=== PATIENT | male | born 1945 | race Caucasian/White ===

== ENCOUNTER → 2017-10-09 06:35 | Outpatient (CLI) | payer MEDICARE, BC, SELFPAY ==
[2017-10-09 07:46] LABS: AST(SGOT) 30 U/L (15-37); Alanine Aminotransfer ALT/SGPT 38 U/L (16-61); Albumin, Serum 3.6 g/dL (3.2-5.0); Alkaline Phosphatase 106 U/L (45-117); Bilirubin, Direct 0.13 mg/dL (0.00-0.30); Cholesterol 120 mg/dL (200); Globulin 3.8 g/dL (2.2-4.2); High Density Lipoprotein 29 mg/dL; Protein, Total 7.4 g/dL (6.4-8.2); Triglycerides 181 mg/dL; Very Low Density Lipoprotein 36 mg/dL (5-40)
== END ==
PROVIDERS: Nurse Practitioner Family; Family Provider Family Medicine; PCP Family Medicine; Visit Provider Internal Medicine Cardiovascular Disease
DX: E78.5 Hyperlipidemia, unspecified (principal); Z79.899 Other long term (current) drug therapy
CPT/HCPCS: 36415; 80061; 80076

== ENCOUNTER → 2018-01-10 09:24 | Outpatient (CLI) | payer MEDICARE, BC, SELFPAY ==
--- NOTE | 2018-01-10 09:26 | STE_ITS ---
Reason For Study: CAD, S/P CABG Stress Results Protocol: Lucas Protocol Maximum Predicted HR: 148 bpm Target HR: 126 bpm% Max imum Predicted HR: 89 % DurationHeart Rate Stage (mm:ss) (bpm) BPCom ment Baseline 45 138/82 No Chest Pain Lucas Protocol Stage I 3:00 86 130/80No Chest Pain Lucas Protocol Stage II 3:00 11 1 164/78No Chest Pain Lucas Protocol Stage III 2:00 13 1 180/72No Chest Pain; Positive Left Hip Pain Recovery 86 134/76 No Chest Pain Stress Duration: 8:00 mm:ss Maximum Stress HR: 131 bpmM ETS: 10 Baseline Echocardiogram Findings The estimated ejection fraction is 65 %. Stress Echo Wall motion Data Resting WMIntermediate WMStress WM Resting Wall Motion Wall Motion Stress No regional wall motion No regional wall motion abnormalities noted. abnormalities noted. EKG Data The baseline ECG displays normal sinus rhythm. The patient exercised according to the regular Lucas protocol for a total duration of 8:00. The maximum heart rate attained was 131 beats per minute. This was 88% of maximum predicted heart rate. The patient exercised into stage 3 of the Lucas protocol. During stress, there were no ST or T wave changes noted to suggest ischemia. No clinical angina was noted. No arrhythmias noted. Interpretation Summary The estimated ejection fraction is 65 %. Normal, adequate, treadmill echocardiogram. Negative for ischemia by EKG and echocardiographic anterior. No anginal symptoms noted. No arrhythmias noted. Appropriate blood pressure response to exercise. Average exercise capacity for age. Test terminated due to left hip pain. Final LVEF is 75%. No complications. Ordering Physician: Margarito Deras Referring Physician: Margarito Deras Performed By: Maricruz Doherty RDCS
== END ==
PROVIDERS: Family Provider Family Medicine; PCP Family Medicine; Referring Provider Internal Medicine Cardiovascular Disease; Visit Provider Internal Medicine Cardiovascular Disease
DX: I25.10 Atherosclerotic heart disease of native coronary artery without angina pectoris (principal); I25.2 Old myocardial infarction; I10 Essential (primary) hypertension; E78.5 Hyperlipidemia, unspecified; Z95.1 Presence of aortocoronary bypass graft
CPT/HCPCS: 93017; 93350

== ENCOUNTER → 2018-05-18 08:10 | Outpatient (CLI) | payer MEDICARE, BC, SELFPAY ==
[2017-10-09 14:29] VITALS: BMI 26.6
[2018-05-18 09:42] LABS: AST(SGOT) 22 U/L (15-37); Alanine Aminotransfer ALT/SGPT 38 U/L (16-61); Albumin, Serum 3.9 g/dL (3.2-5.0); Alkaline Phosphatase 93 U/L (45-117); Bilirubin, Direct 0.14 mg/dL (0.00-0.30); Cholesterol 149 mg/dL (200); Globulin 3.4 g/dL (2.2-4.2); High Density Lipoprotein 39 mg/dL; Protein, Total 7.3 g/dL (6.4-8.2); Triglycerides 135 mg/dL; Very Low Density Lipoprotein 27 mg/dL (5-40)
== END ==
PROVIDERS: Family Provider Family Medicine; PCP Family Medicine; Referring Provider Nurse Practitioner Family; Visit Provider Nurse Practitioner Family
DX: E78.5 Hyperlipidemia, unspecified (principal)
CPT/HCPCS: 36415; 80061; 80076

== ENCOUNTER → 2018-06-30 09:29 | Outpatient (CLI) | payer MEDICARE, BC, SELFPAY ==
[2018-05-21 13:21] VITALS: BMI 27.4
[2018-06-30 10:37] LABS: AST(SGOT) 32 U/L (15-37); Alanine Aminotransfer ALT/SGPT 47 U/L (16-61); Albumin, Serum 3.7 g/dL (3.2-5.0); Alkaline Phosphatase 100 U/L (45-117); Bilirubin, Direct 0.16 mg/dL (0.00-0.30); Cholesterol 120 mg/dL (200); Globulin 3.4 g/dL (2.2-4.2); High Density Lipoprotein 31 mg/dL; Protein, Total 7.1 g/dL (6.4-8.2); Triglycerides 150 mg/dL; Very Low Density Lipoprotein 30 mg/dL (5-40)
== END ==
PROVIDERS: Family Provider Family Medicine; PCP Family Medicine; Referring Provider Internal Medicine Cardiovascular Disease; Visit Provider Internal Medicine Cardiovascular Disease
DX: E78.5 Hyperlipidemia, unspecified (principal); I25.2 Old myocardial infarction
CPT/HCPCS: 36415; 80061; 80076

== ENCOUNTER 2018-08-21 13:03 | Inpatient (IN) | payer MEDICARE, BC, SELFPAY ==
[2018-05-21 13:21] VITALS: BMI 27.4
[2018-08-21] VITALS (14 sets, daily range): BP systolic 108–174; BP diastolic 57–84; PULSE 43–72; RESP 14–22; TEMP 36–37.2; O2SAT 96–100; BMI 27.8; BMI 27.9; BMI 28.0
--- NOTE | 2018-08-21 13:10 | RAD_ITS ---
STUDY: X-RAY - RIGHT TIBIA AND FIBULA REASON FOR EXAM: Male, 72 years old. Large laceration. TECHNIQUE: AP and lateral view(s) of the tibia and fibula were obtained. COMPARISON: None. FINDINGS: Normal visualized tibia. Normal visualized fibula. Large laceration is seen overlying the lower half of the leg. No radiopaque foreign body is present. RAD/Tibia & Fibula 2 Views IMPRESSION: Large laceration. No radiopaque foreign body is seen. Electronically Signed: Gm Helton, at 14:03 EDT , Service support ,
[2018-08-21] MEDS: Diphth,Pertuss(Acell),Tet Vac 0.5 ML Vial IM (13:27)
[2018-08-21] MEDS: Cefazolin 1 GM/50 ML BAG IV (13:33)
--- NOTE | 2018-08-21 13:38 | ED.VIS.GEN ---
History of Present Illness Chief Complaint: Trauma Informant: Patient Onset: Today Context: Sudden Onset Timing: Continuous Quality: Blunt trauma anterior distal right leg Location: Anterior distal right leg Current Severity: Moderate Maximum Severity: Moderate Worsened by: Nothing Relieved by: Nothing Associated Symptoms: No associated symptoms Narrative: Patient was working on an air compressor. Air compressor fell. He sustained what paramedics described as a degloving injury of his distal right leg. He denies history diabetes. He has history of coronary disease, hypertension and dyslipidemia. He is on aspirin. He is on no anticoagulant. He denies antibiotic allergies. He denies symptoms to suggest peripheral arterial disease. 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 Past Medical History - Allergies and Home Meds Allergies/Adverse Reactions: Allergies No Known Allergies Allergy (Verified 05/21/18 13:24) Primary Care Physician: Gabe Rodriguez MD [Primary Care Provider] - Prior records reviewed: Yes Surgical History: coronary bypass surgery, total knee arthroplasty Lives: Spouse/ Significant Other Smoking Status: Former smoker Alcohol: None Review of Systems General: Denies: Chills, Fever, Sweats Eyes: Denies: Visual changes - bilaterally, Diplopia ENT: Denies: Rhinorrhea, Sore throat Cardiovascular: Denies: Chest pain, Palpitations Respiratory: Denies: Dyspnea, Cough, Dyspnea on exertion Gastrointestinal: Denies: Abdominal pain, Nausea, Vomiting, Diarrhea, Melena, Hematochezia Genitourinary: Denies: Dysuria, Hematuria, Frequency Musculoskeletal: Reports: Extremity Pain - Minimal secondary to blunt trauma. Denies: Myalgias, Arthralgias, Back pain, Swelling Skin: Denies: Rash, Wounds Neurological: Denies: Headache, Weakness, Numbness Hematologic: Denies: Easy bruising, Easy bleeding Allergy: Denies: Uticaria, Swelling of the mouth Physical Exam Vital Signs/Narrative: Vital Signs Temp Pulse Resp BP Pulse Ox 08/21/18 13:08 98.9 F 98 08/21/18 13:03 97.9 F 53 L 16 174/82 H 98 Inital Vital Signs reviewed: Yes General: Well nourished, Well developed, No Acute Distress Head: Normocephalic, Atraumatic Eyes: Perrl, EOMI ENT: Moist mucous membranes, No rhinorrhea Neck: Supple, Nontender Cardiovascular: Regular rate, Regular rhythm, No murmurs Respiratory: No distress, CTA bilaterally, Chest nontender Abdomen: Soft, Nontender, Nondistended, Normal bowel sounds Back: Nontender, Normal Inspection Extremities: No edema, Tenderness, - - Is an upside down laceration anterior mid to distal right leg with exposure of tibia and fascia. Patient is able to dorsi and plantarflex his foot. He is able to plantar and dorsiflex his toes. PT pulses palpable and 2+. Unable to palpate DP pulse either side. Capillary refill in toes is normal. Skin: Normal color, No rash Neurological: Alert, Oriented x3, Cranial nerves II-XII grossly intact, Normal Strength, Normal Sensation. Negative for: Normal Gait Psychological: Normal affect, Normal Mood Diagnostic/Tx/Re-eval 2 view x-ray of the right hip tibia reveals significant soft tissue injury with a small foreign body noted near the junction of the mid and distal third of the leg. Patient was made n.p.o. Patient received 1 g of Ancef. Contacted Dr. Woodard for operative repair. She has seen patient and plans to take him to the OR. Will obtain EKG and blood work preoperatively. He requested hospitalist for medical clearance/risk stratification. The hospitalist has been paged. ED Disposition - Plan for ED Patient: Disposition: Acute Care Hospital [facility] Diagnosis: Laceration of leg not thigh, right, with tendon involvement Referrals: Gabe Rodriguez MD [Primary Care Provider] -
--- NOTE | 2018-08-21 13:40 | EKG12_ITS ---
Test Reason : TRAUMA Blood Pressure : / mmHG Vent. Rate : 043 BPM Atrial Rate : 043 BPM P-R Int : 192 ms QRS Dur : 078 ms QT Int : 460 ms P-R-T Axes : 054 054 054 degrees QTc Int : 388 ms Marked sinus bradycardia Abnormal ECG Confirmed by JAVY HUFFMAN ([id number]), sound editor ADRIANA DORMAN ([id number]) on 08/24/2018 11:07:19 AM Referred By: Jennie Woodard Confirmed By:JAVY HUFFMAN
--- NOTE | 2018-08-21 13:52 | PCM.CONS.GEN ---
Problem List (1) Right leg pain Status: Chronic (2) Laceration of leg not thigh, right, with tendon involvement Status: Acute Qualifiers: Encounter type: initial encounter Qualified Code(s): S81.811A - Laceration without foreign body, right lower leg, initial encounter; S86.921A - Laceration of unspecified muscle(s) and tendon(s) at lower leg level, right leg, initial encounter Reason for Consult Date of Consultation: 08/21/18 Reason for Consultation: leg injury History of Present Illness: The patient is a 72 year old M was seen in the ER for injury that occurred at 12:30 today when a cast iron air compressor fell on his right saleh off of a shelf. He denies other injuries. A tourniquet was placed and he was taken to the ER. He denies new loss of feeling or pulsatile bleeding. His pain is mild to moderate. He denies previous claudication prior to this injury or previous known peripheral vascular disease. He does report a h/o cardiac disease and former smoking habits. He remains active at work. His tetanus has been updated today. Past Medical History Past Medical History (Chronic Problems): Chronic Problems (Last Reviewed 05/21/18 @ 13:15 by Annette Mahmood) Right leg pain (Chronic) CAD (coronary artery disease) (Chronic) 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) Atherosclerosis of coronary artery of [place] heart without angina pectoris (Chronic) CABG x 3 ARORA-LAD, SVG-PDA, SVG-PLB Cx 04/13/2007 H/O coronary artery bypass surgery (Chronic 04/13/07) CABG x 3 ARORA-LAD, SVG-PDA, SVG-PLB Cx 04/13/2007 Hypertension (Chronic) Hyperlipemia (Chronic) Medical History: Medical History (Last Reviewed 05/21/18 @ 13:15 by Annette Mahmood) Phlegmasia cerulea dolens (Chronic) I80.209 Old myocardial infarction (Chronic) I25.2 Atherosclerosis of coronary artery of [place] heart without angina pectoris (Chronic) I25.10 CABG x 3 ARORA-LAD, SVG-PDA, SVG-PLB Cx 04/13/2007 Hypertension (Chronic) I10 Hyperlipemia (Chronic) E78.5 Lower GI bleed 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 [Ecotrin] 81 mg PO DAILY@0800 08/21/18 Atorvastatin Calcium [Lipitor] 80 mg PO QHS 08/21/18 Lisinopril [Prinivil] 5 mg PO DAILY 08/21/18 Metoprolol Tartrate [Lopressor 12.5 mg PO BID 08/21/18 (beta shannan)] [place]-3 Fatty Acids/Fish Oil 1 each PO BID 08/21/18 [[place] 3 1,000 mg Softgel] Ranitidine HCl [Zantac 75] 75 mg PO DAILY PRN PRN 08/21/18 Surgical History: Surgical History (Last Reviewed 05/21/18 @ 13:15 by Annette Mahmood) H/O coronary artery bypass surgery (Chronic) Onset Date: 04/13/07 Z95.1 CABG x 3 ARORA-LAD, SVG-PDA, SVG-PLB Cx 04/13/2007 H/O colonoscopy with polypectomy Z98.890, Z86.010 History of total left knee replacement (TKR) Z96.652 repair of renal artery aneurysm Surgical History: coronary bypass surgery, total knee arthroplasty Lives: Spouse/ Significant Other Smoking Status: Former smoker Alcohol: None - *Family History Maternal Family History: Family History (Last Reviewed 05/21/18 @ 13:15 by Annette Mahmood) Father CAD (coronary artery disease) History Items: No pertinent history Paternal Family History: Family History (Last Reviewed 05/21/18 @ 13:15 by Annette Mahmood) Father CAD (coronary artery disease) History Items: Heart Disease Review of Systems Constitutional: Denies: Chills, Fever, Fatigue HEENT: Denies: Sore Throat Cardiovascular: Denies: Chest Pain, Claudication Respiratory: Denies: Shortness of Breath Gastrointestinal: Denies: Nausea, Vomiting Musculoskeletal: Reports: Leg Pain. Denies: Foot Pain Skin: Reports: Skin Changes, Wounds Neurological: Reports: Numbness - left leg only after knee replacement, not to right lower extremity Psychiatric: Reports: Anxiety Hematologic/ Lymphatic: Denies: Easy Bruising, Easy Bleeding Patient Problems: Active and Suspected Problems (Last Reviewed 05/21/18 @ 13:15 by Annette Mahmood) Laceration of leg not thigh, right, with tendon involvement (Acute) Laceration (Acute) - Physical Exam General: Alert, Oriented x3, Cooperative HEENT: Atraumatic Extremities: No cyanosis, Capillary Refill Less than 3 Seconds - all digits of right foot and to all traumatic laceration flap site. There is some duskiness to the apex of the flap noted. no pulsatile bleeding was noted., Diminished Peripheral Pulses - non palpable bilateral DP. 2/4 PT palpable bilateral. mild lower extremity edema right Skin: Ulcer/ Wound - 10.5 x 13.5 cm x 0.8 cm deep anterior leg laceration with exposed healthy appearing tibia crest. There is also exposed medial compartment muscle belly noted. The anterior compartment is also exposed and tendons/ muscles remain in their sheath. no purulence, no erythema, no streaking, no odor noted. no kalia necrosis. the peripheral skin is hairless and atrophic. Musculoskeletal: No Tenderness to Palpation of Joints or Extremities, Tenderness - pain with acute wound manipulation noted. compartements remain soft to palpate right lower limb, - - AROM digits x 10. 5/5 ankle dorsiflexion, plantarflexion, eversion noted. 4-/5 resistive inversion with guarding noted / pain apprehension. negative bib and carrington signs bilateral Neurological: Sensory exam intact to light touch and pain - foot, ankle, leg dermatomes intact right and diminished, left (he reports this occurred after his leg surgery) Psych/Mental Status: Normal Affect, Appropriate Vital Signs Temp Pulse Resp BP Pulse Ox 98.9 F 53 L 16 174/82 H 98 08/21/18 13:08 08/21/18 13:03 08/21/18 13:03 08/21/18 13:03 08/21/18 13:08 Oxygen Delivery Method Room Air Weight: 90.6 kg Body Mass Index (BMI) 27.8 Assessment/Plan All Active Problems (Last Reviewed 05/21/18 @ 13:15 by Annette Mahmood) Laceration of leg not thigh, right, with tendon involvement (Acute) Laceration (Acute) Deep laceration with exposed bone and compromise muscle tissue right leg pain medical comorbidities I reviewed and discussed his case. Xrays were negative for acute fracture or retained foreign body. Tetanus updated this afternoon in ER. CBC, CMP, EKG were ordered. I recommend operating room debridement, irrigation, closure of traumatic flap, deep wound culture, and wound vac application. He is amendable to proceed. He has been NPO since 11:30 am. He has a significant past medical history of cardiac disease including previous myocardial infarctions and CABG procedures, HTN, and hyperlipidemia. He denies previous anesthesia complications. He denies being on an anticoagulation medication at this time. I anticipate this can be completed with MAC/local and recommend 24 hrs of antibiotics due to the amount of deep tissue exposure including bone and soft tissue loss. Cefazolin was administered in the ER. I anticipate he will be placed in a splint after the procedure and will remain temporarily non weightbearing with an assistive device to reduce repair tension. I will coordinate operating room availability and clearance for surgery with anesthesia as well as the hospitalist. He appears to have gross perfusion with palpable and audible PT pulse. He denied claudication. There is a lack of DP pulse and health history risk for vascular disease including cardiac disease and smoking history. Vascular non invasive screening will be planned after this acute injury is repaired to screen for vascular disease. This case was discussed with ER physician, Dr. Helton. The preoperative indications, planned procedure, possible benefits, risks, complications, and anticipated healing time and management were discussed in detail with patient. All of his questions were answered. No 100% guarantee was made. He understands risks and complications may include but are not limited to the following: Pain, delayed or nonhealing, infection, need for revisional surgery, loss of sensation, complex regional pain syndrome, arthritis, loss of limb, function, life, blood clot or allergic reaction. Medical clearance was reviewed and discussed with hospitalist, Dr. Perez. Upon review of his CBC and CMP he is only mildly anemic. It is noted he routinely follows with Dr. 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 He is considered stable to proceed at this time with relatively low risk. I will continue to follow up with him while in house. Thank you for the consultation. Please do not hesitate to call if you have any questions. Jennie Woodard DPM, [facility] [phone]
--- NOTE | 2018-08-21 13:56 | CON.PCM_ITS ---
Problem List (1) Right leg pain Status: Chronic (2) Laceration of leg not thigh, right, with tendon involvement Status: Acute Qualifiers: Encounter type: initial encounter Qualified Code(s): S81.811A - Laceration without foreign body, right lower leg, initial encounter; S86.921A - Laceration of unspecified muscle(s) and tendon(s) at lower leg level, right leg, initial encounter Reason for Consult Date of Consultation: 08/21/18 Reason for Consultation: leg injury History of Present Illness: The patient is a 72 year old M was seen in the ER for injury that occurred at 12:30 today when a cast iron air compressor fell on his right saleh off of a shelf. He denies other injuries. A tourniquet was placed and he was taken to the ER. He denies new loss of feeling or pulsatile bleeding. His pain is mild to moderate. He denies previous claudication prior to this injury or previous known peripheral vascular disease. He does report a h/o cardiac disease and former smoking habits. He remains active at work. His tetanus has been updated today. Past Medical History Past Medical History (Chronic Problems): Chronic Problems (Last Reviewed 05/21/18 @ 13:15 by Annette Mahmood) Right leg pain (Chronic) CAD (coronary artery disease) (Chronic) 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) Atherosclerosis of coronary artery of [place] heart without angina pectoris (Chronic) CABG x 3 ARORA-LAD, SVG-PDA, SVG-PLB Cx 04/13/2007 H/O coronary artery bypass surgery (Chronic 04/13/07) CABG x 3 ARORA-LAD, SVG-PDA, SVG-PLB Cx 04/13/2007 Hypertension (Chronic) Hyperlipemia (Chronic) Medical History: Medical History (Last Reviewed 05/21/18 @ 13:15 by Annette Mahmood) Phlegmasia cerulea dolens (Chronic) I80.209 Old myocardial infarction (Chronic) I25.2 Atherosclerosis of coronary artery of [place] heart without angina pectoris (Chronic) I25.10 CABG x 3 ARORA-LAD, SVG-PDA, SVG-PLB Cx 04/13/2007 Hypertension (Chronic) I10 Hyperlipemia (Chronic) E78.5 Lower GI bleed 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 [Ecotrin] 81 mg PO DAILY@0800 08/21/18 Atorvastatin Calcium [Lipitor] 80 mg PO QHS 08/21/18 Lisinopril [Prinivil] 5 mg PO DAILY 08/21/18 Metoprolol Tartrate [Lopressor 12.5 mg PO BID 08/21/18 (beta shannan)] [place]-3 Fatty Acids/Fish Oil 1 each PO BID 08/21/18 [[place] 3 1,000 mg Softgel] Ranitidine HCl [Zantac 75] 75 mg PO DAILY PRN PRN 08/21/18 Surgical History: Surgical History (Last Reviewed 05/21/18 @ 13:15 by Annette Mahmood) H/O coronary artery bypass surgery (Chronic) Onset Date: 04/13/07 Z95.1 CABG x 3 ARORA-LAD, SVG-PDA, SVG-PLB Cx 04/13/2007 H/O colonoscopy with polypectomy Z98.890, Z86.010 History of total left knee replacement (TKR) Z96.652 repair of renal artery aneurysm Surgical History: coronary bypass surgery, total knee arthroplasty Lives: Spouse/ Significant Other Smoking Status: Former smoker Alcohol: None - *Family History Maternal Family History: Family History (Last Reviewed 05/21/18 @ 13:15 by Annette Mahmood) Father CAD (coronary artery disease) History Items: No pertinent history Paternal Family History: Family History (Last Reviewed 05/21/18 @ 13:15 by Annette Mahmood) Father CAD (coronary artery disease) History Items: Heart Disease Review of Systems Constitutional: Denies: Chills, Fever, Fatigue HEENT: Denies: Sore Throat Cardiovascular: Denies: Chest Pain, Claudication Respiratory: Denies: Shortness of Breath Gastrointestinal: Denies: Nausea, Vomiting Musculoskeletal: Reports: Leg Pain. Denies: Foot Pain Skin: Reports: Skin Changes, Wounds Neurological: Reports: Numbness - left leg only after knee replacement, not to right lower extremity Psychiatric: Reports: Anxiety Hematologic/ Lymphatic: Denies: Easy Bruising, Easy Bleeding Patient Problems: Active and Suspected Problems (Last Reviewed 05/21/18 @ 13:15 by Annette Mahmood) Laceration of leg not thigh, right, with tendon involvement (Acute) Laceration (Acute) - Physical Exam General: Alert, Oriented x3, Cooperative HEENT: Atraumatic Extremities: No cyanosis, Capillary Refill Less than 3 Seconds - all digits of right foot and to all traumatic laceration flap site. There is some duskiness to the apex of the flap noted. no pulsatile bleeding was noted., Diminished Peripheral Pulses - non palpable bilateral DP. 2/4 PT palpable bilateral. mild lower extremity edema right Skin: Ulcer/ Wound - 10.5 x 13.5 cm x 0.8 cm deep anterior leg laceration with exposed healthy appearing tibia crest. There is also exposed medial compartment muscle belly noted. The anterior compartment is also exposed and tendons/ muscles remain in their sheath. no purulence, no erythema, no streaking, no odor noted. no kalia necrosis. the peripheral skin is hairless and atrophic. Musculoskeletal: No Tenderness to Palpation of Joints or Extremities, Tenderness - pain with acute wound manipulation noted. compartements remain soft to palpate right lower limb, - - AROM digits x 10. 5/5 ankle dorsiflexion, plantarflexion, eversion noted. 4-/5 resistive inversion with guarding noted / pain apprehension. negative bib and carrington signs bilateral Neurological: Sensory exam intact to light touch and pain - foot, ankle, leg dermatomes intact right and diminished, left (he reports this occurred after his leg surgery) Psych/Mental Status: Normal Affect, Appropriate Vital Signs Temp Pulse Resp BP Pulse Ox 98.9 F 53 L 16 174/82 H 98 08/21/18 13:08 08/21/18 13:03 08/21/18 13:03 08/21/18 13:03 08/21/18 13:08 Oxygen Delivery Method Room Air Weight: 90.6 kg Body Mass Index (BMI) 27.8 Assessment/Plan All Active Problems (Last Reviewed 05/21/18 @ 13:15 by Annette Mahmood) Laceration of leg not thigh, right, with tendon involvement (Acute) Laceration (Acute) Deep laceration with exposed bone and compromise muscle tissue right leg pain medical comorbidities I reviewed and discussed his case. Xrays were negative for acute fracture or retained foreign body. Tetanus updated this afternoon in ER. CBC, CMP, EKG were ordered. I recommend operating room debridement, irrigation, closure of traumatic flap, deep wound culture, and wound vac application. He is amendable to proceed. He has been NPO since 11:30 am. He has a significant past medical history of cardiac disease including previous myocardial infarctions and CABG procedures, HTN, and hyperlipidemia. He denies previous anesthesia complic ations. He denies being on an anticoagulation medication at this time. I anticipate this can be completed with MAC/local and recommend 24 hrs of antibiotics due to the amount of deep tissue exposure including bone and soft tissue loss. Cefazolin was administered in the ER. I anticipate he will be placed in a splint after the procedure and will remain temporarily non weightbearing with an assistive device to reduce repair tension. I will coordinate operating room availability and clearance for surgery with anesthesia as well as the hospitalist. He appears to have gross perfusion with palpable and audible PT pulse. He denied claudication. There is a lack of DP pulse and health history risk for vascular disease including cardiac disease and smoking history. Vascular non invasive screening will be planned after this acute injury is repaired to screen for vascular disease. This case was discussed with ER physician, Dr. Helton. The preoperative indications, planned procedure, possible benefits, risks, complications, and anticipated healing time and management were discussed in detail with patient. All of his questions were answered. No 100% guarantee was made. He understands risks and complications may include but are not limited to the following: Pain, delayed or nonhealing, infection, need for revisional surgery, loss of sensation, complex regional pain syndrome, arthritis, loss of limb, function, life, blood clot or allergic reaction. Medical clearance was reviewed and discussed with hospitalist, Dr. Perez. Upon review of his CBC and CMP he is only mildly anemic. It is noted he routinely follows with Dr. Deras, inspection supervisor and his last reported ejection fraction was 75%. He is considered stable to proceed at this time with relatively low risk. I will continue to follow up with him while in house. Thank you for the consultation. Please do not hesitate to call if you have any questions. Jennie Woodard DPM, [facility] [phone]
--- NOTE | 2018-08-21 14:10 | ED.RN ---
PT CONTINUES TO DENY PAIN.
[2018-08-21 14:19] LABS: Absolute Lymphocyte Count 1.34 X10^3/ul (0.83-4.51); Absolute Neutrophil Count 7.1 X10^3/uL (2.0-7.7); Basophil# 0.02 X10^3/uL; Basophil% 0.2 % (0-1); Eosinophils% 1.1 % (0-5); Hematocrit 38.7 % (40-54); Hemoglobin 12.9 g/dl (13.0-16.5); Lymphocyte # 1.34 X10^3/ul (4.0); Lymphocyte % 14.7 % (19-41); Mean Corp Hgb Conc 33.3 g/gl (32-36); Mean Corpuscular Hgb 29.3 pg (27.0-32.0); Mean Platelet Vol. 10.6 fl (6.2-12.0); Monocyte# 0.51 X10^3/uL; Monocyte% 5.6 % (0-10); Neutrophil # 7.12 X10^3/uL (2.7-7.7); Neutrophil % 78.3 % (47-70); Platelet Count 150 K/mm3 (150-450); RBC Distribution Width CV 13.8 % (11.6-14.6); RBC Distribution Width SD 44.3 fl (35.1-43.9); White Blood Count 9.1 K/mm3 (4.4-11.0)
[2018-08-21 14:20] LABS: POSITIVE COUNT NO; POSITIVE DIFFERENTIAL NO; POSITIVE MORPHOLOGY NO
[2018-08-21 14:30] LABS: Anion Gap 3 (5-15); BUN 23 mg/dL (7-18); BUN/Creat Ratio 22.3 RATIO (10-20); Calcium,Total 8.1 mg/dL (8.5-10.1); Chloride 110 mmol/L (98-107); Creatinine, Serum 1.03 mg/dL (0.70-1.30); EST Glomerular Filtration Rate 75 mL/min (>60); Est Glom Filt Rate - Afr Amer 91 mL/min (>60); Estimated Creatinine Clearance 69.05 ml/min; Glucose 124 mg/dL (74-106); Sodium Level 140 mmol/L (136-145)
--- NOTE | 2018-08-21 14:44 | CASEMGMT ---
RN CM Assessment Introduced role of RN CM to patient and Miesha at bedside.? Patient is alert, oriented and able?to participate in RN CM Assessment. ?Care providers, pharmacy, and demographics verified. Presentation: Working on a Air Compressor when Air Compressor fell on him, Per EMS degloving of Rt Leg. Plan to go to OR. Re-Admit: No Barriers/Issues: None. works for [employer]. PCP: Gabe Rodriguez Specialists: Cardio- Dr Deras Preferred Pharmacy: [facility] Insurance: [employer] A[employer]B, [employer] Rx Benefit:?Yes LNOK: Miesha Vasquez LW/HPOA: None, Declines offered information Living Arrangements:?Lives with in a SS Home, 3 steps to enter. ADL?s: Independent with ambulation and ADL's Transportation: Patient drives, will transport on DC DME: None, No preference on Company if DME needed, Prefers to stay Local HHC: None, No Preference on Agency if HHC needed SNF: None Goal: Return home, Open to HHC. DC PLAN: Home, Dr Perez at bedside s/w patient and - states plan for OR and Possible Wound Vac w/Possible DC around Monday. Possible HH RN for Wound care on DC. Possible WC. OPAL [place].
--- NOTE | 2018-08-21 14:57 | PCM.HP.STD ---
Problem List (1) Laceration Status: Acute (2) CAD (coronary artery disease) Status: Chronic (3) H/O coronary artery bypass surgery Status: Chronic Comment: CABG x 3 ARORA-LAD, SVG-PDA, SVG-PLB Cx 04/13/2007 (4) Hypertension Status: Chronic (5) Hyperlipemia Status: Chronic History of Present Illness Date of Admission: 08/21/18 Chief Complaint: Right lower extremity wound The patient is a 72 year old M with past medical history of CAD with prior CABG, hypertension, hyperlipidemia, who presented to the emergency room from home with right lower extremity wound. The patient was working in his garage and an air pump fell off of an air compressor and caught on his leg as it fell creating a large laceration on the anterior aspect of his right lower extremity saleh. EMS was called, a tourniquet was placed on the right leg, bleeding controlled, and he was brought to the emergency room. He appears comfortable in bed with dressings on his wound. No active bleeding. There is bone exposed. He is mildly anemic at 12.9. Dr. Woodard was called and plans to take the patient to the OR today for repair and probable wound VAC placement. The patient is agreeable. Currently has no complaints. No numbness/tingling in the effected extremity. He is a patient of Dr. Deras, he had a stress test December 2017 at that time it was negative for ischemia, final LVEF was 75%. He is not diabetic and he does not smoke. 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) Atherosclerosis of coronary artery of [place] heart without angina pectoris (Chronic) CABG x 3 ARORA-LAD, SVG-PDA, SVG-PLB Cx 04/13/2007 H/O coronary artery bypass surgery (Chronic 04/13/07) CABG x 3 ARORA-LAD, SVG-PDA, SVG-PLB Cx 04/13/2007 Hypertension (Chronic) Hyperlipemia (Chronic) Medical History: Medical History (Last Reviewed 05/21/18 @ 13:15 by Annette A Ela) Phlegmasia cerulea dolens (Chronic) I80.209 Old myocardial infarction (Chronic) I25.2 Atherosclerosis of coronary artery of [place] heart without angina pectoris (Chronic) I25.10 CABG x 3 ARORA-LAD, SVG-PDA, SVG-PLB Cx 04/13/2007 Hypertension (Chronic) I10 Hyperlipemia (Chronic) E78.5 Lower GI bleed 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 [Ecotrin] 81 mg PO DAILY@0800 08/21/18 Atorvastatin Calcium [Lipitor] 80 mg PO QHS 08/21/18 Lisinopril [Prinivil] 5 mg PO DAILY 08/21/18 Metoprolol Tartrate [Lopressor 12.5 mg PO BID 08/21/18 (beta shannan)] [place]-3 Fatty Acids/Fish Oil 1 each PO BID 08/21/18 [[place] 3 1,000 mg Softgel] Ranitidine HCl [Zantac 75] 75 mg PO DAILY PRN PRN 08/21/18 Surgical History: Surgical History (Last Reviewed 05/21/18 @ 13:15 by Annette Mahmood) H/O coronary artery bypass surgery (Chronic) Onset Date: 04/13/07 Z95.1 CABG x 3 ARORA-LAD, SVG-PDA, SVG-PLB Cx 04/13/2007 H/O colonoscopy with polypectomy Z98.890, Z86.010 History of total left knee replacement (TKR) Z96.652 repair of renal artery aneurysm Surgical History: coronary bypass surgery, total knee arthroplasty Lives: Spouse/ Significant Other Smoking Status: Former smoker Alcohol: None - *Family History Maternal Family History: Family History (Last Reviewed 05/21/18 @ 13:15 by Annette Mahmood) Father CAD (coronary artery disease) History Items: No pertinent history Paternal Family History: Family History (Last Reviewed 05/21/18 @ 13:15 by Annette Mahmood) Father CAD (coronary artery disease) History Items: Heart Disease Review of Systems Constitutional: Denies: Chills, Fever, Weight Change, Fatigue HEENT: Denies: Head Aches, Sinus Congestion, Sinus Drainage Cardiovascular: Denies: Chest Pain, Chest Pressure, Chest Tightness, Edema, Heaviness, Light Headedness, Palpitations Respiratory: Denies: Cough, Shortness of breath at rest, Sputum production Gastrointestinal: Denies: Abdominal Pain, Nausea, Vomiting Genitourinary: Denies: Dysuria Musculoskeletal: Reports: Leg Pain. Denies: Joint Pain, Joint Tenderness Skin: Reports: Wounds - RLE. Denies: Rash Neurological: Denies: Numbness, Tingling, Focal weakness Psychiatric: Denies: Anxiety, Depression, Homicidal Ideations, Suicidal Ideations Hematologic/ Lymphatic: Denies: Easy Bruising, Easy Bleeding VTE Information - Inpt Only VTE Present on Admission: No VTE Mechan Device Prophylaxis: None VTE Pharm Prophylaxis ordered?: Yes Patient Problems: Active and Suspected Problems (Last Reviewed 05/21/18 @ 13:15 by Annette Mahmood) Laceration of leg not thigh, right, with tendon involvement (Acute) Laceration (Acute) - Physical Exam General: Alert, Oriented x3, Cooperative HEENT: Atraumatic, PERRLA, EOMI, Normocephalic Neck: Supple, No JVD, Negative Carotid Bruits Lungs: Clear to auscultation, Normal air movement Cardiovascular: Regular rate, No murmurs Abdomen: Bowel Sounds Present, Soft, Non Tender Extremities: No edema, Capillary Refill Less than 3 Seconds Skin: - - right saleh open laceration, tibia exposed. not actively bleeding. Musculoskeletal: No Tenderness to Palpation of Joints or Extremities Neurological: Cranial nerves II-XII grossly intact Psych/Mental Status: Normal Affect, Appropriate Vital Signs Temp Pulse Resp BP Pulse Ox 98.9 F 43 L 16 131/73 H 96 08/21/18 13:08 08/21/18 14:09 08/21/18 14:09 08/21/18 14:09 08/21/18 14:09 Oxygen Delivery Method Room Air Weight: 199 lb 11.821 oz Body Mass Index (BMI) 27.8 Laboratory Tests Past 24 Hrs 08/21/18 08/21/18 14:10 14:10 WBC 9.1 RBC 4.40 L Hgb 12.9 L Hct 38.7 L MCV 88.0 MCH 29.3 MCHC 33.3 RDW 13.8 RDW Differential 44.3 H Plt Count 150 MPV 10.6 Immature Gran % (Auto) 0.100 Neut % (Auto) 78.3 H Lymph % (Auto) 14.7 L Clarke % (Auto) 5.6 Eos % (Auto) 1.1 Baso % (Auto) 0.2 Absolute Neuts (auto) 7.1 Absolute Lymphs (auto) 1.34 Total Counted Not Reportable Sodium 140 Potassium 4.0 Chloride 110 H Carbon Dioxide 27.0 Anion Gap 3 L BUN 23 H Creatinine 1.03 Estim Creat Clear Calc 69.05 Est GFR (MDRD) Af Amer 91 Est GFR (MDRD) Non-Af 75 BUN/Creatinine Ratio 22.3 H Glucose 124 H Calcium 8.1 L Assessment/Plan All Active Problems (Last Reviewed 05/21/18 @ 13:15 by Annette Mahmood) Laceration of leg not thigh, right, with tendon involvement (Acute) Laceration (Acute) 1. RLE laceration 2/2 being hit by falling metal object - to OR with Dr. Woodard today. Currently bleeding controlled without tourniquet applied. No numbness/tingling. Pain controlled. Mild anemia. Abx prophylaxis with vanc/cefazolin. Likely will receive wound vac. NWB until otherwise directed by podiatry. C/s wound nurse. 2. CAD prior CABG - 12/2017 good stress echo. Resume home meds when appropriate. EKG sinus leda - states always runs slow, no acute changes. 3. HTN/HLD - home meds DVT ppx: per surgeon This patient was seen by Farhad Esposito PA-C under the supervision of Dr. Perez.
[2018-08-21] MEDS: Bupivacaine Mpf 0.5% 30 ML VIAL (16:28)
--- NOTE | 2018-08-21 18:43 | PCM.OPRPT ---
Problem List (1) Right leg pain Status: Chronic (2) Laceration of leg not thigh, right, with tendon involvement Status: Acute Qualifiers: (3) Degloving injury Status: Acute Report of Operation Date of Procedure: 08/21/18 Pre-Operative Diagnosis: Right leg traumatic laceration / degloving injury Post-Operative Diagnosis: Right leg traumatic laceration / degloving injury Surgery/Procedure Performed:: Right leg irrigation and repair of deep widespread traumatic laceration / degloving injury including fascial tissue subcutaneous and skin flap (complex). Application of right leg elisa wound VAC Description of Surgical Findings:: Hemostasis: No tourniquet utilized, minimal electrocauterization and pressure Materials: 2-0 Vicryl and 3-0 nylon Complications: None Intraoperative findings: No deep necrosis. Peripheral apex of skin flap does appear dusky as does just proximal to the apex of the injury site. No gross signs of infection. No pulsatile bleeding was appreciated. The patient tolerated the procedure and anesthesia well. He was transported to the PACU with vital signs stable vascular status intact to the right lower extremity. He was advised to ice and elevate for pain and inflammation management. To remain nonweightbearing with the splint intact to the right lower extremity. He will be admitted for ongoing antibiotics for at least 24 hours. Postoperative orders were entered in to the computer. I will follow him closely while in house. Intraoperative cultures are pending. gore stitcher: none - Surgeon: Jennie Woodard DPM Type of Anesthesia:: General - LMA, Local - Preoperative: 20 cc of 1: 1 mixture of 1% lidocaine plain and 0.5% Marcaine plain administered and local infiltrated manner to the deep laceration repair site Specimen's removed: Swab culture aerobic and anaerobic. No additional tissue was removed Estimated Blood Loss (mL): < 200 mL Description of Procedure: Indications: This 72-year-old male with significant past medical history of CAD with history of CABG, hypertension, hyperlipidemia sustained an injury this afternoon in which a cast iron air compressor fell onto his anterior right saleh. A deep laceration / degloving injury with tissue destruction was sustained to the right anterior leg. He was taken immediately to the emergency room for evaluation. X-rays were negative for fracture. No pulsatile bleeding was noted after EMS applied tourniquet was removed. His motor function appears to be grossly intact to the right lower extremity. His tetanus was updated. He was started on IV antibiotics. Due to the deep tissue exposure and complexity of this also I recommend operating room irrigation and layered flap closure and application of wound VAC. He is amenable to proceed. The surgical consent and limb were signed. The preoperative indications, planned procedure, possible benefits, risks, complications, and anticipated healing time and management were discussed in detail with patient. All of his questions were answered. No 100% guarantee was made. He understands risks and complications may include but are not limited to the following: pain, delayed or nonhealing, infection, need for revisional surgery, loss of sensation, complex regional pain syndrome, arthritis, loss of limb, function, life, blood clot or allergic reaction. Medical clearance was reviewed and discussed with hospitalist, Dr. Perez. Upon review of his CBC and CMP he is only mildly anemic. 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 He is considered stable to proceed at this time with relatively low risk. Procedure detail: The patient was transported to the operating room via cart and placed on the operating table in supine position. Final verification of the patient, surgery, limb designation was performed via the timeout procedure. Well-padded pneumatic right thigh tourniquet was placed in case this is needed. No pulsatile bleeding was encountered throughout the case and this was not required for inflation. Preoperative local anesthetic was administered as noted. IV antibiotics had already been administered in the emergency room and he will continue this in the postoperative setting as well. Anesthesia was initiated by the anesthesia team. The right lower extremity was prepped and draped in the usual aseptic manner and surgery began with the following: Attention was first directed to the anterior large V-shaped with apex proximal wound to the leg. It measured approximately 10-1/2 cm in length and 13-1/2 cm in width with exposed tibia crest of at least 6 cm. This injury site did not appear to have any clinical or radiographic signs of fracture. There was dried hematogenous clotting and involution of the cutaneous and fascial layer into the deep wound bed. This was reapproximated in a more anatomic position in which deep closure was performed with a 2-0 Vicryl after irrigation of clots was performed. To debris was noted in the wound bed. Any nonviable necrosis of the apex of the flap was excised with a surgical scissor. Electrocauterization was used to control hemostasis and gentle pressure was applied as well. Bleeding was considered controlled well. Next, a layered closure with 2-0 Vicryl was used to reapproximate the subcutaneous tissues utilizing no touch technique. It appears the deep fascial layer was traumatically torn from the anterior tibial crest located proximal to the apex of the wound and this was passed deep to the skin with instrumentation and sutured in place utilizing no touch technique. The skin was next reapproximated utilizing horizontal mattress, simple suture, and algower techniques. Capillary fill time is brisk to all regions. It is noted at the apex and skin proximal to this laceration site is dusky and has ecchymosis. This will continue to demarcate for viability. A elisa wound VAC was next applied according to standard protocol and was secured well without leaking. Secondary dressing of ABD pads gauze and an Rex wrap were applied. Next, webril padding layer was applied and a posterior mold was secured with the lower extremity in rectus position with Rex wraps. The wound VAC port was gently placed over nonfriable proximal portion of the leg to monitor for leak status. After procedure: The patient tolerated the procedure and anesthesia well. He was transferred to the PACU vital signs stable vascular status intact to the right extremity. He will ice and elevate for pain and inflammation management. The wound VAC will stay in place on continuous for 4 to 7 days. To remain nonweightbearing with the posterior mold in place with assistive device. Physical therapy will see him tomorrow. To continue on IV cefazolin every 8 hours. Postoperative pain medications including morphine and oxycodone were ordered as needed. Medical management DVT prophylaxis per hospitalist is greatly appreciated. Nutritional supplementation, Raul, was ordered to optimize healing. I will continue to follow him closely while in-house. I reviewed the case with his family member who lives with him. Jennie Woodard DPM, [facility] - Complications None - Admit VTE Documentation VTE Present on Admission: No VTE Mechan Device Prophylaxis: SCD's VTE Pharm Prophylaxis ordered?: Yes
[2018-08-21] MEDS: Cefazolin 2 GM in 0.9% Normal Saline 100 ML IV (21:38)
[2018-08-21] MEDS: Atorvastatin Calcium 80 MG Tablet PO (21:40)
[2018-08-21] MEDS: 0.9% Normal Saline 1,000 ML 120 ML IV (21:50)
[2018-08-22] VITALS (8 sets, daily range): BP systolic 112–132; BP diastolic 52–77; PULSE 56–71; RESP 16–18; TEMP 36.5–36.9; O2SAT 94–100; BMI 27.9
[2018-08-22 06:00] LABS: Absolute Lymphocyte Count 1.08 X10^3/ul (0.83-4.51); Absolute Neutrophil Count 11.4 X10^3/uL (2.0-7.7); Hematocrit 37.6 % (40-54); Hemoglobin 12.7 g/dl (13.0-16.5); Lymphocyte # 1.08 X10^3/ul (4.0); Lymphocyte % 8.4 % (19-41); Mean Corp Hgb Conc 33.8 g/gl (32-36); Mean Corpuscular Hgb 29.5 pg (27.0-32.0); Mean Corpuscular Volume 87.2 fL (80-94); Mean Platelet Vol. 10.9 fl (6.2-12.0); Monocyte# 0.34 X10^3/uL; Monocyte% 2.6 % (0-10); Neutrophil # 11.42 X10^3/uL (2.7-7.7); Neutrophil % 88.8 % (47-70); Platelet Count 172 K/mm3 (150-450); RBC Distribution Width CV 13.7 % (11.6-14.6); RBC Distribution Width SD 42.4 fl (35.1-43.9); Red Blood Count 4.31 M/mm3 (4.6-6.2); White Blood Count 12.9 K/mm3 (4.4-11.0)
[2018-08-22] MEDS: Cefazolin 2 GM in 0.9% Normal Saline 100 ML IV ×3 (06:01→21:47)
[2018-08-22] MEDS: 0.9% Normal Saline 1,000 ML 120 ML IV ×3 (06:01→21:47)
[2018-08-22 06:04] LABS: POSITIVE COUNT NO; POSITIVE DIFFERENTIAL NO; POSITIVE MORPHOLOGY NO
--- NOTE | 2018-08-22 07:10 | PN_ITS ---
Patient Problems: Active and Suspected Problems (Last Reviewed 05/21/18 @ 13:15 by Annette Mahmood) Laceration of leg not thigh, right, with tendon involvement (Acute) Laceration (Acute) Subjective: This 72-year-old male with cardiac history was seen bedside postoperative day #1 complex traumatic laceration repair of the right lower extremity with additional application of elisa wound VAC. He denies pain, fever, chill, nausea, vomiting, shortness of breath, chest pain, calf pain. He is resting with splint in place and elevated in offloading manner. His wound VAC was checked and there appears to be no leaking. - Physical Exam General: Alert, Oriented x3, Cooperative HEENT: Atraumatic Extremities: No cyanosis, Capillary Refill Less than 3 Seconds, No Calf Tenderness - negative carrington signs bilateral. bilateral lower extremity compartme nts are soft, Diminished Peripheral Pulses, Edema - mild bilateral lower extremities Skin: - - Postoperative surgical site dressing is clean, dry, and intact without strikethrough noted. The wound VAC port was checked and there appears to be no leaking or complications Musculoskeletal: No Tenderness to Palpation of Joints or Extremities, Muscle Wa sting, - - active range of motion digits right foot Neurological: - - Epicritic sensation is intact to light touch to the digits bilateral Psych/Mental Status: Normal Affect, Appropriate Vital Signs Temp Pulse Resp BP Pulse Ox 98.5 F 65 16 128/71 H 100 08/22/18 04:42 08/22/18 04:42 08/22/18 04:42 08/22/18 04:42 08/22/18 04:42 Oxygen Flow Rate (L/min) 2 Oxygen Delivery Method Room Air Weight: 91.1 kg Body Mass Index (BMI) 28.0 Intake and Output for Last 24 Hours 08/20/18 08/21/18 08/22/18 23:59 23:59 23:59 Intake Total 1300 / 1300 1503 / 1503 Output Total 1250 / 1250 Balance 1300 / 1300 253 / 253 Laboratory Tests Past 24 Hrs 08/21/18 08/21/18 08/22/18 14:10 14:10 05:42 WBC 9.1 12.9 H RBC 4.40 L 4.31 L Hgb 12.9 L 12.7 L Hct 38.7 L 37.6 L MCV 88.0 87.2 MCH 29.3 29.5 MCHC 33.3 33.8 RDW 13.8 13.7 RDW Differential 44.3 H 42.4 Plt Count 150 172 MPV 10.6 10.9 Immature Gran % (Auto) 0.100 0.200 Neut % (Auto) 78.3 H 88.8 H Lymph % (Auto) 14.7 L 8.4 L Howard % (Auto) 5.6 2.6 Eos % (Auto) 1.1 0.0 Baso % (Auto) 0.2 0.0 Absolute Neuts (auto) 7.1 11.4 H Absolute Lymphs (auto) 1.34 1.08 Total Counted Not Reportable Not Reportable Sodium 140 Potassium 4.0 Chloride 110 H Carbon Dioxide 27.0 Anion Gap 3 L BUN 23 H Creatinine 1.03 Estim Creat Clear Calc 69.05 Est GFR (MDRD) Af Amer 91 Est GFR (MDRD) Non-Af 75 BUN/Creatinine Ratio 22.3 H Glucose 124 H Calcium 8.1 L Medical Necessity - Tobacco Use Smoking Status: Former smoker Tobacco Use: Cigarettes Assessment/Plan All Active Problems (Last Reviewed 05/21/18 @ 13:15 by Annette Mahmood) Laceration of leg not thigh, right, with tendon involvement (Acute) Laceration (Acute) POD #1 complex traumatic laceration repair of the right lower extremity with additional application of elisa wound VAC I reviewed and discussed his recent surgical intervention and ongoing plan. His dressing and wound VAC were left intact. His splint is intact I recommend keeping this in place. His pain is controlled. It is noted there were no local signs of infection noted during the irrigation and closure procedure yesterday. A deep wound culture was obtained and this is not demonstrating any bacterial growth at this time. It is also noted that his tetanus has been updated. He will remain nonweightbearing to the right lower extremity with a splint intact to prevent muscle and tendon movement deep to the laceration repair site. Physical therapy will work with him later today as a part of the discharging process. He can take Tylenol if needed for any pain that may occur in the future. It is okay to discharge later today after he sees physical therapy. I also recommend outpatient noninvasive vascular studies to confirm his blood flow status. His perfusion appears to be this is grossly intact with audible and palpable PT pulse, however the DP pulse is not palpable or audible. I do not recommend performing this test today due to the recent repair site which is in close proximity to the cuff application. Discharge recommendations will be placed in the computer. Please not hesitate to call if you have any questions. Medical management and DVT prophylaxis per primary team is greatly appreciated. Jennie Woodard DPM, [facility] [phone]
--- NOTE | 2018-08-22 09:18 | DCINST_ITS ---
Discharge Diet: No Restrictions Discharge Activity: May Not Shower Weight Bearing Status: No weight bearing Keep extremity elevated above heart level: Right Leg Call your doctor if your incision/area has: Continuous Slow Oozing, Sudden Increased Bleeding, Increased Pain/ Swelling, Increased Redness, Foul Smelling Discharge, Swelling at the incision site Call your doctor if you observe: Fever of 101 or Higher, Swelling in the ankles, Calf discomfort, Uncontrolled pain Cleanse incision/area with: Keep Dressing Clean & Dry, - - keep YESIKA wound vac on constant. Notify physician if any of the alert lights come on. This has been placed and can remain intact for 1 week until he follows up at the wound center. He needs to bring his next port/batteries to that visit. He does not require home health dressing care. Allergies/Adverse Reactions: Allergies No Known Allergies Allergy (Verified 05/21/18 13:24) Medications to take at Discharge Aspirin E.C. [Ecotrin] 81 mg PO DAILY@0800 08/21/18 Atorvastatin Calcium [Lipitor] 80 mg PO QHS 08/21/18 Lisinopril [Prinivil] 5 mg PO DAILY 08/21/18 Metoprolol Tartrate [Lopressor (beta shannan)] 12.5 mg PO BID 08/21/18 [place]-3 Fatty Acids/Fish Oil [[place] 3 1,000 mg Softgel] 1 each PO BID 08/21/18 Ranitidine HCl [Zantac 75] 75 mg PO DAILY PRN PRN 08/21/18 Primary Care Physician: Gabe Rodriguez MD [Primary Care Provider] - Test Results: Test results from this visit will be discussed in further detail at your follow- up appointment, if applicable. Please Follow Up With: Jennie Woodard DPM When: 1 week at wound healing center. Call [phone] to schedule. Proposed Discharge Date: 08/22/18
[2018-08-22] MEDS: Aspirin E.C. 81 MG Tablet PO (09:22)
[2018-08-22] MEDS: Enoxaparin 40 MG/0.4 ML Syringe SC (09:24)
[2018-08-22] MEDS: Lisinopril 5 MG Tablet PO (09:24)
[2018-08-22] MEDS: Metoprolol Tartrate 25 MG Tablet 12.5 MG PO (09:24)
--- NOTE | 2018-08-22 12:20 | PCM.PROGNOTE ---
<Farhad Esposito - Last Filed: 08/22/18 12:20> Patient Problems: Active and Suspected Problems (Last Reviewed 05/21/18 @ 13:15 by Annette Mahmood) Laceration of leg not thigh, right, with tendon involvement (Acute) Laceration (Acute) Subjective: Patient denies all pain, numbness, tingling. No SOB. Mild cough since surgery. No fever/chills. Tolerating PO without issues. Has picovac in place, plan for outpatient vac. - Physical Exam General: Alert, Oriented x3, Cooperative HEENT: Atraumatic, PERRLA, EOMI, Normocephalic Neck: Supple, No JVD, Negative Carotid Bruits Lungs: Clear to auscultation, Normal air movement Cardiovascular: Regular rate, No murmurs Abdomen: Bowel Sounds Present, Soft, Non Tender Extremities: No edema, - - wound dressed appropriately Skin: No rashes, No breakdown Musculoskeletal: No Tenderness to Palpation of Joints or Extremities Neurological: Cranial nerves II-XII grossly intact Psych/Mental Status: Normal Affect, Appropriate, Alert and oriented to time, place, person, mood and affect Vital Signs Temp Pulse Resp BP Pulse Ox 97.7 F L 71 18 127/65 H 94 08/22/18 09:30 08/22/18 09:30 08/22/18 09:30 08/22/18 09:30 08/22/18 09:30 Oxygen Flow Rate (L/min) 2 Oxygen Delivery Method Room Air Weight: 200 lb 13.458 oz Body Mass Index (BMI) 28.0 Intake and Output for Last 24 Hours 08/20/18 08/21/18 08/22/18 23:59 23:59 23:59 Intake Total 1300 / 1300 1503 / 1503 Output Total 1250 / 1250 Balance 1300 / 1300 253 / 253 Laboratory Tests Past 24 Hrs 08/21/18 08/21/18 08/22/18 14:10 14:10 05:42 WBC 9.1 12.9 H RBC 4.40 L 4.31 L Hgb 12.9 L 12.7 L Hct 38.7 L 37.6 L MCV 88.0 87.2 MCH 29.3 29.5 MCHC 33.3 33.8 RDW 13.8 13.7 RDW Differential 44.3 H 42.4 Plt Count 150 172 MPV 10.6 10.9 Immature Gran % (Auto) 0.100 0.200 Neut % (Auto) 78.3 H 88.8 H Lymph % (Auto) 14.7 L 8.4 L Jewell % (Auto) 5.6 2.6 Eos % (Auto) 1.1 0.0 Baso % (Auto) 0.2 0.0 Absolute Neuts (auto) 7.1 11.4 H Absolute Lymphs (auto) 1.34 1.08 Total Counted Not Reportable Not Reportable Sodium 140 Potassium 4.0 Chloride 110 H Carbon Dioxide 27.0 Anion Gap 3 L BUN 23 H Creatinine 1.03 Estim Creat Clear Calc 69.05 Est GFR (MDRD) Af Amer 91 Est GFR (MDRD) Non-Af 75 BUN/Creatinine Ratio 22.3 H Glucose 124 H Calcium 8.1 L Medical Necessity - Tobacco Use Smoking Status: Former smoker Tobacco Use: Cigarettes Assessment/Plan All Active Problems (Last Reviewed 05/21/18 @ 13:15 by Annette Mahmood) Laceration of leg not thigh, right, with tendon involvement (Acute) Laceration (Acute) 1. RLE laceration 2/2 being hit by falling metal object - POD#[address] Woodard following. Continue ancef. Picovac in place, plan to swap to outpatient vac. Continue wound care. Mild leukocytosis likely reactive - will check in AM. No pain. PMS intact. No fever. H/H stable. Follow wound cultures. 2. CAD prior CABG - 12/2017 good stress echo. Resume home meds when appropriate. EKG sinus lead - states always runs slow, no acute changes. 3. HTN/HLD - home meds DVT ppx: per surgeon DC planning: needs homegoing vac, will need [facility] for wound vac. This patient was seen by Farhad Esposito PA-C under the supervision of Dr. Alva <Mike Alva - Last Filed: 08/22/18 15:43> Subjective: Patient was seen by patrol sergeant. Patient had laceration wound, degloving type. It was well irrigated and sutured by patrol sergeant. Patient had Rex wrap bandage applied. Has elisa VAC in place. No pain. No fever chills or hypotension. - Physical Exam General: Alert, Oriented x3, Cooperative HEENT: Atraumatic, PERRLA, EOMI, Normocephalic Neck: Supple, No JVD, Negative Carotid Bruits Lungs: Clear to auscultation, Normal air movement, No wheeze, No rales, - Cardiovascular: Regular rate, Regular Rhythm, Normal S1, Normal S2, No murmurs, - - CABG scar. Abdomen: Bowel Sounds Present, Soft, Non Tender, Non-Distended, - Extremities: Capillary Refill Less than 3 Seconds, - - wound dressed appropriately Has Rex wrap bandage applied. Small elisa drain. Skin: Ulcer/ Wound - Traumatic injury, laceration wound status post wound closure. Musculoskeletal: No Tenderness to Palpation of Joints or Extremities Lymphatic: No Cervical, Supraclavicular, or Inguinal Adenopathy Neurological: Cranial nerves II-XII grossly intact Psych/Mental Status: Normal Affect, Appropriate Vital Signs Temp Pulse Resp BP Pulse Ox 98.0 F 56 L 18 112/61 96 08/22/18 13:07 08/22/18 13:07 08/22/18 13:07 08/22/18 13:07 08/22/18 13:07 Oxygen Flow Rate (L/min) 2 Oxygen Delivery Method Room Air Weight: 200 lb 13.458 oz Body Mass Index (BMI) 28.0 Intake and Output for Last 24 Hours 08/20/18 08/21/18 08/22/18 23:59 23:59 23:59 Intake Total 1300 / 1300 3061 / 3061 Output Total 1750 / 1750 Balance 1300 / 1300 1311 / 1311 Microbiology Past 72 Hours 08/21/18 17:10 Gram Stain - Final Wound - Aerobic & Anaerobic Swabs Wound Culture - Preliminary No growth-Final to follow Laboratory Tests Past 24 Hrs 08/22/18 05:42 WBC 12.9 H RBC 4.31 L Hgb 12.7 L Hct 37.6 L MCV 87.2 MCH 29.5 MCHC 33.8 RDW 13.7 RDW Differential 42.4 Plt Count 172 MPV 10.9 Immature Gran % (Auto) 0.200 Neut % (Auto) 88.8 H Lymph % (Auto) 8.4 L Jewell % (Auto) 2.6 Eos % (Auto) 0.0 Baso % (Auto) 0.0 Absolute Neuts (auto) 11.4 H Absolute Lymphs (auto) 1.08 Total Counted Not Reportable Assessment/Plan This patient was seen in conjunction with Farhad MCGOWAN. I have independently interviewed and examined the patient and reviewed pertinent history, examination findings, laboratory and plan of management. I have reviewed the note and agree with the documented findings with the few additional points. In brief, patient is admitted for large right lower leg laceration wound after heavy air compression fell on his leg. The wound was taken care of by patrol sergeant. Patient had irrigation and wound closure with a small elisa drain. Patient is on IV Ancef 2 g every 8 hourly. Patient has other comorbidities including coronary artery status post CABG. 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 Patient had a stress echo in December 2017 and reported negative for ischemia by EKG and echocardiographic criteria. No anginal symptoms. EF 65%. I have discussed my assessment with Farhad MCGOWAN and orders have been reviewed. Code Visit Inpatient E&M: 25337 Subs Hosp L2
--- NOTE | 2018-08-22 12:24 | PN_ITS ---
<Farhad Esposito - Last Filed: 08/22/18 12:20> Patient Problems: Active and Suspected Problems (Last Reviewed 05/21/18 @ 13:15 by Annette Mahmood) Laceration of leg not thigh, right, with tendon involvement (Acute) Laceration (Acute) Subjective: Patient denies all pain, numbness, tingling. No SOB. Mild cough since surgery. N o fever/chills. Tolerating PO without issues. Has picovac in place, plan for outpatient vac. - Physical Exam General: Alert, Oriented x3, Cooperative HEENT: Atraumatic, PERRLA, EOMI, Normocephalic Neck: Supple, No JVD, Negative Carotid Bruits Lungs: Clear to auscultation, Normal air movement Cardiovascular: Regular rate, No murmurs Abdomen: Bowel Sounds Present, Soft, Non Tender Extremities: No edema, - - wound dressed appropriately Skin: No rashes, No breakdown Musculoskeletal: No Tenderness to Palpation of Joints or Extremities Neurological: Cranial nerves II-XII grossly intact Psych/Mental Status: Normal Affect, Appropriate, Alert and oriented to time, place, person, mood and affect Vital Signs Temp Pulse Resp BP Pulse Ox 97.7 F L 71 18 127/65 H 94 08/22/18 09:30 08/22/18 09:30 08/22/18 09:30 08/22/18 09:30 08/22/18 09:30 Oxygen Flow Rate (L/min) 2 Oxygen Delivery Method Room Air Weight: 200 lb 13.458 oz Body Mass Index (BMI) 28.0 Intake and Output for Last 24 Hours 08/20/18 08/21/18 08/22/18 23:59 23:59 23:59 Intake Total 1300 / 1300 1503 / 1503 Output Total 1250 / 1250 Balance 1300 / 1300 253 / 253 Laboratory Tests Past 24 Hrs 08/21/18 08/21/18 08/22/18 14:10 14:10 05:42 WBC 9.1 12.9 H RBC 4.40 L 4.31 L Hgb 12.9 L 12.7 L Hct 38.7 L 37.6 L MCV 88.0 87.2 MCH 29.3 29.5 MCHC 33.3 33.8 RDW 13.8 13.7 RDW Differential 44.3 H 42.4 Plt Count 150 172 MPV 10.6 10.9 Immature Gran % (Auto) 0.100 0.200 Neut % (Auto) 78.3 H 88.8 H Lymph % (Auto) 14.7 L 8.4 L [place] % (Auto) 5.6 2.6 Eos % (Auto) 1.1 0.0 Baso % (Auto) 0.2 0.0 Absolute Neuts (auto) 7.1 11.4 H Absolute Lymphs (auto) 1.34 1.08 Total Counted Not Reportable Not Reportable Sodium 140 Potassium 4.0 Chloride 110 H Carbon Dioxide 27.0 Anion Gap 3 L BUN 23 H Creatinine 1.03 Estim Creat Clear Calc 69.05 Est GFR (MDRD) Af Amer 91 Est GFR (MDRD) Non-Af 75 BUN/Creatinine Ratio 22.3 H Glucose 124 H Calcium 8.1 L Medical Necessity - Tobacco Use Smoking Status: Former smoker Tobacco Use: Cigarettes Assessment/Plan All Active Problems (Last Reviewed 05/21/18 @ 13:15 by Annette Mahmood) Laceration of leg not thigh, right, with tendon involvement (Acute) Laceration (Acute) 1. RLE laceration 2/2 being hit by falling metal object - POD#[address] Woodard following. Continue ancef. Picovac in place, plan to swap to outpatient vac. Continue wound care. Mild leukocytosis likely reactive - will check in AM. No pain. PMS intact. No fever. H/H stable. Follow wound cultures. 2. CAD prior CABG - 12/2017 good stress echo. Resume home meds when appropriate. EKG sinus leda - states always runs slow, no acute changes. 3. HTN/HLD - home meds DVT ppx: per surgeon DC planning: needs homegoing vac, will need [facility] for wound vac. This patient was seen by Farhad Esposito PA-C under the supervision of Dr. Alva <Mike Alva - Last Filed: 08/22/18 15:43> Subjective: Patient was seen by swim instructor. Patient had laceration wound, degloving type. It was well irrigated and sutured by swim instructor. Patient had Rex wrap bandage applied. Has elisa VAC in place. No pain. No fever chills or hypotension. - Physical Exam General: Alert, Oriented x3, Cooperative HEENT: Atraumatic, PERRLA, EOMI, Normocephalic Neck: Supple, No JVD, Negative Carotid Bruits Lungs: Clear to auscultation, Normal air movement, No wheeze, No rales, - Cardiovascular: Regular rate, Regular Rhythm, Normal S1, Normal S2, No murmurs, - - CABG scar. Abdomen: Bowel Sounds Present, Soft, Non Tender, Non-Distended, - Extremities: Capillary Refill Less than 3 Seconds, - - wound dressed appropriately Has Rex wrap bandage applied. Small elisa drain. Skin: Ulcer/ Wound - Traumatic injury, laceration wound status post wound closure. Musculoskeletal: No Tenderness to Palpation of Joints or Extremities Lymphatic: No Cervical, Supraclavicular, or Inguinal Adenopathy Neurological: Cranial nerves II-XII grossly intact Psych/Mental Status: Normal Affect, Appropriate Vital Signs Temp Pulse Resp BP Pulse Ox 98.0 F 56 L 18 112/61 96 08/22/18 13:07 08/22/18 13:07 08/22/18 13:07 08/22/18 13:07 08/22/18 13:07 Oxygen Flow Rate (L/min) 2 Oxygen Delivery Method Room Air Weight: 200 lb 13.458 oz Body Mass Index (BMI) 28.0 Intake and Output for Last 24 Hours 08/20/18 08/21/18 08/22/18 23:59 23:59 23:59 Intake Total 1300 / 1300 3061 / 3061 Output Total 1750 / 1750 Balance 1300 / 1300 1311 / 1311 Microbiology Past 72 Hours 08/21/18 17:10 Gram Stain - Final Wound - Aerobic & Anaerobic Swabs Wound Culture - Preliminary No growth-Final to follow Laboratory Tests Past 24 Hrs 08/22/18 05:42 WBC 12.9 H RBC 4.31 L Hgb 12.7 L Hct 37.6 L MCV 87.2 MCH 29.5 MCHC 33.8 RDW 13.7 RDW Differential 42.4 Plt Count 172 MPV 10.9 Immature Gran % (Auto) 0.200 Neut % (Auto) 88.8 H Lymph % (Auto) 8.4 L [place]ann[place] % (Auto) 2.6 Eos % (Auto) 0.0 Baso % (Auto) 0.0 Absolute Neuts (auto) 11.4 H Absolute Lymphs (auto) 1.08 Total Counted Not Reportable Assessment/Plan This patient was seen in conjunction with Farhad MCGOWAN. I have independently interviewed and examined the patient and reviewed pertinent history, examination findings, laboratory and plan of management. I have reviewed the note and agree with the documented findings with the few additional points. In brief, patient is admitted for large right lower leg laceration wound after heavy air compression fell on his leg. The wound was taken care of by swim instructor. Patient had irrigation and wound closure with a small elisa drain. Patient is on IV Ancef 2 g every 8 hourly. Patient has other comorbidities including coronary artery status post CABG. 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 Patient had a stress echo in December 2017 and reported negative for ischemia by EKG and echocardiographic criteria. No anginal symptoms. EF 65%. I have discussed my assessment with Farhad MCGOWAN and orders have been reviewed. Code Visit Inpatient E&M: 97672 Subs Hosp L2
[2018-08-22] MEDS: Atorvastatin Calcium 80 MG Tablet PO (21:48)
[2018-08-23] VITALS (7 sets, daily range): BP systolic 123–150; BP diastolic 64–78; PULSE 51–68; RESP 16–18; TEMP 36.6–36.8; O2SAT 94–97
[2018-08-23] MEDS: 0.9% Normal Saline 1,000 ML 120 ML IV ×3 (05:34→23:22)
[2018-08-23] MEDS: Cefazolin 2 GM in 0.9% Normal Saline 100 ML IV ×3 (05:34→21:10)
[2018-08-23 05:52] LABS: Absolute Lymphocyte Count 2.12 X10^3/ul (0.83-4.51); Absolute Neutrophil Count 7.6 X10^3/uL (2.0-7.7); Basophil# 0.01 X10^3/uL; Basophil% 0.1 % (0-1); Eosinophil# 0.12 X10^3/uL; Eosinophils% 1.1 % (0-5); Hematocrit 32.2 % (40-54); Hemoglobin 10.7 g/dl (13.0-16.5); Lymphocyte # 2.12 X10^3/ul (4.0); Lymphocyte % 19.9 % (19-41); Mean Corp Hgb Conc 33.2 g/gl (32-36); Mean Corpuscular Hgb 29.5 pg (27.0-32.0); Mean Corpuscular Volume 88.7 fL (80-94); Mean Platelet Vol. 11.1 fl (6.2-12.0); Monocyte# 0.77 X10^3/uL; Monocyte% 7.2 % (0-10); Neutrophil # 7.62 X10^3/uL (2.7-7.7); Neutrophil % 71.4 % (47-70); Platelet Count 150 K/mm3 (150-450); RBC Distribution Width CV 14.2 % (11.6-14.6); RBC Distribution Width SD 44.5 fl (35.1-43.9); Red Blood Count 3.63 M/mm3 (4.6-6.2); White Blood Count 10.7 K/mm3 (4.4-11.0)
[2018-08-23 05:59] LABS: POSITIVE COUNT NO; POSITIVE DIFFERENTIAL NO; POSITIVE MORPHOLOGY NO
--- NOTE | 2018-08-23 07:25 | RAD_ITS ---
STUDY: X-RAY - LEFT ANKLE REASON FOR EXAM: Male, 72 years old. Lateral ankle pain TECHNIQUE: 3 view(s) of the ankle. COMPARISON: None. FINDINGS: Normal visualized distal tibia and fibula. Normal medial and lateral malleoli. Normal tibiotalar articulation and ankle mortise. Normal visualized talus and calcaneus. The visualized subtalar, talonavicular, calcaneocuboid and tarsal articulations are normal. The soft tissue structures are unremarkable. RAD/Ankle min 3 Views IMPRESSION: Normal x-ray examination of the ankle. Electronically Signed: Arias Zepeda, at 11:56 EDT Tel , Service support ,
--- NOTE | 2018-08-23 07:25 | RAD_ITS ---
STUDY: X-RAY - LEFT FOOT CLINICAL: Male, 72 years old. Left lateral ankle pain. No known injury. TECHNIQUE: 3 view(s) of the foot. COMPARISON: None. FINDINGS: There is a plantar calcaneal spur. Normal visualized subtalar, talonavicular, calcaneocuboid, tarsal and tarsometatarsal articulations. Normal metatarsi. There is degenerative arthrosis of the metatarsophalangeal joint of the hallux . Normal tibial and fibular sesamoid bones. Normal interphalangeal joint of the great toe. Normal phalanges of the great toe. Normal second through fifth metatarsophalangeal joints. Normal interphalangeal joints and phalanges of the lesser toes. The soft tissue structures are unremarkable. RAD/Foot min 3 Views IMPRESSION: Degenerative changes at the first metatarsal phalangeal joint. Plantar spur. Electronically Signed: Gm Helton, at 13:24 EDT , Service support ,
--- NOTE | 2018-08-23 07:28 | PN_ITS ---
Patient Problems: Active and Suspected Problems (Last Reviewed 05/21/18 @ 13:15 by Annette Mahmood) Laceration of leg not thigh, right, with tendon involvement (Acute) Laceration (Acute) Subjective: 7:50 am: I was called this morning and informed that the patient is now complaining of left foot pain. At the initial evaluation the patient had denied other injuries however now recalls that the air compressor also fell in his left foot and ankle. He does not think he will be able to bear weight on the sites and has significant pain. I have ordered a foot and ankle x-ray and plan to evaluate him this afternoon. 11:50 am: This 72-year-old male with cardiac history was seen bedside postoperative day #2 complex traumatic laceration repair of the right lower extremity with additional application of elisa wound VAC. His pain is at worst 4/10 and he defers pain medicatin. He denies fever, chill, nausea, vomiting, shortness of breath, chest pain, calf pain. He is resting with splint in place and elevated in offloading manner. His wound VAC was checked and there appears to be no leaking. He reports left ankle and foot pain and thinks this site was hit during the initial injury now that he is thinking about it. This site was aggravated when he tried to walk on this during his physical therapy assessment session. He was not able to bear weight without pain. He also has pain when he tries to move his ankle. His pain is 10/10 when weightbearing. He denies redness or bruising. He denies burning. - Physical Exam General: Alert, Oriented x3 HEENT: Atraumatic Extremities: Capillary Refill Less than 3 Seconds - all digits bilateral, No Calf Tenderness - negative carrington bilateral, Peripheral Pulses Normal - left 2/4 DP and PT pulse. left Skin: Ulcer/ Wound - no strikethrough or peripheral splint erythema/streaking right lower extremity. no infection or open wound or ecchymosis left lower extremity Musculoskeletal: No Tenderness to Palpation of Joints or Extremities, Muscle Was ting, - - compartments soft to palpate bilateral lower extremities. pain on palpation to anterior ankle and foot dorsum diffuse, left. no pain with passive manipulation of the midfoot or subtalar joint. no pain to compress left heel. pain with passive ankle dorsiflexion and plantarflexion noted. no laxity with anterior drawer. no leg palpation pain, left. pain with active dorsiflexion and eversion Neurological: Sensory exam intact to light touch and pain - digits bilateral and foot , ankle, leg dermatomes left lower extremity Psych/Mental Status: Appropriate Vital Signs Temp Pulse Resp BP Pulse Ox 98.1 F 51 L 16 123/66 H 94 08/23/18 03:37 08/23/18 03:37 08/23/18 03:37 08/23/18 03:37 08/23/18 03:37 Oxygen Flow Rate (L/min) 2 Oxygen Delivery Method Room Air Weight: 91.1 kg Body Mass Index (BMI) 28.0 Intake and Output for Last 24 Hours 08/21/18 08/22/18 08/23/18 23:59 23:59 23:59 Intake Total 1300 / 1300 4240 / 4240 1286 / 1286 Output Total 2300 / 2300 1200 / 1200 Balance 1300 / 1300 1940 / 1940 86 / 86 Microbiology Past 72 Hours 08/21/18 17:10 Gram Stain - Final Wound - Aerobic & Anaerobic Swabs Wound Culture - Preliminary No growth-Final to follow Laboratory Tests Past 24 Hrs 08/23/18 05:20 WBC 10.7 RBC 3.63 L Hgb 10.7 L Hct 32.2 L MCV 88.7 MCH 29.5 MCHC 33.2 RDW 14.2 RDW Differential 44.5 H Plt Count 150 MPV 11.1 Immature Gran % (Auto) 0.300 Neut % (Auto) 71.4 H Lymph % (Auto) 19.9 [place] % (Auto) 7.2 Eos % (Auto) 1.1 Baso % (Auto) 0.1 Absolute Neuts (auto) 7.6 Absolute Lymphs (auto) 2.12 Total Counted Not Reportable Medical Necessity - Tobacco Use Smoking Status: Former smoker Tobacco Use: Cigarettes Assessment/Plan All Active Problems (Last Reviewed 05/21/18 @ 13:15 by Annette Mahmood) Laceration of leg not thigh, right, with tendon involvement (Acute) Laceration (Acute) POD #2 complex traumatic laceration repair of the right lower extremity with additional application of elisa wound VAC Crush injury left dorsal foot / anterior ankle I reviewed and discussed his recent surgical intervention and ongoing plan for his right lower extremity. His dressing and wound VAC were left intact. His splint is intact I recommend keeping this in place. His pain is controlled: he defers pain medication. It is noted there were no local signs of infection noted during the irrigation and closure procedure yesterday. A deep wound culture was obtained and this is not demonstrating any bacterial growth at this time. Antibiotics can be stopped at this time. He will remain nonweightbearing to the right lower extremity with a splint intact to prevent muscle and tendon movement deep to the laceration repair site. His left lower extremity injury is noted. X-rays were negative for fracture and I suspect this is a crush injury from the initial injury. I recommend WBAT with CAM walker; this was ordered. If he cannot perform these ambulation guidelines safely after updated PT assessment, I recommend considering fdc facility placement. Physical therapy will work with him later today as a part of the discharging process. Please do not hesitate to call if you have any questions. Medical management and DVT prophylaxis per primary team is greatly appreciated. To follow up at the wound healing center next Monday. To continue incentive spirometer. Jennie Woodard DPM, [facility] [phone]
[2018-08-23] MEDS: Aspirin E.C. 81 MG Tablet PO (08:25)
--- NOTE | 2018-08-23 08:40 | PCM.PN.HOSP ---
<Jennie Woodard - Last Filed: 08/23/18 11:57> Patient Problems: Active and Suspected Problems (Last Reviewed 05/21/18 @ 13:15 by Annette Mahmood) Laceration of leg not thigh, right, with tendon involvement (Acute) Laceration (Acute) Vitals/I&O's: Vital Signs Temp Pulse Resp BP Pulse Ox 97.9 F 52 L 18 146/64 H 96 08/23/18 08:23 08/23/18 10:33 08/23/18 08:23 08/23/18 08:23 08/23/18 08:23 Oxygen Flow Rate (L/min) 2 Oxygen Delivery Method Room Air Weight: 91.1 kg Body Mass Index (BMI) 28.0 Intake and Output for Last 24 Hours 08/21/18 08/22/18 08/23/18 23:59 23:59 23:59 Intake Total 1300 / 1300 4240 / 4240 2504 / 2504 Output Total 2300 / 2300 1475 / 1475 Balance 1300 / 1300 1940 / 1940 1029 / 1029 Microbiology Past 72 Hours 08/21/18 17:10 Wound - Aerobic & Anaerobic Swabs Gram Stain - Final 08/21/18 17:10 Wound - Aerobic & Anaerobic Swabs Wound Culture - Preliminary No growth-Final to follow Laboratory Results 08/23/18 05:20: WBC 10.7, RBC 3.63 L, Hgb 10.7 L, Hct 32.2 L, MCV 88.7, MCH 29.5, MCHC 33.2, RDW 14.2, RDW Differential 44.5 H, Plt Count 150, MPV 11.1, Immature Gran % (Auto) 0.300, Neut % (Auto) 71.4 H, Lymph % (Auto) 19.9, Cannon % (Auto) 7.2, Eos % (Auto) 1.1, Baso % (Auto) 0.1, Absolute Neuts (auto) 7.6, Absolute Lymphs (auto) 2.12, Total Counted Not Reportable Current Medications Acetaminophen (Tylenol) 650 mg PO Q6H PRN PRN PRN Reason: Mild Pain (1-3)/Temp > 100.7 F Aspirin (Ecotrin) 81 mg PO DAILY@0800 [facility] Last Admin: 08/23/18 08:25 Dose: 81 mg Atorvastatin Calcium (Lipitor) 80 mg PO QHS [facility] Last Admin: 08/22/18 21:48 Dose: 80 mg Enoxaparin Sodium (Lovenox) 40 mg SC DAILY@1000 [facility] Last Admin: 08/23/18 10:33 Dose: 40 mg Sodium Chloride () 1,000 mls @ 120 mls/hr IV .Q8H20M [facility] Last Admin: 08/23/18 05:34 Dose: 120 mls/hr Cefazolin Sodium 2 gm/ Sodium (Chloride) 110 mls @ 150 mls/hr IV Q8 [facility] Last Admin: 08/23/18 05:34 Dose: 150 mls/hr Lisinopril (Zestril) 5 mg PO DAILY [facility] Last Admin: 08/23/18 10:33 Dose: 5 mg Metoprolol Tartrate (Lopressor (Beta Enoc)) 12.5 mg PO BID [facility] Last Admin: 08/23/18 10:33 Dose: Not Given Morphine Sulfate () 4 mg IV Q3H PRN PRN PRN Reason: Severe pain (7-10/10) Nutritional Formula (Raul - [place] Flavor) 1 packet PO BIDCM [facility] Last Admin: 08/23/18 08:25 Dose: 1 packet Ondansetron HCl (Zofran) 4 mg IV Q6H PRN PRN PRN Reason: NAUSEA/VOMITING Oxycodone HCl (Oxyir) 10 mg PO Q4H PRN PRN PRN Reason: Moderate Pain (4-6/10) Sodium Chloride () 5 - 15 ml IV UD PRN PRN Reason: SALINE FLUSH Temazepam (Restoril) 15 mg PO QHS PRN PRN PRN Reason: INSOMNIA Assessment/Plan All Active Problems (Last Reviewed 05/21/18 @ 13:15 by Annette Mahmood) Laceration of leg not thigh, right, with tendon involvement (Acute) Laceration (Acute) <Mike Alva - Last Filed: 08/23/18 12:48> Subjective: Patient complain of pain over dorsum of left foot last night. Walked on walker during physical therapy but patient did not had any pain on walking. Denies pain on the right foot Vitals/I&O's: Vital Signs Temp Pulse Resp BP Pulse Ox 97.9 F 52 L 18 146/64 H 96 08/23/18 08:23 08/23/18 08:23 08/23/18 08:23 08/23/18 08:23 08/23/18 08:23 Oxygen Flow Rate (L/min) 2 Oxygen Delivery Method Room Air Weight: 200 lb 13.458 oz Body Mass Index (BMI) 28.0 Intake and Output for Last 24 Hours 08/21/18 08/22/18 08/23/18 23:59 23:59 23:59 Intake Total 1300 / 1300 4240 / 4240 1286 / 1286 Output Total 2300 / 2300 1200 / 1200 Balance 1300 / 1300 1940 / 1940 86 / 86 General: Alert, Oriented x3, Cooperative HEENT: Atraumatic, PERRLA, EOMI, Normocephalic Neck: Supple, No JVD, Negative Carotid Bruits Lungs: Clear to auscultation, Normal air movement, No rhonchi, No rales Cardiovascular: Regular rate, Regular Rhythm, Normal S1, Normal S2, No murmurs Abdomen: Bowel Sounds Present, Soft, Non Tender, Non-Distended Extremities: No edema, Capillary Refill Less than 3 Seconds Skin: Ulcer/ Wound - Lacerated wound on right lower leg status post repair Rex wrap bandage applied. Distal part of toes are pink. Toes movement present. Musculoskeletal: Arthritic Changes, Tenderness - Tenderness present over dorsum aspect of left foot mainly along common extensor tendon, - - Patient has knee movement and hip movement. Neurological: Cranial nerves II-XII grossly intact, Deep Tendon Reflexes 2+/4 and Symmetrical Psych/Mental Status: Normal Affect, Appropriate Microbiology Past 72 Hours 08/21/18 17:10 Wound - Aerobic & Anaerobic Swabs Gram Stain - Final 08/21/18 17:10 Wound - Aerobic & Anaerobic Swabs Wound Culture - Preliminary No growth-Final to follow Laboratory Results 08/23/18 05:20: WBC 10.7, RBC 3.63 L, Hgb 10.7 L, Hct 32.2 L, MCV 88.7, MCH 29.5, MCHC 33.2, RDW 14.2, RDW Differential 44.5 H, Plt Count 150, MPV 11.1, Immature Gran % (Auto) 0.300, Neut % (Auto) 71.4 H, Lymph % (Auto) 19.9, Cannon % (Auto) 7.2, Eos % (Auto) 1.1, Baso % (Auto) 0.1, Absolute Neuts (auto) 7.6, Absolute Lymphs (auto) 2.12, Total Counted Not Reportable Current Medications Acetaminophen (Tylenol) 650 mg PO Q6H PRN PRN PRN Reason: Mild Pain (1-3)/Temp > 100.7 F Aspirin (Ecotrin) 81 mg PO DAILY@0800 [facility] Last Admin: 08/23/18 08:25 Dose: 81 mg Atorvastatin Calcium (Lipitor) 80 mg PO QHS [facility] Last Admin: 08/22/18 21:48 Dose: 80 mg Enoxaparin Sodium (Lovenox) 40 mg SC DAILY@1000 [facility] Last Admin: 08/22/18 09:24 Dose: 40 mg Sodium Chloride () 1,000 mls @ 120 mls/hr IV .Q8H20M [facility] Last Admin: 08/23/18 05:34 Dose: 120 mls/hr Cefazolin Sodium 2 gm/ Sodium (Chloride) 110 mls @ 150 mls/hr IV Q8 [facility] Last Admin: 08/23/18 05:34 Dose: 150 mls/hr Lisinopril (Zestril) 5 mg PO DAILY [facility] Last Admin: 08/22/18 09:24 Dose: 5 mg Metoprolol Tartrate (Lopressor (Beta Enoc)) 12.5 mg PO BID [facility] Last Admin: 08/22/18 21:50 Dose: Not Given Morphine Sulfate () 4 mg IV Q3H PRN PRN PRN Reason: Severe pain (7-10/10) Nutritional Formula (Raul - [place] Flavor) 1 packet PO BIDCM [facility] Last Admin: 08/23/18 08:25 Dose: 1 packet Ondansetron HCl (Zofran) 4 mg IV Q6H PRN PRN PRN Reason: NAUSEA/VOMITING Oxycodone HCl (Oxyir) 10 mg PO Q4H PRN PRN PRN Reason: Moderate Pain (4-6/10) Sodium Chloride () 5 - 15 ml IV UD PRN PRN Reason: SALINE FLUSH Temazepam (Restoril) 15 mg PO QHS PRN PRN PRN Reason: INSOMNIA Medical Necessity - Tobacco Use Smoking Status: Former smoker Tobacco Use: Cigarettes Assessment/Plan This is 72-year-old gentleman with history of coronary artery disease status post CABG being admitted for large right lower leg laceration wound after heavy air compression fell on his leg. The wound was taken care of by cartridge filler. Patient had irrigation and wound closure with a small elisa drain. Patient is on IV Ancef 2 g every 8 hourly. 1. RLE laceration secondary to falling metal object/air compression: Patient had irrigation of right leg and repair of deep white was a traumatic laceration including fascial tissue subcutaneous and the skin flap complex with elisa drain left 08/21/2018. Dr. Woodard following. Continue ancef 2 g IV every [address], plan to swap to outpatient vac. Continue wound care. Leukocytosis has resolved. Patient movement of toes seen under Rex wrap bandage in his knee and hip joint movement although not full range. No fever chills. 2. Left dorsal foot pain: Patient had x-ray of left ankle and foot. Is reported as normal. X-rays reviewed. 3 CAD prior CABG - 12/2017 good stress echo. Resume home meds when appropriate. EKG sinus tachycardia. Patient states always runs slow, no acute changes. 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 Deras. Patient had a stress echo in December 2017 and reported negative for ischemia by EKG and echocardiographic criteria. No anginal symptoms. EF 65%. 4. HTN/HLD - home meds DVT ppx: On Lovenox 40 mg subcu daily Clinical Impression(s) from Imaging Studies Tibia/Fibula X-Ray 08/21/18 13:10 IMPRESSION: Large laceration. No radiopaque foreign body is seen. Ankle X-Ray 08/23/18 07:25 IMPRESSION: Normal x-ray examination of the ankle. Code Visit Inpatient E&M: 28300 [facility] L3
[2018-08-23] MEDS: Lisinopril 5 MG Tablet PO (10:33)
[2018-08-23] MEDS: Enoxaparin 40 MG/0.4 ML Syringe SC (10:33)
[2018-08-23] MEDS: Atorvastatin Calcium 80 MG Tablet PO (21:07)
[2018-08-23] MEDS: Metoprolol Tartrate 25 MG Tablet 12.5 MG PO (21:07)
[2018-08-24 02:05] VITALS: BP 151/83; PULSE 60; RESP 18; TEMP 36.6; O2SAT 95
[2018-08-24 03:32] VITALS: BP 130/72
[2018-08-24] MEDS: Cefazolin 2 GM in 0.9% Normal Saline 100 ML IV ×2 (05:31→13:18)
[2018-08-24 07:40] LABS: Absolute Lymphocyte Count 1.83 X10^3/ul (0.83-4.51); Absolute Neutrophil Count 8.2 X10^3/uL (2.0-7.7); Basophil# 0.02 X10^3/uL; Basophil% 0.2 % (0-1); Eosinophil# 0.18 X10^3/uL; Eosinophils% 1.6 % (0-5); Hematocrit 34.2 % (40-54); Hemoglobin 11.7 g/dl (13.0-16.5); Lymphocyte # 1.83 X10^3/ul (4.0); Lymphocyte % 16.5 % (19-41); Mean Corp Hgb Conc 34.2 g/gl (32-36); Mean Corpuscular Hgb 29.9 pg (27.0-32.0); Mean Corpuscular Volume 87.5 fL (80-94); Mean Platelet Vol. 10.2 fl (6.2-12.0); Monocyte# 0.85 X10^3/uL; Monocyte% 7.7 % (0-10); Neutrophil # 8.16 X10^3/uL (2.7-7.7); Neutrophil % 73.8 % (47-70); POSITIVE COUNT NO; POSITIVE DIFFERENTIAL NO; POSITIVE MORPHOLOGY NO; Platelet Count 147 K/mm3 (150-450); RBC Distribution Width CV 14.1 % (11.6-14.6); RBC Distribution Width SD 45.1 fl (35.1-43.9); Red Blood Count 3.91 M/mm3 (4.6-6.2); White Blood Count 11.1 K/mm3 (4.4-11.0)
[2018-08-24 07:48] LABS: Anion Gap 6 (5-15); BUN 19 mg/dL (7-18); BUN/Creat Ratio 18.6 RATIO (10-20); Calcium,Total 7.8 mg/dL (8.5-10.1); Chloride 111 mmol/L (98-107); Creatinine, Serum 1.02 mg/dL (0.70-1.30); EST Glomerular Filtration Rate 76 mL/min (>60); Est Glom Filt Rate - Afr Amer 92 mL/min (>60); Estimated Creatinine Clearance 69.72 ml/min; Glucose 94 mg/dL (74-106); Potassium 3.8 mmol/L (3.5-5.1); Sodium Level 143 mmol/L (136-145)
[2018-08-24 09:00] VITALS: PULSE 60
[2018-08-24] MEDS: Enoxaparin 40 MG/0.4 ML Syringe SC (09:00)
[2018-08-24] MEDS: Lisinopril 5 MG Tablet PO (09:00)
[2018-08-24] MEDS: Aspirin E.C. 81 MG Tablet PO (09:00)
[2018-08-24] MEDS: Metoprolol Tartrate 25 MG Tablet 12.5 MG PO (09:00)
[2018-08-24 09:25] VITALS: BP 153/74; PULSE 60; RESP 18; TEMP 36.7; O2SAT 95
--- NOTE | 2018-08-24 11:00 | CASEMGMT ---
JOANNA TORIBIO in to talk with patient regarding discharge planning. Per therapy patient will require placement at discharge to SNF/TCU. Patient is agreeable to TCU. Patient gave this RN CM permission to updated . JOANNA TORIBIO called and updated , Miesha, regarding therapy's recommendations and is also in agreement to TCU at discharge. JOANNA TORIBIO updated VINOD Linares regarding request for TCU with potential discharge today.
--- NOTE | 2018-08-24 11:00 | PCM.PN.HOSP ---
Patient Problems: Active and Suspected Problems (Last Reviewed 05/21/18 @ 13:15 by Annette Mahmood) Laceration of leg not thigh, right, with tendon involvement (Acute) Laceration (Acute) Subjective: Patient did not had any fever or chills. Heart rate in 60s. Complain of pain on ankle movement left foot although better than yesterday. Denies pain on the right leg. Vitals/I&O's: Vital Signs Temp Pulse Resp BP Pulse Ox 98.0 F 60 18 153/74 H 95 08/24/18 09:25 08/24/18 09:25 08/24/18 09:25 08/24/18 09:25 08/24/18 09:25 Oxygen Flow Rate (L/min) 2 Oxygen Delivery Method Room Air Weight: 200 lb 13.458 oz Body Mass Index (BMI) 28.0 Intake and Output for Last 24 Hours 08/22/18 08/23/18 08/24/18 23:59 23:59 23:59 Intake Total 4240 / 4240 4442 / 4442 544 / 544 Output Total 2300 / 2300 2900 / 2900 975 / 975 Balance 1940 / 1940 1542 / 1542 -431 / -431 General: Alert, Oriented x3, Cooperative HEENT: Atraumatic, PERRLA, EOMI, Normocephalic Neck: Supple, No JVD, Negative Carotid Bruits Lungs: Clear to auscultation, Normal air movement, No rhonchi, No wheeze, No rales Cardiovascular: Regular rate, Regular Rhythm, Normal S1, Normal S2, No murmurs Abdomen: Bowel Sounds Present, Soft, Non Tender, Non-Distended Extremities: No edema, Capillary Refill Less than 3 Seconds Skin: No rashes, No breakdown Musculoskeletal: No Tenderness to Palpation of Joints or Extremities, Arthritic Changes, Tenderness - Tenderness present on the left ankle mainly on dorsiflexion than plantarflexion and eversion more than inversion. Tenderness present on the dorsum of left foot mainly on common extensor digitalis Lymphatic: No Cervical, Supraclavicular, or Inguinal Adenopathy Neurological: Cranial nerves II-XII grossly intact, Deep Tendon Reflexes 2+/4 and Symmetrical, Neuro grossly intact Psych/Mental Status: Normal Affect, Appropriate Microbiology Past 72 Hours 08/21/18 17:10 Wound - Aerobic & Anaerobic Swabs Gram Stain - Final 08/21/18 17:10 Wound - Aerobic & Anaerobic Swabs Wound Culture - Final No growth aerobically. 08/21/18 17:10 Wound - Aerobic & Anaerobic Swabs Anaerobic Culture - Preliminary No growth in 48 hours. Laboratory Results 08/24/18 07:25: WBC 11.1 H, RBC 3.91 L, Hgb 11.7 L, Hct 34.2 L, MCV 87.5, MCH 29.9, MCHC 34.2, RDW 14.1, RDW Differential 45.1 H, Plt Count 147 L, MPV 10.2, Immature Gran % (Auto) 0.200, Neut % (Auto) 73.8 H, Lymph % (Auto) 16.5 L, Yancey % (Auto) 7.7, Eos % (Auto) 1.6, Baso % (Auto) 0.2, Absolute Neuts (auto) 8.2 H, Absolute Lymphs (auto) 1.83, Total Counted Not Reportable 08/24/18 07:25: Sodium 143, Potassium 3.8, Chloride 111 H, Carbon Dioxide 26.0, Anion Gap 6, BUN 19 H, Creatinine 1.02, Estim Creat Clear Calc 69.72, Est GFR (MDRD) Af Amer 92, Est GFR (MDRD) Non-Af 76, BUN/Creatinine Ratio 18.6, Glucose 94, Calcium 7.8 L Current Medications Acetaminophen (Tylenol) 650 mg PO Q6H PRN PRN PRN Reason: Mild Pain (1-3)/Temp > 100.7 F Aspirin (Ecotrin) 81 mg PO DAILY@0800 [facility] Last Admin: 08/24/18 09:00 Dose: 81 mg Atorvastatin Calcium (Lipitor) 80 mg PO QHS [facility] Last Admin: 08/23/18 21:07 Dose: 80 mg Enoxaparin Sodium (Lovenox) 40 mg SC DAILY@1000 [facility] Last Admin: 08/24/18 09:00 Dose: 40 mg Sodium Chloride () 1,000 mls @ 120 mls/hr IV .Q8H20M [facility] Last Admin: 08/23/18 23:22 Dose: 120 mls/hr Cefazolin Sodium 2 gm/ Sodium (Chloride) 110 mls @ 150 mls/hr IV Q8 [facility] Last Admin: 08/24/18 05:31 Dose: 150 mls/hr Lisinopril (Zestril) 5 mg PO DAILY [facility] Last Admin: 08/24/18 09:00 Dose: 5 mg Metoprolol Tartrate (Lopressor (Beta Enoc)) 12.5 mg PO BID [facility] Last Admin: 08/24/18 09:00 Dose: 12.5 mg Morphine Sulfate () 4 mg IV Q3H PRN PRN PRN Reason: Severe pain (7-10/10) Nutritional Formula (Raul - [place] Flavor) [facility] Last Admin: 08/24/18 09:00 Dose: 1 packet Ondansetron HCl (Zofran) 4 mg IV Q6H PRN PRN PRN Reason: NAUSEA/VOMITING Oxycodone HCl (Oxyir) 10 mg PO Q4H PRN PRN PRN Reason: Moderate Pain (4-6/10) Sodium Chloride () 5 - 15 ml IV UD PRN PRN Reason: SALINE FLUSH Temazepam (Restoril) 15 mg PO QHS PRN PRN PRN Reason: INSOMNIA Medical Necessity - Tobacco Use Smoking Status: Former smoker Tobacco Use: Cigarettes Assessment/Plan All Active Problems (Last Reviewed 05/21/18 @ 13:15 by Annette Mahmood) Laceration of leg not thigh, right, with tendon involvement (Acute) Laceration (Acute) This is 72-year-old gentleman with history of coronary artery disease status post CABG being admitted for large right lower leg laceration wound after heavy air compression fell on his leg. The wound was taken care of by steam drier tender. Patient had irrigation and wound closure with a small elisa drain. Patient is on IV Ancef 2 g every 8 hourly. 1. RLE laceration secondary to falling metal object/air compression: Patient had irrigation of right leg and repair of deep white was a traumatic laceration including fascial tissue subcutaneous and the skin flap complex with elisa drain left 08/21/2018. Dr. Woodard following. Continue ancef 2 g IV every [address], plan to swap to outpatient vac. Continue wound care. Leukocytosis has resolved. Patient movement of toes seen under Rex wrap bandage in his knee and hip joint movement although not full range. No fever chills. Wound photo of laceration repair reviewed. 2. Left dorsal foot pain: Patient had x-ray of left ankle and foot. X-rays reviewed. It shows mainly degenerative changes at the first metatarsal phalangeal joint and plantar spur. No bony fracture or dislocation. 3 CAD prior CABG - 12/2017 good stress echo. Resume home meds when appropriate. EKG sinus tachycardia. Patient states always runs slow, no acute changes. 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 Deras. Patient had a stress echo in December 2017 and reported negative for ischemia by EKG and echocardiographic criteria. No anginal symptoms. EF 65%. 4. HTN/HLD - home meds DVT ppx: On Lovenox 40 mg subcu daily Clinical Impression(s) from Imaging Studies Tibia/Fibula X-Ray 08/21/18 13:10 IMPRESSION: Large laceration. No radiopaque foreign body is seen. Ankle X-Ray 08/23/18 07:25 IMPRESSION: Normal x-ray examination of the ankle. Foot X-Ray 08/23/18 07:25 IMPRESSION: Degenerative changes at the first metatarsal phalangeal joint. Plantar spur. Microbiology Past 72 Hours 08/21/18 17:10 Wound - Aerobic & Anaerobic Swabs Gram Stain - Final 08/21/18 17:10 Wound - Aerobic & Anaerobic Swabs Wound Culture - Final No growth aerobically. 08/21/18 17:10 Wound - Aerobic & Anaerobic Swabs Anaerobic Culture - Preliminary No growth in 48 hours. Laboratory Results 08/24/18 07:25: WBC 11.1 H, RBC 3.91 L, Hgb 11.7 L, Hct 34.2 L, MCV 87.5, MCH 29.9, MCHC 34.2, RDW 14.1, RDW Differential 45.1 H, Plt Count 147 L, MPV 10.2, Immature Gran % (Auto) 0.200, Neut % (Auto) 73.8 H, Lymph % (Auto) 16.5 L, Yancey % (Auto) 7.7, Eos % (Auto) 1.6, Baso % (Auto) 0.2, Absolute Neuts (auto) 8.2 H, Absolute Lymphs (auto) 1.83, Total Counted Not Reportable 08/24/18 07:25: Sodium 143, Potassium 3.8, Chloride 111 H, Carbon Dioxide 26.0, Anion Gap 6, BUN 19 H, Creatinine 1.02, Estim Creat Clear Calc 69.72, Est GFR (MDRD) Af Amer 92, Est GFR (MDRD) Non-Af 76, BUN/Creatinine Ratio 18.6, Glucose 94, Calcium 7.8 L Active Medications Acetaminophen (Tylenol) 650 mg PO Q6H PRN PRN PRN Reason: Mild Pain (1-3)/Temp > 100.7 F Aspirin (Ecotrin) 81 mg PO DAILY@0800 [facility] Last Admin: 08/24/18 09:00 Dose: 81 mg Atorvastatin Calcium (Lipitor) 80 mg PO QHS [facility] Last Admin: 08/23/18 21:07 Dose: 80 mg Enoxaparin Sodium (Lovenox) 40 mg SC DAILY@1000 [facility] Last Admin: 08/24/18 09:00 Dose: 40 mg Sodium Chloride () 1,000 mls @ 120 mls/hr IV .Q8H20M [facility] Last Admin: 08/23/18 23:22 Dose: 120 mls/hr Cefazolin Sodium 2 gm/ Sodium (Chloride) 110 mls @ 150 mls/hr IV Q8 [facility] Last Admin: 08/24/18 05:31 Dose: 150 mls/hr Lisinopril (Zestril) 5 mg PO DAILY [facility] Last Admin: 08/24/18 09:00 Dose: 5 mg Metoprolol Tartrate (Lopressor (Beta Enoc)) 12.5 mg PO BID [facility] Last Admin: 08/24/18 09:00 Dose: 12.5 mg Morphine Sulfate () 4 mg IV Q3H PRN PRN PRN Reason: Severe pain (7-10/10) Nutritional Formula (Raul - [place] Flavor) [facility] Last Admin: 08/24/18 09:00 Dose: 1 packet Ondansetron HCl (Zofran) 4 mg IV Q6H PRN PRN PRN Reason: NAUSEA/VOMITING Oxycodone HCl (Oxyir) 10 mg PO Q4H PRN PRN PRN Reason: Moderate Pain (4-6/10) Sodium Chloride () 5 - 15 ml IV UD PRN PRN Reason: SALINE FLUSH Temazepam (Restoril) 15 mg PO QHS PRN PRN PRN Reason: INSOMNIA Code Visit Inpatient E&M: 06070 [facility] L3
--- NOTE | 2018-08-24 11:05 | PN_ITS ---
Patient Problems: Active and Suspected Problems (Last Reviewed 05/21/18 @ 13:15 by Annette Mahmood) Laceration of leg not thigh, right, with tendon involvement (Acute) Laceration (Acute) Subjective: Patient did not had any fever or chills. Heart rate in 60s. Complain of pain on ankle movement left foot although better than yesterday. Denies pain on the right leg. Vitals/I&O's: Vital Signs Temp Pulse Resp BP Pulse Ox 98.0 F 60 18 153/74 H 95 08/24/18 09:25 08/24/18 09:25 08/24/18 09:25 08/24/18 09:25 08/24/18 09:25 Oxygen Flow Rate (L/min) 2 Oxygen Delivery Method Room Air Weight: 200 lb 13.458 oz Body Mass Index (BMI) 28.0 Intake and Output for Last 24 Hours 08/22/18 08/23/18 08/24/18 23:59 23:59 23:59 Intake Total 4240 / 4240 4442 / 4442 544 / 544 Output Total 2300 / 2300 2900 / 2900 975 / 975 Balance 1940 / 1940 1542 / 1542 -431 / -431 General: Alert, Oriented x3, Cooperative HEENT: Atraumatic, PERRLA, EOMI, Normocephalic Neck: Supple, No JVD, Negative Carotid Bruits Lungs: Clear to auscultation, Normal air movement, No rhonchi, No wheeze, No rales Cardiovascular: Regular rate, Regular Rhythm, Normal S1, Normal S2, No murmurs Abdomen: Bowel Sounds Present, Soft, Non Tender, Non-Distended Extremities: No edema, Capillary Refill Less than 3 Seconds Skin: No rashes, No breakdown Musculoskeletal: No Tenderness to Palpation of Joints or Extremities, Arthritic Changes, Tenderness - Tenderness present on the left ankle mainly on dorsiflexion than plantarflexion and eversion more than inversion. Tenderness present on the dorsum of left foot mainly on common extensor digitalis Lymphatic: No Cervical, Supraclavicular, or Inguinal Adenopathy Neurological: Cranial nerves II-XII grossly intact, Deep Tendon Reflexes 2+/4 and Symmetrical, Neuro grossly intact Psych/Mental Status: Normal Affect, Appropriate Microbiology Past 72 Hours 08/21/18 17:10 Wound - Aerobic & Anaerobic Swabs Gram Stain - Final 08/21/18 17:10 Wound - Aerobic & Anaerobic Swabs Wound Culture - Final No growth aerobically. 08/21/18 17:10 Wound - Aerobic & Anaerobic Swabs Anaerobic Culture - Preliminary No growth in 48 hours. Laboratory Results 08/24/18 07:25: WBC 11.1 H, RBC 3.91 L, Hgb 11.7 L, Hct 34.2 L, MCV 87.5, MCH 29.9, MCHC 34.2, RDW 14.1, RDW Differential 45.1 H, Plt Count 147 L, MPV 10.2, Immature Gran % (Auto) 0.200, Neut % (Auto) 73.8 H, Lymph % (Auto) 16.5 L, [place] % (Auto) 7.7, Eos % (Auto) 1.6, Baso % (Auto) 0.2, Absolute Neuts (auto) 8.2 H, Absolute Lymphs (auto) 1.83, Total Counted Not Reportable 08/24/18 07:25: Sodium 143, Potassium 3.8, Chloride 111 H, Carbon Dioxide 26.0, Anion Gap 6, BUN 19 H, Creatinine 1.02, Estim Creat Clear Calc 69.72, Est GFR (MDRD) Af Amer 92, Est GFR (MDRD) Non-Af 76, BUN/Creatinine Ratio 18.6, Glucose 94, Calcium 7.8 L Current Medications Acetaminophen (Tylenol) 650 mg PO Q6H PRN PRN PRN Reason: Mild Pain (1-3)/Temp > 100.7 F Aspirin (Ecotrin) 81 mg PO DAILY@0800 [facility] Last Admin: 08/24/18 09:00 Dose: 81 mg Atorvastatin Calcium (Lipitor) 80 mg PO QHS [facility] Last Admin: 08/23/18 21:07 Dose: 80 mg Enoxaparin Sodium (Lovenox) 40 mg SC DAILY@1000 [facility] Last Admin: 08/24/18 09:00 Dose: 40 mg Sodium Chloride () 1,000 mls @ 120 mls/hr IV .Q8H20M [facility] Last Admin: 08/23/18 23:22 Dose: 120 mls/hr Cefazolin Sodium 2 gm/ Sodium (Chloride) 110 mls @ 150 mls/hr IV Q8 [facility] Last Admin: 08/24/18 05:31 Dose: 150 mls/hr Lisinopril (Zestril) 5 mg PO DAILY [facility] Last Admin: 08/24/18 09:00 Dose: 5 mg Metoprolol Tartrate (Lopressor (Beta Enoc)) 12.5 mg PO BID [facility] Last Admin: 08/24/18 09:00 Dose: 12.5 mg Morphine Sulfate () 4 mg IV Q3H PRN PRN PRN Reason: Severe pain (7-10/10) Nutritional Formula ([facility] - [place] Fl[facility] Admin: 08/24/18 09:00 Dose: 1 packet Ondansetron HCl (Zofran) 4 mg IV Q6H PRN PRN PRN Reason: NAUSEA/VOMITING Oxycodone HCl (Oxyir) 10 mg PO Q4H PRN PRN PRN Reason: Moderate Pain (4-6/10) Sodium Chloride () 5 - 15 ml IV UD PRN PRN Reason: SALINE FLUSH Temazepam (Restoril) 15 mg PO QHS PRN PRN PRN Reason: INSOMNIA Medical Necessity - Tobacco Use Smoking Status: Former smoker Tobacco Use: Cigarettes Assessment/Plan All Active Problems (Last Reviewed 05/21/18 @ 13:15 by Annette Mahmood) Laceration of leg not thigh, right, with tendon involvement (Acute) Laceration (Acute) This is 72-year-old gentleman with history of coronary artery disease status post CABG being admitted for large right lower leg laceration wound after heavy air compression fell on his leg. The wound was taken care of by linoleum layer. Patient had irrigation and wound closure with a small elisa drain. Patient is on IV Ancef 2 g every 8 hourly. 1. RLE laceration secondary to falling metal object/air compression: Patient had irrigation of right leg and repair of deep white was a traumatic laceration including fascial tissue subcutaneous and the skin flap complex with elisa drain left 08/21/2018. Dr. Woodard following. Continue ancef 2 g IV every [address], plan to swap to outpatient vac. Continue wound care. Leukocytosis has resolved. Patient movement of toes seen under Rex wrap bandage in his knee and hip joint movement although not full range. No fever chills. Wound photo of laceration repair reviewed. 2. Left dorsal foot pain: Patient had x-ray of left ankle and foot. X-rays reviewed. It shows mainly degenerative changes at the first metatarsal phalangeal joint and plantar spur. No bony fracture or dislocation. 3 CAD prior CABG - 12/2017 good stress echo. Resume home meds when appropriate. EKG sinus tachycardia. Patient states always runs slow, no acute changes. Follows hall coordinator, Dr. Deras. Patient had a stress echo in December 2017 and reported negative for ischemia by EKG and echocardiographic criteria. No anginal symptoms. EF 65%. 4. HTN/HLD - home meds DVT ppx: On Lovenox 40 mg subcu daily Clinical Impression(s) from Imaging Studies Tibia/Fibula X-Ray 08/21/18 13:10 IMPRESSION: Large laceration. No radiopaque foreign body is seen. Ankle X-Ray 08/23/18 07:25 IMPRESSION: Normal x-ray examination of the ankle. Foot X-Ray 08/23/18 07:25 IMPRESSION: Degenerative changes at the first metatarsal phalangeal joint. Plantar spur. Microbiology Past 72 Hours 08/21/18 17:10 Wound - Aerobic & Anaerobic Swabs Gram Stain - Final 08/21/18 17:10 Wound - Aerobic & Anaerobic Swabs Wound Culture - Final No growth aerobically. 08/21/18 17:10 Wound - Aerobic & Anaerobic Swabs Anaerobic Culture - Preliminary No growth in 48 hours. Laboratory Results 08/24/18 07:25: WBC 11.1 H, RBC 3.91 L, Hgb 11.7 L, Hct 34.2 L, MCV 87.5, MCH 29.9, MCHC 34.2, RDW 14.1, RDW Differential 45.1 H, Plt Count 147 L, MPV 10.2, Immature Gran % (Auto) 0.200, Neut % (Auto) 73.8 H, Lymph % (Auto) 16.5 L, [place] % (Auto) 7.7, Eos % (Auto) 1.6, Baso % (Auto) 0.2, Absolute Neuts (auto) 8.2 H, Absolute Lymphs (auto) 1.83, Total Counted Not Reportable 08/24/18 07:25: Sodium 143, Potassium 3.8, Chloride 111 H, Carbon Dioxide 26.0, Anion Gap 6, BUN 19 H, Creatinine 1.02, Estim Creat Clear Calc 69.72, Est GFR (MDRD) Af Amer 92, Est GFR (MDRD) Non-Af 76, BUN/Creatinine Ratio 18.6, Glucose 94, Calcium 7.8 L Active Medications Acetaminophen (Tylenol) 650 mg PO Q6H PRN PRN PRN Reason: Mild Pain (1-3)/Temp > 100.7 F Aspirin (Ecotrin) 81 mg PO DAILY@0800 [facility] Last Admin: 08/24/18 09:00 Dose: 81 mg Atorvastatin Calcium (Lipitor) 80 mg PO QHS [facility] Last Admin: 08/23/18 21:07 Dose: 80 mg Enoxaparin Sodium (Lovenox) 40 mg SC DAILY@1000 [facility] Last Admin: 08/24/18 09:00 Dose: 40 mg Sodium Chloride () 1,000 mls @ 120 mls/hr IV .Q8H20M [facility] Last Admin: 08/23/18 23:22 Dose: 120 mls/hr Cefazolin Sodium 2 gm/ Sodium (Chloride) 110 mls @ 150 mls/hr IV Q8 [facility] Last Admin: 08/24/18 05:31 Dose: 150 mls/hr Lisinopril (Zestril) 5 mg PO DAILY [facility] Last Admin: 08/24/18 09:00 Dose: 5 mg Metoprolol Tartrate (Lopressor (Beta Enoc)) 12.5 mg PO BID [facility] Last Admin: 08/24/18 09:00 Dose: 12.5 mg Morphine Sulfate () 4 mg IV Q3H PRN PRN PRN Reason: Severe pain (7-10/10) Nutritional Formula (Raul - [place] Flavor) [facility] Last Admin: 08/24/18 09:00 Dose: 1 packet Ondansetron HCl (Zofran) 4 mg IV Q6H PRN PRN PRN Reason: NAUSEA/VOMITING Oxycodone HCl (Oxyir) 10 mg PO Q4H PRN PRN PRN Reason: Moderate Pain (4-6/10) Sodium Chloride () 5 - 15 ml IV UD PRN PRN Reason: SALINE FLUSH Temazepam (Restoril) 15 mg PO QHS PRN PRN PRN Reason: INSOMNIA Code Visit Inpatient E&M: 00454 [facility] Hosp L3
--- NOTE | 2018-08-24 11:24 | CASEMGMT ---
Addendum entered by Regine Linares 08/24/18 13:55: Pt is discharging to TCU today. Staci in TCU updated. Pt and pt's updated. Original Note: Addendum entered by Regine Linares 08/24/18 11:43: SW received call from Staci in TCU stating she is able to accept pt today. Physician updated. Original Note: Social Work Note RN CATARINO Brown updated this worker that pt and pt's Miesha are agreeable to TCU. SW placed a call to Staci in TCU, left message and provided referral. SW waiting for call back. Plan: TCU pending acceptance Regine Linares RETREAD BUILDER, COMPENSATION COORDINATOR
--- NOTE | 2018-08-24 11:50 | PCM.TXEXTCAR ---
- Diet 08/21/18 18:50 Diet: Regular Diet Is pt able to select menu?: Yes - Routine Orders/Code Status Suppository Type: Dulcolax 10mg Suppository Frequency: Daily PRN Routine Lab Work: CBC - on 08/29/18 Code Status: Full Code - Wound(s) LLE Wound Type: Open Surgical Wound RT LOWER LEG Wound Type: Laceration - Therapies Weight Bearing: Non weight bearing Extremity Affected:: Bilateral Lower Physical Therapy: Eval and Treat Occupational Therapy: Eval and Treat Speech Therapy: Eval and Treat - Allergies/Procedures Done in Hospital Allergies/Adverse Reactions: Allergies No Known Allergies Allergy (Verified 05/21/18 13:24) - Type of Care/Length of Stay Estimated LOS: Convalescent Care Less Than 30 days Type of Care Needed: Skilled Rehab Potential: Good Prognosis: Good - Additional Orders/Day of Discharge Additional Orders: If pateint spikes temp, call Dr. Woodard/Dr. Rios to evaluate wound and may need antibiotic treatment Day of Discharge: 08/24/18 - Follow Up Care Primary Care Physician: Gabe Rodriguez MD [Primary Care Provider] - Please follow up with your Primary Care Physician in: in 1-2 week Please Follow Up With: Jennie Woodard DPM When: 1 week at wound healing center. Call [phone] to schedule. Please Follow Up With: Margarito Deras MD When: as scheduled
--- NOTE | 2018-08-24 12:30 | TREXTCAR_ITS ---
- Diet 08/21/18 18:50 Diet: Regular Diet Is pt able to select menu?: Yes - Routine Orders/Code Status Suppository Type: Dulcolax 10mg Suppository Frequency: Daily PRN Routine Lab Work: CBC - on 08/29/18 Code Status: Full Code - Wound(s) LLE Wound Type: Open Surgical Wound RT LOWER LEG Wound Type: Laceration - Therapies Weight Bearing: Non weight bearing Extremity Affected:: Bilateral Lower Physical Therapy: Eval and Treat Occupational Therapy: Eval and Treat Speech Therapy: Eval and Treat - Allergies/Procedures Done in Hospital Allergies/Adverse Reactions: Allergies No Known Allergies Allergy (Verified 05/21/18 13:24) - Type of Care/Length of Stay Estimated LOS: Convalescent Care Less Than 30 days Type of Care Needed: Skilled Rehab Potential: Good Prognosis: Good - Additional Orders/Day of Discharge Additional Orders: If pateint spikes temp, call Dr. Woodard/Dr. Rios to evaluate wound and may need antibiotic treatment Day of Discharge: 08/24/18 - Follow Up Care Primary Care Physician: Gabe Rodriguez MD [Primary Care Provider] - Please follow up with your Primary Care Physician in: in 1-2 week Please Follow Up With: Jennie Woodard DPM When: 1 week at wound healing center. Call [phone] to schedule. Please Follow Up With: Margarito Deras MD When: as scheduled
--- NOTE | 2018-08-24 12:31 | DS.PCM_ITS ---
Discharge Date and Diagnosis - Problem List Patient Problems: Active and Suspected Problems (Last Reviewed 05/21/18 @ 13:15 by Annette Mahmood) Laceration of leg not thigh, right, with tendon involvement (Acute) Laceration (Acute) Date of Admission: 08/21/18 Date of Discharge: 08/24/18 - Primary Discharge Diagnosis Active and Suspected Problems (Last Reviewed 05/21/18 @ 13:15 by Annette Mahmood) Laceration of leg not thigh, right, with tendon involvement (Acute) Laceration (Acute) - Secondary Discharge Diagnosis Chronic Problems (Last Reviewed 05/21/18 @ 13:15 by Annette Mahmood) Right leg pain (Chronic) CAD (coronary artery disease) (Chronic) 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) Atherosclerosis of coronary artery of [place] heart without angina pectoris ( Chronic) CABG x 3 ARORA-LAD, SVG-PDA, SVG-PLB Cx 04/13/2007 H/O coronary artery bypass surgery (Chronic 04/13/07) CABG x 3 ARORA-LAD, SVG-PDA, SVG-PLB Cx 04/13/2007 Hypertension (Chronic) Hyperlipemia (Chronic) Hospital Course and Treatment Consultations 08/21/18 15:43 Consult: Onc/Wound/mini bar attendant Routine Comment: Summary of Care Provided: This is 72-year-old gentleman with history of coronary artery disease status post CABG being admitted for large right lower leg laceration wound after heavy air compression fell on his leg. The wound was taken care of by transportation assistant. Patient had irrigation and wound closure with a small yesika drain. Patient was treated with on IV Ancef 2 g every 8 hourly, mainly empirically. 1. RLE laceration secondary to falling metal object/air compression: Patient had irrigation of right leg and repair of deep white was a traumatic laceration including fascial tissue subcutaneous and the skin flap complex with yesika drain left 08/21/2018. Dr. Woodard following. Continue ancef 2 g IV every [address], plan to swap to outpatient vac. Continue wound care. Leukocytosis has resolved. Patient movement of toes seen under Rex wrap bandage in his knee and hip joint movement although not full range. No fever chills. Wound photo of laceration repair reviewed. Discussed with the transportation assistant, Dr. Woodard and she said patient does not need antibiotic further. Deep wound culture during surgery, does not show any growth for more than 48 hours. Patient does not have fever or chills and he got antibiotic high-dose, Ancef 2 g every 8 hourly for about 4 days. She advised discharged to TCU. 2. Left dorsal foot pain: Patient had x-ray of left ankle and foot. X-rays reviewed. It shows mainly degenerative changes at the first metatarsal phalangeal joint and plantar spur. No bony fracture or dislocation. Need further PT and OT 3 CAD prior CABG - 12/2017 good stress echo. Resume home meds when appropriate. EKG sinus tachycardia. Patient states always runs slow, no acute changes. Follows granulator operator, Dr. Deras. Patient had a stress echo in December 2017 and reported negative for ischemia by EKG and echocardiographic criteria. No anginal symptoms. EF 65%. 4. HTN/HLD - home meds DVT ppx: On Lovenox 40 mg subcu daily Discharge medication reconciliation done. Discharge follow-up instructions completed. Discharge process discussed with the patient and all questions were answered to patient's satisfaction. Scription given for oxycodone for pain control total 7 tablets. Patient is discharged to TCU for further rehab. Total time spent, exact 35 minutes on discharge meds reconciliation, examination, review of imaging and blood test and discussion with the patient on follow-up instructions. Clinical Impression(s) from Imaging Studies Tibia/Fibula X-Ray 08/21/18 13:10 IMPRESSION: Large laceration. No radiopaque foreign body is seen. Ankle X-Ray 08/23/18 07:25 IMPRESSION: Normal x-ray examination of the ankle. Foot X-Ray 08/23/18 07:25 IMPRESSION: Degenerative changes at the first metatarsal phalangeal joint. Plantar spur. Microbiology Past 72 Hours 08/21/18 17:10 Wound - Aerobic & Anaerobic Swabs Gram Stain - Final 08/21/18 17:10 Wound - Aerobic & Anaerobic Swabs Wound Culture - Final No growth aerobically. 08/21/18 17:10 Wound - Aerobic & Anaerobic Swabs Anaerobic Culture - Preliminary No growth in 48 hours. Patient Problems: Active and Suspected Problems (Last Reviewed 05/21/18 @ 13:15 by Annette Mahmood) Laceration of leg not thigh, right, with tendon involvement (Acute) Laceration (Acute) Subjective: Patient seen and examined today. Please, see progress note of today. - Physical Exam Vital Signs Temp Pulse Resp BP Pulse Ox 98.0 F 60 18 153/74 H 95 08/24/18 09:25 08/24/18 09:25 08/24/18 09:25 08/24/18 09:25 08/24/18 09:25 Oxygen Flow Rate (L/min) 2 Oxygen Delivery Method Room Air Weight: 200 lb 13.458 oz Body Mass Index (BMI) 28.0 Intake and Output for Last 24 Hours 08/22/18 08/23/18 08/24/18 23:59 23:59 23:59 Intake Total 4240 / 4240 4442 / 4442 544 / 544 Output Total 2300 / 2300 2900 / 2900 975 / 975 Balance 1940 / 1940 1542 / 1542 -431 / -431 Microbiology Past 72 Hours 08/21/18 17:10 Gram Stain - Final Wound - Aerobic & Anaerobic Swabs Wound Culture - Final No growth aerobically. Anaerobic Culture - Preliminary No growth in 48 hours. Laboratory Tests Past 24 Hrs 08/24/18 08/24/18 07:25 07:25 WBC 11.1 H RBC 3.91 L Hgb 11.7 L Hct 34.2 L MCV 87.5 MCH 29.9 MCHC 34.2 RDW 14.1 RDW Differential 45.1 H Plt Count 147 L MPV 10.2 Immature Gran % (Auto) 0.200 Neut % (Auto) 73.8 H Lymph % (Auto) 16.5 L [place] % (Auto) 7.7 Eos % (Auto) 1.6 Baso % (Auto) 0.2 Absolute Neuts (auto) 8.2 H Absolute Lymphs (auto) 1.83 Total Counted Not Reportable Sodium 143 Potassium 3.8 Chloride 111 H Carbon Dioxide 26.0 Anion Gap 6 BUN 19 H Creatinine 1.02 Estim Creat Clear Calc 69.72 Est GFR (MDRD) Af Amer 92 Est GFR (MDRD) Non-Af 76 BUN/Creatinine Ratio 18.6 Glucose 94 Calcium 7.8 L Discharge Diet: No Restrictions Discharge Activity: May Not Shower Weight Bearing Status: No weight bearing Keep extremity elevated above heart level: Right Leg Call your doctor if your incision/area has: Continuous Slow Oozing, Sudden Increased Bleeding, Increased Pain/ Swelling, Increased Redness, Foul Smelling Discharge, Swelling at the incision site Call your doctor if you observe: Fever of 101 or Higher, Swelling in the ankles, Calf discomfort, Uncontrolled pain Cleanse incision/area with: Keep Dressing Clean & Dry, - - keep YESIKA wound vac on constant. Notify physician if any of the alert lights come on. This has been placed and can remain intact for 1 week until he follows up at the wound center. He needs to bring his next port/batteries to that visit. He does not require home health dressing care. Home Medications: Medications to take at Discharge Aspirin E.C. [Ecotrin] 81 mg PO DAILY@0800 08/21/18 Atorvastatin Calcium [Lipitor] 80 mg PO QHS 08/21/18 Lisinopril [Prinivil] 5 mg PO DAILY 08/21/18 Metoprolol Tartrate [Lopressor (beta shannan)] 12.5 mg PO BID 08/21/18 [place]-3 Fatty Acids/Fish Oil [[place] 3 1,000 mg Softgel] 1 each PO BID 08/21/18 Ranitidine HCl [Zantac 75] 75 mg PO DAILY PRN PRN 08/21/18 Oxycodone [Oxyir] 5 mg PO Q4H PRN PRN #10 tab 08/24/18 Following Prescrptions Were Given to Patient: Oxycodone [Oxyir] 5 mg PO Q4H PRN PRN #10 tab PRN Reason: Severe Pain (6-01/24) Primary Care Physician: Gabe Rodriguez MD [Primary Care Provider] - Please follow up with your Primary Care Physician in: in 1-2 week Please Follow Up With: Jennie Woodard DPM When: 1 week at wound healing center. Call [phone] to schedule. Please Follow Up With: Margarito Deras MD When: as scheduled Medical Necessity - Tobacco Use Smoking Status: Former smoker Tobacco Use: Cigarettes Meaningful Use Info Meaningful Use Diagnoses (Choose all that apply): None applicable Code Visit Inpatient E&M: 77189 Disch Hosp
[2018-08-24] MEDS: Acetaminophen 325 MG Tablet 650 MG PO (13:17)
[2018-08-24 13:20] VITALS: BP 121/50; PULSE 53; RESP 16; TEMP 36.8; O2SAT 97
--- NOTE | 2018-08-24 14:46 | NURSING ---
report called to TCU nurse
== END 2018-08-24 16:15 | DRG 502 ==
LOC: ED 14:35 → MS3 14:53
PROVIDERS: Physician Assistant; Admitting Provider Internal Medicine; Emergency Provider Emergency Medicine; Family Provider Family Medicine; PCP Family Medicine; Referring Provider Podiatrist; Visit Provider Internal Medicine
PROC: 0JQN0ZZ Repair Right Lower Leg Subcutaneous Tissue and Fascia, Open Approach (ICD-10-PCS; principal; 2018-08-21 16:45)
DX: S86.921A Laceration of unspecified muscle(s) and tendon(s) at lower leg level, right leg, initial encounter (principal); W20.8XXA Other cause of strike by thrown, projected or falling object, initial encounter; M79.672 Pain in left foot; I25.10 Atherosclerotic heart disease of native coronary artery without angina pectoris; I25.2 Old myocardial infarction; I10 Essential (primary) hypertension; E78.5 Hyperlipidemia, unspecified; K21.9 Gastro-esophageal reflux disease without esophagitis; Z95.1 Presence of aortocoronary bypass graft; Z79.82 Long term (current) use of aspirin; Z79.899 Other long term (current) drug therapy; Z87.891 Personal history of nicotine dependence
CPT/HCPCS: 36415; 73590; 73610; 73630; 80048; 85025; 87070; 87075; 87205; 90715; 93005; 97162; 97166; 97530; 99285; J7030; A4216; J2405

== ENCOUNTER 2018-08-24 16:42 | Inpatient (IN) | payer MEDICARE, BC, SELFPAY ==
[2018-08-21 19:51] VITALS: BMI 28.0
[2018-08-24 17:37] VITALS: BP 156/74; PULSE 52; RESP 18; TEMP 36.8; O2SAT 97
[2018-08-24 19:50] VITALS: BMI 28.8
[2018-08-24 19:56] VITALS: BMI 28.8
[2018-08-24 20:00] VITALS: PULSE 57
--- NOTE | 2018-08-24 20:02 | NURSING ---
pt arrived from [facility] at [id number]
[2018-08-24 21:14] VITALS: BP 145/63; PULSE 57
[2018-08-24] MEDS: Metoprolol Tartrate 25 MG Tablet 12.5 MG PO (21:14)
[2018-08-24] MEDS: Atorvastatin Calcium 80 MG Tablet PO (21:14)
--- NOTE | 2018-08-25 00:35 | PCM.HP.STD ---
Problem List (1) Left ankle pain Status: Acute (2) Laceration of leg not thigh, right, with tendon involvement Status: Acute Qualifiers: (3) CAD (coronary artery disease) Status: Chronic (4) Hypertension Status: Chronic (5) Hyperlipemia Status: Chronic History of Present Illness Date of Admission: 08/24/18 Chief Complaint: Here for rehabilitation, strengthening, wound care, prior to discharge home with spouse. The patient is a 72 year old Male with below past medical history presented to [facility] Emergency Department 08/21/2018 with right leg laceration. 08/21/2018 X-ray right tibia/fibula large laceration. Dropped air compressor pump on right leg, degloving injury. EKG showed bradycardia, negative ischemia. Cefazolin 2GM IV given, Dr. Woodard consulted. 08/21/2018 Admit to Hospital. Bleeding controlled with tourniquet. 08/21/2018 Dr. Woodard performed right leg irrigation, repair traumatic leg laceration and skin flap. Application of jessica wound vac. Cefazolin 2GM IV Q8H. Patient developed left ankle pain, no fracture. Deep wound cultures negative. Antibiotic discontinued. 08/24/2018 Admit to TCU with debility, here for rehabilitation, strengthening, wound care, prior to discharge home with spouse. Past Medical History Past Medical History (Chronic Problems): Chronic Problems (Last Reviewed 05/21/18 @ 13:15 by Annette Mahmood) Right leg pain (Chronic) CAD (coronary artery disease) (Chronic) 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) Atherosclerosis of coronary artery of [place] heart without angina pectoris (Chronic) CABG x 3 ARORA-LAD, SVG-PDA, SVG-PLB Cx 04/13/2007 H/O coronary artery bypass surgery (Chronic 04/13/07) CABG x 3 ARORA-LAD, SVG-PDA, SVG-PLB Cx 04/13/2007 Hypertension (Chronic) Hyperlipemia (Chronic) Medical History: Medical History (Last Reviewed 05/21/18 @ 13:15 by Annette Mahmood) Phlegmasia cerulea dolens (Chronic) I80.209 Old myocardial infarction (Chronic) I25.2 Atherosclerosis of coronary artery of [place] heart without angina pectoris (Chronic) I25.10 CABG x 3 ARORA-LAD, SVG-PDA, SVG-PLB Cx 04/13/2007 Hypertension (Chronic) I10 Hyperlipemia (Chronic) E78.5 Lower GI bleed 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 [Ecotrin] 81 mg PO DAILY@0800 08/21/18 Atorvastatin Calcium [Lipitor] 80 mg PO QHS 08/21/18 Lisinopril [Prinivil] 5 mg PO DAILY 08/21/18 Metoprolol Tartrate [Lopressor 12.5 mg PO BID 08/21/18 (beta shannan)] [place]-3 Fatty Acids/Fish Oil 1 each PO BID 08/21/18 [[place] 3 1,000 mg Softgel] Ranitidine HCl [Zantac 75] 75 mg PO DAILY PRN PRN 08/21/18 Oxycodone [Oxyir] 5 mg PO Q4H PRN PRN #10 tab 08/24/18 Surgical History: Surgical History (Last Reviewed 05/21/18 @ 13:15 by Annette Mahmood) H/O coronary artery bypass surgery (Chronic) Onset Date: 04/13/07 Z95.1 CABG x 3 ARORA-LAD, SVG-PDA, SVG-PLB Cx 04/13/2007 H/O colonoscopy with polypectomy Z98.890, Z86.010 History of total left knee replacement (TKR) Z96.652 repair of renal artery aneurysm Surgical History: coronary bypass surgery, total knee arthroplasty - Left., - - Renal artery aneurysm repair. Psychiatric History: No pertinent psych hx Lives: Spouse/ Significant Other Smoking Status: Former smoker Tobacco Use: Cigarettes Alcohol: None Drugs: None - *Family History Maternal Family History: Family History (Last Reviewed 05/21/18 @ 13:15 by Annette Mahmood) Father CAD (coronary artery disease) History Items: No pertinent history Paternal Family History: Family History (Last Reviewed 05/21/18 @ 13:15 by Annette Mahmood) Father CAD (coronary artery disease) History Items: Heart Disease Review of Systems Constitutional: Denies: Chills, Fever, Weight Change HEENT: Denies: Head Aches, Sinus Congestion, Sinus Drainage Cardiovascular: Denies: Chest Pain, Palpitations Respiratory: Denies: Cough, Shortness of breath at rest, Sputum production Gastrointestinal: Denies: Abdominal Pain, Nausea, Vomiting Genitourinary: Denies: Dysuria Musculoskeletal: Denies: Joint Pain, Joint Tenderness Skin: Denies: Rash, Wounds Neurological: Denies: Numbness, Tingling, Focal weakness Psychiatric: Denies: Anxiety, Depression, Homicidal Ideations, Suicidal Ideations Hematologic/ Lymphatic: Denies: Easy Bruising, Easy Bleeding VTE Information - Inpt Only VTE Present on Admission: No VTE Mechan Device Prophylaxis: Knee High JULITO Hose VTE Pharm Prophylaxis ordered?: Yes Patient Problems: Active and Suspected Problems (Last Reviewed 05/21/18 @ 13:15 by Annette Mahmood) Left ankle pain (Acute) - Physical Exam General: Alert, Oriented x3, Cooperative HEENT: Atraumatic, PERRLA, EOMI, Normocephalic Neck: Supple, No JVD, Negative Carotid Bruits Lungs: Clear to auscultation, Normal air movement Cardiovascular: Regular rate, No murmurs Abdomen: Bowel Sounds Present, Soft, Non Tender Extremities: Capillary Refill Less than 3 Seconds, - - Right lower extremity wound dressed, left foot surgical boot. Skin: No rashes, No breakdown Musculoskeletal: No Tenderness to Palpation of Joints or Extremities Neurological: Cranial nerves II-XII grossly intact Psych/Mental Status: Normal Affect, Appropriate Vital Signs Temp Pulse Resp BP Pulse Ox 98.2 F 57 L 18 145/63 H 97 08/24/18 17:37 08/24/18 21:14 08/24/18 17:37 08/24/18 21:14 08/24/18 17:37 Oxygen Delivery Method Room Air Weight: 93.695 kg Body Mass Index (BMI) 28.8 Intake and Output for Last 24 Hours 08/23/18 08/24/18 08/25/18 23:59 23:59 23:59 Intake Total 120 / 120 Output Total 240 / 240 Balance -120 / -120 Assessment/Plan All Active Problems (Last Reviewed 05/21/18 @ 13:15 by Annette Mahmood) Laceration of leg not thigh, right, with tendon involvement (Acute) Laceration (Acute) Left ankle pain (Acute) 72 year old male with below past medical history hospitalized for large laceration right lower extremity, underwent surgical repair 08/21/[address] Woodard, admitted to TCU with debility, here for rehabilitation, strengthening, prior to discharge home with spouse. Debility - PT/OT. Pain - Tylenol 1000MG Q8H, Tramadol 50MG Q6H PRN moderate pain, Oxycodone 5MG Q4H PRN severe pain. Bowel - Miralax 17GM daily, Senokot 1 tablet BID, Dulcolax 10MG daily PRN. Pneumonia vaccination - Administer Prevnar 13 and/or Pneumovax 23 as necessary. DVT prophylaxis - Lovenox 40MG SC daily. Coronary Artery Disease - Metoprolol 12.5MG BID, Lisinopril 5MG daily, Aspirin 81MG daily. Hyperlipidemia - Atorvastatin 80MG QHS. Nutrition - Ensure 120ML 4x/day. GERD - Famotidine 10MG daily PRN. Right leg laceration - Jessica vac dressing, Dr. Woodard following.
--- NOTE | 2018-08-25 00:40 | HP.PCM_ITS ---
Problem List (1) Left ankle pain Status: Acute (2) Laceration of leg not thigh, right, with tendon involvement Status: Acute Qualifiers: (3) CAD (coronary artery disease) Status: Chronic (4) Hypertension Status: Chronic (5) Hyperlipemia Status: Chronic History of Present Illness Date of Admission: 08/24/18 Chief Complaint: Here for rehabilitation, strengthening, wound care, prior to discharge home with spouse. The patient is a 72 year old Male with below past medical history presented to [facility] Emergency Department 08/21/2018 with right leg laceration. 08/21/2018 X-ray right tibia/fibula large laceration. Dropped air compressor pump on right leg, degloving injury. EKG showed bradycardia, negative ischemia. Cefazolin 2GM IV given, Dr. Woodard consulted. 08/21/2018 Admit to Hospital. Bleeding controlled with tourniquet. 08/21/2018 Dr. Woodard performed right leg irrigation, repair traumatic leg laceration and skin flap. Application of jessica wound vac. Cefazolin 2GM IV Q8H. Patient developed left ankle pain, no fracture. Deep wound cultures negative. Antibiotic discontinued. 08/24/2018 Admit to TCU with debility, here for rehabilitation, strengthening, wound care, prior to discharge home with spouse. Past Medical History Past Medical History (Chronic Problems): Chronic Problems (Last Reviewed 05/21/18 @ 13:15 by Annette Mahmood) Right leg pain (Chronic) CAD (coronary artery disease) (Chronic) 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) Atherosclerosis of coronary artery of [place] heart without angina pectoris (Chronic) CABG x 3 ARORA-LAD, SVG-PDA, SVG-PLB Cx 04/13/2007 H/O coronary artery bypass surgery (Chronic 04/13/07) CABG x 3 ARORA-LAD, SVG-PDA, SVG-PLB Cx 04/13/2007 Hypertension (Chronic) Hyperlipemia (Chronic) Medical History: Medical History (Last Reviewed 05/21/18 @ 13:15 by Annette Mahmood) Phlegmasia cerulea dolens (Chronic) I80.209 Old myocardial infarction (Chronic) I25.2 Atherosclerosis of coronary artery of [place] heart without angina pectoris (Chronic) I25.10 CABG x 3 ARORA-LAD, SVG-PDA, SVG-PLB Cx 04/13/2007 Hypertension (Chronic) I10 Hyperlipemia (Chronic) E78.5 Lower GI bleed 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 [Ecotrin] 81 mg PO DAILY@0800 08/21/18 Atorvastatin Calcium [Lipitor] 80 mg PO QHS 08/21/18 Lisinopril [Prinivil] 5 mg PO DAILY 08/21/18 Metoprolol Tartrate [Lopressor 12.5 mg PO BID 08/21/18 (beta shannan)] [place]-3 Fatty Acids/Fish Oil 1 each PO BID 08/21/18 [[place] 3 1,000 mg Softgel] Ranitidine HCl [Zantac 75] 75 mg PO DAILY PRN PRN 08/21/18 Oxycodone [Oxyir] 5 mg PO Q4H PRN PRN #10 tab 08/24/18 Surgical History: Surgical History (Last Reviewed 05/21/18 @ 13:15 by Annette Mahmood) H/O coronary artery bypass surgery (Chronic) Onset Date: 04/13/07 Z95.1 CABG x 3 ARORA-LAD, SVG-PDA, SVG-PLB Cx 04/13/2007 H/O colonoscopy with polypectomy Z98.890, Z86.010 History of total left knee replacement (TKR) Z96.652 repair of renal artery aneurysm Surgical History: coronary bypass surgery, total knee arthroplasty - Left., - - Renal artery aneurysm repair. Psychiatric History: No pertinent psych hx Lives: Spouse/ Significant Other Smoking Status: Former smoker Tobacco Use: Cigarettes Alcohol: None Drugs: None - *Family History Maternal Family History: Family History (Last Reviewed 05/21/18 @ 13:15 by Annette Mahmood) Father CAD (coronary artery disease) History Items: No pertinent history Paternal Family History: Family History (Last Reviewed 05/21/18 @ 13:15 by Annette Mahmood) Father CAD (coronary artery disease) History Items: Heart Disease Review of Systems Constitutional: Denies: Chills, Fever, Weight Change HEENT: Denies: Head Aches, Sinus Congestion, Sinus Drainage Cardiovascular: Denies: Chest Pain, Palpitations Respiratory: Denies: Cough, Shortness of breath at rest, Sputum production Gastrointestinal: Denies: Abdominal Pain, Nausea, Vomiting Genitourinary: Denies: Dysuria Musculoskeletal: Denies: Joint Pain, Joint Tenderness Skin: Denies: Rash, Wounds Neurological: Denies: Numbness, Tingling, Focal weakness Psychiatric: Denies: Anxiety, Depression, Homicidal Ideations, Suicidal Ideations Hematologic/ Lymphatic: Denies: Easy Bruising, Easy Bleeding VTE Information - Inpt Only VTE Present on Admission: No VTE Mechan Device Prophylaxis: Knee High JULITO Hose VTE Pharm Prophylaxis ordered?: Yes Patient Problems: Active and Suspected Problems (Last Reviewed 05/21/18 @ 13:15 by Annette Mahmood) Left ankle pain (Acute) - Physical Exam General: Alert, Oriented x3, Cooperative HEENT: Atraumatic, PERRLA, EOMI, Normocephalic Neck: Supple, No JVD, Negative Carotid Bruits Lungs: Clear to auscultation, Normal air movement Cardiovascular: Regular rate, No murmurs Abdomen: Bowel Sounds Present, Soft, Non Tender Extremities: Capillary Refill Less than 3 Seconds, - - Right lower extremity wound dressed, left foot surgical boot. Skin: No rashes, No breakdown Musculoskeletal: No Tenderness to Palpation of Joints or Extremities Neurological: Cranial nerves II-XII grossly intact Psych/Mental Status: Normal Affect, Appropriate Vital Signs Temp Pulse Resp BP Pulse Ox 98.2 F 57 L 18 145/63 H 97 08/24/18 17:37 08/24/18 21:14 08/24/18 17:37 08/24/18 21:14 08/24/18 17:37 Oxygen Delivery Method Room Air Weight: 93.695 kg Body Mass Index (BMI) 28.8 Intake and Output for Last 24 Hours 08/23/18 08/24/18 08/25/18 23:59 23:59 23:59 Intake Total 120 / 120 Output Total 240 / 240 Balance -120 / -120 Assessment/Plan All Active Problems (Last Reviewed 05/21/18 @ 13:15 by Annette Mahmood) Laceration of leg not thigh, right, with tendon involvement (Acute) Laceration (Acute) Left ankle pain (Acute) 72 year old male with below past medical history hospitalized for large laceration right lower extremity, underwent surgical repair 08/21/[address] Woodard, admitted to TCU with debility, here for rehabilitation, strengthening, prior to discharge home with spouse. * Debility - PT/OT. * Pain - Tylenol 1000MG Q8H, Tramadol 50MG Q6H PRN moderate pain, Oxycodone 5MG Q4H PRN severe pain. * Bowel - Miralax 17GM daily, Senokot 1 tablet BID, Dulcolax 10MG daily PRN. * Pneumonia vaccination - Administer Prevnar 13 and/or Pneumovax 23 as necessary. * DVT prophylaxis - Lovenox 40MG SC daily. * Coronary Artery Disease - Metoprolol 12.5MG BID, Lisinopril 5MG daily, Aspirin 81MG daily. * Hyperlipidemia - Atorvastatin 80MG QHS. * Nutrition - Ensure 120ML 4x/day. * GERD - Famotidine 10MG daily PRN. * Right leg laceration - Jessica vac dressing, Dr. Woodard following.
[2018-08-25] MEDS: Senna Tablet 1 TABLET PO ×2 (05:44→16:53)
[2018-08-25] MEDS: Enoxaparin 40 MG/0.4 ML Syringe SC (05:44)
[2018-08-25] MEDS: Polyethylene Glycol 3350 17 GM PACKET PO (05:44)
[2018-08-25] MEDS: Acetaminophen 500 MG Tablet 1000 MG PO (05:44)
[2018-08-25 05:45] VITALS: BP 105/59; PULSE 65
[2018-08-25] MEDS: Lisinopril 5 MG Tablet PO (05:45)
[2018-08-25] MEDS: Metoprolol Tartrate 25 MG Tablet 12.5 MG PO ×2 (05:45→16:52)
--- NOTE | 2018-08-25 07:52 | PN_ITS ---
Patient Problems: Active and Suspected Problems (Last Reviewed 05/21/18 @ 13:15 by Annette Mahmood) Left ankle pain (Acute) Subjective: This 72-year-old male with cardiac history was seen postoperative day #4 right leg degloving injury with primary repair and wound VAC placement. He denies pain at this time however he reports his pain is at worst a 4 out of 10. His splint is intact. He also had a crush injury to the left leg and was unable to bear weight and struggle with physical therapy during his recent hospital admission. He relates this is feeling significantly better today and only has minimal pain with certain motions. He relates he is ready to work with therapy. He denies fever, chill, nausea, vomiting, loss of appetite, shortness of breath, chest pain. - Physical Exam General: Alert, Oriented x3, Cooperative HEENT: Atraumatic Skin: Ulcer/ Wound - Degloving surgical repair site to the anterior right leg is covered with a elisa wound VAC which is intact with no evidence of leaking. There is no adjacent local signs of infection around the bandage or bogginess or fluctuance on palpation., - - The left foot does not have any ecchymosis, open lesions, or signs of infection Musculoskeletal: No Tenderness to Palpation of Joints or Extremities, Muscle Wasting, - - Mild pain on palpation with manipulation of the right anterior leg. Only mild pain on palpation to the anterior central left ankle and no longer with passive range of motion or anterior drawer sign. No pain with resisted eversion of the left lower extremity. Active range of motion digits x10. Compartments remain soft bilateral lower extremities. Negative [place] signs bilateral Neurological: - - Epicritic sensation intact to light touch bilateral digits Psych/Mental Status: Normal Affect, Appropriate Vital Signs Temp Pulse Resp BP Pulse Ox 98.2 F 65 18 105/59 L 97 08/24/18 17:37 08/25/18 05:45 08/24/18 17:37 08/25/18 05:45 08/24/18 17:37 Oxygen Delivery Method Room Air Weight: 93.695 kg Body Mass Index (BMI) 28.8 Intake and Output for Last 24 Hours 08/23/18 08/24/18 08/25/18 23:59 23:59 23:59 Intake Total 120 / 120 Output Total 240 / 240 700 / 700 Balance -120 / -120 -700 / -700 Medical Necessity - Tobacco Use Smoking Status: Former smoker Tobacco Use: Cigarettes Assessment/Plan All Active Problems (Last Reviewed 05/21/18 @ 13:15 by Annette Mahmood) Laceration of leg not thigh, right, with tendon involvement (Acute) Laceration (Acute) Left ankle pain (Acute) POD #4 complex traumatic laceration repair of the right lower extremity with additional application of elisa wound VAC Crush injury left dorsal foot / anterior ankle I reviewed and discussed his case. His dressing and wound VAC were left intact. His splint is intact I recommend keeping this in place. His pain is cont rolled: he defers pain medication. To take tylenol as prescribed for pain control to limit flare ups. It is noted there were no local signs of infection noted during the irrigation and closure procedure yesterday. A deep wound culture was obtained in surgery, and this is not demonstrating any bacterial growth at this time. Antibiotics have been stopped at this time. He will remain nonweightbearing to the right lower extremity with a splint intact to prevent muscle and tendon movement deep to the laceration repair site. The plan is to change the elisa wound VAC and evaluate the flap viability early next week on Monday or Monday. His left lower extremity injury is noted. X-rays were negative for fracture. He is having less clinical pain noted at this time. I recommend WBAT with CAM walker. To continue to work with PT in the transitional care unit. Medical management and DVT prophylaxis per primary team is greatly appreciated. To follow up at the wound healing center after discharge. To continue incentive spirometer. Please call if questions. Jennie Woodard DPM, [facility] [phone]
[2018-08-25] MEDS: Aspirin E.C. 81 MG Tablet PO (07:54)
[2018-08-25 08:12] LABS: Absolute Lymphocyte Count 1.58 X10^3/ul (0.83-4.51); Absolute Neutrophil Count 7.5 X10^3/uL (2.0-7.7); Basophil# 0.02 X10^3/uL; Basophil% 0.2 % (0-1); Eosinophil# 0.19 X10^3/uL; Eosinophils% 1.9 % (0-5); Hematocrit 34.9 % (40-54); Hemoglobin 11.8 g/dl (13.0-16.5); Lymphocyte # 1.58 X10^3/ul (4.0); Lymphocyte % 15.8 % (19-41); Mean Corp Hgb Conc 33.8 g/gl (32-36); Mean Corpuscular Hgb 29.4 pg (27.0-32.0); Mean Platelet Vol. 10.6 fl (6.2-12.0); Monocyte# 0.75 X10^3/uL; Monocyte% 7.5 % (0-10); Neutrophil # 7.46 X10^3/uL (2.7-7.7); Neutrophil % 74.5 % (47-70); Platelet Count 173 K/mm3 (150-450); RBC Distribution Width CV 13.9 % (11.6-14.6); RBC Distribution Width SD 44.3 fl (35.1-43.9); Red Blood Count 4.01 M/mm3 (4.6-6.2)
[2018-08-25 08:15] LABS: POSITIVE COUNT NO; POSITIVE DIFFERENTIAL NO; POSITIVE MORPHOLOGY NO
--- NOTE | 2018-08-25 08:21 | PCM.PN.RX ---
<Bienvenido Lugo D - Last Filed: 08/25/18 08:21> Progress Note - Pharmacy Subjective: TCU Admission Objective: Allergies No Known Allergies Allergy (Verified 05/21/18 13:24) Current Medications Generic Name Dose Route Start Last Admin Trade Name Freq PRN Reason Stop Dose Admin Acetaminophen 1,000 mg 08/24/18 22:00 08/25/18 05:44 Tylenol PO 1,000 mg Q8 BRO Administration Aspirin 81 mg 08/25/18 08:00 08/25/18 07:54 Ecotrin PO 81 mg DAILY@0800 BRO Administration Atorvastatin Calcium 80 mg 08/24/18 22:00 08/24/18 21:14 Lipitor PO 80 mg QHS BRO Administration Bisacodyl 10 mg 08/25/18 00:48 Dulcolax PO DAILY PRN Constipation Enoxaparin Sodium 40 mg 08/25/18 06:00 08/25/18 05:44 Lovenox SC 40 mg DAILY@0600 BRO Administration Famotidine 10 mg 08/24/18 17:45 Pepcid PO DAILY PRN PRN GERD Lisinopril 5 mg 08/25/18 06:00 08/25/18 05:45 Zestril PO 5 mg DAILY BRO Administration Metoprolol Tartrate 12.5 mg 08/24/18 18:00 08/25/18 05:45 Lopressor (Beta Enoc) PO 12.5 mg BID BRO Administration Nutritional Formula (Lactose Free) 120 ml 08/25/18 06:00 08/25/18 05:44 Ensure Enlive PO 120 ml 4X/DAY BRO Administration Oxycodone HCl 5 mg 08/24/18 17:45 Oxyir PO Q4H PRN PRN SEVERE PAIN (6-10/10) Polyethylene Glycol 17 gm 08/25/18 06:00 08/25/18 05:44 Miralax PO 17 gm DAILY [facility] Administration Senna 1 tablet 08/25/18 06:00 08/25/18 05:44 Senokot PO 1 tablet BID [facility] Administration Tramadol HCl 50 mg 08/25/18 00:48 Ultram PO Q6H PRN PRN MODERATE PAIN (4-5/10) Tuberculin PPD 5 tu 08/25/18 10:00 Tubersol, Aplisol, Ppd ID 08/25/18 10:01 X1 ONE Tuberculin PPD 5 tu 09/01/18 10:00 Tubersol, Aplisol, Ppd ID 09/01/18 10:01 X1 ONE Problem List (Last Reviewed 05/21/18 @ 13:15 by Annette Mahmood) Left ankle pain (Acute) Vital Signs Temp Pulse Resp BP Pulse Ox 98.2 F 65 18 105/59 L 97 08/24/18 17:37 08/25/18 05:45 08/24/18 17:37 08/25/18 05:45 08/24/18 17:37 Oxygen Delivery Method Room Air Weight: 93.695 kg Body Mass Index (BMI) 28.8 Assessment/Plan: 1) Pain APAP, tramadol for moderate pain, oxycodone for severe pain. Continue to monitor daily pain scores, prn medication use. 2) CAD/HLD ASA, atorvastatin, lisinopril, metoprolol. Continue to monitor BP/HR, lipids, renal function, electrolytes, for chest pain. 3) DVT PPx Enoxaparin. Continue to monitor for bleeding/clot. 4) GI Famotidine for GERD. Continue to monitor prn medication use, for s/s GI distress. Psychotropic Medications: None Unnecessary Medications: None Bowel Regimen: 5) Senna, PEG, prn bisacodyl. Continue to monitor prn medication use, for constipation/diarrhea. Date of Note:: 08/25/18 - Provider Comments Provider responsibility: Provider responsible to enter orders to implement recommendations <Сергей Green Chi - Last Filed: 08/25/18 09:24> Progress Note - Pharmacy Subjective: [] Objective: Allergies No Known Allergies Allergy (Verified 05/21/18 13:24) Current Medications Generic Name Dose Route Start Last Admin Trade Name Freq PRN Reason Stop Dose Admin Acetaminophen 1,000 mg 08/24/18 22:00 08/25/18 05:44 Tylenol PO 1,000 mg Q8 BRO Administration Aspirin 81 mg 08/25/18 08:00 08/25/18 07:54 Ecotrin PO 81 mg DAILY@0800 BRO Administration Atorvastatin Calcium 80 mg 08/24/18 22:00 08/24/18 21:14 Lipitor PO 80 mg QHS BRO Administration Bisacodyl 10 mg 08/25/18 00:48 Dulcolax PO DAILY PRN Constipation Enoxaparin Sodium 40 mg 08/25/18 06:00 08/25/18 05:44 Lovenox SC 40 mg DAILY@0600 BRO Administration Famotidine 10 mg 08/24/18 17:45 Pepcid PO DAILY PRN PRN GERD Lisinopril 5 mg 08/25/18 06:00 08/25/18 05:45 Zestril PO 5 mg DAILY BRO Administration Metoprolol Tartrate 12.5 mg 08/24/18 18:00 08/25/18 05:45 Lopressor (Beta Enoc) PO 12.5 mg BID BRO Administration Nutritional Formula (Lactose Free) 120 ml 08/25/18 06:00 08/25/18 05:44 Ensure Enlive PO 120 ml 4X/DAY BRO Administration Oxycodone HCl 5 mg 08/24/18 17:45 Oxyir PO Q4H PRN PRN SEVERE PAIN (6-10/10) Polyethylene Glycol 17 gm 08/25/18 06:00 08/25/18 05:44 Miralax PO 17 gm DAILY BRO Administration Senna 1 tablet 08/25/18 06:00 08/25/18 05:44 Senokot PO 1 tablet BID BRO Administration Tramadol HCl 50 mg 08/25/18 00:48 Ultram PO Q6H PRN PRN MODERATE PAIN (4-5/10) Tuberculin PPD 5 tu 08/25/18 10:00 Tubersol, Aplisol, Ppd ID 08/25/18 10:01 X1 ONE Tuberculin PPD 5 tu 09/01/18 10:00 Tubersol, Aplisol, Ppd ID 09/01/18 10:01 X1 ONE Problem List (Last Reviewed 05/21/18 @ 13:15 by Annette Mahmood) Left ankle pain (Acute) Vital Signs Temp Pulse Resp BP Pulse Ox 98.2 F 65 18 105/59 L 97 08/24/18 17:37 08/25/18 05:45 08/24/18 17:37 08/25/18 05:45 08/24/18 17:37 Oxygen Delivery Method Room Air Weight: 93.695 kg Body Mass Index (BMI) 28.8 Sodium 141 mmol/L (136-145) 08/25/18 07:45 Potassium 3.8 mmol/L (3.5-5.1) 08/25/18 07:45 Chloride 107 mmol/L (98-107) 08/25/18 07:45 Carbon Dioxide 24.0 mmol/L (21.0-32.0) 08/25/18 07:45 Anion Gap 10 (5-15) 08/25/18 07:45 BUN 22 mg/dL (7-18) H 08/25/18 07:45 Creatinine 0.99 mg/dL (0.70-1.30) 08/25/18 07:45 Est GFR (MDRD) Af Amer 96 mL/min (>60) 08/25/18 07:45 Est GFR (MDRD) Non-Af 79 mL/min (>60) 08/25/18 07:45 BUN/Creatinine Ratio 22.2 RATIO (10-20) H 08/25/18 07:45 Glucose 140 mg/dL (74-106) H 08/25/18 07:45 Assessment/Plan: Psychotropic Medications: Unnecessary Medications: Bowel Regimen: - Provider Comments Provider responsibility: Provider responsible to enter orders to implement recommendations Provider Comments to Recommendations by Pharmacy: Agree
--- NOTE | 2018-08-25 08:26 | PHA.CONS_ITS ---
<Bienvenido Lugo D - Last Filed: 08/25/18 08:21> Progress Note - Pharmacy Subjective: TCU Admission Objective: Allergies No Known Allergies Allergy (Verified 05/21/18 13:24) Current Medications Generic Name Dose Route Start Last Admin Trade Name Freq PRN Reason Stop Dose Admin Acetaminophen 1,000 mg 08/24/18 22:00 08/25/18 05:44 Tylenol PO 1,000 mg Q8 BRO Administration Aspirin 81 mg 08/25/18 08:00 08/25/18 07:54 Ecotrin PO 81 mg DAILY@0800 BRO Administration Atorvastatin Calcium 80 mg 08/24/18 22:00 08/24/18 21:14 Lipitor PO 80 mg QHS BRO Administration Bisacodyl 10 mg 08/25/18 00:48 Dulcolax PO DAILY PRN Constipation Enoxaparin Sodium 40 mg 08/25/18 06:00 08/25/18 05:44 Lovenox SC 40 mg DAILY@0600 BRO Administration Famotidine 10 mg 08/24/18 17:45 Pepcid PO DAILY PRN PRN GERD Lisinopril 5 mg 08/25/18 06:00 08/25/18 05:45 Zestril PO 5 mg DAILY BRO Administration Metoprolol Tartrate 12.5 mg 08/24/18 18:00 08/25/18 05:45 Lopressor (Beta Enoc) PO 12.5 mg BID BRO Administration Nutritional Formula (Lactose Free) 120 ml 08/25/18 06:00 08/25/18 05:44 Ensure Enlive PO 120 ml 4X/DAY BRO Administration Oxycodone HCl 5 mg 08/24/18 17:45 Oxyir PO Q4H PRN PRN SEVERE PAIN (6-10/10) Polyethylene Glycol 17 gm 08/25/18 06:00 08/25/18 05:44 Miralax PO 17 gm DAILY [facility] Administration Senna 1 tablet 08/25/18 06:00 08/25/18 05:44 Senokot PO 1 tablet BID [facility] Administration Tramadol HCl 50 mg 08/25/18 00:48 Ultram PO Q6H PRN PRN MODERATE PAIN (4-5/10) Tuberculin PPD 5 tu 08/25/18 10:00 Tubersol, Aplisol, Ppd ID 08/25/18 10:01 X1 ONE Tuberculin PPD 5 tu 09/01/18 10:00 Tubersol, Aplisol, Ppd ID 09/01/18 10:01 X1 ONE Problem List (Last Reviewed 05/21/18 @ 13:15 by Annette Mahmood) Left ankle pain (Acute) Vital Signs Temp Pulse Resp BP Pulse Ox 98.2 F 65 18 105/59 L 97 08/24/18 17:37 08/25/18 05:45 08/24/18 17:37 08/25/18 05:45 08/24/18 17:37 Oxygen Delivery Method Room Air Weight: 93.695 kg Body Mass Index (BMI) 28.8 Assessment/Plan: 1) Pain APAP, tramadol for moderate pain, oxycodone for severe pain. Continue to monitor daily pain scores, prn medication use. 2) CAD/HLD ASA, atorvastatin, lisinopril, metoprolol. Continue to monitor BP/HR, lipids, renal function, electrolytes, for chest pain. 3) DVT PPx Enoxaparin. Continue to monitor for bleeding/clot. 4) GI Famotidine for GERD. Continue to monitor prn medication use, for s/s GI distress. Psychotropic Medications: None Unnecessary Medications: None Bowel Regimen: 5) Senna, PEG, prn bisacodyl. Continue to monitor prn medication use, for constipation/diarrhea. Date of Note:: 08/25/18 - Provider Comments Provider responsibility: Provider responsible to enter orders to implement recommendations <Сергей Green Chi - Last Filed: 08/25/18 09:24> Progress Note - Pharmacy Subjective: [] Objective: Allergies No Known Allergies Allergy (Verified 05/21/18 13:24) Current Medications Generic Name Dose Route Start Last Admin Trade Name Freq PRN Reason Stop Dose Admin Acetaminophen 1,000 mg 08/24/18 22:00 08/25/18 05:44 Tylenol PO 1,000 mg Q8 BRO Administration Aspirin 81 mg 08/25/18 08:00 08/25/18 07:54 Ecotrin PO 81 mg DAILY@0800 BRO Administration Atorvastatin Calcium 80 mg 08/24/18 22:00 08/24/18 21:14 Lipitor PO 80 mg QHS BRO Administration Bisacodyl 10 mg 08/25/18 00:48 Dulcolax PO DAILY PRN Constipation Enoxaparin Sodium 40 mg 08/25/18 06:00 08/25/18 05:44 Lovenox SC 40 mg DAILY@0600 BRO Administration Famotidine 10 mg 08/24/18 17:45 Pepcid PO DAILY PRN PRN GERD Lisinopril 5 mg 08/25/18 06:00 08/25/18 05:45 Zestril PO 5 mg DAILY BRO Administration Metoprolol Tartrate 12.5 mg 08/24/18 18:00 08/25/18 05:45 Lopressor (Beta Enoc) PO 12.5 mg BID BRO Administration Nutritional Formula (Lactose Free) 120 ml 08/25/18 06:00 08/25/18 05:44 Ensure Enlive PO 120 ml 4X/DAY BRO Administration Oxycodone HCl 5 mg 08/24/18 17:45 Oxyir PO Q4H PRN PRN SEVERE PAIN (6-10/10) Polyethylene Glycol 17 gm 08/25/18 06:00 08/25/18 05:44 Miralax PO 17 gm DAILY BRO Administration Senna 1 tablet 08/25/18 06:00 08/25/18 05:44 Senokot PO 1 tablet BID BRO Administration Tramadol HCl 50 mg 08/25/18 00:48 Ultram PO Q6H PRN PRN MODERATE PAIN (4-5/10) Tuberculin PPD 5 tu 08/25/18 10:00 Tubersol, Aplisol, Ppd ID 08/25/18 10:01 X1 ONE Tuberculin PPD 5 tu 09/01/18 10:00 Tubersol, Aplisol, Ppd ID 09/01/18 10:01 X1 ONE Problem List (Last Reviewed 05/21/18 @ 13:15 by Annette Mahmood) Left ankle pain (Acute) Vital Signs Temp Pulse Resp BP Pulse Ox 98.2 F 65 18 105/59 L 97 08/24/18 17:37 08/25/18 05:45 08/24/18 17:37 08/25/18 05:45 08/24/18 17:37 Oxygen Delivery Method Room Air Weight: 93.695 kg Body Mass Index (BMI) 28.8 Sodium 141 mmol/L (136-145) 08/25/18 07:45 Potassium 3.8 mmol/L (3.5-5.1) 08/25/18 07:45 Chloride 107 mmol/L (98-107) 08/25/18 07:45 Carbon Dioxide 24.0 mmol/L (21.0-32.0) 08/25/18 07:45 Anion Gap 10 (5-15) 08/25/18 07:45 BUN 22 mg/dL (7-18) H 08/25/18 07:45 Creatinine 0.99 mg/dL (0.70-1.30) 08/25/18 07:45 Est GFR (MDRD) Af Amer 96 mL/min (>60) 08/25/18 07:45 Est GFR (MDRD) Non-Af 79 mL/min (>60) 08/25/18 07:45 BUN/Creatinine Ratio 22.2 RATIO (10-20) H 08/25/18 07:45 Glucose 140 mg/dL (74-106) H 08/25/18 07:45 Assessment/Plan: Psychotropic Medications: Unnecessary Medications: Bowel Regimen: - Provider Comments Provider responsibility: Provider responsible to enter orders to implement recommendations Provider Comments to Recommendations by Pharmacy: Agree
[2018-08-25 08:31] LABS: Anion Gap 10 (5-15); BUN 22 mg/dL (7-18); BUN/Creat Ratio 22.2 RATIO (10-20); Calcium,Total 7.9 mg/dL (8.5-10.1); Chloride 107 mmol/L (98-107); Creatinine, Serum 0.99 mg/dL (0.70-1.30); EST Glomerular Filtration Rate 79 mL/min (>60); Est Glom Filt Rate - Afr Amer 96 mL/min (>60); Estimated Creatinine Clearance 71.84 ml/min; Glucose 140 mg/dL (74-106); Potassium 3.8 mmol/L (3.5-5.1); Sodium Level 141 mmol/L (136-145)
[2018-08-25] MEDS: Tuberculin,Purif.prot.deriv. 50 TU/ML Vial 5 ML ID (10:38)
[2018-08-25 15:42] VITALS: BP 145/59; PULSE 54; RESP 16; TEMP 36.7; O2SAT 97
[2018-08-25 16:52] VITALS: BP 145/59; PULSE 60
[2018-08-25] MEDS: Atorvastatin Calcium 80 MG Tablet PO (20:37)
[2018-08-26] MEDS: Enoxaparin 40 MG/0.4 ML Syringe SC (05:46)
[2018-08-26 05:47] VITALS: BP 128/72; PULSE 54
[2018-08-26] MEDS: Metoprolol Tartrate 25 MG Tablet 12.5 MG PO ×2 (05:47→17:07)
[2018-08-26] MEDS: Lisinopril 5 MG Tablet PO (05:47)
[2018-08-26] MEDS: Aspirin E.C. 81 MG Tablet PO (08:32)
[2018-08-26 15:28] VITALS: BP 137/65; PULSE 52; RESP 16; TEMP 37.2; O2SAT 98
[2018-08-26 17:07] VITALS: BP 137/65; PULSE 64
[2018-08-26] MEDS: Atorvastatin Calcium 80 MG Tablet PO (19:40)
[2018-08-27] MEDS: Lisinopril 5 MG Tablet PO (06:14)
[2018-08-27 06:15] VITALS: BP 142/73; PULSE 62
[2018-08-27] MEDS: Metoprolol Tartrate 25 MG Tablet 12.5 MG PO ×2 (06:15→16:49)
[2018-08-27] MEDS: Enoxaparin 40 MG/0.4 ML Syringe SC (06:16)
[2018-08-27] MEDS: Acetaminophen 500 MG Tablet 1000 MG PO ×2 (06:31→13:41)
--- NOTE | 2018-08-27 07:02 | PCM.PROGNOTE ---
Patient Problems: Active and Suspected Problems (Last Reviewed 05/21/18 @ 13:15 by Annette Mahmood) Difficulty in walking, not elsewhere classified (Acute) Crushing injury of lower leg, left (Acute) Left ankle pain (Acute) Subjective: This 72-year-old male with cardiac history was seen postoperative day #6 right leg degloving injury with primary repair and wound VAC placement. He denies pain at this time. His splint is intact. Patient relates his left lower leg continues to feel great in his CAM walker and he has no pain to this area. He denies fever, chill, nausea, vomiting, loss of appetite, shortness of breath, chest pain. - Physical Exam General: Alert, Oriented x3, Cooperative Extremities: Capillary Refill Less than 3 Seconds, No Calf Tenderness - negative bib and carrington signs bilateral, - - The left foot does not have any ecchymosis, open lesions, or signs of infection Skin: - - Surgical site is well coapted with sutures intact. There is some ecchymosis noted a little distally to surgical site from patient's initial injury. No signs of surrounding necrosis. There is no noted purulence, malodor, streking or surrounding cellulitis, or any significant increased warmth to site. Musculoskeletal: - - Some tenderness with manipulation of surgical site during dressing change to right side. No left lower extremity pain. AROM of all digits to each foot. Compartments remain soft to bilateral lower extremities. Neurological: - - Epicritic sensation intact to light touch bilateral digits Psych/Mental Status: Normal Affect, Appropriate Vital Signs Temp Pulse Resp BP Pulse Ox 99.0 F 64 16 137/65 H 98 08/26/18 15:28 08/26/18 17:07 08/26/18 15:28 08/26/18 17:07 08/26/18 15:28 Oxygen Delivery Method Room Air Weight: 93.695 kg Body Mass Index (BMI) 28.8 Intake and Output for Last 24 Hours 08/25/18 08/26/18 08/27/18 23:59 23:59 23:59 Intake Total 660 / 660 780 / 780 Output Total 700 / 700 475 / 475 200 / 200 Balance -40 / -40 305 / 305 -200 / -200 Medical Necessity - Tobacco Use Smoking Status: Former smoker Tobacco Use: Cigarettes Assessment/Plan All Active Problems (Last Reviewed 05/21/18 @ 13:15 by Annette Mahmood) Difficulty in walking, not elsewhere classified (Acute) Crushing injury of lower leg, left (Acute) Laceration of leg not thigh, right, with tendon involvement (Acute) Laceration (Acute) Left ankle pain (Acute) Degloving injury (Acute) POD #6 complex traumatic laceration repair of the right lower extremity with additional application of elisa wound VAC Crush injury left dorsal foot / anterior ankle I reviewed and discussed his case. His dressing and wound VAC were taken down and surgical site was carefully evaluated. There are currently no signs of necrosis to surgical site. Sutures intact and skin edges still well coapted. No surrounding signs of infection appreciated today. His pain is controlled currently and he is taking tylenol for this. Patient was dressed with adaptic to site followed by 4x4s, angel trevino, and a well padded posterior splint with extra padding in heel area. We will consult Miesha Nix to apply another elisa vac today. He will remain nonweightbearing to the right lower extremity with a splint intact to prevent muscle and tendon movement deep to the laceration repair site. His left lower extremity injury is noted. X-rays were negative for fracture. He is having no clinical pain at this time. Continue with WBAT with CAM walker. To continue to work with PT in the transitional care unit. Medical management and DVT prophylaxis per primary team is greatly appreciated. To follow up at the wound healing center after discharge with Dr. Woodard. To continue incentive spirometer. Please call if questions.
--- NOTE | 2018-08-27 07:52 | NURSING ---
Dr Welch into see pt this AM, YESIKA vac removed. Dr Welch requesting wound nurse reapply YESIKA vac. Wound nurse notified. Per Dr Welch pt will f/u as needed/ after D/C. Pt feels he is ready and able to go home after being seen by Dr Welch. left with SW in regards to pt's wishes.
[2018-08-27] MEDS: Aspirin E.C. 81 MG Tablet PO (08:11)
--- NOTE | 2018-08-27 10:21 | NURSING ---
wound photo: right lower leg (lateral view)
--- NOTE | 2018-08-27 10:22 | NURSING ---
wound photo: right lower leg (medial view)
--- NOTE | 2018-08-27 11:30 | NURSING ---
Resident in bed. Jessica wound vac in place to Rt leg. Resident has no complaints and denies pain at this time.
[2018-08-27 16:48] VITALS: BP 136/71; PULSE 65
[2018-08-27 16:49] VITALS: PULSE 65
--- NOTE | 2018-08-27 17:03 | CHAPLAIN ---
Type of Pastoral Visit _x__ Initial Visit ___ Follow-up Visit ___ On-call Visit ___ General Patient Visit ___ Spiritual Assessment ___ Family Conference ___ Bereavement ___ Rapid Response ___ Code Blue ___ Other (describe below) Pastoral Care Referral From _x__ Patient ___ Family ___ Nurse ___ Physician ___ Turbine Attendant ___ Metal Can Inspector ___ Other (describe below) Sacrament/Intervention _x__ Active listening ___ Anointing ___ Muslim ___ Bereavement ___ Communion _x__ Megha exploration ___ _x__ Life review _x__ Prayer ___ Reconciliation ___ Sacrament of Sick _x__ Supportive presence ___ Wedding ___ Other (describe below) Pastoral Comments
--- NOTE | 2018-08-27 17:22 | CASEMGMT ---
Addendum entered by Halina Orosco 08/27/18 17:26: Pt does have a wheeled walker at home. VALENTE Oneil Original Note: Social Work Pt admitted on 08/24/18. Pt informing staff that he is ready to d/c. SW met with pt in room. Pt stating that he saw physician this morning and feels that he can now return home. SW spoke with therapy. Pt is able to maintain NWB status on leg and is able to ambulate with WW and provide self care. THerapy is not recommending further therapy. VINOD spoke with Miesha Nix RN about would vac. Wound Vac was changed today and it will stay on pt leg for 7 days and then be removed by Dr. Woodard. Per Miesha, There is no need for nursing to monitor this type of Vac. With pt permission, pt called and updated on the above. She is agreeable to d/c home tomorrow and will be able to transport. Nursing notified and will make appt with Dr. Woodard for Wound Vac followup. No further SW needs. D/C home with spouse 08/28/18 VALENTE Oneil
[2018-08-27] MEDS: Atorvastatin Calcium 80 MG Tablet PO (20:44)
--- NOTE | 2018-08-27 21:45 | PCM.DC ---
- Discharge Diagnoses Current Active Problems: Current Active and Chronic Problems (Last Reviewed 05/21/18 @ 13:15 by Annette Mahmood) Left ankle pain (Acute) You will use the following diet at home:: No restrictions, Regular Your food should be the consistency of: Regular Your liquids should be the consistency of: Regular/Thin Discharge Activity: Return to Normal Activity, May Shower, Use Walker Weight Bearing Status: No weight bearing - Right lower extremity. Call your doctor if you observe: Fever of 101 or Higher, Inability to urinate, Inability to have a bowel movement, Shortness of breath, Chest pain, Uncontrolled pain Allergies/Adverse Reactions: Allergies No Known Allergies Allergy (Verified 05/21/18 13:24) Medications to take at Discharge Aspirin E.C. [Ecotrin] 81 mg PO DAILY@0800 08/21/18 Atorvastatin Calcium [Lipitor] 80 mg PO QHS 08/21/18 Lisinopril [Prinivil] 5 mg PO DAILY 08/21/18 Metoprolol Tartrate [Lopressor (beta shannan)] 12.5 mg PO BID 08/21/18 [place]-3 Fatty Acids/Fish Oil [[place] 3 1,000 mg Softgel] 1 each PO BID 08/21/18 Ranitidine HCl [Zantac 75] 75 mg PO DAILY PRN PRN 08/21/18 Acetaminophen [Tylenol] 1,000 mg PO Q8 tablet 08/27/18 Primary Care Physician: Gabe Rodriguez MD [Primary Care Provider] - Please follow up with your Primary Care Physician in: 1 week. Test Results: Test results from this visit will be discussed in further detail at your follow-up appointment, if applicable. Please Follow Up With: Mariajose Deras MD Please Follow Up With: Gabe Rodriguez MD Please Follow Up With: Jennie Woodard DPM When: 1 week. Proposed Discharge Date: 08/28/18
--- NOTE | 2018-08-27 21:47 | PCM.DC.SUM ---
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) Atherosclerosis of coronary artery of [place] heart without angina pectoris (Chronic) CABG x 3 ARORA-LAD, SVG-PDA, SVG-PLB 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 Woodard, admitted to TCU with debility, here for rehabilitation, strengthening, prior to discharge home with spouse. Discharge home with spouse. Patient Problems: Active and Suspected Problems (Last Reviewed 05/21/18 @ 13:15 by Annette Mahmood) Left ankle pain (Acute) - Physical Exam Vital Signs Temp Pulse Resp BP Pulse Ox 99.0 F 65 16 136/71 H 98 08/26/18 15:28 08/27/18 16:49 08/26/18 15:28 08/27/18 16:48 08/26/18 15:28 Oxygen Delivery Method Room Air Weight: 93.695 kg Body Mass Index (BMI) 28.8 Intake and Output for Last 24 Hours 08/25/18 08/26/18 08/27/18 23:59 23:59 23:59 Intake Total 660 / 660 780 / 780 600 / 600 Output Total 700 / 700 475 / 475 200 / 200 Balance -40 / -40 305 / 305 400 / 400 Discharge Diet: No Restrictions Discharge Activity: Return to Normal Activity, May Shower, Use Walker Weight Bearing Status: No weight bearing - Right lower extremity. Call your doctor if you observe: Fever of 101 or Higher, Inability to urinate, Inability to have a bowel movement, Shortness of breath, Chest pain, Uncontrolled pain Home Medications: Medications to take at Discharge Aspirin E.C. [Ecotrin] 81 mg PO DAILY@0800 08/21/18 Atorvastatin Calcium [Lipitor] 80 mg PO QHS 08/21/18 Lisinopril [Prinivil] 5 mg PO DAILY 08/21/18 Metoprolol Tartrate [Lopressor (beta shannan)] 12.5 mg PO BID 08/21/18 [place]-3 Fatty Acids/Fish Oil [[place] 3 1,000 mg Softgel] 1 each PO BID 08/21/18 Ranitidine HCl [Zantac 75] 75 mg PO DAILY PRN PRN 08/21/18 Acetaminophen [Tylenol] 1,000 mg PO Q8 tablet 08/27/18 Primary Care Physician: Gabe Rodriguez MD [Primary Care Provider] - Please follow up with your Primary Care Physician in: 1 week. Please Follow Up With: Mariajose Deras MD Please Follow Up With: Gabe Rodriguez MD Please Follow Up With: Jennie Woodard DPM When: 1 week. Disposition: Home Minutes spent on discharge:: 30 Patient Condition:: Good Medical Necessity - Tobacco Use Smoking Status: Former smoker Tobacco Use: Cigarettes Meaningful Use Info Meaningful Use Diagnoses (Choose all that apply): None applicable
[2018-08-28] MEDS: Enoxaparin 40 MG/0.4 ML Syringe SC (06:42)
[2018-08-28] MEDS: Lisinopril 5 MG Tablet PO (06:42)
[2018-08-28 06:44] VITALS: BP 143/78; PULSE 67
[2018-08-28] MEDS: Metoprolol Tartrate 25 MG Tablet 12.5 MG PO (06:44)
[2018-08-28] MEDS: Aspirin E.C. 81 MG Tablet PO (08:23)
[2018-08-28] MEDS: Acetaminophen 500 MG Tablet 1000 MG PO (11:03)
[2018-08-28 11:11] VITALS: BP 127/65; PULSE 53; RESP 18; TEMP 36.8; O2SAT 96
--- NOTE | 2018-09-04 12:04 | MDS.RN ---
Information for the mds was obtained from review of the clinical record, interview of resident, staff, and direct observation of resident's care.
== END 2018-08-28 11:15 | disposition home or self-care (01) | DRG 950 ==
PROVIDERS: Admitting Provider Family Medicine Geriatric Medicine; Family Provider Family Medicine; PCP Family Medicine; Referring Provider Family Medicine Geriatric Medicine; Visit Provider Family Medicine Geriatric Medicine
DX: S81.811D Laceration without foreign body, right lower leg, subsequent encounter (principal); S86.9 Injury of unspecified muscle and tendon at lower leg level; S87.82XD Crushing injury of left lower leg, subsequent encounter; W20.8XXD Other cause of strike by thrown, projected or falling object, subsequent encounter; Z23 Encounter for immunization; I25.10 Atherosclerotic heart disease of native coronary artery without angina pectoris; E78.5 Hyperlipidemia, unspecified; K21.9 Gastro-esophageal reflux disease without esophagitis; I10 Essential (primary) hypertension; I25.2 Old myocardial infarction; Z95.1 Presence of aortocoronary bypass graft; Z87.891 Personal history of nicotine dependence
CPT/HCPCS: 36415; 80048; 85025; 97110; 97116; 97162; 97166; 97530; 97535; 97802; 90670

== ENCOUNTER 2018-09-12 09:10 | Outpatient (RCR) | payer MEDICARE, BC, SELFPAY ==
[2018-09-12 09:29] VITALS: BP 142/80; PULSE 55; RESP 20; TEMP 536.4; TEMP 997.5; BMI 28.0
--- NOTE | 2018-09-12 10:41 | PN.PCM_ITS ---
(1) Traumatic open wound of right lower leg Status: Acute Current Visit: Yes Code(s): S81.801A - Unspecified open wound, right lower leg, initial encounter (2) Ulcer of right lower extremity with fat layer exposed Status: Chronic Current Visit: Yes Code(s): L97.912 - Non-pressure chronic ulcer of unspecified part of right lower leg with fat layer exposed (3) Localized edema Status: Chronic Current Visit: Yes Code(s): R60.0 - Localized edema (4) Other specified peripheral vascular diseases Status: Suspected Current Visit: Yes Code(s): I73.89 - Other specified peripheral vascular diseases (5) Venous insufficiency Status: Suspected Current Visit: Yes Code(s): I87.2 - Venous insufficiency (chronic) (peripheral) (6) Malnutrition Status: Chronic Current Visit: Yes Code(s): E46 - Unspecified protein- calorie malnutrition (7) Difficulty in walking, not elsewhere classified Status: Chronic Current Visit: Yes Code(s): R26.2 - Difficulty in walking, not elsewhere classified (8) Laceration of leg not thigh, right, with tendon involvement Status: Chronic Current Visit: Yes Qualifiers: Encounter type: subsequent encounter Qualified Code(s): S81.811D - Laceration without foreign body, right lower leg, subsequent encounter; S86.921D - Laceration of unspecified muscle(s) and tendon(s) at lower leg level, right leg, subsequent encounter Code(s): S81.811A - Laceration without foreign body, right lower leg, initial encounter; S86.921A - Laceration of unspecified muscle(s) and tendon(s) at lower leg level, right leg, initial encounter (9) Degloving injury Status: Chronic Current Visit: Yes Code(s): T14.8XXA - Other injury of unspecified body region, initial encounter Type of Wound Date of Service: 09/12/18 Chief Complaint: Right leg laceration and degloving injury with surgical repair History of Wound: This 72-year-old pleasant male with cardiac history follows up with the wound healing center for a laceration degloving injury he sustained on August 21, 2018. He dropped a cast iron air compressor on his right leg. This was promptly irrigated and complex closure was performed with application of elisa wound VAC in the operating room. He has been keeping the wound VAC in place and denies any redness streaking or odor. This past week he has been compliant with Betadine wet-to-dry gauze dressings. He does have some swelling to this leg and denies calf pain. He denies other lower extremity complaints today. He is with his . Progress of Wound: Stable - Physical Exam Vital Signs Temp Pulse Resp BP 997.5 F H 55 L 20 H 142/80 H 09/12/18 09:29 09/12/18 09:29 09/12/18 09:29 09/12/18 09:29 General: Alert, Oriented x3, Cooperative, No apparent distress HEENT: Atraumatic Skin: Ulcer/ Wound - No purulence, erythema, streaking, odor, infection. There is devitalized apex at the proximal aspect of the laceration degloving repair site injury. There is no exposed bone or muscle tissue. Upon suture removal there is no gapping and Steri-Strips were applied. There is some increased jane-injury site edema compared to prior visits with some tissue hyperpigmentation may correlate to his subtle increase in edema and increased activity Wound Measurements and Assessment WC - Nurse 1 - General Ulcer Measurement Start: 09/12/18 09:23 Freq: Status: Active Protocol: Activity Type Activity Date Activity User E-Sign Co-Sign Detail Recorded Client Recorded Date Recorded By Document 09/12/18 09:29 DL [id number] 09/12/18 09:52 DL 09/12/18 09:29 Wound Center Nurse 1 [Ulcer Assessment] #1 R Bob -Current Size (cm) - Length 0.1 -Current Size (cm) - Width 0.1 -Current Size (cm) - Depth 0.1 -Total Square Cm 0.01 -Photo Taken Yes -Exudate Amt None Present -Wound Margin Indistinct, Non -Visible -Granulation Amt None Present (0 %) -Slough/Fibrin Yes -Necrosis Amt None Present (0 %) -Structure Exposed N/A -Texture (Jane-wound Skin Appearance) Localized Edema Scarring -Moisture (Jane-wound Skin Appearance Dry/Scaly ) -Color (Jane-wound Skin Appearance) Ecchymosis Rubor -Temperature (Jane-wound Skin No Abnormality Appearance) (Pt Warm) -Tenderness on Palpation (Jane-wound No Skin Appearance) -Ulcer Cleansing Wound Cleanser -Foul Odor after Cleansing No -Anesthetic Used 4% Lidocaine Solution [Edema Assessment] -Right Calf (cm) 32.2 -Right Ankle (cm) 23.5 - Nurse 2 - General Ulcer CM Notes Start: 09/12/18 09:23 Freq: Status: Active Protocol: Activity Type Activity Date Activity User E-Sign Co-Sign Detail Recorded Client Recorded Date Recorded By Document 09/12/18 10:14 AN [id number] 09/12/18 10:20 AN 09/12/18 10:14 Wound Center Nurse 2 [Procedure/Treatment] #1 R Bob -Time 10:17 -Correct Patient Yes -Correct Side, Site, Position Yes -Correct Procedure Yes -Procedure Performed Yes -Type of Procedure Debridement -Clinical Debridement Subcutaneous -Post Debridement Size (cm) - Length 0.1 -Post Debridement Size (cm) - Width 0.1 -Post Debridement Size (cm) - Depth 0.1 -Total Square Cm 0.01 -Wound/Ulcer Outcome Not Healed -Ulcer Cleansing Rinsed/ Irrigated with Saline [See Physician Procedure note for Specifics] Pain Scale: 0-10 Numeric [Pain] -Is Patient Pain Free? Yes Musculoskeletal: No Tenderness to Palpation of Joints or Extremities, Muscle Wasting, - - Compartments soft to palpate right lower extremity. Active range of motion of ankle digits normal right lower extremity Neurological: - - Lack of normal epicritic sensation light touch at the degloving site and not proximal to the site. Psych/Mental Status: Normal Affect, Appropriate Debridement Note Post-Debridement Measurements/Treatment - Nurse 2 - General Ulcer CM Notes Start: 09/12/18 09:23 Freq: Status: Active Protocol: Activity Type Activity Date Activity User E-Sign Co-Sign Detail Recorded Client Recorded Date Recorded By Document 09/12/18 10:14 AN [id number] 09/12/18 10:20 AN 09/12/18 10:14 Wound Center Nurse 2 #1 R Bob -Time 10:17 -Correct Patient Yes -Correct Side, Site, Position Yes -Correct Procedure Yes -Procedure Performed Yes -Type of Procedure Debridement -Clinical Debridement Subcutaneous -Post Debridement Size (cm) - Length 0.1 -Post Debridement Size (cm) - Width 0.1 -Post Debridement Size (cm) - Depth 0.1 -Total Square Cm 0.01 -Wound/Ulcer Outcome Not Healed -Ulcer Cleansing Rinsed/ Irrigated with Saline Pain Scale: 0-10 Numeric Is Patient Pain Free? Yes Wound debrided: anterior leg Laterality: Right Type of Debridement: Excisional debridement Anesthesia Used: 5% Lidocaine Gel Depth: in the subcutaneous layer Percentage of wound debrided: 100 Instrument Used: #15 blade Tissue Removed: fibrous, devitalized subcutaneous, biofilm, slough Severity: Fat Layer Exposed Amount of bleeding with debridement: Mild Bleeding Controlled with: Pressure Patient tolerated procedure well Assessment/Plan Active Problems (Last Reviewed 05/21/18 @ 13:15 by Annette Mahmood) Traumatic open wound of right lower leg (Acute) Ulcer of right lower extremity with fat layer exposed (Chronic) Localized edema (Chronic) Malnutrition (Chronic) Difficulty in walking, not elsewhere classified (Chronic) Laceration of leg not thigh, right, with tendon involvement (Chronic) Degloving injury (Chronic) Assessment: Laceration/degloving injury secondary to trauma; injury and surgical repair date 08/21/2018. Now right leg ulcer with fat layer exposed. Right leg edema. Rule out peripheral vascular disease. Malnutrition suspected. Delayed healing. Leg pain resolved Plan: I reviewed and discussed his case. Surgical repair and new ulcer site was evaluated. Subcutaneous excisional debridement was performed as noted in the clinical panel. A dressing consisting of Aquacel and gauze was applied. He can discontinue elisa wound VAC at this time. The sutures were removed and Steri- Strips were placed. To better control his new edema with Tubigrip application. To avoid idle standing or sitting. To elevate the limb while at rest above the level of the heart when possible. I do also recommend outpatient noninvasive vascular study at this time now that the injury site has come down. An order was provided for segmental thigh and leg pressures, JUANCHO, and systolic toe pressures. We will help him get this scheduled. To place up to 50% weight on the right lower extremity in a cam walker boot as tolerated. To avoid active range of motion of the ankle so that the tendon gliding under the skin does not compromise his continued wound and flap healing. He does not require antibiotics at this time and he is reassured no local signs of infection are noted. He understands and will monitor this closely. To continue with nutritional supplementation and proper diet to optimize healing. A prescription for Raul nutritional supplement was provided and he was advised on proper and safe use. To avoid aggravating activities. His intraoperative cultures were reviewed which were negative for any bacterial growth. It is noted his tetanus is also been updated. He was advised to follow-up in 1 week at the wound healing center call sooner if there is any questions or concerns.
== END 2018-09-14 23:59 ==
LOC: WC 09:10
PROVIDERS: Family Provider Family Medicine; PCP Family Medicine; Visit Provider Podiatrist
DX: I87.2 Venous insufficiency (chronic) (peripheral) (principal); S81.811A Laceration without foreign body, right lower leg, initial encounter; W31.89XA Contact with other specified machinery, initial encounter; Y93.9 Activity, unspecified; Y92.9 Unspecified place or not applicable
CPT/HCPCS: 11042; 99203; G0463

== ENCOUNTER → 2018-09-21 15:49 | Outpatient (CLI) | payer MEDICARE, BC, SELFPAY ==
[2018-09-19 16:11] VITALS: BMI 28.0
--- NOTE | 2018-09-21 15:53 | RAD_ITS ---
STUDY: X-RAY - LEFT SHOULDER REASON FOR EXAM: Male, 72 years old. Pain TECHNIQUE: 4 view(s) of the shoulder. COMPARISON: None. FINDINGS: Normal glenohumeral articulation. Normal acromioclavicular joint. Normal acromion. Normal humeral head and visualized proximal humerus. The soft tissue structures are unremarkable. Normal visualized pulmonary apex. RAD/Shoulder min 2 Views IMPRESSION: Normal x-ray examination of the shoulder. Electronically Signed: Rudi Sands DO at 23:27 EDT Tel [phone], Service support ,
== END ==
PROVIDERS: Family Provider Family Medicine; PCP Family Medicine; Referring Provider Family Medicine; Visit Provider Family Medicine
DX: M25.512 Pain in left shoulder (principal)
CPT/HCPCS: 73030

== ENCOUNTER 2018-10-03 16:15 | Outpatient (RCR) | payer MEDICARE, BC, SELFPAY ==
[2018-09-15 01:26] VITALS: BP 142/80; PULSE 55; RESP 20; TEMP 536.4; TEMP 997.5
[2018-09-19 16:11] VITALS: BP 163/78; PULSE 72; RESP 16; TEMP 36.2; BMI 28.0
--- NOTE | 2018-09-19 17:38 | PCM.WC.PN ---
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 Current Visit: Yes Code(s): L97.912 - Non-pressure chronic ulcer of unspecified part of right lower leg with fat layer exposed (2) Traumatic open wound of right lower leg Status: Acute Current Visit: Yes Code(s): S81.801A - Unspecified open wound, right lower leg, initial encounter (3) Localized edema Status: Chronic Current Visit: Yes Code(s): R60.0 - Localized edema (4) Other specified peripheral vascular diseases Status: Suspected Current Visit: Yes Code(s): I73.89 - Other specified peripheral vascular diseases (5) Venous insufficiency Status: Suspected Current Visit: Yes Code(s): I87.2 - Venous insufficiency (chronic) (peripheral) (6) Malnutrition Status: Chronic Current Visit: Yes Code(s): E46 - Unspecified protein-calorie malnutrition (7) Crushing injury of lower leg, left Status: Acute Current Visit: Yes Qualifiers: Encounter type: sequela Qualified Code(s): S87.82XS - Crushing injury of left lower leg, sequela Code(s): S87.82XA - Crushing injury of left lower leg, initial encounter (8) Right leg pain Status: Chronic Current Visit: Yes Code(s): M79.604 - Pain in right leg (9) Degloving injury Status: Chronic Current Visit: Yes Code(s): T14.8XXA - Other injury of unspecified body region, initial encounter (10) Left foot pain Status: Acute Current Visit: Yes Code(s): M79.672 - Pain in left foot (11) Difficulty in walking, not elsewhere classified Status: Chronic Current Visit: Yes Code(s): R26.2 - Difficulty in walking, not elsewhere classified (12) Left ankle pain Status: Acute Current Visit: Yes Code(s): M25.572 - Pain in left ankle and joints of left foot Type of Wound Chief Complaint: Right leg ulceration History of Wound: This 72-year-old pleasant male with cardiac history follows up with the wound healing center for a laceration degloving injury he sustained on August 21, 2018. He dropped a cast iron air compressor on his right leg. He has been changing the dressing at home with Aquacel. He has continued drainage at 2 sites. This is now an ulcer with delayed healing. He denies redness or streaking. His is helping him. He takes nutritional supplementation. He also continues to wear the protective splint device. Progress of Wound: Stable with delayed healing - Physical Exam Vital Signs Temp Pulse Resp BP 97.1 F L 72 16 163/78 H 09/19/18 16:11 09/19/18 16:11 09/19/18 16:11 09/19/18 16:11 General: Alert, Oriented x3, Cooperative, No apparent distress HEENT: Atraumatic Extremities: No cyanosis, Capillary Refill Less than 3 Seconds - All toes right foot, No Calf Tenderness - Negative Pablo and Boone sign right lower extremity, Diminished Peripheral Pulses, Edema - Mild to moderate right lower extremity Skin: Ulcer/ Wound - Skin discontinuity was fibrous and granular base at the anterior bob and also to the medial leg that does have some increased depth of about 0.6 cm. There is no visualized bone. This medial site does go down to the fascia muscle tissue. There is no purulence on expression, streaking, odor, necrosis or acute infection. The other parts of the injury site are healing well with epithelialization and the tissue edges are coapting, - - The peripheral skin is hairless and atrophic Wound Measurements and Assessment WC - Nurse 1 - General Ulcer Measurement Start: 09/19/18 16:11 Freq: Status: Active Protocol: Activity Type Activity Date Activity User E-Sign Co-Sign Detail Recorded Client Recorded Date Recorded By Document 09/19/18 16:11 [facility] [id number] 09/19/18 16:18 [facility] 09/19/18 16:11 Wound Center Nurse 1 [Ulcer Assessment] #1 R Bob anterior -Combined with other wound No -Current Size (cm) - Length 9 -Current Size (cm) - Width 11 -Current Size (cm) - Depth 0.5 -Total Square Cm 99 -Photo Taken No -Epithelialization None Present -Tunneling No -Undermining/Tunneling No -Circular Undermining No -Exudate Amt Small -Exudate Type Serosanguineous -Wound Margin Distinct, Outline Attached -Granulation Amt Small (1-33%) -Granulation Quality Red -Slough/Fibrin Yes -Necrosis Amt Medium (34-66%) -Necrotic Tissue Type Adherent Slough -Texture (Jane-wound Skin Appearance) Scarring -Moisture (Jane-wound Skin Appearance Assessed ) Dry/Scaly -Color (Jane-wound Skin Appearance) Assessed Hemosiderin Staining -Temperature (Jane-wound Skin No Abnormality Appearance) (Pt Warm) -Tenderness on Palpation (Jane-wound No Skin Appearance) -Ulcer Cleansing Wound Cleanser -Foul Odor after Cleansing No -Anesthetic Used 5% Lidocaine Gel [Edema Assessment] -Lower Limb Edema Present Yes -Right Calf (cm) 32.2 -Right Ankle (cm) 23.5 WC - Nurse 2 - General Ulcer CM Notes Start: 09/19/18 16:11 Freq: Status: Active Protocol: Activity Type Activity Date Activity User E-Sign Co-Sign Detail Recorded Client Recorded Date Recorded By Document 09/19/18 16:47 AN [id number] 09/19/18 17:00 AN 09/19/18 16:47 Wound Center Nurse 2 [Procedure/Treatment] #2 right bob medial -Time 17:00 -Correct Patient Yes -Correct Side, Site, Position Yes -Correct Procedure Yes -Procedure Performed Yes -Type of Procedure Debridement -Clinical Debridement Subcutaneous -Post Debridement Size (cm) - Length 1.0 -Post Debridement Size (cm) - Width 1.0 -Post Debridement Size (cm) - Depth 0.6 -Total Square Cm 1.00 -Wound/Ulcer Outcome Not Healed -Ulcer Cleansing Rinsed/ Irrigated with Saline -Foul Odor after Cleansing No -Bioengineered Tissue No -Bleeding Controlled with Pressure -Offloading Yes -Type of Offloading Camwalker -Treatment Response Procedure Tolerated Well #1 R Bob anterior -Time 16:53 -Correct Patient Yes -Correct Side, Site, Position Yes -Correct Procedure Yes -Procedure Performed Yes -Type of Procedure Debridement -Clinical Debridement Subcutaneous -Post Debridement Size (cm) - Length 1.6 -Post Debridement Size (cm) - Width 1.5 -Post Debridement Size (cm) - Depth 0.2 -Total Square Cm 2.40 -Wound/Ulcer Outcome Not Healed -Ulcer Cleansing Rinsed/ Irrigated with Saline -Foul Odor after Cleansing No -Bioengineered Tissue No -Bleeding Controlled with Pressure -Offloading Yes -Type of Offloading Camwalker -Treatment Response Procedure Tolerated Well [See Physician Procedure note for Specifics] Pain Scale: 0-10 Numeric [Pain] -Is Patient Pain Free? Yes Musculoskeletal: No Tenderness to Palpation of Joints or Extremities, Muscle Wasting, - - Compartments remain soft in the right lower extremity. There is no fluctuance or bogginess. Neurological: - - Lack of epicritic sensation distal to the injury site in maintained along the outer margins of the V-shaped injury site. Psych/Mental Status: Normal Affect, Appropriate Debridement Note Post-Debridement Measurements/Treatment WC - Nurse 2 - General Ulcer CM Notes Start: 09/19/18 16:11 Freq: Status: Active Protocol: Activity Type Activity Date Activity User E-Sign Co-Sign Detail Recorded Client Recorded Date Recorded By Document 09/19/18 16:47 AN [id number] 09/19/18 17:00 AN 09/19/18 16:47 Wound Center Nurse 2 #2 right bob medial -Time 17:00 -Correct Patient Yes -Correct Side, Site, Position Yes -Correct Procedure Yes -Procedure Performed Yes -Type of Procedure Debridement -Clinical Debridement Subcutaneous -Post Debridement Size (cm) - Length 1.0 -Post Debridement Size (cm) - Width 1.0 -Post Debridement Size (cm) - Depth 0.6 -Total Square Cm 1.00 -Wound/Ulcer Outcome Not Healed -Ulcer Cleansing Rinsed/ Irrigated with Saline -Foul Odor after Cleansing No -Bioengineered Tissue No -Bleeding Controlled with Pressure -Offloading Yes -Type of Offloading Camwalker -Treatment Response Procedure Tolerated Well #1 R Bob anterior -Time 16:53 -Correct Patient Yes -Correct Side, Site, Position Yes -Correct Procedure Yes -Procedure Performed Yes -Type of Procedure Debridement -Clinical Debridement Subcutaneous -Post Debridement Size (cm) - Length 1.6 -Post Debridement Size (cm) - Width 1.5 -Post Debridement Size (cm) - Depth 0.2 -Total Square Cm 2.40 -Wound/Ulcer Outcome Not Healed -Ulcer Cleansing Rinsed/ Irrigated with Saline -Foul Odor after Cleansing No -Bioengineered Tissue No -Bleeding Controlled with Pressure -Offloading Yes -Type of Offloading Camwalker -Treatment Response Procedure Tolerated Well Pain Scale: 0-10 Numeric Is Patient Pain Free? Yes Wound debrided: anterior leg Laterality: Right Type of Debridement: Excisional debridement Anesthesia Used: 5% Lidocaine Gel Depth: in the subcutaneous layer Percentage of wound debrided: 100 Instrument Used: #15 blade Tissue Removed: fibrous, devitalized subcutaneous, biofilm, slough Severity: Fat Layer Exposed Amount of bleeding with debridement: Mild Bleeding Controlled with: Pressure Patient tolerated procedure well - Additional Wound Wound debrided: medial lower leg Laterality: Right Type of Debridement: Excisional debridement Anesthesia Used: 5% Lidocaine Gel Depth: in the subcutaneous layer Percentage of wound debrided: 100 Instrument Used: #15 blade Tissue Removed: fibrous, devitalized subcutaneous, biofilm, slough Severity: Fat Layer Exposed Amount of bleeding with debridement: Mild Bleeding Controlled with: Pressure Patient tolerated procedure: Patient tolerated procedure well Assessment/Plan Active Problems (Last Reviewed 05/21/18 @ 13:15 by Annette Mahmood) Traumatic open wound of right lower leg (Acute) Ulcer of right lower extremity with fat layer exposed (Chronic) Localized edema (Chronic) Malnutrition (Chronic) Left foot pain (Acute) Difficulty in walking, not elsewhere classified (Chronic) Crushing injury of lower leg, left (Acute) Right leg pain (Chronic) Left ankle pain (Acute) Degloving injury (Chronic) Assessment: Right leg ulcer with fat layer exposed x2, no infection. Laceration/degloving injury secondary to trauma; injury and surgical repair date 08/21/2018 (initial injury site size 10.5 x 13.5 x 1.0 cm with proximal apex). Right leg edema. Rule out peripheral vascular disease. Malnutrition suspected. Delayed healing. Leg pain resolved Plan: I reviewed and discussed his case. Surgical repair and ulcer sites were evaluated. Subcutaneous excisional debridement was performed as noted in the clinical panel. A dressing consisting of Aquacel and gauze was applied. The remaining sutures were removed and Steri-Strips were placed. I recommend application of advanced wound healing product, epi fix. The indication, planned application, benefits, risks and anticipated healing time management were discussed. This is typically a staged application to facilitate timely healing to prevent limb loss or further complications. Prior authorization will be initiated. This is medically necessary for limb salvage. To better control his edema with Tubigrip application. To avoid idle standing or sitting. To elevate the limb while at rest above the level of the heart when possible. I do also recommend outpatient noninvasive vascular study at this time now that the injury site has come down. An order was provided for segmental thigh and leg pressures, JUANCHO, and systolic toe pressures. He is scheduled and the results are pending. To place up to 10 to optimize healing. 0% weight on the right lower extremity in a cam walker boot as tolerated. To avoid active range of motion of the ankle so that the tendon gliding under the skin does not compromise his continued wound and flap healing. He does not require antibiotics at this time and he is reassured no local signs of infection are noted. He understands and will monitor this closely. To continue with nutritional supplementation and proper diet to optimize healing. A prescription for Raul nutritional supplement was provided and he was advised on proper and safe use. To avoid aggravating activities. He was advised to follow-up in 1 week at the wound healing center call sooner if there is any questions or concerns. He will follow-up next week with Dr. Welch who is a covering physician which is appreciated.
--- NOTE | 2018-09-19 17:41 | PN.PCM_ITS ---
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 Current Visit: Yes Code(s): L97.912 - Non-pressure chronic ulcer of unspecified part of right lower leg with fat layer exposed (2) Traumatic open wound of right lower leg Status: Acute Current Visit: Yes Code(s): S81.801A - Unspecified open wound, right lower leg, initial encounter (3) Localized edema Status: Chronic Current Visit: Yes Code(s): R60.0 - Localized edema (4) Other specified peripheral vascular diseases Status: Suspected Current Visit: Yes Code(s): I73.89 - Other specified peripheral vascular diseases (5) Venous insufficiency Status: Suspected Current Visit: Yes Code(s): I87.2 - Venous insufficiency (chronic) (peripheral) (6) Malnutrition Status: Chronic Current Visit: Yes Code(s): E46 - Unspecified protein- calorie malnutrition (7) Crushing injury of lower leg, left Status: Acute Current Visit: Yes Qualifiers: Encounter type: sequela Qualified Code(s): S87.82XS - Crushing injury of left lower leg, sequela Code(s): S87.82XA - Crushing injury of left lower leg, initial encounter (8) Right leg pain Status: Chronic Current Visit: Yes Code(s): M79.604 - Pain in right leg (9) Degloving injury Status: Chronic Current Visit: Yes Code(s): T14.8XXA - Other injury of unspe cified body region, initial encounter (10) Left foot pain Status: Acute Current Visit: Yes Code(s): M79.672 - Pain in left foot (11) Difficulty in walking, not elsewhere classified Status: Chronic Current Visit: Yes Code(s): R26.2 - Difficulty in walking, not elsewhere classified (12) Left ankle pain Status: Acute Current Visit: Yes Code(s): M25.572 - Pain in left ankle and joints of left foot Type of Wound Chief Complaint: Right leg ulceration History of Wound: This 72-year-old pleasant male with cardiac history follows up with the wound healing center for a laceration degloving injury he sustained on August 21, 2018. He dropped a cast iron air compressor on his right leg. He has been changing the dressing at home with Aquacel. He has continued drainage at 2 sites. This is now an ulcer with delayed healing. He denies redness or st reaking. His is helping him. He takes nutritional supplementation. He also continues to wear the protective splint device. Progress of Wound: Stable with delayed healing - Physical Exam Vital Signs Temp Pulse Resp BP 97.1 F L 72 16 163/78 H 09/19/18 16:11 09/19/18 16:11 09/19/18 16:11 09/19/18 16:11 General: Alert, Oriented x3, Cooperative, No apparent distress HEENT: Atraumatic Extremities: No cyanosis, Capillary Refill Less than 3 Seconds - All toes right foot, No Calf Tenderness - Negative Pablo and Boone sign right lower extremity, Diminished Peripheral Pulses, Edema - Mild to moderate right lower extremity Skin: Ulcer/ Wound - Skin discontinuity was fibrous and granular base at the anterior bob and also to the medial leg that does have some increased depth of about 0.6 cm. There is no visualized bone. This medial site does go down to the fascia muscle tissue. There is no purulence on expression, streaking, odor, necrosis or acute infection. The other parts of the injury site are healing well with epithelialization and the tissue edges are coapting, - - The peripheral skin is hairless and atrophic Wound Measurements and Assessment WC - Nurse 1 - General Ulcer Measurement Start: 09/19/18 16:11 Freq: Status: Active Protocol: Activity Type Activity Date Activity User E-Sign Co-Sign Detail Recorded Client Recorded Date Recorded By Document 09/19/18 16:11 [facility] [id number] 09/19/18 16:18 [facility] 09/19/18 16:11 Wound Center Nurse 1 [Ulcer Assessment] #1 R Bob anterior -Combined with other wound No -Current Size (cm) - Length 9 -Current Size (cm) - Width 11 -Current Size (cm) - Depth 0.5 -Total Square Cm 99 -Photo Taken No -Epithelialization None Present -Tunneling No -Undermining/Tunneling No -Circular Undermining No -Exudate Amt Small -Exudate Type Serosanguineous -Wound Margin Distinct, Outline Attached -Granulation Amt Small (1-33%) -Granulation Quality Red -Slough/Fibrin Yes -Necrosis Amt Medium (34-66%) -Necrotic Tissue Type Adherent Slough -Texture (Jane-wound Skin Appearance) Scarring -Moisture (Jane-wound Skin Appearance Assessed ) Dry/Scaly -Color (Jane-wound Skin Appearance) Assessed Hemosiderin Staining -Temperature (Jane-wound Skin No Abnormality Appearance) (Pt Warm) -Tenderness on Palpation (Jane-wound No Skin Appearance) -Ulcer Cleansing Wound Cleanser -Foul Odor after Cleansing No -Anesthetic Used 5% Lidocaine Gel [Edema Assessment] -Lower Limb Edema Present Yes -Right Calf (cm) 32.2 -Right Ankle (cm) 23.5 WC - Nurse 2 - General Ulcer CM Notes Start: 09/19/18 16:11 Freq: Status: Active Protocol: Activity Type Activity Date Activity User E-Sign Co-Sign Detail Recorded Client Recorded Date Recorded By Document 09/19/18 16:47 AN [id number] 09/19/18 17:00 AN 09/19/18 16:47 Wound Center Nurse 2 [Procedure/Treatment] #2 right bob medial -Time 17:00 -Correct Patient Yes -Correct Side, Site, Position Yes -Correct Procedure Yes -Procedure Performed Yes -Type of Procedure Debridement -Clinical Debridement Subcutaneous -Post Debridement Size (cm) - Length 1.0 -Post Debridement Size (cm) - Width 1.0 -Post Debridement Size (cm) - Depth 0.6 -Total Square Cm 1.00 -Wound/Ulcer Outcome Not Healed -Ulcer Cleansing Rinsed/ Irrigated with Saline -Foul Odor after Cleansing No -Bioengineered Tissue No -Bleeding Controlled with Pressure -Offloading Yes -Type of Offloading Camwalker -Treatment Response Procedure Tolerated Well #1 R Bob anterior -Time 16:53 -Correct Patient Yes -Correct Side, Site, Position Yes -Correct Procedure Yes -Procedure Performed Yes -Type of Procedure Debridement -Clinical Debridement Subcutaneous -Post Debridement Size (cm) - Length 1.6 -Post Debridement Size (cm) - Width 1.5 -Post Debridement Size (cm) - Depth 0.2 -Total Square Cm 2.40 -Wound/Ulcer Outcome Not Healed -Ulcer Cleansing Rinsed/ Irrigated with Saline -Foul Odor after Cleansing No -Bioengineered Tissue No -Bleeding Controlled with Pressure -Offloading Yes -Type of Offloading Camwalker -Treatment Response Procedure Tolerated Well [See Physician Procedure note for Specifics] Pain Scale: 0-10 Numeric [Pain] -Is Patient Pain Free? Yes Musculoskeletal: No Tenderness to Palpation of Joints or Extremities, Muscle Wasting, - - Compartments remain soft in the right lower extremity. There is no fluctuance or bogginess. Neurological: - - Lack of epicritic sensation distal to the injury site in maintained along the outer margins of the V-shaped injury site. Psych/Mental Status: Normal Affect, Appropriate Debridement Note Post-Debridement Measurements/Treatment WC - Nurse 2 - General Ulcer CM Notes Start: 09/19/18 16:11 Freq: Status: Active Protocol: Activity Type Activity Date Activity User E-Sign Co-Sign Detail Recorded Client Recorded Date Recorded By Document 09/19/18 16:47 AN [id number] 09/19/18 17:00 AN 09/19/18 16:47 Wound Center Nurse 2 #2 right bob medial -Time 17:00 -Correct Patient Yes -Correct Side, Site, Position Yes -Correct Procedure Yes -Procedure Performed Yes -Type of Procedure Debridement -Clinical Debridement Subcutaneous -Post Debridement Size (cm) - Length 1.0 -Post Debridement Size (cm) - Width 1.0 -Post Debridement Size (cm) - Depth 0.6 -Total Square Cm 1.00 -Wound/Ulcer Outcome Not Healed -Ulcer Cleansing Rinsed/ Irrigated with Saline -Foul Odor after Cleansing No -Bioengineered Tissue No -Bleeding Controlled with Pressure -Offloading Yes -Type of Offloading Camwalker -Treatment Response Procedure Tolerated Well #1 R Bob anterior -Time 16:53 -Correct Patient Yes -Correct Side, Site, Position Yes -Correct Procedure Yes -Procedure Performed Yes -Type of Procedure Debridement -Clinical Debridement Subcutaneous -Post Debridement Size (cm) - Length 1.6 -Post Debridement Size (cm) - Width 1.5 -Post Debridement Size (cm) - Depth 0.2 -Total Square Cm 2.40 -Wound/Ulcer Outcome Not Healed -Ulcer Cleansing Rinsed/ Irrigated with Saline -Foul Odor after Cleansing No -Bioengineered Tissue No -Bleeding Controlled with Pressure -Offloading Yes -Type of Offloading Camwalker -Treatment Response Procedure Tolerated Well Pain Scale: 0-10 Numeric Is Patient Pain Free? Yes Wound debrided: anterior leg Laterality: Right Type of Debridement: Excisional debridement Anesthesia Used: 5% Lidocaine Gel Depth: in the subcutaneous layer Percentage of wound debrided: 100 Instrument Used: #15 blade Tissue Removed: fibrous, devitalized subcutaneous, biofilm, slough Severity: Fat Layer Exposed Amount of bleeding with debridement: Mild Bleeding Controlled with: Pressure Patient tolerated procedure well - Additional Wound Wound debrided: medial lower leg Laterality: Right Type of Debridement: Excisional debridement Anesthesia Used: 5% Lidocaine Gel Depth: in the subcutaneous layer Percentage of wound debrided: 100 Instrument Used: #15 blade Tissue Removed: fibrous, devitalized subcutaneous, biofilm, slough Severity: Fat Layer Exposed Amount of bleeding with debridement: Mild Bleeding Controlled with: Pressure Patient tolerated procedure: Patient tolerated procedure well Assessment/Plan Active Problems (Last Reviewed 05/21/18 @ 13:15 by Annette Mahmood) Traumatic open wound of right lower leg (Acute) Ulcer of right lower extremity with fat layer exposed (Chronic) Localized edema (Chronic) Malnutrition (Chronic) Left foot pain (Acute) Difficulty in walking, not elsewhere classified (Chronic) Crushing injury of lower leg, left (Acute) Right leg pain (Chronic) Left ankle pain (Acute) Degloving injury (Chronic) Assessment: Right leg ulcer with fat layer exposed x2, no infection. Laceration/degloving injury secondary to trauma; injury and surgical repair date 08/21/2018 (initial injury site size 10.5 x 13.5 x 1.0 cm with proximal apex). Right leg edema. Rule out peripheral vascular disease. Malnutrition suspected. Delayed healing. Leg pain resolved Plan: I reviewed and discussed his case. Surgical repair and ulcer sites were evaluated. Subcutaneous excisional debridement was performed as noted in the clinical panel. A dressing consisting of Aquacel and gauze was applied. The remaining sutures were removed and Steri-Strips were placed. I recommend application of advanced wound healing product, epi fix. The indication, planned application, benefits, risks and anticipated healing time management were di scussed. This is typically a staged application to facilitate timely healing to prevent limb loss or further complications. Prior authorization will be initiated. This is medically necessary for limb salvage. To better control his edema with Tubigrip application. To avoid idle standing or sitting. To elevate the limb while at rest above the level of the heart when possible. I do also recommend outpatient noninvasive vascular study at this time now that the injury site has come down. An order was provided for segmental thigh and leg pressures, JUANCHO, and systolic toe pressures. He is scheduled and the results are pending. To place up to 10 to optimize healing. 0% weight on the right lower extremity in a cam walker boot as tolerated. To avoid active range of motion of the ankle so that the tendon gliding under the skin does not compromise his continued wound and flap healing. He does not require antibiotics at this time and he is reassured no local signs of infection are noted. He understands and will monitor this closely. To continue with nutritional supplementation and proper diet to optimize healing. A prescription for Raul nutritional supplement was provided and he was advised on proper and safe use. To avoid aggravating activities. He was advised to follow-up in 1 week at the wound healing center call sooner if there is any questions or concerns. He will fo llow-up next week with Dr. Welch who is a covering physician which is appreciated.
--- NOTE | 2018-09-25 07:02 | VDLE_ITS ---
Reason For Study: Venous insufficiency RIGHT LEFT CFV is compressible, spontaneous, phasic, CFV is compressible, spontaneous, phasic, competent and demonstrates normal competent, and demonstrates normal augmentation. augmentation. FV is compressible, spontaneous, phasic, FV is compressible, spontaneous, phasic, competent and demonstrates normal competent and demonstrates normal augmentation. augmentation. POP V is compressible, spontaneous, phasic, POP V is compressible, spontaneous, phasic, competent and demonstrates normal competent and demonstrates normal augmentation. augmentation. T/P Trunk is compressible. T/P Trunk is compressible. PTV is compressible. PTV is compressible. RT PerV is compressible. LT PerV is compressible. SFJ is competent. SFJ is competent. GSV is competent. GSV above knee is competent. SSV is competent. GSV below knee previously harvested. Procedure SSV is competent. Exam performed in department. A preliminary report was called and/or faxed to . Interpretation Summary Deep veins of the lower extremities are bilaterally patent and compressible segmentally. There is no evidence of deep vein thrombosis on either side. Valvular competence appears intact within the proximal deep venous systems bilaterally. The right greater saphenous vein appears patent and compressible segmentally. The left greater saphenous vein is patent and compressible above the knee, but has been previously harvested below the knee. Sapheno-femoral junctions are bilaterally competent . Valvular competence appears to be intact segmentally within the greater saphenous veins bilaterally. Small saphenous veins are patent and competent bilaterally. Ordering Physician: Jennie Woodard Referring Physician: Gabe Rodriguez Performed By: Regine Juarez RVT
--- NOTE | 2018-09-25 07:02 | ART_ITS ---
Reason For Study: RLE Ulcer Procedure A bilateral lower extremity continuous wave Doppler with analog waveform analysis,segmental pressures,and ankle brachial indexes without exercise. Left Segmental Pressures Left brachial= 130mmHg. Left thigh = 136mmHg. Left calf = 119mmHg. Left posterior tibial artery = 136mmHg. Left dorsalis pedis artery = 125mmHg. Left digit = 104 mmHg. The left dorsalis pedis waveforms are triphasic. The left posterior tibial artery waveforms are triphasic. Right Segmental Pressures Right brachial= 141mmHg. Right posterior tibial artery = 149mmHg. Right dorsalis pedis artery = 135mmHg. Right digit = 78 mmHg. The right dorsalis pedis waveforms are triphasic. The right posterior tibial artery waveforms are triphasic. Indices The right ankle brachial index by the dorsalis pedis is 0.96. The right ankle brachial index by the posterior tibial artery is 1.06. The right digital-brachial index is 0.55. The left ankle brachial index by the dorsalis pedis is 0.89. The left ankle brachial index by the posterior tibial artery is 0.96. The left digital-brachial index is 0.74. Interpretation Summary Triphasic Doppler waveforms are noted at ankle level bilaterally. Pulse-volume recording waveform amplitudes appear satisfactory at all levels bilaterally. Resting ankle-brachial indices are normal bilaterally. The right digital-brachial index is mildly diminished. The left digital-brachial index is normal. There appears to be relatively normal arterial flow to ankle level bilaterally. 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 Arterial flow appears relatively normal at digital level on the left. Ordering Physician: Jennie Woodard Referring Physician: Gabe Rodriguez Performed By: Regine Juarez RVT
[2018-09-27 16:07] VITALS: BP 127/66; PULSE 46; RESP 18; TEMP 36.1; BMI 28.0
--- NOTE | 2018-09-27 17:43 | PCM.WC.PN ---
(1) Traumatic open wound of right lower leg Status: Acute Current Visit: Yes Code(s): S81.801A - Unspecified open wound, right lower leg, initial encounter (2) Ulcer of right lower extremity with fat layer exposed Status: Chronic Current Visit: Yes Code(s): L97.912 - Non-pressure chronic ulcer of unspecified part of right lower leg with fat layer exposed (3) Localized edema Status: Chronic Current Visit: Yes Code(s): R60.0 - Localized edema (4) Other specified peripheral vascular diseases Status: Suspected Current Visit: Yes Code(s): I73.89 - Other specified peripheral vascular diseases (5) Venous insufficiency Status: Suspected Current Visit: Yes Code(s): I87.2 - Venous insufficiency (chronic) (peripheral) (6) Malnutrition Status: Chronic Current Visit: Yes Code(s): E46 - Unspecified protein-calorie malnutrition (7) Difficulty in walking, not elsewhere classified Status: Chronic Current Visit: Yes Code(s): R26.2 - Difficulty in walking, not elsewhere classified (8) Right leg pain Status: Chronic Current Visit: Yes Code(s): M79.604 - Pain in right leg (9) Degloving injury Status: Chronic Current Visit: Yes Code(s): T14.8XXA - Other injury of unspecified body region, initial encounter Type of Wound Chief Complaint: Right leg ulceration History of Wound: This 72-year-old pleasant male with cardiac history follows up with the wound healing center for a laceration degloving injury he sustained on August 21, 2018. He dropped a cast iron air compressor on his right leg. He has been changing the dressing at home with Aquacel. He has continued drainage at 2 sites. This is now an ulcer with delayed healing. He denies redness or streaking. His is helping him. He takes nutritional supplementation. He also continues to wear the protective splint device. Progress of Wound: Stable ulcer site - Physical Exam Vital Signs Temp Pulse Resp BP 97 F L 46 L 18 127/66 H 09/27/18 16:07 09/27/18 16:07 09/27/18 16:07 09/27/18 16:07 General: Alert, Oriented x3, Cooperative, No apparent distress Extremities: Capillary Refill Less than 3 Seconds, No Calf Tenderness, Diminished Peripheral Pulses, Edema Skin: Ulcer/ Wound - Skin discontinuity was fibrous and granular base at the anterior saleh and also to the medial leg that does have some increased depth but improved from last week. There is no visualized bone. This medial site does go down to the fascia muscle tissue. There is no purulence on expression, streaking, odor, necrosis or acute infection. The other parts of the injury site are healing well with epithelialization and the tissue edges continue to coapt. Wound Measurements and Assessment WC - Nurse 1 - General Ulcer Measurement Start: 09/19/18 16:11 Freq: Status: Active Protocol: Activity Type Activity Date Activity User E-Sign Co-Sign Detail Recorded Client Recorded Date Recorded By Document 09/27/18 16:07 [place] [id number] 09/27/18 16:12 [place] 09/27/18 16:07 Wound Center Nurse 1 [Ulcer Assessment] #2 right saleh medial -Current Size (cm) - Length 0.6 -Current Size (cm) - Width 1.9 -Current Size (cm) - Depth 0.3 -Total Square Cm 1.14 -Photo Taken No -Granulation Amt Medium (34-66%) -Granulation Quality Pale [place] -Necrosis Amt Medium (34-66%) -Necrotic Tissue Type Adherent Slough -Texture (Jane-wound Skin Appearance) Assessed -Moisture (Jane-wound Skin Appearance Assessed ) -Color (Jane-wound Skin Appearance) Assessed -Temperature (Jane-wound Skin No Abnormality Appearance) (Pt Warm) -Tenderness on Palpation (Jane-wound No Skin Appearance) -Ulcer Cleansing Rinsed/ Irrigated with Saline -Foul Odor after Cleansing No -Anesthetic Used 5% Lidocaine Gel #1 R Saleh anterior -Current Size (cm) - Length 1.6 -Current Size (cm) - Width 1.3 -Current Size (cm) - Depth 0.1 -Total Square Cm 2.08 -Exudate Amt Small -Exudate Type Serosanguineous -Wound Margin Flat & Intact -Granulation Amt Medium (34-66%) -Granulation Quality Pale [place] -Necrosis Amt Medium (34-66%) -Necrotic Tissue Type Adherent Slough -Texture (Jane-wound Skin Appearance) Assessed Localized Edema -Moisture (Jane-wound Skin Appearance Assessed ) -Color (Jane-wound Skin Appearance) Assessed Hemosiderin Staining -Temperature (Jane-wound Skin No Abnormality Appearance) (Pt Warm) -Tenderness on Palpation (Jane-wound No Skin Appearance) -Ulcer Cleansing Rinsed/ Irrigated with Saline -Foul Odor after Cleansing No -Anesthetic Used 5% Lidocaine Gel [Edema Assessment] -Right Calf (cm) 33 -Right Ankle (cm) 23.5 WC - Nurse 2 - General Ulcer CM Notes Start: 09/19/18 16:11 Freq: Status: Active Protocol: Activity Type Activity Date Activity User E-Sign Co-Sign Detail Recorded Client Recorded Date Recorded By Document 09/27/18 16:35 AN [id number] 09/27/18 16:48 AN 09/27/18 16:35 Wound Center Nurse 2 [Procedure/Treatment] #2 right saleh medial -Time 16:37 -Correct Patient Yes -Correct Side, Site, Position Yes -Correct Procedure Yes -Procedure Performed Yes -Type of Procedure Debridement -Clinical Debridement Subcutaneous -Post Debridement Size (cm) - Length 0.9 -Post Debridement Size (cm) - Width 1.0 -Post Debridement Size (cm) - Depth 0.3 -Total Square Cm 0.90 -Wound/Ulcer Outcome Not Healed -Ulcer Cleansing Rinsed/ Irrigated with Saline -Foul Odor after Cleansing No -Bioengineered Tissue Yes -Type of bioengineered Tissue EPIFIX -Expiration Date 01/15/23 -Product Lot Number [id number] -Percent Used 50 -Bleeding Controlled with Pressure -Offloading Yes -Type of Offloading Camwalker -Treatment Response Procedure Tolerated Well #1 R Saleh anterior -Time 16:38 -Correct Patient Yes -Correct Side, Site, Position Yes -Correct Procedure Yes -Procedure Performed Yes -Type of Procedure Debridement -Clinical Debridement Subcutaneous -Post Debridement Size (cm) - Length 0.9 -Post Debridement Size (cm) - Width 1.0 -Post Debridement Size (cm) - Depth 0.3 -Total Square Cm 0.90 -Wound/Ulcer Outcome Not Healed -Ulcer Cleansing Rinsed/ Irrigated with Saline -Foul Odor after Cleansing No -Bioengineered Tissue Yes -Type of bioengineered Tissue EPIFIX -Expiration Date 01/15/23 -Product Lot Number [id number] -Percent Used 50 -Bleeding Controlled with Pressure -Offloading Yes -Type of Offloading Camwalker -Treatment Response Procedure Tolerated Well [See Physician Procedure note for Specifics] Pain Scale: 0-10 Numeric [Pain] -Is Patient Pain Free? Yes Musculoskeletal: No Tenderness to Palpation of Joints or Extremities, Muscle Wasting, - Neurological: - - Lack of epicritic sensation distal to the injury site Psych/Mental Status: Normal Affect, Appropriate Debridement Note Post-Debridement Measurements/Treatment WC - Nurse 2 - General Ulcer CM Notes Start: 09/19/18 16:11 Freq: Status: Active Protocol: Activity Type Activity Date Activity User E-Sign Co-Sign Detail Recorded Client Recorded Date Recorded By Document 09/19/18 16:47 AN [id number] 09/19/18 17:00 AN Document 09/27/18 16:35 AN [id number] 09/27/18 16:48 AN 09/19/18 09/27/18 16:47 16:35 Wound Center Nurse 2 #2 right saleh medial -Time 17:00 16:37 -Correct Patient Yes Yes -Correct Side, Site, Position Yes Yes -Correct Procedure Yes Yes -Procedure Performed Yes Yes -Type of Procedure Debridement Debridement -Clinical Debridement Subcutaneous Subcutaneous -Post Debridement Size (cm) - Length 1.0 0.9 -Post Debridement Size (cm) - Width 1.0 1.0 -Post Debridement Size (cm) - Depth 0.6 0.3 -Total Square Cm 1.00 0.90 -Wound/Ulcer Outcome Not Healed Not Healed -Ulcer Cleansing Rinsed/ Rinsed/ Irrigated with Irrigated with Saline Saline -Foul Odor after Cleansing No No -Bioengineered Tissue No Yes -Type of bioengineered Tissue EPIFIX -Expiration Date 01/15/23 -Product Lot Number [id number] -Percent Used 50 -Bleeding Controlled with Pressure Pressure -Offloading Yes Yes -Type of Offloading Camwalker Camwalker -Treatment Response Procedure Procedure Tolerated Well Tolerated Well #1 R Saleh anterior -Time 16:53 16:38 -Correct Patient Yes Yes -Correct Side, Site, Position Yes Yes -Correct Procedure Yes Yes -Procedure Performed Yes Yes -Type of Procedure Debridement Debridement -Clinical Debridement Subcutaneous Subcutaneous -Post Debridement Size (cm) - Length 1.6 0.9 -Post Debridement Size (cm) - Width 1.5 1.0 -Post Debridement Size (cm) - Depth 0.2 0.3 -Total Square Cm 2.40 0.90 -Wound/Ulcer Outcome Not Healed Not Healed -Ulcer Cleansing Rinsed/ Rinsed/ Irrigated with Irrigated with Saline Saline -Foul Odor after Cleansing No No -Bioengineered Tissue No Yes -Type of bioengineered Tissue EPIFIX -Expiration Date 01/15/23 -Product Lot Number [id number] -Percent Used 50 -Bleeding Controlled with Pressure Pressure -Offloading Yes Yes -Type of Offloading Camwalker Camwalker -Treatment Response Procedure Procedure Tolerated Well Tolerated Well Pain Scale: 0-10 Numeric Is Patient Pain Free? Yes Yes Wound debrided: Anterior leg right Laterality: Right Type of Debridement: Excisional debridement Anesthesia Used: 5% Lidocaine Gel Depth: in the subcutaneous layer Percentage of wound debrided: 100 Instrument Used: 3mm curette Tissue Removed: Fibrous tissue, devitalized subcutaneous tissue, biofilm, slough Severity: Fat Layer Exposed Amount of bleeding with debridement: Mild Bleeding Controlled with: Pressure Patient tolerated procedure well - Additional Wound Wound debrided: Medial lower leg right Laterality: Right Type of Debridement: Excisional debridement Anesthesia Used: 4% Lidocaine Solution Depth: in the subcutaneous layer Percentage of wound debrided: 100 Instrument Used: #15 blade Tissue Removed: Fibrous tissue, devitalized subcutaneous tissue, biofilm, slough Severity: Fat Layer Exposed Amount of bleeding with debridement: Mild Bleeding Controlled with: Pressure Patient tolerated procedure: Patient tolerated procedure well Assessment/Plan Active Problems (Last Reviewed 05/21/18 @ 13:15 by Annette Mahmood) Traumatic open wound of right lower leg (Acute) Ulcer of right lower extremity with fat layer exposed (Chronic) Localized edema (Chronic) Malnutrition (Chronic) Left foot pain (Acute) Difficulty in walking, not elsewhere classified (Chronic) Crushing injury of lower leg, left (Acute) Right leg pain (Chronic) Left ankle pain (Acute) Degloving injury (Chronic) Assessment: Right leg ulcer with fat layer exposed x2, no infection. Laceration/degloving injury secondary to trauma; injury and surgical repair date 08/21/2018 (initial injury site size 10.5 x 13.5 x 1.0 cm with proximal apex). Right leg edema. Rule out peripheral vascular disease. Malnutrition suspected. Delayed healing. Leg pain resolved Plan: This patient was carefully examined and evaluated today as a courtesy visit for Dr. Woodard. I reviewed and discussed his case. Surgical repair and ulcer sites were evaluated. Subcutaneous excisional debridement was performed as noted in the clinical panel. Next, each site was then dressed with epi fix followed by wound veil Steri-Strips and a dry sterile dressing. Patient is to keep everything below the layer of Steri-Strips and wound veil in place and clean dry and intact for the next week. If drainage noted he can change the outer layers above this level. Patient to continue with Tubigrip for some compression. To avoid idle standing or sitting. To elevate the limb while at rest above the level of the heart when possible. Patient to continue with cam walker as instructed by Dr. Woodard. To avoid active range of motion of the ankle so that the tendon gliding under the skin does not compromise his continued wound and flap healing. To continue with nutritional supplementation and proper diet to optimize healing. He will follow-up in 1 week at the wound healing center call sooner if there is any questions or concerns. He will follow-up next week with Dr. Woodard.
--- NOTE | 2018-09-27 17:48 | PN.PCM_ITS ---
(1) Traumatic open wound of right lower leg Status: Acute Current Visit: Yes Code(s): S81.801A - Unspecified open wound, right lower leg, initial encounter (2) Ulcer of right lower extremity with fat layer exposed Status: Chronic Current Visit: Yes Code(s): L97.912 - Non-pressure chronic ulcer of unspecified part of right lower leg with fat layer exposed (3) Localized edema Status: Chronic Current Visit: Yes Code(s): R60.0 - Localized edema (4) Other specified peripheral vascular diseases Status: Suspected Current Visit: Yes Code(s): I73.89 - Other specified peripheral vascular diseases (5) Venous insufficiency Status: Suspected Current Visit: Yes Code(s): I87.2 - Venous insufficiency (chronic) (peripheral) (6) Malnutrition Status: Chronic Current Visit: Yes Code(s): E46 - Unspecified protein- calorie malnutrition (7) Difficulty in walking, not elsewhere classified Status: Chronic Current Visit: Yes Code(s): R26.2 - Difficulty in walking, not elsewhere classified (8) Right leg pain Status: Chronic Current Visit: Yes Code(s): M79.604 - Pain in right leg (9) Degloving injury Status: Chronic Current Visit: Yes Code(s): T14.8XXA - Other injury of unspecified body region, initial encounter Type of Wound Chief Complaint: Right leg ulceration History of Wound: This 72-year-old pleasant male with cardiac history follows up with the wound healing center for a laceration degloving injury he sustained on August 21, 2018. He dropped a cast iron air compressor on his right leg. He has been changing the dressing at home with Aquacel. He has continued drainage at 2 sites. This is now an ulcer with delayed healing. He denies redness or streaking. His is helping him. He takes nutritional supplementation. He also continues to wear the protective splint device. Progress of Wound: Stable ulcer site - Physical Exam Vital Signs Temp Pulse Resp BP 97 F L 46 L 18 127/66 H 09/27/18 16:07 09/27/18 16:07 09/27/18 16:07 09/27/18 16:07 General: Alert, Oriented x3, Cooperative, No apparent distress Extremities: Capillary Refill Less than 3 Seconds, No Calf Tenderness, Diminished Peripheral Pulses, Edema Skin: Ulcer/ Wound - Skin discontinuity was fibrous and granular base at the anterior saleh and also to the medial leg that does have some increased depth but improved from last week. There is no visualized bone. This medial site does go down to the fascia muscle tissue. There is no purulence on expression, streaking, odor, necrosis or acute infection. The other parts of the injury site are healing well with epithelialization and the tissue edges continue to coapt. Wound Measurements and Assessment WC - Nurse 1 - General Ulcer Measurement Start: 09/19/18 16:11 Freq: Status: Active Protocol: Activity Type Activity Date Activity User E-Sign Co-Sign Detail Recorded Client Recorded Date Recorded By Document 09/27/18 16:07 [place] [id number] 09/27/18 16:12 [place] 09/27/18 16:07 Wound Center Nurse 1 [Ulcer Assessment] #2 right saleh medial -Current Size (cm) - Length 0.6 -Current Size (cm) - Width 1.9 -Current Size (cm) - Depth 0.3 -Total Square Cm 1.14 -Photo Taken No -Granulation Amt Medium (34-66%) -Granulation Quality Pale [place] -Necrosis Amt Medium (34-66%) -Necrotic Tissue Type Adherent Slough -Texture (Jane-wound Skin Appearance) Assessed -Moisture (Jane-wound Skin Appearance Assessed ) -Color (Jane-wound Skin Appearance) Assessed -Temperature (Jane-wound Skin No Abnormality Appearance) (Pt Warm) -Tenderness on Palpation (Jane-wound No Skin Appearance) -Ulcer Cleansing Rinsed/ Irrigated with Saline -Foul Odor after Cleansing No -Anesthetic Used 5% Lidocaine Gel #1 R Saleh anterior -Current Size (cm) - Length 1.6 -Current Size (cm) - Width 1.3 -Current Size (cm) - Depth 0.1 -Total Square Cm 2.08 -Exudate Amt Small -Exudate Type Serosanguineous -Wound Margin Flat & Intact -Granulation Amt Medium (34-66%) -Granulation Quality Pale [place] -Necrosis Amt Medium (34-66%) -Necrotic Tissue Type Adherent Slough -Texture (Jane-wound Skin Appearance) Assessed Localized Edema -Moisture (Jane-wound Skin Appearance Assessed ) -Color (Jane-wound Skin Appearance) Assessed Hemosiderin Staining -Temperature (Jane-wound Skin No Abnormality Appearance) (Pt Warm) -Tenderness on Palpation (Jane-wound No Skin Appearance) -Ulcer Cleansing Rinsed/ Irrigated with Saline -Foul Odor after Cleansing No -Anesthetic Used 5% Lidocaine Gel [Edema Assessment] -Right Calf (cm) 33 -Right Ankle (cm) 23.5 WC - Nurse 2 - General Ulcer CM Notes Start: 09/19/18 16:11 Freq: Status: Active Protocol: Activity Type Activity Date Activity User E-Sign Co-Sign Detail Recorded Client Recorded Date Recorded By Document 09/27/18 16:35 AN [id number] 09/27/18 16:48 AN 09/27/18 16:35 Wound Center Nurse 2 [Procedure/Treatment] #2 right saleh medial -Time 16:37 -Correct Patient Yes -Correct Side, Site, Position Yes -Correct Procedure Yes -Procedure Performed Yes -Type of Procedure Debridement -Clinical Debridement Subcutaneous -Post Debridement Size (cm) - Length 0.9 -Post Debridement Size (cm) - Width 1.0 -Post Debridement Size (cm) - Depth 0.3 -Total Square Cm 0.90 -Wound/Ulcer Outcome Not Healed -Ulcer Cleansing Rinsed/ Irrigated with Saline -Foul Odor after Cleansing No -Bioengineered Tissue Yes -Type of bioengineered Tissue EPIFIX -Expiration Date 01/15/23 -Product Lot Number [id number] -Percent Used 50 -Bleeding Controlled with Pressure -Offloading Yes -Type of Offloading Camwalker -Treatment Response Procedure Tolerated Well #1 R Saleh anterior -Time 16:38 -Correct Patient Yes -Correct Side, Site, Position Yes -Correct Procedure Yes -Procedure Performed Yes -Type of Procedure Debridement -Clinical Debridement Subcutaneous -Post Debridement Size (cm) - Length 0.9 -Post Debridement Size (cm) - Width 1.0 -Post Debridement Size (cm) - Depth 0.3 -Total Square Cm 0.90 -Wound/Ulcer Outcome Not Healed -Ulcer Cleansing Rinsed/ Irrigated with Saline -Foul Odor after Cleansing No -Bioengineered Tissue Yes -Type of bioengineered Tissue EPIFIX -Expiration Date 01/15/23 -Product Lot Number [id number] -Percent Used 50 -Bleeding Controlled with Pressure -Offloading Yes -Type of Offloading Camwalker -Treatment Response Procedure Tolerated Well [See Physician Procedure note for Specifics] Pain Scale: 0-10 Numeric [Pain] -Is Patient Pain Free? Yes Musculoskeletal: No Tenderness to Palpation of Joints or Extremities, Muscle Wasting, - Neurological: - - Lack of epicritic sensation distal to the injury site Psych/Mental Status: Normal Affect, Appropriate Debridement Note Post-Debridement Measurements/Treatment WC - Nurse 2 - General Ulcer CM Notes Start: 09/19/18 16:11 Freq: Status: Active Protocol: Activity Type Activity Date Activity User E-Sign Co-Sign Detail Recorded Client Recorded Date Recorded By Document 09/19/18 16:47 AN [id number] 09/19/18 17:00 AN Document 09/27/18 16:35 AN [id number] 09/27/18 16:48 AN 09/19/18 09/27/18 16:47 16:35 Wound Center Nurse 2 #2 right saleh medial -Time 17:00 16:37 -Correct Patient Yes Yes -Correct Side, Site, Position Yes Yes -Correct Procedure Yes Yes -Procedure Performed Yes Yes -Type of Procedure Debridement Debridement -Clinical Debridement Subcutaneous Subcutaneous -Post Debridement Size (cm) - Length 1.0 0.9 -Post Debridement Size (cm) - Width 1.0 1.0 -Post Debridement Size (cm) - Depth 0.6 0.3 -Total Square Cm 1.00 0.90 -Wound/Ulcer Outcome Not Healed Not Healed -Ulcer Cleansing Rinsed/ Rinsed/ Irrigated with Irrigated with Saline Saline -Foul Odor after Cleansing No No -Bioengineered Tissue No Yes -Type of bioengineered Tissue EPIFIX -Expiration Date 01/15/23 -Product Lot Number [id number] -Percent Used 50 -Bleeding Controlled with Pressure Pressure -Offloading Yes Yes -Type of Offloading Camwalker Camwalker -Treatment Response Procedure Procedure Tolerated Well Tolerated Well #1 R Saleh anterior -Time 16:53 16:38 -Correct Patient Yes Yes -Correct Side, Site, Position Yes Yes -Correct Procedure Yes Yes -Procedure Performed Yes Yes -Type of Procedure Debridement Debridement -Clinical Debridement Subcutaneous Subcutaneous -Post Debridement Size (cm) - Length 1.6 0.9 -Post Debridement Size (cm) - Width 1.5 1.0 -Post Debridement Size (cm) - Depth 0.2 0.3 -Total Square Cm 2.40 0.90 -Wound/Ulcer Outcome Not Healed Not Healed -Ulcer Cleansing Rinsed/ Rinsed/ Irrigated with Irrigated with Saline Saline -Foul Odor after Cleansing No No -Bioengineered Tissue No Yes -Type of bioengineered Tissue EPIFIX -Expiration Date 01/15/23 -Product Lot Number [id number] -Percent Used 50 -Bleeding Controlled with Pressure Pressure -Offloading Yes Yes -Type of Offloading Camwalker Camwalker -Treatment Response Procedure Procedure Tolerated Well Tolerated Well Pain Scale: 0-10 Numeric Is Patient Pain Free? Yes Yes Wound debrided: Anterior leg right Laterality: Right Type of Debridement: Excisional debridement Anesthesia Used: 5% Lidocaine Gel Depth: in the subcutaneous layer Percentage of wound debrided: 100 Instrument Used: 3mm curette Tissue Removed: Fibrous tissue, devitalized subcutaneous tissue, biofilm, slough Severity: Fat Layer Exposed Amount of bleeding with debridement: Mild Bleeding Controlled with: Pressure Patient tolerated procedure well - Additional Wound Wound debrided: Medial lower leg right Laterality: Right Type of Debridement: Excisional debridement Anesthesia Used: 4% Lidocaine Solution Depth: in the subcutaneous layer Percentage of wound debrided: 100 Instrument Used: #15 blade Tissue Removed: Fibrous tissue, devitalized subcutaneous tissue, biofilm, slough Severity: Fat Layer Exposed Amount of bleeding with debridement: Mild Bleeding Controlled with: Pressure Patient tolerated procedure: Patient tolerated procedure well Assessment/Plan Active Problems (Last Reviewed 05/21/18 @ 13:15 by Annette Mahmood) Traumatic open wound of right lower leg (Acute) Ulcer of right lower extremity with fat layer exposed (Chronic) Localized edema (Chronic) Malnutrition (Chronic) Left foot pain (Acute) Difficulty in walking, not elsewhere classified (Chronic) Crushing injury of lower leg, left (Acute) Right leg pain (Chronic) Left ankle pain (Acute) Degloving injury (Chronic) Assessment: Right leg ulcer with fat layer exposed x2, no infection. Laceration/degloving injury secondary to trauma; injury and surgical repair date 08/21/2018 (initial injury site size 10.5 x 13.5 x 1.0 cm with proximal apex). Right leg edema. Rule out peripheral vascular disease. Malnutrition suspected. Delayed healing. Leg pain resolved Plan: This patient was carefully examined and evaluated today as a courtesy visit for Dr. Woodard. I reviewed and discussed his case. Surgical repair and ulcer sites were evaluated. Subcutaneous excisional debridement was performed as noted in the clinical panel. Next, each site was then dressed with epi fix followed by wound veil Steri-Strips and a dry sterile dressing. Patient is to keep everything below the layer of Steri-Strips and wound veil in place and clean dry and intact for the next week. If drainage noted he can change the outer layers above this level. Patient to continue with Tubigrip for some compression. To avoid idle standing or sitting. To elevate the limb while at rest above the level of the heart when possible. Patient to continue with cam walker as instructed by Dr. Woodard. To avoid active range of motion of the ankle so that the tendon gliding under the skin does not compromise his continued wound and flap healing. To continue with nutritional supplementation and proper diet to optimize healing. He will follow-up in 1 week at the wound healing center call sooner if there is any questions or concerns. He will follow-up next week with Dr. Woodard.
[2018-10-03 16:21] VITALS: BP 131/78; PULSE 44; RESP 16; TEMP 36; BMI 28.0
--- NOTE | 2018-10-03 17:41 | PCM.WC.PN ---
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 Current Visit: Yes Code(s): L97.912 - Non-pressure chronic ulcer of unspecified part of right lower leg with fat layer exposed (2) Traumatic open wound of right lower leg Status: Chronic Current Visit: Yes Qualifiers: Encounter type: subsequent encounter Qualified Code(s): S81.801D - Unspecified open wound, right lower leg, subsequent encounter Code(s): S81.801A - Unspecified open wound, right lower leg, initial encounter (3) Localized edema Status: Chronic Current Visit: Yes Code(s): R60.0 - Localized edema (4) Venous insufficiency Status: Suspected Current Visit: Yes Code(s): I87.2 - Venous insufficiency (chronic) (peripheral) (5) Malnutrition Status: Chronic Current Visit: Yes Code(s): E46 - Unspecified protein-calorie malnutrition (6) Right leg pain Status: Chronic Current Visit: Yes Code(s): M79.604 - Pain in right leg (7) Degloving injury Status: Chronic Current Visit: Yes Code(s): T14.8XXA - Other injury of unspecified body region, initial encounter (8) Delayed wound healing Status: Chronic Current Visit: Yes Code(s): T14.8XXD - Other injury of unspecified body region, subsequent encounter Type of Wound Date of Service: 10/03/18 Chief Complaint: Right leg ulceration History of Wound: This 72-year-old pleasant male with cardiac history follows up with the wound healing center for a laceration degloving injury he sustained on August 21, 2018. He dropped a cast iron air compressor on his right leg. He has been changing the dressing at home with Aquacel. He has continued drainage at 2 sites. This is now an ulcer with delayed healing. He denies redness or streaking. His is helping him. He takes nutritional supplementation. He also continues to wear the protective cam walker to prevent tension on the ulcer site. Progress of Wound: Improving - Physical Exam Vital Signs Temp Pulse Resp BP 96.8 F L 44 L 16 131/78 H 10/03/18 16:21 10/03/18 16:21 10/03/18 16:21 10/03/18 16:21 General: Alert, Oriented x3, Cooperative, No apparent distress Extremities: No cyanosis, Capillary Refill Less than 3 Seconds, No Calf Tenderness - negative bib and carrington signs bilateral. compartments soft to palpate right lower extremity, Diminished Peripheral Pulses, Edema - Mild to moderate right lower extremity Skin: Ulcer/ Wound - No purulence, erythema, streaking, odor, or infection. There is decreased depth noted to both ulcer sites. The medial ulcer is granular and the anterior ulcer site is granular with fibrous tissue and minimal scab formation. There is no deep probing to bone. The peripheral skin is hairless and atrophic right Wound Measurements and Assessment WC - Nurse 1 - General Ulcer Measurement Start: 09/19/18 16:11 Freq: Status: Active Protocol: Activity Type Activity Date Activity User E-Sign Co-Sign Detail Recorded Client Recorded Date Recorded By Document 10/03/18 16:21 [id number] 10/03/18 16:25 10/03/18 16:21 Wound Center Nurse 1 [Ulcer Assessment] #2 right saleh medial -Combined with other wound No -Current Size (cm) - Length 1.8 -Current Size (cm) - Width 1.4 -Current Size (cm) - Depth 0.1 -Total Square Cm 2.52 -Photo Taken No -Epithelialization None Present -Tunneling No -Undermining/Tunneling No -Circular Undermining No -Exudate Amt None Present -Wound Margin Distinct, Outline Attached -Necrotic Tissue Type Eschar -Temperature (Jane-wound Skin No Abnormality Appearance) (Pt Warm) -Tenderness on Palpation (Jane-wound No Skin Appearance) -Ulcer Cleansing Rinsed/ Irrigated with Saline -Foul Odor after Cleansing No -Anesthetic Used 5% Lidocaine Gel #1 R Saleh anterior -Combined with other wound No -Current Size (cm) - Length 0.6 -Current Size (cm) - Width 1.5 -Current Size (cm) - Depth 0.1 -Total Square Cm 0.90 -Photo Taken No -Epithelialization None Present -Tunneling No -Undermining/Tunneling No -Circular Undermining No -Exudate Amt Small -Exudate Type Serosanguineous -Wound Margin Distinct, Outline Attached -Granulation Amt Medium (34-66%) -Granulation Quality Pale,[place] -Slough/Fibrin Yes -Necrosis Amt None Present (0 %) -Necrotic Tissue Type Eschar -Structure Exposed None/Limited to Skin Breakdown -Texture (Jane-wound Skin Appearance) No Abnormality, Assessed -Moisture (Jane-wound Skin Appearance No Abnormality, ) Assessed -Color (Jane-wound Skin Appearance) No Abnormality, Assessed -Temperature (Jane-wound Skin No Abnormality Appearance) (Pt Warm) -Tenderness on Palpation (Jane-wound No Skin Appearance) -Ulcer Cleansing Rinsed/ Irrigated with Saline -Foul Odor after Cleansing No -Anesthetic Used 5% Lidocaine Gel [Edema Assessment] -Lower Limb Edema Present NA WC - Nurse 2 - General Ulcer CM Notes Start: 09/19/18 16:11 Freq: Status: Active Protocol: Activity Type Activity Date Activity User E-Sign Co-Sign Detail Recorded Client Recorded Date Recorded By Document 10/03/18 17:11 AN [id number] 10/03/18 17:18 AN 10/03/18 17:11 Wound Center Nurse 2 [Procedure/Treatment] #2 right saleh medial -Time 17:16 -Correct Patient Yes -Correct Side, Site, Position Yes -Correct Procedure Yes -Procedure Performed Yes -Type of Procedure Debridement -Clinical Debridement Subcutaneous -Post Debridement Size (cm) - Length 1.9 -Post Debridement Size (cm) - Width 1.5 -Post Debridement Size (cm) - Depth 0.1 -Total Square Cm 2.85 -Wound/Ulcer Outcome Not Healed -Ulcer Cleansing Rinsed/ Irrigated with Saline -Foul Odor after Cleansing No -Bioengineered Tissue Yes -Type of bioengineered Tissue EPIFIX -Expiration Date 01/15/23 -Product Lot Number [id number] -Percent Used 50 -Bleeding Controlled with Pressure -Offloading Yes -Type of Offloading Camwalker -Treatment Response Procedure Tolerated Well #1 R Saleh anterior -Time 17:17 -Correct Patient Yes -Correct Side, Site, Position Yes -Correct Procedure Yes -Procedure Performed Yes -Type of Procedure Debridement -Clinical Debridement Subcutaneous -Post Debridement Size (cm) - Length 0.7 -Post Debridement Size (cm) - Width 1.6 -Post Debridement Size (cm) - Depth 0.1 -Total Square Cm 1.12 -Wound/Ulcer Outcome Not Healed -Ulcer Cleansing Rinsed/ Irrigated with Saline -Foul Odor after Cleansing No -Bioengineered Tissue Yes -Type of bioengineered Tissue EPIFIX -Expiration Date 01/15/23 -Product Lot Number [id number] -Bleeding Controlled with Pressure -Offloading Yes -Type of Offloading Camwalker -Treatment Response Procedure Tolerated Well [See Physician Procedure note for Specifics] Pain Scale: 0-10 Numeric [Pain] -Is Patient Pain Free? Yes Musculoskeletal: No Tenderness to Palpation of Joints or Extremities, Muscle Wasting Neurological: - - Lack of sensation at the injury site to light touch Psych/Mental Status: Normal Affect, Appropriate Debridement Note Post-Debridement Measurements/Treatment WC - Nurse 2 - General Ulcer CM Notes Start: 09/19/18 16:11 Freq: Status: Active Protocol: Activity Type Activity Date Activity User E-Sign Co-Sign Detail Recorded Client Recorded Date Recorded By Document 09/19/18 16:47 AN [id number] 09/19/18 17:00 AN Document 09/27/18 16:35 AN [id number] 09/27/18 16:48 AN Document 10/03/18 17:11 AN [id number] 10/03/18 17:18 AN 09/19/18 09/27/18 10/03/18 16:47 16:35 17:11 Wound Center Nurse 2 #2 right saleh medial -Time 17:00 16:37 17:16 -Correct Patient Yes Yes Yes -Correct Side, Site, Position Yes Yes Yes -Correct Procedure Yes Yes Yes -Procedure Performed Yes Yes Yes -Type of Procedure Debridement Debridement Debridement -Clinical Debridement Subcutaneous Subcutaneous Subcutaneous -Post Debridement Size (cm) - Length 1.0 0.9 1.9 -Post Debridement Size (cm) - Width 1.0 1.0 1.5 -Post Debridement Size (cm) - Depth 0.6 0.3 0.1 -Total Square Cm 1.00 0.90 2.85 -Wound/Ulcer Outcome Not Healed Not Healed Not Healed -Ulcer Cleansing Rinsed/ Rinsed/ Rinsed/ Irrigated with Irrigated with Irrigated with Saline Saline Saline -Foul Odor after Cleansing No No No -Bioengineered Tissue No Yes Yes -Type of bioengineered Tissue EPIFIX EPIFIX -Expiration Date 01/15/23 01/15/23 -Product Lot Number [id number] -Percent Used 50 50 -Bleeding Controlled with Pressure Pressure Pressure -Offloading Yes Yes Yes -Type of Offloading Camwalker Camwalker Camwalker -Treatment Response Procedure Procedure Procedure Tolerated Well Tolerated Well Tolerated Well #1 R Saleh anterior -Time 16:53 16:38 17:17 -Correct Patient Yes Yes Yes -Correct Side, Site, Position Yes Yes Yes -Correct Procedure Yes Yes Yes -Procedure Performed Yes Yes Yes -Type of Procedure Debridement Debridement Debridement -Clinical Debridement Subcutaneous Subcutaneous Subcutaneous -Post Debridement Size (cm) - Length 1.6 0.9 0.7 -Post Debridement Size (cm) - Width 1.5 1.0 1.6 -Post Debridement Size (cm) - Depth 0.2 0.3 0.1 -Total Square Cm 2.40 0.90 1.12 -Wound/Ulcer Outcome Not Healed Not Healed Not Healed -Ulcer Cleansing Rinsed/ Rinsed/ Rinsed/ Irrigated with Irrigated with Irrigated with Saline Saline Saline -Foul Odor after Cleansing No No No -Bioengineered Tissue No Yes Yes -Type of bioengineered Tissue EPIFIX EPIFIX -Expiration Date 01/15/23 01/15/23 -Product Lot Number [id number] -Percent Used 50 -Bleeding Controlled with Pressure Pressure Pressure -Offloading Yes Yes Yes -Type of Offloading Camwalker Camwalker Camwalker -Treatment Response Procedure Procedure Procedure Tolerated Well Tolerated Well Tolerated Well Pain Scale: 0-10 Numeric Is Patient Pain Free? Yes Yes Yes Wound debrided: anterior leg Laterality: Right Type of Debridement: Excisional debridement Anesthesia Used: 5% Lidocaine Gel Depth: in the subcutaneous layer Percentage of wound debrided: 100 Instrument Used: #15 blade Tissue Removed: fibrous, devitalized subcutaneous, biofilm, slough Severity: Fat Layer Exposed Amount of bleeding with debridement: Mild Bleeding Controlled with: Pressure Patient tolerated procedure well - Additional Wound Wound debrided: medial leg Laterality: Right Type of Debridement: Excisional debridement Anesthesia Used: 5% Lidocaine Gel Depth: in the subcutaneous layer Percentage of wound debrided: 100 Instrument Used: #15 blade Tissue Removed: fibrous, devitalized subcutaneous, biofilm, slough Severity: Fat Layer Exposed Amount of bleeding with debridement: Mild Bleeding Controlled with: Pressure Patient tolerated procedure: Patient tolerated procedure well Assessment/Plan Active Problems (Last Reviewed 05/21/18 @ 13:15 by Annette Mahmood) Traumatic open wound of right lower leg (Chronic) Ulcer of right lower extremity with fat layer exposed (Chronic) Localized edema (Chronic) Malnutrition (Chronic) Left foot pain (Acute) Delayed wound healing (Chronic) Difficulty in walking, not elsewhere classified (Chronic) Crushing injury of lower leg, left (Acute) Right leg pain (Chronic) Left ankle pain (Acute) Degloving injury (Chronic) Assessment: Right leg ulcer with fat layer exposed x2, no infection. Laceration/degloving injury secondary to trauma; injury and surgical repair date 08/21/2018 (initial injury site size 10.5 x 13.5 x 1.0 cm with proximal apex). Right leg edema. Malnutrition suspected. Delayed healing. Leg pain resolved Plan: This patient was carefully examined and evaluated today. I reviewed and discussed his case. Surgical repair and ulcer sites were evaluated. Subcutaneous excisional debridement was performed as noted in the clinical panel. Next, each site was then dressed with epi fix followed by wound veil Steri-Strips and a dry sterile dressing. Patient is to keep everything below the layer of Steri-Strips and wound veil in place and clean dry and intact for the next week. If drainage noted he can change the outer layers above this level. Patient to continue with Tubigrip for some compression. To avoid idle standing or sitting. To elevate the limb while at rest above the level of the heart when possible. Patient to continue with cam walker in place full weight. It is okay to remove the cam walker at night. Progression out of the cam walker will be considered next week and also additional return to work. 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 To avoid active range of motion of the ankle so that the tendon gliding under the skin does not compromise his continued wound and flap healing. To continue with nutritional supplementation and proper diet to optimize healing. He will follow-up in 1 week at the wound healing center call sooner if there is any questions or concerns.
[2018-10-10 16:23] VITALS: BP 132/68; PULSE 60; RESP 16; TEMP 36; BMI 28.0
--- NOTE | 2018-10-10 17:09 | PN.PCM_ITS ---
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 Code(s): L97.912 - Non-pressure chronic ulcer of unspecified part of right lower leg with fat layer exposed (2) Traumatic open wound of right lower leg Status: Chronic Qualifiers: Encounter type: subsequent encounter Qualified Code(s): S81.801D - Unspecified open wound, right lower leg, subsequent encounter Code(s): S81.801A - Unspecified open wound, right lower leg, initial encounter (3) Localized edema Status: Chronic Code(s): R60.0 - Localized edema (4) Venous insufficiency Status: Suspected Code(s): I87.2 - Venous insufficiency (chronic) (peripheral) (5) Malnutrition Status: Chronic Code(s): E46 - Unspecified protein-calorie malnutrition (6) Right leg pain Status: Chronic Code(s): M79.604 - Pain in right leg (7) Degloving injury Status: Chronic Code(s): T14.8XXA - Other injury of unspecified body region, initial encounter (8) Delayed wound healing Status: Chronic Code(s): T14.8XXD - Other injury of unspecified body region, subsequent encounter Type of Wound Date of Service: 10/10/18 Chief Complaint: Right leg ulceration History of Wound: This 72-year-old pleasant male with cardiac history follows up with the wound healing center for a laceration degloving injury he sustained on August 21, 2018. He dropped a cast iron air compressor on his right leg. He has been changing the dressing at home with Aquacel. He has continued drainage at 2 sites. This is now an ulcer with delayed healing. He denies redness or streaking. His is helping him. He takes nutritional supplementation. He also continues to wear the protective cam walker to prevent tension on the ulcer site.he denies pain Progress of Wound: Improving - Physical Exam Vital Signs Temp Pulse Resp BP 96.8 F L 60 16 132/68 H 10/10/18 16:23 10/10/18 16:23 10/10/18 16:23 10/10/18 16:23 General: Alert, Oriented x3, Cooperative, No apparent distress Extremities: Capillary Refill Less than 3 Seconds, No Calf Tenderness, Diminished Peripheral Pulses, Edema - decreased Skin: Ulcer/ Wound - no purulence, no erythema, no streaking, no infection. ulcer depth noted Wound Measurements and Assessment WC - Nurse 1 - General Ulcer Measurement Start: 09/19/18 16:11 Freq: Status: Active Protocol: Activity Type Activity Date Activity User E-Sign Co-Sign Detail Recorded Client Recorded Date Recorded By Document 10/10/18 16:[address] [facility] [id number] 10/10/18 16:[address] [facility] 10/10/18 16:23 Wound Center Nurse 1 [Ulcer Assessment] #2 right saleh medial -Combined with other wound No -Current Size (cm) - Length 0.1 -Current Size (cm) - Width 0.3 -Current Size (cm) - Depth 0.1 -Total Square Cm 0.03 -Photo Taken No -Epithelialization Small 1-33% -Tunneling No -Undermining/Tunneling No -Circular Undermining No -Exudate Amt Small -Exudate Type Serosanguineous -Wound Margin Flat & Intact -Granulation Amt Small (1-33%) -Granulation Quality Red -Slough/Fibrin Yes -Necrosis Amt Large (67-100%) -Necrotic Tissue Type Adherent Slough -Texture (Jane-wound Skin Appearance) Assessed, Scarring -Moisture (Jane-wound Skin Appearance Assessed,Dry/ ) Scaly -Color (Jane-wound Skin Appearance) Assessed, Erythema -Temperature (Jane-wound Skin No Abnormality Appearance) (Pt Warm) -Tenderness on Palpation (Jane-wound No Skin Appearance) -Ulcer Cleansing Rinsed/ Irrigated with Saline -Foul Odor after Cleansing No -Anesthetic Used 5% Lidocaine Gel #1 R Salhe anterior -Combined with other wound No -Current Size (cm) - Length 1.7 -Current Size (cm) - Width 1 -Current Size (cm) - Depth 0.1 -Total Square Cm 1.7 -Photo Taken No -Epithelialization None Present -Tunneling No -Undermining/Tunneling No -Circular Undermining No -Exudate Amt Small -Exudate Type Serosanguineous -Wound Margin Distinct, Outline Attached -Granulation Amt Small (1-33%) -Granulation Quality Red -Slough/Fibrin Yes -Necrosis Amt Medium (34-66%) -Necrotic Tissue Type Adherent Slough -Texture (Jane-wound Skin Appearance) Assessed, Scarring -Moisture (Jane-wound Skin Appearance Assessed,Dry/ ) Scaly -Color (Jane-wound Skin Appearance) Assessed, Erythema -Temperature (Jane-wound Skin No Abnormality Appearance) (Pt Warm) -Tenderness on Palpation (Jane-wound No Skin Appearance) -Ulcer Cleansing Rinsed/ Irrigated with Saline -Foul Odor after Cleansing No -Anesthetic Used 5% Lidocaine Gel [Edema Assessment] -Lower Limb Edema Present Yes -Right Calf (cm) 32.9 -Right Ankle (cm) 23.6 WC - Nurse 2 - General Ulcer CM Notes Start: 09/19/18 16:11 Freq: Status: Active Protocol: Activity Type Activity Date Activity User E-Sign Co-Sign Detail Recorded Client Recorded Date Recorded By Document 10/10/18 16:58 [id number] 10/10/18 17:06 CS 10/10/18 16:58 Wound Center Nurse 2 [Procedure/Treatment] #2 right saleh medial -Time 17:03 -Correct Patient Yes -Correct Side, Site, Position Yes -Correct Procedure Yes -Procedure Performed Yes -Type of Procedure Debridement -Clinical Debridement Subcutaneous -Post Debridement Size (cm) - Length 0.1 -Post Debridement Size (cm) - Width 0.3 -Post Debridement Size (cm) - Depth 0.1 -Total Square Cm 0.03 -Wound/Ulcer Outcome Not Healed -Ulcer Cleansing Not Cleansed -Foul Odor after Cleansing No -Bioengineered Tissue Yes -Type of bioengineered Tissue EPIFIX -Expiration Date 02/15/23 -Product Lot Number [id number] -Percent Used 50 -Bleeding Controlled with NA -Offloading No -Treatment Response Procedure Tolerated Well #1 R Saleh anterior -Time 17:03 -Correct Patient Yes -Correct Side, Site, Position Yes -Correct Procedure Yes -Procedure Performed Yes -Type of Procedure Debridement -Clinical Debridement Subcutaneous -Post Debridement Size (cm) - Length 1.7 -Post Debridement Size (cm) - Width 1 -Post Debridement Size (cm) - Depth 0.1 -Total Square Cm 1.7 -Wound/Ulcer Outcome Not Healed -Ulcer Cleansing Not Cleansed -Foul Odor after Cleansing No -Bioengineered Tissue Yes -Type of bioengineered Tissue EPIFIX -Expiration Date 02/15/23 -Product Lot Number [id number] -Percent Used 50 -Bleeding Controlled with NA -Offloading No -Treatment Response Procedure Tolerated Well [See Physician Procedure note for Specifics] Pain Scale: 0-10 Numeric [Pain] -Is Patient Pain Free? Yes Musculoskeletal: No Tenderness to Palpation of Joints or Extremities, Muscle Wasting Neurological: - - lack of epicritic sensation to light touch distal to injury site, right leg Psych/Mental Status: Normal Affect, Appropriate Debridement Note Post-Debridement Measurements/Treatment WC - Nurse 2 - General Ulcer CM Notes Start: 09/19/18 16:11 Freq: Status: Active Protocol: Activity Type Activity Date Activity User E-Sign Co-Sign Detail Recorded Client Recorded Date Recorded By Document 09/19/18 16:47 AN [id number] 09/19/18 17:00 AN Document 09/27/18 16:35 AN [id number] 09/27/18 16:48 AN Document 10/03/18 17:11 AN [id number] 10/03/18 17:18 AN Document 10/10/18 16:58 CS [id number] 10/10/18 17:06 CS 09/19/18 09/27/18 10/03/18 16:47 16:35 17:11 Wound Center Nurse 2 #2 right saleh medial -Time 17:00 16:37 17:16 -Correct Patient Yes Yes Yes -Correct Side, Site, Position Yes Yes Yes -Correct Procedure Yes Yes Yes -Procedure Performed Yes Yes Yes -Type of Procedure Debridement Debridement Debridement -Clinical Debridement Subcutaneous Subcutaneous Subcutaneous -Post Debridement Size (cm) - Length 1.0 0.9 1.9 -Post Debridement Size (cm) - Width 1.0 1.0 1.5 -Post Debridement Size (cm) - Depth 0.6 0.3 0.1 -Total Square Cm 1.00 0.90 2.85 -Wound/Ulcer Outcome Not Healed Not Healed Not Healed -Ulcer Cleansing Rinsed/ Rinsed/ Rinsed/ Irrigated with Irrigated with Irrigated with Saline Saline Saline -Foul Odor after Cleansing No No No -Bioengineered Tissue No Yes Yes -Type of bioengineered Tissue EPIFIX EPIFIX -Expiration Date 01/15/23 01/15/23 -Product Lot Number [id number] -Percent Used 50 50 -Bleeding Controlled with Pressure Pressure Pressure -Offloading Yes Yes Yes -Type of Offloading Camwalker Camwalker Camwalker -Treatment Response Procedure Procedure Procedure Tolerated Well Tolerated Well Tolerated Well #1 R Saleh anterior -Time 16:53 16:38 17:17 -Correct Patient Yes Yes Yes -Correct Side, Site, Position Yes Yes Yes -Correct Procedure Yes Yes Yes -Procedure Performed Yes Yes Yes -Type of Procedure Debridement Debridement Debridement -Clinical Debridement Subcutaneous Subcutaneous Subcutaneous -Post Debridement Size (cm) - Length 1.6 0.9 0.7 -Post Debridement Size (cm) - Width 1.5 1.0 1.6 -Post Debridement Size (cm) - Depth 0.2 0.3 0.1 -Total Square Cm 2.40 0.90 1.12 -Wound/Ulcer Outcome Not Healed Not Healed Not Healed -Ulcer Cleansing Rinsed/ Rinsed/ Rinsed/ Irrigated with Irrigated with Irrigated with Saline Saline Saline -Foul Odor after Cleansing No No No -Bioengineered Tissue No Yes Yes -Type of bioengineered Tissue EPIFIX EPIFIX -Expiration Date 01/15/23 01/15/23 -Product Lot Number [id number] -Percent Used 50 -Bleeding Controlled with Pressure Pressure Pressure -Offloading Yes Yes Yes -Type of Offloading Camwalker Camwalker Camwalker -Treatment Response Procedure Procedure Procedure Tolerated Well Tolerated Well Tolerated Well Pain Scale: 0-10 Numeric Is Patient Pain Free? Yes Yes Yes 10/10/18 16:58 Wound Center Nurse 2 #2 right saleh medial -Time 17:03 -Correct Patient Yes -Correct Side, Site, Position Yes -Correct Procedure Yes -Procedure Performed Yes -Type of Procedure Debridement -Clinical Debridement Subcutaneous -Post Debridement Size (cm) - Length 0.1 -Post Debridement Size (cm) - Width 0.3 -Post Debridement Size (cm) - Depth 0.1 -Total Square Cm 0.03 -Wound/Ulcer Outcome Not Healed -Ulcer Cleansing Not Cleansed -Foul Odor after Cleansing No -Bioengineered Tissue Yes -Type of bioengineered Tissue EPIFIX -Expiration Date 02/15/23 -Product Lot Number [id number] -Percent Used 50 -Bleeding Controlled with NA -Offloading No -Type of Offloading -Treatment Response Procedure Tolerated Well #1 R Saleh anterior -Time 17:03 -Correct Patient Yes -Correct Side, Site, Position Yes -Correct Procedure Yes -Procedure Performed Yes -Type of Procedure Debridement -Clinical Debridement Subcutaneous -Post Debridement Size (cm) - Length 1.7 -Post Debridement Size (cm) - Width 1 -Post Debridement Size (cm) - Depth 0.1 -Total Square Cm 1.7 -Wound/Ulcer Outcome Not Healed -Ulcer Cleansing Not Cleansed -Foul Odor after Cleansing No -Bioengineered Tissue Yes -Type of bioengineered Tissue EPIFIX -Expiration Date 02/15/23 -Product Lot Number [id number] -Percent Used 50 -Bleeding Controlled with NA -Offloading No -Type of Offloading -Treatment Response Procedure Tolerated Well Pain Scale: 0-10 Numeric Is Patient Pain Free? Yes Wound debrided: leg anterior Laterality: Right Type of Debridement: Excisional debridement Anesthesia Used: 5% Lidocaine Gel Depth: in the subcutaneous layer Percentage of wound debrided: 100 Instrument Used: #15 blade Tissue Removed: fibrous, devitalized subcutaneous, biofilm, slough Severity: Fat Layer Exposed Amount of bleeding with debridement: Mild Bleeding Controlled with: Pressure Patient tolerated procedure well - Additional Wound Wound debrided: leg medial Laterality: Right Type of Debridement: Excisional debridement Anesthesia Used: 5% Lidocaine Gel Depth: in the subcutaneous layer Percentage of wound debrided: 100 Instrument Used: #15 blade Tissue Removed: fibrous, devitalized subcutaneous, biofilm, slough Severity: Fat Layer Exposed Amount of bleeding with debridement: Mild Bleeding Controlled with: Pressure Patient tolerated procedure: Patient tolerated procedure well Assessment/Plan Assessment: Right leg ulcer with fat layer exposed x2, no infection. Laceration/degloving injury secondary to trauma; injury and surgical repair date 08/21/2018 (initial injury site size 10.5 x 13.5 x 1.0 cm with proximal apex). Right leg edema. Malnutrition suspected. Delayed healing. Leg pain resolved Plan: This patient was carefully examined and evaluated today. I reviewed and discussed his case. Surgical repair and ulcer sites were evaluated. Subcutaneous excisional debridement was performed as noted in the clinical panel. Next, each site was then dressed with epi fix followed by wound veil Steri-Strips and a dry sterile dressing. Patient is to keep everything below the layer of Steri-Strips and wound veil in place and clean dry and intact for the next week. If drainage noted he can change the outer layers above this level. Patient to continue with Tubigrip for some compression. To avoid idle standing or sitting. To elevate the limb while at rest above the level of the heart when possible. Patient to continue with cam walker in place full weight. To progress to an athletic shoe as tolerated over the next week. 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 To avoid active range of motion of the ankle so that the tendon gliding under the skin does not compromise his continued wound and flap healing. To continue with nutritional supplementation and proper diet to optimize healing. He will follow-up in 1 week at the wound healing center call sooner if there is any questions or concerns.
== END 2018-10-14 23:59 ==
LOC: WC 16:15
PROVIDERS: Family Provider Family Medicine; PCP Family Medicine; Referring Provider Podiatrist; Visit Provider Podiatrist
DX: I87.2 Venous insufficiency (chronic) (peripheral) (principal); S81.811A Laceration without foreign body, right lower leg, initial encounter; W31.89XA Contact with other specified machinery, initial encounter; Y93.9 Activity, unspecified; Y92.9 Unspecified place or not applicable; M79.672 Pain in left foot; S87.82XA Crushing injury of left lower leg, initial encounter; R60.0 Localized edema; I73.89 Other specified peripheral vascular diseases
CPT/HCPCS: 11042; 15271; 93923; 93970; Q4186

== ENCOUNTER 2018-10-31 16:15 | Outpatient (RCR) | payer MEDICARE, BC, SELFPAY ==
[2018-10-15 00:57] VITALS: BP 132/68; PULSE 60; RESP 16; TEMP 36
[2018-10-17 16:25] VITALS: BP 112/75; PULSE 68; RESP 18; TEMP 36; BMI 28.0
--- NOTE | 2018-10-17 17:01 | PCM.WC.PN ---
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 Current Visit: Yes Code(s): L97.912 - Non-pressure chronic ulcer of unspecified part of right lower leg with fat layer exposed (2) Traumatic open wound of right lower leg Status: Chronic Current Visit: Yes Qualifiers: Encounter type: sequela Qualified Code(s): S81.801S - Unspecified open wound, right lower leg, sequela Code(s): S81.801A - Unspecified open wound, right lower leg, initial encounter (3) Localized edema Status: Chronic Current Visit: Yes Code(s): R60.0 - Localized edema (4) Malnutrition Status: Chronic Current Visit: Yes Code(s): E46 - Unspecified protein-calorie malnutrition (5) Delayed wound healing Status: Chronic Current Visit: Yes Code(s): T14.8XXD - Other injury of unspecified body region, subsequent encounter Type of Wound Date of Service: 10/19/18 Chief Complaint: Right leg ulceration History of Wound: This 72-year-old pleasant male with cardiac history follows up with the wound healing center for a laceration degloving injury he sustained on August 21, 2018. He dropped a cast iron air compressor on his right leg. He has been changing the dressing at home with Aquacel. He has continued drainage at 2 sites. This is now an ulcer with delayed healing. He denies redness or streaking. His is helping him. He takes nutritional supplementation. He denies pain. He transition out of his cam walker boot to a supportive athletic sneaker and is doing very well. He denies left lower extremity pain. Progress of Wound: Improving - Physical Exam Vital Signs Temp Pulse Resp BP 96.8 F L 68 18 112/75 10/17/18 16:25 10/17/18 16:25 10/17/18 16:25 10/17/18 16:25 General: Alert, Oriented x3, Cooperative, No apparent distress Extremities: No cyanosis, Capillary Refill Less than 3 Seconds, No Calf Tenderness - Negative Pablo and Boone signs bilateral, Edema - Decreased right leg, Peripheral Pulses Normal Skin: Ulcer/ Wound - No purulence, erythema, streaking, odor, infection. Improved ulcer base is noted with increased granulation tissue and decreased depth to both sites. The peripheral skin is hairless and atrophic Wound Measurements and Assessment WC - Nurse 1 - General Ulcer Measurement Start: 10/17/18 16:24 Freq: Status: Active Protocol: Activity Type Activity Date Activity User E-Sign Co-Sign Detail Recorded Client Recorded Date Recorded By Document 10/17/18 16:25 RB [id number] 10/17/18 16:30 RB 10/17/18 16:25 Wound Center Nurse 1 [Ulcer Assessment] #2 right saleh medial -Combined with other wound No -Current Size (cm) - Length 0.1 -Current Size (cm) - Width 0.1 -Current Size (cm) - Depth 0.1 -Total Square Cm 0.01 -Tunneling No -Undermining/Tunneling No -Circular Undermining No -Exudate Amt None Present -Wound Margin Distinct, Outline Attached -Granulation Amt Large (67-100%) -Granulation Quality [place] -Slough/Fibrin Yes -Necrosis Amt Small (1-33%) -Necrotic Tissue Type Adherent Slough -Structure Exposed N/A -Texture (Jane-wound Skin Appearance) Assessed -Moisture (Jane-wound Skin Appearance Assessed ) -Color (Jane-wound Skin Appearance) Assessed -Temperature (Jane-wound Skin No Abnormality Appearance) (Pt Warm) -Tenderness on Palpation (Jane-wound No Skin Appearance) -Ulcer Cleansing Rinsed/ Irrigated with Saline -Foul Odor after Cleansing No -Anesthetic Used 5% Lidocaine Gel #1 R Saleh anterior -Combined with other wound No -Current Size (cm) - Length 1.2 -Current Size (cm) - Width 1 -Current Size (cm) - Depth 0.1 -Total Square Cm 1.2 -Tunneling No -Undermining/Tunneling No -Circular Undermining No -Exudate Amt Small -Exudate Type Serosanguineous -Wound Margin Distinct, Outline Attached -Granulation Amt Medium (34-66%) -Granulation Quality [place] -Slough/Fibrin Yes -Necrosis Amt Small (1-33%) -Necrotic Tissue Type Adherent Slough -Structure Exposed N/A -Texture (Jane-wound Skin Appearance) Assessed -Moisture (Jane-wound Skin Appearance Assessed ) -Color (Jane-wound Skin Appearance) Assessed -Temperature (Jane-wound Skin No Abnormality Appearance) (Pt Warm) -Tenderness on Palpation (Jane-wound No Skin Appearance) -Ulcer Cleansing Wound Cleanser -Foul Odor after Cleansing No -Anesthetic Used 5% Lidocaine Gel [Edema Assessment] -Lower Limb Edema Present Yes -Right Calf (cm) 35.8 -Right Ankle (cm) 24 WC - Nurse 2 - General Ulcer CM Notes Start: 10/17/18 16:24 Freq: Status: Active Protocol: Activity Type Activity Date Activity User E-Sign Co-Sign Detail Recorded Client Recorded Date Recorded By Document 10/17/18 16:56 [id number] 10/17/18 16:58 10/17/18 16:56 Wound Center Nurse 2 [Procedure/Treatment] #2 right saleh medial -Time 16:56 -Correct Patient Yes -Correct Side, Site, Position Yes -Correct Procedure Yes -Procedure Performed Yes -Type of Procedure Debridement -Clinical Debridement Subcutaneous -Post Debridement Size (cm) - Length 0.5 -Post Debridement Size (cm) - Width 0.2 -Post Debridement Size (cm) - Depth 0.1 -Total Square Cm 0.10 -Wound/Ulcer Outcome Not Healed -Ulcer Cleansing Rinsed/ Irrigated with Saline -Foul Odor after Cleansing No -Bioengineered Tissue Yes -Type of bioengineered Tissue EPIFIX -Expiration Date 02/15/23 -Product Lot Number [id number] -Percent Used 100 -Saline Lot Number [id number] -Bleeding Controlled with Pressure -Offloading No -Treatment Response Procedure Tolerated Well #1 R Saleh anterior -Time 16:57 -Correct Patient Yes -Correct Side, Site, Position Yes -Correct Procedure Yes -Procedure Performed Yes -Type of Procedure Debridement -Clinical Debridement Subcutaneous -Post Debridement Size (cm) - Length 1.2 -Post Debridement Size (cm) - Width 1.1 -Post Debridement Size (cm) - Depth 0.1 -Total Square Cm 1.32 -Wound/Ulcer Outcome Not Healed -Ulcer Cleansing Rinsed/ Irrigated with Saline -Foul Odor after Cleansing No -Bioengineered Tissue Yes -Type of bioengineered Tissue EPIFIX -Expiration Date 02/15/23 -Product Lot Number [id number] -Percent Used 100 -Saline Lot Number [id number] -Bleeding Controlled with Pressure -Offloading No -Treatment Response Procedure Tolerated Well [See Physician Procedure note for Specifics] Pain Scale: 0-10 Numeric [Pain] -Is Patient Pain Free? Yes Musculoskeletal: No Tenderness to Palpation of Joints or Extremities, Muscle Wasting, - - Compartment soft to palpate right lower extremity Neurological: - - Lack of epicritic sensation distal to the apex of the degloving injury site right leg. This is consistent with prior exams Psych/Mental Status: Normal Affect, Appropriate Debridement Note Post-Debridement Measurements/Treatment WC - Nurse 2 - General Ulcer CM Notes Start: 10/17/18 16:24 Freq: Status: Active Protocol: Activity Type Activity Date Activity User E-Sign Co-Sign Detail Recorded Client Recorded Date Recorded By Document 10/17/18 16:56 [id number] 10/17/18 16:58 10/17/18 16:56 Wound Center Nurse 2 #2 right saleh medial -Time 16:56 -Correct Patient Yes -Correct Side, Site, Position Yes -Correct Procedure Yes -Procedure Performed Yes -Type of Procedure Debridement -Clinical Debridement Subcutaneous -Post Debridement Size (cm) - Length 0.5 -Post Debridement Size (cm) - Width 0.2 -Post Debridement Size (cm) - Depth 0.1 -Total Square Cm 0.10 -Wound/Ulcer Outcome Not Healed -Ulcer Cleansing Rinsed/ Irrigated with Saline -Foul Odor after Cleansing No -Bioengineered Tissue Yes -Type of bioengineered Tissue EPIFIX -Expiration Date 02/15/23 -Product Lot Number [id number] -Percent Used 100 -Saline Lot Number [id number] -Bleeding Controlled with Pressure -Offloading No -Treatment Response Procedure Tolerated Well #1 R Saleh anterior -Time 16:57 -Correct Patient Yes -Correct Side, Site, Position Yes -Correct Procedure Yes -Procedure Performed Yes -Type of Procedure Debridement -Clinical Debridement Subcutaneous -Post Debridement Size (cm) - Length 1.2 -Post Debridement Size (cm) - Width 1.1 -Post Debridement Size (cm) - Depth 0.1 -Total Square Cm 1.32 -Wound/Ulcer Outcome Not Healed -Ulcer Cleansing Rinsed/ Irrigated with Saline -Foul Odor after Cleansing No -Bioengineered Tissue Yes -Type of bioengineered Tissue EPIFIX -Expiration Date 02/15/23 -Product Lot Number [id number] -Percent Used 100 -Saline Lot Number [id number] -Bleeding Controlled with Pressure -Offloading No -Treatment Response Procedure Tolerated Well Pain Scale: 0-10 Numeric Is Patient Pain Free? Yes Wound debrided: anterior leg Laterality: Right Type of Debridement: Excisional debridement Anesthesia Used: 5% Lidocaine Gel Depth: in the subcutaneous layer Percentage of wound debrided: 100 Instrument Used: #15 blade Tissue Removed: fibrous, devitalized subcutaneous, biofilm, slough Severity: Fat Layer Exposed Amount of bleeding with debridement: Mild Bleeding Controlled with: Pressure Patient tolerated procedure well - Additional Wound Wound debrided: medial leg Laterality: Right Type of Debridement: Excisional debridement Anesthesia Used: 5% Lidocaine Gel Depth: in the subcutaneous layer Percentage of wound debrided: 100 Instrument Used: #15 blade Tissue Removed: fibrous, devitalized subcutaneous, biofilm, slough Severity: Fat Layer Exposed Amount of bleeding with debridement: Mild Bleeding Controlled with: Pressure Patient tolerated procedure: Patient tolerated procedure well Assessment/Plan Active Problems (Last Reviewed 05/21/18 @ 13:15 by Annette Mahmood) Traumatic open wound of right lower leg (Chronic) Ulcer of right lower extremity with fat layer exposed (Chronic) Localized edema (Chronic) Malnutrition (Chronic) Delayed wound healing (Chronic) Assessment: Right leg ulcer with fat layer exposed x2, no infection. Laceration/degloving injury secondary to trauma; injury and surgical repair date 08/21/2018 (initial injury site size 10.5 x 13.5 x 1.0 cm with proximal apex). Right leg edema. Malnutrition suspected. Delayed healing. Leg pain resolved bilateral Plan: This patient was carefully examined and evaluated today. I reviewed and discussed his case. Surgical repair and ulcer sites were evaluated. Subcutaneous excisional debridement was performed as noted in the clinical panel. Next, each site was then dressed with epi fix followed by wound veil Steri-Strips and a dry sterile dressing. Patient is to keep everything below the layer of Steri-Strips and wound veil in place and clean dry and intact for the next week. If drainage noted he can change the outer layers above this level. Patient to continue with Tubigrip for some compression. To avoid idle standing or sitting. To elevate the limb while at rest above the level of the heart when possible. He was advised to continue with athletic shoe as tolerated over the next week. He is also permitted to return to work without limitations; a release for work note was provided today. 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 To avoid active range of motion of the ankle so that the tendon gliding under the skin does not compromise his continued wound and flap healing. To continue with nutritional supplementation and proper diet to optimize healing. He will follow-up in 1 week at the wound healing center call sooner if there is any questions or concerns.
[2018-10-24 16:10] VITALS: BP 136/87; PULSE 77; RESP 20; TEMP 37.3; BMI 28.0
--- NOTE | 2018-10-24 16:40 | PN.PCM_ITS ---
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 Current Visit: Yes Code(s): L97.912 - Non-pressure chronic ulcer of unspecified part of right lower leg with fat layer exposed (2) Traumatic open wound of right lower leg Status: Chronic Current Visit: Yes Qualifiers: Encounter type: sequela Qualified Code(s): S81.801S - Unspecified open woun d, right lower leg, sequela Code(s): S81.801A - Unspecified open wound, right lower leg, initial encounter (3) Localized edema Status: Chronic Current Visit: Yes Code(s): R60.0 - Localized edema (4) Malnutrition Status: Chronic Current Visit: Yes Code(s): E46 - Unspecified protein- calorie malnutrition (5) Delayed wound healing Status: Chronic Current Visit: Yes Code(s): T14.8XXD - Other injury of unspecified body region, subsequent encounter Type of Wound Date of Service: 10/24/18 Chief Complaint: Right leg ulceration History of Wound: This 72-year-old pleasant male with cardiac history follows up with the wound healing center for a laceration degloving injury he sustained on August 21, 2018. He dropped a cast iron air compressor on his right leg. He has been changing the dressing at home with Aquacel. He has continued drainage at 2 sites. This is now an ulcer with delayed healing. He denies redness or streaking. His is helping him. He takes nutritional supplementation. He denies pain. He returned to work without limitations last week. He denies left lower extremity pain. Progress of Wound: Improving anterior right leg ulcer. Healed medial right leg ulcer - Physical Exam Vital Signs Temp Pulse Resp BP 99.1 F 77 20 H 136/87 H 10/24/18 16:10 10/24/18 16:10 10/24/18 16:10 10/24/18 16:10 General: Alert, Oriented x3, Cooperative, No apparent distress Extremities: No cyanosis, Capillary Refill Less than 3 Seconds, No Calf Tende rness - Negative Pablo and Boone sign right, Edema - Mild right lower extremity, Peripheral Pulses Normal Skin: Ulcer/ Wound - No purulence, erythema, streaking, odor, or infection. The peripheral skin is hairless and atrophic. Full epithelialization is noted to the right medial leg ulcer site Wound Measurements and Assessment WC - Nurse 1 - General Ulcer Measurement Start: 10/17/18 16:24 Freq: Status: Active Protocol: Activity Type Activity Date Activity User E-Sign Co-Sign Detail Recorded Client Recorded Date Recorded By Document 10/24/18 16:10 DL [id number] 10/24/18 16:20 DL 10/24/18 16:10 Wound Center Nurse 1 [Ulcer Assessment] #2 right saleh medial -Current Size (cm) - Length 0.1 -Current Size (cm) - Width 0.1 -Current Size (cm) - Depth 0.1 -Total Square Cm 0.01 -Photo Taken Yes -Exudate Amt None Present -Wound Margin Flat & Intact -Granulation Amt Large (67-100%) -Granulation Quality [place] -Necrosis Amt Small (1-33%) -Necrotic Tissue Type Adherent Slough -Structure Exposed N/A -Texture (Jane-wound Skin Appearance) Scarring -Moisture (Jane-wound Skin Appearance Dry/Scaly ) -Color (Jane-wound Skin Appearance) Hemosiderin Staining -Temperature (Jane-wound Skin No Abnormality Appearance) (Pt Warm) -Tenderness on Palpation (Jane-wound No Skin Appearance) -Ulcer Cleansing Wound Cleanser -Foul Odor after Cleansing No -Anesthetic Used 5% Lidocaine Gel #1 R Saleh anterior -Current Size (cm) - Length 0.6 -Current Size (cm) - Width 0.4 -Current Size (cm) - Depth 0.1 -Total Square Cm 0.24 -Photo Taken Yes -Exudate Amt None Present -Wound Margin Distinct, Outline Attached -Granulation Amt Small (1-33%) -Granulation Quality [place] -Necrosis Amt Small (1-33%) -Necrotic Tissue Type Adherent Slough -Structure Exposed N/A -Texture (Jane-wound Skin Appearance) Scarring -Moisture (Jane-wound Skin Appearance No Abnormality ) -Color (Jane-wound Skin Appearance) Hemosiderin Staining -Temperature (Jane-wound Skin No Abnormality Appearance) (Pt Warm) -Tenderness on Palpation (Jane-wound No Skin Appearance) -Ulcer Cleansing Wound Cleanser -Foul Odor after Cleansing No -Anesthetic Used 5% Lidocaine Gel [Edema Assessment] -Right Calf (cm) 36 -Right Ankle (cm) 23.8 WC - Nurse 2 - General Ulcer CM Notes Start: 10/17/18 16:24 Freq: Status: Active Protocol: Activity Type Activity Date Activity User E-Sign Co-Sign Detail Recorded Client Recorded Date Recorded By Document 10/24/18 16:29 [id number] 10/24/18 16:30 10/24/18 16:29 Wound Center Nurse 2 [Procedure/Treatment] #2 right saleh medial -Correct Patient No -Correct Side, Site, Position No -Correct Procedure No -Procedure Performed No -Post Debridement Size (cm) - Length 0 -Post Debridement Size (cm) - Width 0 -Post Debridement Size (cm) - Depth 0 -Total Square Cm 0 -Wound/Ulcer Outcome Healed- Epithelialized #1 R Saleh anterior -Time 16:30 -Correct Patient Yes -Correct Side, Site, Position Yes -Correct Procedure Yes -Type of Procedure Debridement -Clinical Debridement Subcutaneous -Post Debridement Size (cm) - Length 0.3 -Post Debridement Size (cm) - Width 0.2 -Post Debridement Size (cm) - Depth 0.1 -Total Square Cm 0.06 -Wound/Ulcer Outcome Not Healed -Ulcer Cleansing Rinsed/ Irrigated with Saline -Foul Odor after Cleansing No -Bioengineered Tissue No -Bleeding Controlled with Pressure -Offloading No -Treatment Response Procedure Tolerated Well [See Physician Procedure note for Specifics] Pain Scale: 0-10 Numeric [Pain] -Is Patient Pain Free? Yes Musculoskeletal: No Tenderness to Palpation of Joints or Extremities, Muscle Wasting Neurological: - - Lack of sensation light touch at the injury site Psych/Mental Status: Normal Affect, Appropriate Debridement Note Post-Debridement Measurements/Treatment WC - Nurse 2 - General Ulcer CM Notes Start: 10/17/18 16:24 Freq: Status: Active Protocol: Activity Type Activity Date Activity User E-Sign Co-Sign Detail Recorded Client Recorded Date Recorded By Document 10/17/18 16:56 [id number] 10/17/18 16:58 Document 10/24/18 16:29 [id number] 10/24/18 16:30 10/17/18 10/24/18 16:56 16:29 Wound Center Nurse 2 #2 right saleh medial -Time 16:56 -Correct Patient Yes No -Correct Side, Site, Position Yes No -Correct Procedure Yes No -Procedure Performed Yes No -Type of Procedure Debridement -Clinical Debridement Subcutaneous -Post Debridement Size (cm) - Length 0.5 0 -Post Debridement Size (cm) - Width 0.2 0 -Post Debridement Size (cm) - Depth 0.1 0 -Total Square Cm 0.10 0 -Wound/Ulcer Outcome Not Healed Healed- Epithelialized -Ulcer Cleansing Rinsed/ Irrigated with Saline -Foul Odor after Cleansing No -Bioengineered Tissue Yes -Type of bioengineered Tissue EPIFIX -Expiration Date 02/15/23 -Product Lot Number [id number] -Percent Used 100 -Saline Lot Number [id number] -Bleeding Controlled with Pressure -Offloading No -Treatment Response Procedure Tolerated Well #1 R Saleh anterior -Time 16:57 16:30 -Correct Patient Yes Yes -Correct Side, Site, Position Yes Yes -Correct Procedure Yes Yes -Procedure Performed Yes -Type of Procedure Debridement Debridement -Clinical Debridement Subcutaneous Subcutaneous -Post Debridement Size (cm) - Length 1.2 0.3 -Post Debridement Size (cm) - Width 1.1 0.2 -Post Debridement Size (cm) - Depth 0.1 0.1 -Total Square Cm 1.32 0.06 -Wound/Ulcer Outcome Not Healed Not Healed -Ulcer Cleansing Rinsed/ Rinsed/ Irrigated with Irrigated with Saline Saline -Foul Odor after Cleansing No No -Bioengineered Tissue Yes No -Type of bioengineered Tissue EPIFIX -Expiration Date 02/15/23 -Product Lot Number [id number] -Percent Used 100 -Saline Lot Number [id number] -Bleeding Controlled with Pressure Pressure -Offloading No No -Treatment Response Procedure Procedure Tolerated Well Tolerated Well Pain Scale: 0-10 Numeric Is Patient Pain Free? Yes Yes Wound debrided: anterior leg Laterality: Right Type of Debridement: Excisional debridement Anesthesia Used: 5% Lidocaine Gel Depth: in the subcutaneous layer Percentage of wound debrided: 100 Instrument Used: #15 blade Tissue Removed: fibrous, devitalized subcutaneous, biofilm, slough Severity: Fat Layer Exposed Amount of bleeding with debridement: Mild Bleeding Controlled with: Pressure Patient tolerated procedure well Assessment/Plan Active Problems (Last Reviewed 05/21/18 @ 13:15 by Annette Mahmood) Traumatic open wound of right lower leg (Chronic) Ulcer of right lower extremity with fat layer exposed (Chronic) Localized edema (Chronic) Malnutrition (Chronic) Delayed wound healing (Chronic) Assessment: Right leg ulcer with fat layer exposed x1, no infection. Right leg medial ulcer healed. Laceration/degloving injury secondary to trauma; injury and surgical repair date 08/21/2018 (initial injury site size 10.5 x 13.5 x 1.0 cm with proximal apex). Right leg edema. Malnutrition suspected. Delayed healing. Leg pain resolved bilateral Plan: This patient was carefully examined and evaluated today. I reviewed and discussed his case. Surgical repair and ulcer sites were evaluated. Subcutaneous excisional debridement was performed as noted in the clinical panel. To change dressing daily with [email or web address] Ag. He is doing very well at this time. to continue with Tubigrip for some compression. To avoid idle standing or sitting. To elevate the limb while at rest above the level of the heart when possible. To continue with supportive athletic shoe gear as tolerated. He has returned to work and is doing well. To continue with nutritional supplementation and proper diet to optimize healing. He will follow-up in 1 week at the wound healing center call sooner if there is any questions or concerns.
[2018-10-31 16:08] VITALS: BP 129/76; PULSE 58; RESP 18; TEMP 36.5; BMI 28.0
--- NOTE | 2018-10-31 16:39 | PN.PCM_ITS ---
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 Code(s): L97.912 - Non-pressure chronic ulcer of unspecified part of right lower leg with fat layer exposed (2) Traumatic open wound of right lower leg Status: Chronic Qualifiers: Encounter type: sequela Qualified Code(s): S81.801S - Unspecified open wound, right lower leg, sequela Code(s): S81.801A - Unspecified open wound, right lower leg, initial encounter (3) Localized edema Status: Chronic Code(s): R60.0 - Localized edema Type of Wound Date of Service: 11/04/18 Chief Complaint: Right leg ulceration History of Wound: This 72-year-old pleasant male with cardiac history follows up with the wound healing center for a laceration degloving injury he sustained on August 21, 2018. He dropped a cast iron air compressor on his right leg. He has been changing the dressing at home with Aquacel. He denies drainage. He denies redness or streaking. He denies pain. He is return to work. Progress of Wound: Healed - Physical Exam Vital Signs Temp Pulse Resp BP 97.7 F L 58 L 18 129/76 H 10/31/18 16:08 10/31/18 16:08 10/31/18 16:08 10/31/18 16:08 General: Alert, Oriented x3, Cooperative, No apparent distress HEENT: Atraumatic Extremities: No cyanosis, Capillary Refill Less than 3 Seconds, No Calf Tenderness - Negative Pablo and Boone sign right leg. Compartments are soft to palpate right leg, Diminished Peripheral Pulses, Edema - Decreased right leg Skin: Ulcer/ Wound - Full epithelialization noted to the right leg. There is no purulence, erythema, streaking, odor, or infection. His skin in general is atrophic. Wound Measurements and Assessment WC - Nurse 1 - General Ulcer Measurement Start: 10/17/18 16:24 Freq: Status: Active Protocol: Activity Type Activity Date Activity User E-Sign Co-Sign Detail Recorded Client Recorded Date Recorded By Document 10/31/18 16:08 RB [id number] 10/31/18 16:14 RB 10/31/18 16:08 Wound Center Nurse 1 [Ulcer Assessment] #1 R Saleh anterior -Combined with other wound No -Current Size (cm) - Length 0.1 -Current Size (cm) - Width 0.1 -Current Size (cm) - Depth 0.1 -Total Square Cm 0.01 -Tunneling No -Undermining/Tunneling No -Circular Undermining No -Exudate Amt None Present -Wound Margin Distinct, Outline Attached -Granulation Amt Large (67-100%) -Granulation Quality [place] -Slough/Fibrin Yes -Necrosis Amt Small (1-33%) -Necrotic Tissue Type Adherent Slough -Structure Exposed N/A -Texture (Jane-wound Skin Appearance) Assessed, Scarring -Moisture (Jane-wound Skin Appearance Assessed ) -Color (Jane-wound Skin Appearance) Hemosiderin Staining -Temperature (Jane-wound Skin No Abnormality Appearance) (Pt Warm) -Tenderness on Palpation (Jane-wound No Skin Appearance) -Foul Odor after Cleansing No -Anesthetic Used 5% Lidocaine Gel [Edema Assessment] -Lower Limb Edema Present Yes -Right Calf (cm) 35 -Right Ankle (cm) 23.5 WC - Nurse 2 - General Ulcer CM Notes Start: 10/17/18 16:24 Freq: Status: Active Protocol: Activity Type Activity Date Activity User E-Sign Co-Sign Detail Recorded Client Recorded Date Recorded By Document 10/31/18 16:38 AN [id number] 10/31/18 16:38 AN 10/31/18 16:38 Pain Scale: 0-10 Numeric [Pain] -Is Patient Pain Free? Yes Musculoskeletal: No Tenderness to Palpation of Joints or Extremities, Muscle Wasting, - - No pain on palpation to the repaired injury site right leg Neurological: - - There is continued lack of sensation via light touch at the apex of the repaired flap site and distal to the injury traumatic site. Psych/Mental Status: Normal Affect, Appropriate Debridement Note Post-Debridement Measurements/Treatment WC - Nurse 2 - General Ulcer CM Notes Start: 10/17/18 16:24 Freq: Status: Active Protocol: Activity Type Activity Date Activity User E-Sign Co-Sign Detail Recorded Client Recorded Date Recorded By Document 10/17/18 16:56 [id number] 10/17/18 16:58 Document 10/24/18 16:29 [id number] 10/24/18 16:30 Document 10/31/18 16:38 AN [id number] 10/31/18 16:38 AN 10/17/18 10/24/18 10/31/18 16:56 16:29 16:38 Wound Center Nurse 2 #2 right saleh medial -Time 16:56 -Correct Patient Yes No -Correct Side, Site, Position Yes No -Correct Procedure Yes No -Procedure Performed Yes No -Type of Procedure Debridement -Clinical Debridement Subcutaneous -Post Debridement Size (cm) - Length 0.5 0 -Post Debridement Size (cm) - Width 0.2 0 -Post Debridement Size (cm) - Depth 0.1 0 -Total Square Cm 0.10 0 -Wound/Ulcer Outcome Not Healed Healed- Epithelialized -Ulcer Cleansing Rinsed/ Irrigated with Saline -Foul Odor after Cleansing No -Bioengineered Tissue Yes -Type of bioengineered Tissue EPIFIX -Expiration Date 02/15/23 -Product Lot Number [id number] -Percent Used 100 -Saline Lot Number [id number] -Bleeding Controlled with Pressure -Offloading No -Treatment Response Procedure Tolerated Well #1 R Saleh anterior -Time 16:57 16:30 -Correct Patient Yes Yes -Correct Side, Site, Position Yes Yes -Correct Procedure Yes Yes -Procedure Performed Yes -Type of Procedure Debridement Debridement -Clinical Debridement Subcutaneous Subcutaneous -Post Debridement Size (cm) - Length 1.2 0.3 -Post Debridement Size (cm) - Width 1.1 0.2 -Post Debridement Size (cm) - Depth 0.1 0.1 -Total Square Cm 1.32 0.06 -Wound/Ulcer Outcome Not Healed Not Healed -Ulcer Cleansing Rinsed/ Rinsed/ Irrigated with Irrigated with Saline Saline -Foul Odor after Cleansing No No -Bioengineered Tissue Yes No -Type of bioengineered Tissue EPIFIX -Expiration Date 02/15/23 -Product Lot Number [id number] -Percent Used 100 -Saline Lot Number [id number] -Bleeding Controlled with Pressure Pressure -Offloading No No -Treatment Response Procedure Procedure Tolerated Well Tolerated Well Pain Scale: 0-10 Numeric Is Patient Pain Free? Yes Yes Yes No debridement was completed today - healed today Assessment/Plan Assessment: Right leg ulcer healed. Laceration/degloving injury secondary to trauma; injury and surgical repair date 08/21/2018 (initial injury site size 10.5 x 13.5 x 1.0 cm with proximal apex) healed. Right leg edema. Malnutrition suspected. Delayed healing. Leg pain resolved bilateral Plan: This patient was carefully examined and evaluated today. I reviewed and discussed his case. Surgical repair and ulcer sites were evaluated. All sites have healed however the skin is atrophic. Debridement was not performed today. To discontinue dressing care. I do recommend he continues to protect the site as this viable skin remodels. To continue Tubigrip's. To transition to compression stocking use; a prescription was provided. To avoid idle standing or sitting. To elevate the limb while at rest above the level of the heart when possible. To continue with supportive athletic shoe gear as tolerated. He has returned to work and is doing well. It is okay to discontinue nutritional supplementation. He will follow-up in 1 week at the wound healing center for final healed ulceration injury site check. He was advised to call sooner if there is any questions or concerns. I answered all his questions.
[2018-11-07 16:03] VITALS: BP 125/64; PULSE 51; RESP 18; TEMP 36.3; BMI 28.0
--- NOTE | 2018-11-07 16:49 | PCM.WC.PN ---
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: Resolved Code(s): L97.912 - Non-pressure chronic ulcer of unspecified part of right lower leg with fat layer exposed (2) Traumatic open wound of right lower leg Status: Resolved Qualifiers: Encounter type: sequela Qualified Code(s): S81.801S - Unspecified open wound, right lower leg, sequela Code(s): S81.801A - Unspecified open wound, right lower leg, initial encounter (3) Localized edema Status: Chronic Code(s): R60.0 - Localized edema Type of Wound Date of Service: 11/09/18 Chief Complaint: Right leg ulceration History of Wound: This 72-year-old pleasant male with cardiac history follows up with the wound healing center for a laceration degloving injury he sustained on August 21, 2018. He dropped a cast iron air compressor on his right leg. He is here to confirm the ulcer site remains healed. His swelling has decreased. He stopped wearing the compression garment because it was causing blisters again. He is with his . Progress of Wound: Healed - Physical Exam Vital Signs Temp Pulse Resp BP 97.4 F L 51 L 18 125/64 H 11/07/18 16:03 11/07/18 16:03 11/07/18 16:03 11/07/18 16:03 General: Alert, Oriented x3, Cooperative, No apparent distress Extremities: No cyanosis, No edema, Capillary Refill Less than 3 Seconds, No Calf Tenderness - Negative Pablo and Boone sign right, Peripheral Pulses Normal Skin: Ulcer/ Wound - This remains fully healed with continued remodeling of the skin at this injury and ulcer site. No blisters are noted. No purulence, erythema, string, odor, or infection. His skin is atrophic. Wound Measurements and Assessment WC - Nurse 1 - General Ulcer Measurement Start: 10/17/18 16:24 Freq: Status: Active Protocol: Activity Type Activity Date Activity User E-Sign Co-Sign Detail Recorded Client Recorded Date Recorded By Document 11/07/18 16:03 DL [id number] 11/07/18 16:07 DL 11/07/18 16:03 Wound Center Nurse 1 [Edema Assessment] -Right Calf (cm) 34.4 -Right Ankle (cm) 23 WC - Nurse 2 - General Ulcer CM Notes Start: 10/17/18 16:24 Freq: Status: Active Protocol: Activity Type Activity Date Activity User E-Sign Co-Sign Detail Recorded Client Recorded Date Recorded By Document 11/07/18 16:43 AN [id number] 11/07/18 16:43 AN 11/07/18 16:43 Pain Scale: 0-10 Numeric [Pain] -Is Patient Pain Free? Yes Musculoskeletal: No Tenderness to Palpation of Joints or Extremities, Muscle Wasting Neurological: Sensory exam intact to light touch and pain - With diminished sensation to the apex of the injury flap site consistent with prior exams post trauma Psych/Mental Status: Normal Affect, Appropriate Debridement Note Post-Debridement Measurements/Treatment WC - Nurse 2 - General Ulcer CM Notes Start: 10/17/18 16:24 Freq: Status: Active Protocol: Activity Type Activity Date Activity User E-Sign Co-Sign Detail Recorded Client Recorded Date Recorded By Document 10/17/18 16:56 [id number] 10/17/18 16:58 Document 10/24/18 16:29 [id number] 10/24/18 16:30 Document 10/31/18 16:38 AN [id number] 10/31/18 16:38 Document 11/07/18 16:43 AN [id number] 11/07/18 16:43 AN 10/17/18 10/24/18 10/31/18 16:56 16:29 16:38 Wound Center Nurse 2 #2 right saleh medial -Time 16:56 -Correct Patient Yes No -Correct Side, Site, Position Yes No -Correct Procedure Yes No -Procedure Performed Yes No -Type of Procedure Debridement -Clinical Debridement Subcutaneous -Post Debridement Size (cm) - Length 0.5 0 -Post Debridement Size (cm) - Width 0.2 0 -Post Debridement Size (cm) - Depth 0.1 0 -Total Square Cm 0.10 0 -Wound/Ulcer Outcome Not Healed Healed- Epithelialized -Ulcer Cleansing Rinsed/ Irrigated with Saline -Foul Odor after Cleansing No -Bioengineered Tissue Yes -Type of bioengineered Tissue EPIFIX -Expiration Date 02/15/23 -Product Lot Number [id number] -Percent Used 100 -Saline Lot Number [id number] -Bleeding Controlled with Pressure -Offloading No -Treatment Response Procedure Tolerated Well #1 R Saleh anterior -Time 16:57 16:30 -Correct Patient Yes Yes -Correct Side, Site, Position Yes Yes -Correct Procedure Yes Yes -Procedure Performed Yes -Type of Procedure Debridement Debridement -Clinical Debridement Subcutaneous Subcutaneous -Post Debridement Size (cm) - Length 1.2 0.3 -Post Debridement Size (cm) - Width 1.1 0.2 -Post Debridement Size (cm) - Depth 0.1 0.1 -Total Square Cm 1.32 0.06 -Wound/Ulcer Outcome Not Healed Not Healed -Ulcer Cleansing Rinsed/ Rinsed/ Irrigated with Irrigated with Saline Saline -Foul Odor after Cleansing No No -Bioengineered Tissue Yes No -Type of bioengineered Tissue EPIFIX -Expiration Date 02/15/23 -Product Lot Number [id number] -Percent Used 100 -Saline Lot Number [id number] -Bleeding Controlled with Pressure Pressure -Offloading No No -Treatment Response Procedure Procedure Tolerated Well Tolerated Well Pain Scale: 0-10 Numeric Is Patient Pain Free? Yes Yes Yes 11/07/18 16:43 Wound Center Nurse 2 #2 right saleh medial -Time -Correct Patient -Correct Side, Site, Position -Correct Procedure -Procedure Performed -Type of Procedure -Clinical Debridement -Post Debridement Size (cm) - Length -Post Debridement Size (cm) - Width -Post Debridement Size (cm) - Depth -Total Square Cm -Wound/Ulcer Outcome -Ulcer Cleansing -Foul Odor after Cleansing -Bioengineered Tissue -Type of bioengineered Tissue -Expiration Date -Product Lot Number -Percent Used -Saline Lot Number -Bleeding Controlled with -Offloading -Treatment Response #1 R Saleh anterior -Time -Correct Patient -Correct Side, Site, Position -Correct Procedure -Procedure Performed -Type of Procedure -Clinical Debridement -Post Debridement Size (cm) - Length -Post Debridement Size (cm) - Width -Post Debridement Size (cm) - Depth -Total Square Cm -Wound/Ulcer Outcome -Ulcer Cleansing -Foul Odor after Cleansing -Bioengineered Tissue -Type of bioengineered Tissue -Expiration Date -Product Lot Number -Percent Used -Saline Lot Number -Bleeding Controlled with -Offloading -Treatment Response Pain Scale: 0-10 Numeric Is Patient Pain Free? Yes No debridement was completed today - healed today Assessment/Plan Assessment: Right leg ulcer healed. Laceration/degloving injury secondary to trauma; injury and surgical repair date 08/21/2018 (initial injury site size 10.5 x 13.5 x 1.0 cm with proximal apex) healed. Right leg edema. Leg pain resolved bilateral Plan: This patient was carefully examined and evaluated today. I reviewed and discussed his case. Surgical repair and ulcer sites were evaluated. All sites have healed however the skin is atrophic. Debridement was not performed today. To discontinue dressing care. I do recommend he continues to protect the site as this viable skin remodels. To discontinue Tubigrip. To elevate the limb while at rest above the level of the heart when possible. To continue with supportive athletic shoe gear as tolerated. He has returned to work and is doing well. It is okay to discontinue nutritional supplementation. His ulcer site remains healed and he does not have any signs of infection. He is discharged from the wound healing center at this time. To follow-up with the foot and ankle center as needed in the future. To continue with all daily and work activities as tolerated.
== END 2018-11-14 23:59 ==
LOC: WC 16:15
PROVIDERS: Family Provider Family Medicine; PCP Family Medicine; Referring Provider Podiatrist; Visit Provider Podiatrist
DX: I87.2 Venous insufficiency (chronic) (peripheral) (principal); S81.811A Laceration without foreign body, right lower leg, initial encounter; W31.89XA Contact with other specified machinery, initial encounter; Y93.9 Activity, unspecified; Y92.9 Unspecified place or not applicable; M79.672 Pain in left foot; R60.0 Localized edema; I73.89 Other specified peripheral vascular diseases
CPT/HCPCS: 11042; 15271; 99212; Q4186; G0463

== ENCOUNTER → 2019-01-04 08:06 | Outpatient (CLI) | payer MEDICARE, BC, SELFPAY ==
[2019-01-04 08:56] LABS: AST(SGOT) 31 U/L (15-37); Alanine Aminotransfer ALT/SGPT 43 U/L (16-61); Albumin, Serum 3.6 g/dL (3.2-5.0); Alkaline Phosphatase 102 U/L (45-117); Bilirubin, Direct 0.12 mg/dL (0.00-0.30); Cholesterol 123 mg/dL (200); Globulin 3.4 g/dL (2.2-4.2); High Density Lipoprotein 34 mg/dL; Triglycerides 155 mg/dL; Very Low Density Lipoprotein 31 mg/dL (5-40)
== END ==
PROVIDERS: Family Provider Family Medicine; PCP Family Medicine; Referring Provider Physician Assistant Medical; Visit Provider Physician Assistant Medical
DX: E78.5 Hyperlipidemia, unspecified (principal); I25.10 Atherosclerotic heart disease of native coronary artery without angina pectoris
CPT/HCPCS: 36415; 80061; 80076

== ENCOUNTER → 2019-03-21 09:12 | Outpatient (CLI) | payer MEDICARE, BC, OTHER, SELFPAY ==
[2019-01-07 09:13] VITALS: BMI 27.3
--- NOTE | 2019-03-21 09:16 | STE_ITS ---
Reason For Study: CAD Stress Results Protocol: Lucas Protocol Maximum Predicted HR: 147 bpm Target HR: 125 bpm % Maximum Predicted HR: 84 % DurationHeart Rate Stage (mm:ss) (bpm) BP Comment Baseline 47 138/74No Chest Pain Lucas Protocol Stage I 3:00 81 132/76No Chest Pain Lucas Protocol Stage II 3:00 94 140/72No Chest Pain Lucas Protocol Stage III 3:00 123 156/70No Chest Pain; Positive Hip Pain Recovery 78 142/70No Chest Pain Stress Duration: 9:00 mm:ss Maximum Stress HR: 123 bpm METS: 10 Baseline Echocardiogram Findings The estimated ejection fraction is 65 %. Stress Echo Wall motion Data Resting WM Intermediate WM Stress WM Resting Wall Motion Wall Motion Stress No regional wall motion No regional wall motion abnormalities noted. abnormalities noted. EKG Data The baseline ECG displays normal sinus rhythm. The patient exercised according to the regular Lucas protocol for a total duration of 9:00. The maximum heart rate attained was 125 beats per minute. This was 85% of maximum predicted heart rate. The patient exercised into stage 4 of the Lucas protocol. During stress, there were no ST or T wave changes noted to suggest ischemia. No clinical angina was noted. Interpretation Summary The estimated ejection fraction is 65 %. Normal, adequate, treadmill echocardiogram. Negative for ischemia by EKG and echocardiographic criteria. No anginal symptoms noted. Rare PVCs noted. Appropriate blood pressure response to exercise. Average exercise capacity for age. Test terminated due to leg pain. Final LVEF is 75%. Patient tolerated the procedure well. No complications. Ordering Physician: Margarito Deras Referring Physician: Gabe Rodriguez Performed By: Carolyn Martinez, RDCS, RVT
== END ==
PROVIDERS: Family Provider Family Medicine; PCP Family Medicine; Referring Provider Internal Medicine Cardiovascular Disease; Visit Provider Internal Medicine Cardiovascular Disease
DX: I25.10 Atherosclerotic heart disease of native coronary artery without angina pectoris (principal); I10 Essential (primary) hypertension; E78.5 Hyperlipidemia, unspecified; Z95.1 Presence of aortocoronary bypass graft
CPT/HCPCS: 93017; 93350

== ENCOUNTER 2019-06-19 07:54 | Day surgery (SDC) | payer MEDICARE, OTHER, SELFPAY ==
[2019-06-03 14:51] VITALS: BMI 28.3
--- NOTE | 2019-06-12 12:11 | RAD_ITS ---
STUDY: X-RAY CHEST REASON FOR EXAM: Male, 73 years old. Shortness of breath and hypertension. TECHNIQUE: PA and lateral views. COMPARISON: 06/05/2012. FINDINGS: The lungs are clear and expanded. There is no demonstrated pleural abnormality. Normal size heart. 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 The sternal wires are intact. Normal mediastinum and petar. Normal visualized pulmonary arteries. Normal visualized aortic arch and descending thoracic aorta. Minimal anterior wedging of the superior endplates of T7 and T8 vertebral bodies are unchanged. Normal visualized ribs, clavicles, and shoulders. There is no demonstrated abnormality of the visualized soft tissue structures of the upper abdomen. RAD/Chest PA and Lateral IMPRESSION: 1. No acute cardiopulmonary pathology. 2. Minimal anterior wedging of T7 and T8 vertebral bodies. 3. No significant interval change when compared to 06/05/2012. Electronically Signed: Paul Riggins MD at 14:11 EST , Service support ,
[2019-06-12 12:28] LABS: Hematocrit 41.4 % (40-54); Hemoglobin 13.8 g/dL (13.0-16.5); Mean Corp Hgb Conc 33.3 g/dL (32-36); Mean Corpuscular Hgb 29.2 pg (27.0-32.0); Mean Corpuscular Volume 87.5 fL (80-94); Mean Platelet Vol. 10.4 fl (6.2-12.0); Platelet Count 179 K/mm3 (150-450); RBC Distribution Width CV 13.5 % (11.6-14.6); RBC Distribution Width SD 43.2 fl (35.1-43.9); Red Blood Count 4.73 M/mm3 (4.6-6.2); White Blood Count 6.3 K/mm3 (4.4-11.0)
[2019-06-12 12:35] LABS: International Normalized Ratio 1.1; Partial Thromboplast Time 31.5 Seconds (24.1-36.2); Prothrombin Time (Protime)PT. 13.9 SECONDS (11.7-14.9)
[2019-06-12 12:46] LABS: Anion Gap 3 (5-15); BUN 21 mg/dL (7-18); BUN/Creat Ratio 18.1 RATIO (10-20); Calcium,Total 8.7 mg/dL (8.5-10.1); Chloride 106 mmol/L (98-107); Creatinine, Serum 1.16 mg/dL (0.70-1.30); EST Glomerular Filtration Rate 66 mL/min (>60); Est Glom Filt Rate - Afr Amer 79 mL/min (>60); Glucose 105 mg/dL (74-106); Potassium 4.3 mmol/L (3.5-5.1); Sodium Level 137 mmol/L (136-145)
[2019-06-18 09:30] VITALS: BMI 28.3
--- NOTE | 2019-06-19 09:36 | HP.PCM_ITS ---
Problem List (1) Dyspnea on exertion Status: Acute (2) Atherosclerosis of coronary artery of [place] heart without angina pectoris Status: Chronic Comment: CABG x 3 ARORA-LAD, SVG-PDA, SVG-PLB Cx 04/13/2007 (3) CAD (coronary artery disease) Status: Chronic (4) Hypertension Status: Chronic (5) Old myocardial infarction Status: Chronic History and Physical Date of Admission: 06/19/19 [facility] [address] [place] [address] OFFICE VISIT Date of Service: 06/03/19 MR#: [id number] Acct: [id number] Name: ALHAJI BANUELOS Rep #: [id number] : 1945 Provider: Margarito huston MD Age/Sex: 73/M [place] [facility] [place]: Signed HPI HPI History of Present Illness Details: Details: HPI Mister Banuelos is a very pleasant 73-year-old gentleman with a history of hypertension, hypercholesterolemia, coronary artery disease status post 3 vessel bypass surgery in March 2007 at [facility]. At that time he received an ARORA to the LAD, and SVG to the PDA, and SVG to the posterior lateral branch of the left circumflex. He has had no further catheterization since that time. The patient's previous nuclear stress test was in January 2012 which was negative. His most recent echocardiogram was 11/10/10 at which time his EF was found to be 60%. A more recent stress test was February 2014 which was negative for inducible ischemia. His most recent surveillance stress echocardiogram took place on 01/10/18 in which she went 6 minutes, had no chest pain, and no wall motion abnormalities. From a cardiac standpoint he denies any chest pain, angina, shortness of breath or dyspnea on exertion. He is very active, exercising several days per week without difficulty. He and his recently purchased a fixer up her house, and he has been working on that without difficulty. We stopped his Niaspan last time in his energy level is actually improved quite a bit. He is taking and tolerating his medicines well. We reduced his Lopressor down to 12.5 mg p.o. twice daily, which is also shown some improvement in his overall well-being. Unfortunately, in September 2018 the patient suffered a crushing leg injury after a air compressor weighing about 350 pounds injured his right leg and pop both of his feet. Patient required surgical correction, and is currently recuperating from that. Despite this he has had no cardiac symptoms. The patient underwent a surveillance treadmill echocardiogram on 03/21/2019 which was negative for inducible ischemia at a good workload. Since his last visit he is complained of some mild lightheadedness and dizziness and an elevation in his blood pressure. Conjunction with this, the patient has developed dyspnea on exertion since her last visit which is his anginal equivalent prior to his bypass surgery in 2006. He denies any anginal symptoms. He states that he had difficulties sleeping, and his PCP prescribed melatonin. Although the melatonin improved his sleeping, he now has evidence of positional lightheadedness, dizziness, and shortness of breath/dyspnea on exertion which was not evident at our last visit. His metoprolol was adjusted by his PCP, the specifics of which the patient is unsure. In our office today was blood pressure is 160/60 and pulse is 48 and regular. His physical exam is as below. His lipids as of February 2015 showed an HDL of 47 and an LDL of 79. His lipids as of 02/29/16 showing LDL of 47 and HDL of 49. Lipids as of 07/27/16 shown HDL 40 and LDL of 68. His lipids as of 02/28/17 showing LDL of 66 and HDL of 40. His lipids as of 10/09/17 showed LDL of 55 and HDL 29. His lipids as of 05/18/18 show an LDL of 83 and an HDL of 39. His lipids as of 01/04/2019 show an LDL of 58 and HDL of 34. Intake Vital Signs 06/03/19 BP 160/60 H 06/03/19 Blood Pressure Location Lt brachial 06/03/19 Position Sitting 06/03/19 Respiration 20 H 06/03/19 Pulse 48 L 06/03/19 Pulse Source Auscultation 06/03/19 Height 5 ft 11 in 06/03/19 Weight: 203 lb 06/03/19 BMI 28.3 06/03/19 BP 160/60 H 06/03/19 Blood Pressure Location Rt brachial 06/03/19 Position Sitting 06/03/19 Respiration 20 H 06/03/19 Pulse 48 L 06/03/19 Pulse Source Auscultation Intake Visit Reasons: HTN ISSUES Allergies No Known Allergies Allergy (Verified 06/03/19 15:00) Medications Aspirin E.C. [Ecotrin] 81 mg PO DAILY@0800 08/21/18 [History Confirmed 06/03/19] Atorvastatin Calcium [Lipitor] 80 mg PO QHS 08/21/18 [History Confirmed 06/03/19] [place]-3 Fatty Acids/Fish Oil [[place] 3 1,000 mg Softgel] 1 ea PO BID 08/21/18 [History Confirmed 06/03/19] Acetaminophen [Tylenol] 1,000 mg PO Q8 tab 08/27/18 [Rx Confirmed 06/03/19] metoprolol tartrate 25 mg tablet 12.5 mg PO BID #90 tab 04/29/19 [Rx Confirmed 06/03/19] lisinopril 10 mg tablet 10 mg PO DAILY #90 tab 06/03/19 [Rx Confirmed 06/03/19] PFSH Medical History 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) Atherosclerosis of coronary artery of [place] heart without angina pectoris (Chronic) Hypertension (Chronic) Hyperlipemia (Chronic) Lower GI bleed (Chronic) Renal artery aneurysm (Chronic) Surgical History H/O coronary artery bypass surgery (Chronic 04/13/07) H/O colonoscopy with polypectomy (Chronic) History of total left knee replacement (TKR) (Chronic) repair of renal artery aneurysm (Chronic) Family History Father CAD (coronary artery disease) Social History (Updated 06/03/19 @ 15:18 by Margarito Deras MD) Smoking Status: Former smoker pack-years: 40 ROS Const Const: Negative for fatigue, weakness, body ache, fever(s), headache(s), chills, frequent falls, night sweats, daytime sleepiness, difficulty sleeping, excessive sweating, weight gain, weight loss, increased appetite, poor appetite, anorexia or other Eyes Eyes: Negative for blind spots, loss of peripheral vision, transient loss of vision, blurry vision, change in vision, double vision, floaters, tunnel vision or other ENT ENT: Negative for headache(s), dizziness, hearing loss, tinnitus, Nosebleed/epistaxis, balance problems, post nasal drip, lip swelling, tongue swelling, bleeding gums, hoarseness, neck pain, dry mouth or other Cardio Chest Pain: No Resp Respiratory: Negative for SOB with activity, SOB at rest, SOB orthopnea\SOB lying down, Coughing up blood/hemoptysis, chest congestion, pain on inspiration, snoring, stridor, wheezing, crackles, paroxysmal nocturnal dyspnea or other GI GI: Negative nausea, vomiting, heartburn, constipation, belching, bloating, cramping, vomiting blood/hematemesis, bright, red blood in stools, black,tarry stools, loose stools, Difficulty Swallowing or other : Negative for hematuria, frequent nighttime urination/ nocturia, erectile dysfunction or abnormal vaginal bleeding Musc Musc: Negative for muscle aches/ myalgia, muscle weakness, joint pain or balance problems Skin Skin: Negative redness, non-healing lesions, rash, unusual bruising, skin ulcer, wounds, jaundice or other Neuro Neuro: Negative for dizziness, lightheadedness, near syncope, syncope, orthostatic symptoms, frequent falls, headache(s), weakness, confusion, memory loss, restless legs, blurry vision, double vision, vertigo, seizures, lack of coordination or other Jay Hematologic/Lymphatic: Negative for easy bleeding, easy bruising, enlarged lymph nodes or other Endo Endo: Negative for fatigue, cold intolerance, heat intolerance, excessive sweating, flushing, increased thirst/drinking, increased hunger, hair loss, hair growth or other Psych Psych: Negative for anxiety, depression, thoughts of harming anyone, thoughts of harming yourself, visual hallucinations, panic attacks or audible hallucinations Allergy Allergy/Immunology: Negative for throat swelling, Negative for tongue swelling, Negative for hives, Negative for rash, Negative for lip swelling Cardiology Exam Const Appearance: cooperative, healthy appearing and no acute distress Nutritional Appearance: well nourished Orientation: alert, oriented x3 and oriented to person Head Head: normal to inspection, normocephalic and atraumatic Nose: external nose normal Face and Sinus: face symmetric Mouth: oral mucosae normal Eyes General: appearance normal, both eyes and all related structures Eyelids: eyelids normal Conjunctivae: conjunctivae normal Pupils: PERRL and normal by confrontation EOM: EOM intact bilaterally Neck Neck: normal visual inspection and full ROM Carotids: normal carotid upstroke Chest Chest inspection: normal inspection of the chest Auscultation: Bilateral: Clear to Auscultation Cardio Palpation: normal PMI Rate: regular rate Rhythm: regular rhythm Heart sounds: S1 normal and S2 normal GI GI: normal to inspection, no hepatosplenomegaly and bowel sounds present Neuro General: alert, awake, oriented x3, CN's II-XI intact bilaterally and moves all extremities Skin Skin: no rashes or lesions noted Extremities Pulses: Normal: Right Femoral Pulse, Left Femoral Pulse, Right Dorsalis Pedis Pulse, Left Dorsalis Pedis Pulse, Right Posterior Tibial Pulse, Left Posterior Tibial Pulse, Right Radial Pulse, Left Radial Pulse Lower Extremity Edema: None: Bilateral Psych Psychological: normal affect Assessment & Plan 1. Atherosclerosis of coronary artery of [place] heart without angina pectoris I25.10 CABG x 3 ARORA-LAD, SVG-PDA, SVG-PLB Cx 04/13/2007 Plan 1. Coronary artery disease: Although the patient has no exertional anginal symptoms he does have an anginal equivalent of dyspnea on exertion which has returned, superimposed on uncontrolled hypertension and positional lightheadedness and dizziness possibly due to bradycardia. If the patient's blood pressure is optimized and he continues to have dyspnea on exertion, and have a low threshold for repeat catheterization and graft angiography given the 13-year-old age of his grafts. Orders Orders: Lipid Profile 07/05/19 Liver Profile 07/05/19 2. Hypertension I10 Plan 2. Hypertension: I have advised the patient to reduce his metoprolol to 12.5 mg in the evening only, to increase his lisinopril to 10 mg a day, to take his blood pressure twice a day and write it down and bring it back in 2 weeks time, followed by a repeat blood pressure check in 2 weeks time. If his blood pressure is still elevated, we will adjust his lisinopril upward. 3. Hyperlipemia E78.5 Plan 3. Hyperlipidemia: His LDL and HDL cholesterol are at goal. Continue Lipitor. 4. Return office in 6 months. This note was generated using a voice recognition system and there may be incorrect words, spelling or punctuation that were not noted when reviewing the office note prior to saving. Orders Orders: Lipid Profile 07/05/19 Liver Profile 07/05/19 Plan Detail Other Medications New: lisinopril 10 mg PO DAILY 90 tabs 3RF Discontinued: lisinopril Discontinued Reason: Order Changed 5 mg PO DAILY 90 tabs 3RF BP Follow Up +6M ([place]) +2 weeks (BP CHECK) Coding Level of Care Code Off vis,est,level 3 Diagnoses Atherosclerosis of coronary artery of [place] heart without angina pectoris I25.10 Hypertension I10 Hyperlipemia E78.5 Coding Level of Care Code Off vis,est,level 3 Diagnoses Atherosclerosis of coronary artery of [place] heart without angina pectoris I25.10 Hypertension I10 Hyperlipemia E78.5 Supplemental Info Supplemental Information Labs LDL Cholesterol 58 mg/dL (0-130) 01/04/19 HDL Cholesterol 34 mg/dL (40-) L 01/04/19 Triglycerides 155 mg/dL (-199) 01/04/19 VLDL Cholesterol 31 mg/dL (5-40) 01/04/19 Diagnostics Electrocardiogram 08/21/18 Stress Echocardiogram 03/21/19 Venous Doppler Study 09/25/18 06/03/19 8506 <Electronically signed by Margarito Deras MD> Date _ Margarito Deras MD [facility] Signature: Date (if applicable) CC: Gabe Rodriguez MD ~ Interventional cardiology addendum: The patient seen and examined on the day of his procedure, and the risk/benefits of the procedure were thoroughly explained the patient including specific attention to lack of onsite surgical backup, and informed consent was obtained. Cardiac catheterization to follow.
--- NOTE | 2019-06-19 10:11 | CL.D_ITS ---
Patient Name: ALHAJI BANUELOS Study Date: 06/19/2019 Performing: Margarito Deras MD Ht: 70.86 inches 180 cm : 1945 Wt: 202.83 lbs 92 kg Age: 73 Gender: male BSA: 2.12 PROCEDURE(S) PERFORMED SI73-EUL/COR/LV/CABG CLINICAL PROFILE AND INDICATIONS Indications: Stable Known CAD Heart Failure: None Stress/Imaging Date: 03/22/2019Stress Echocardiogram: Negative Angina Classification Anginal Classification w/in 2 Weeks: Anginal Equivalent Dyspnea CAD Presentations: Other: New onset dyspnea on exertion c/w previous sxs prior to CABG. Comorbidities/Risk Factors: Hypertension Hypertension Dyslipidemia Prior CABG CONCLUSIONS Triple vessel CAD of the LAD, OM, RCA Normal Left Ventricular systolic function LVEF: by LV gram 65 % Elevated Left Ventricular End Diastolic Pressure Widely patent ARORA to LAD Widely patent SVG to OM Widely patent SVG to RCA with a 30% proximal stenosis w/in the graft. 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 DESCRIPTION OF PROCEDURE The patient arrived to the procedure lab. The risks and benefits of the procedure as well as a full d escription of our services here and current unavailability of surgical backup were fully explained to the patient and/or their significant other prior to the catheterization. The Timeout was completed, verifying the correct patient and procedure. The patient's procedural site was prepped and draped in the usual fashion. Local anesthetic was given subcutaneously to right groin region with Lidocaine 2%. Using a modified Seldinger technique, arterial access was obtained via the right femoral artery, a 4 Fr sheath was inserted Left Coronary Artery selective angiography was performed in multiple views us ing a 4 Fr. JL5 catheter. Right Coronary Artery selective angiography was then performed in multiple views using a 4 Fr. 3DRC catheter. Saphenous Vein graft to the RPDA selective angiography was perform ed in multiple views using a 4 Fr. 3DRC catheter. Saphenous Vein graft to the PL of the Circumflex selective angiography was performed in multiple views using a 4 Fr. 3DRC catheter. Left in ternal mammary artery graft to the LAD selective angiography was performed in multiple views using a 4 Fr. 3DRC catheter. Left Ventriculography was performed in SRINIVASAN projection using a 4 Fr. Pigtail cath eter. LV to AO pullback pressures were then recorded.The arterial sheath was pulled and manual compre ssion applied until hemostasis is achieved. CORONARY ANGIOGRAPHY DOMINANCE: Right Dominant LEFT HEART ASSESSMENT Left Ventricular Ejection Fraction: by LV Gram 65 % Normal LV wall motion Normal Left Ventricular systolic function LVEDP: 15 mmHg Elevated Left Ventricular End Diastolic Pressure LEFT MAIN: Non-obstructive LEFT ANTERIOR DESCENDING ARTERY: PROX LAD: 85 % Stenosis MID LAD: 85 % Stenosis CIRCUMFLEX ARTERY: PROX CIRC: Moderate luminal irregularities up to 50% OM 1: Ostial - is occluded RIGHT CORONARY ARTERY: MID RCA: 85 % Stenosis DISTAL RCA: 85 % Stenosis GRAFTS: ARORA graft to the LAD is patent Saphenous Vein graft to the 1st OM is patent Saphenous Vein graft to the RCA is patent but has a proximal lesion of 30 % COMPLICATIONS No Complications PROCEDURE MEDICATIONS Versed 1 mg IV Oxygen: 2 L/min via nasal cannula SUMMARY OF HEMODYNAMIC DATA Time AIR REST ECG 08:12:13 AO 140/77 (104) SA 09:45:17 LV 163/-13, 17 09:55:16 LV 159/-15, 17 09:55:23 LVp 161/-13, 15 09:55:27 AOp 152/66 (98) 09:55:32 Signed By Margarito Deras MD On 06/19/2019 10:10:59 Margarito Deras MD
== END 2019-06-19 14:15 | disposition home or self-care (01) ==
LOC: CLSP 07:56
PROVIDERS: PCP Family Medicine; Referring Provider Internal Medicine Cardiovascular Disease; Visit Provider Internal Medicine Cardiovascular Disease
DX: I25.10 Atherosclerotic heart disease of native coronary artery without angina pectoris (principal); R06.09 Other forms of dyspnea; Z95.1 Presence of aortocoronary bypass graft; I10 Essential (primary) hypertension; E78.5 Hyperlipidemia, unspecified; I25.2 Old myocardial infarction; R42 Dizziness and giddiness; Z79.899 Other long term (current) drug therapy; Z79.82 Long term (current) use of aspirin; Z87.891 Personal history of nicotine dependence; Z79.02 Long term (current) use of antithrombotics/antiplatelets; R06.02 Shortness of breath
CPT/HCPCS: 36415; 71046; 80048; 85027; 85610; 85730; 93459; 99152; J7040; Q9967; C1769; C1894

== ENCOUNTER → 2019-07-10 07:45 | Outpatient (CLI) | payer MEDICARE, OTHER, SELFPAY ==
[2019-06-18 09:30] VITALS: BMI 28.3
--- NOTE | 2019-07-11 12:12 | PFT ---
INTRODUCTION: The patient is a 73-year-old male that presents for pulmonary function studies secondary to a diagnosis of dyspnea on exertion. Respiratory therapy reports good patient effort. Bronchodilators were used during testing. INTERPRETATION: Forced expiration spirometry demonstrates the presence of a mild large airways obstructive ventilatory defect. There was no significant response to aerosolized bronchodilators. Spirograms are of good quality and do not plateau indicating slow emptying of the lungs. Body plus tomography was performed and reveals an elevated TLC and RV, indicative of underlying hyperinflation and air trapping. Diffusing capacity by single breath CO is preserved. IMPRESSION: Irreversible mild large airways obstructive ventilatory defect with associated hyperinflation and air trapping.
== END ==
PROVIDERS: PCP Family Medicine; Referring Provider Internal Medicine Cardiovascular Disease; Visit Provider Internal Medicine Cardiovascular Disease
DX: R06.09 Other forms of dyspnea (principal)
CPT/HCPCS: 94060; 94726; 94729

== ENCOUNTER → 2019-12-04 09:37 | Outpatient (CLI) | payer MEDICARE, OTHER, SELFPAY ==
[2019-07-16 11:17] VITALS: BMI 28.3
[2019-12-04 11:21] LABS: AST(SGOT) 35 U/L (15-37); Alanine Aminotransfer ALT/SGPT 51 U/L (16-61); Albumin, Serum 3.9 g/dL (3.2-5.0); Alkaline Phosphatase 93 U/L (45-117); Bilirubin, Direct 0.18 mg/dL (0.00-0.30); Cholesterol 132 mg/dL (200); Globulin 3.5 g/dL (2.2-4.2); High Density Lipoprotein 34 mg/dL; Protein, Total 7.4 g/dL (6.4-8.2); Triglycerides 132 mg/dL; Very Low Density Lipoprotein 26 mg/dL (5-40)
== END ==
LOC: MTLAB 09:40 → LAB 09:42
PROVIDERS: PCP Family Medicine; Referring Provider Internal Medicine Cardiovascular Disease; Visit Provider Internal Medicine Cardiovascular Disease
DX: I25.10 Atherosclerotic heart disease of native coronary artery without angina pectoris (principal); E78.5 Hyperlipidemia, unspecified
CPT/HCPCS: 36415; 80061; 80076

== ENCOUNTER → 2020-06-08 12:00 | Outpatient (CLI) | payer MEDICARE, OTHER, SELFPAY ==
[2020-06-08 11:12] VITALS: BMI 28.0
[2020-06-08 13:43] LABS: AST(SGOT) 33 U/L (15-37); Alanine Aminotransfer ALT/SGPT 53 U/L (16-61); Albumin, Serum 3.9 g/dL (3.2-5.0); Alkaline Phosphatase 95 U/L (45-117); Bilirubin, Direct 0.18 mg/dL (0.00-0.30); Cholesterol 140 mg/dL (200); Globulin 3.3 g/dL (2.2-4.2); High Density Lipoprotein 39 mg/dL; Protein, Total 7.2 g/dL (6.4-8.2); Triglycerides 142 mg/dL; Very Low Density Lipoprotein 28 mg/dL (5-40)
== END ==
PROVIDERS: PCP Family Medicine; Visit Provider Physician Assistant Medical
DX: I25.10 Atherosclerotic heart disease of native coronary artery without angina pectoris (principal); I10 Essential (primary) hypertension; E78.5 Hyperlipidemia, unspecified; I72.2 Aneurysm of renal artery; R00.1 Bradycardia, unspecified
CPT/HCPCS: 36415; 80061; 80076

== ENCOUNTER → 2020-06-10 08:48 | Outpatient (CLI) | payer MEDICARE, OTHER, SELFPAY ==
[2020-06-08 11:12] VITALS: BMI 28.0
== END ==
PROVIDERS: PCP Family Medicine; Referring Provider Physician Assistant Medical; Visit Provider Physician Assistant Medical
DX: R00.1 Bradycardia, unspecified (principal); I25.10 Atherosclerotic heart disease of native coronary artery without angina pectoris; I10 Essential (primary) hypertension
CPT/HCPCS: 93225; 93226

== ENCOUNTER → 2020-06-30 06:49 | Outpatient (CLI) | payer MEDICARE, OTHER, SELFPAY ==
[2019-12-10 08:38] VITALS: BMI 27.3
[2020-06-08 11:12] VITALS: BMI 28.0
--- NOTE | 2020-06-30 13:14 | PFTCOMP_ITS ---
COMPLETE PULMONARY FUNCTION TEST INTERPRETATION Brief HPI: Patient is a 74 year old male, currently under the care of myself, who presents to [facility] for complete pulmonary function tests secondary to diagnosis of COPD. Respiratory therapist reports good effort and reproducible results. Interpretation: Forced expiration spirometry shows a mild large airways obstructive ventilatory defect with an FEV1 of 94% predicted. There is no significant bronchodilator response by strict ATS criteria. Spirograms are of good quality and plateau slowly, indicating slowly emptying areas of the lungs. The respiratory flow volume loop shows decreased expiratory flow rates at high lung volumes consistent with small airways obstruction. Lung volumes by body plethysmography show a normal total lung capacity at 7.37 L, 114% predicted. All other lung volumes are within normal limits. Diffusion capacity by carbon monoxide is normal at 122% predicted. The airway resistance is slightly elevated. No previous pulmonary function tests were available for review. Impression: Irreversible mild large airways obstructive ventilatory defect with no significant change compared to previous testing
== END ==
PROVIDERS: PCP Family Medicine; Referring Provider Internal Medicine Critical Care Medicine; Visit Provider Internal Medicine Critical Care Medicine
DX: J44.9 Chronic obstructive pulmonary disease, unspecified (principal)
CPT/HCPCS: 94060; 94726; 94729

== ENCOUNTER → 2020-08-25 12:27 | Outpatient (CLI) | payer MEDICARE, OTHER, SELFPAY ==
[2020-07-08 07:39] VITALS: BMI 30.2
[2020-08-25 12:40] LABS: Bacteria 0 SEEN /hpf (None Seen); Mucous, Urine 0 SEEN /hpf (<or=2+); Red Blood Cells-Urine 0 SEEN /hpf (0-5); Squamous Epithelial Cells - UA 0 SEEN /hpf (0-5); White Blood Cells 0 SEEN /hpf (0-5)
[2020-08-25 13:03] LABS: Color, Urine Yellow (Yellow); Glucose, Dipstick Normal (Normal); Ketone-Dipstick Negative (Negative); Leukocyte Esterase-Dipstick 25 /ul (Negative); Nitrite-Dipstick Negative (Negative); Occult Blood-Urine Negative /ul (Negative); Protein-Dipstick 30 mg/dl (Negative); Urine Bilirubin Dipstick Negative (Negative); Urine Clarity Turbid (Clear); Urine Urobilinogen Normal (Normal)
[2020-08-25 13:09] LABS: Amorphous Sediment 2+
== END ==
PROVIDERS: PCP Family Medicine; Referring Provider Family Medicine; Visit Provider Family Medicine
DX: N39.0 Urinary tract infection, site not specified (principal)
CPT/HCPCS: 81001; 87086; 87088

== ENCOUNTER → 2020-12-07 09:49 | Outpatient (CLI) | payer MEDICARE, OTHER, SELFPAY ==
[2020-12-07 11:56] LABS: AST(SGOT) 39 U/L (15-37); Alanine Aminotransfer ALT/SGPT 53 U/L (16-61); Alkaline Phosphatase 94 U/L (45-117); Bilirubin, Direct 0.14 mg/dL (0.00-0.30); Cholesterol 142 mg/dL (200); Globulin 3.9 g/dL (2.2-4.2); High Density Lipoprotein 38 mg/dL; Protein, Total 7.9 g/dL (6.4-8.2); Triglycerides 148 mg/dL; Very Low Density Lipoprotein 30 mg/dL (5-40)
== END ==
PROVIDERS: PCP Family Medicine; Referring Provider Physician Assistant Medical; Visit Provider Physician Assistant Medical
DX: E78.00 Pure hypercholesterolemia, unspecified (principal); E78.5 Hyperlipidemia, unspecified
CPT/HCPCS: 36415; 80061; 80076

== ENCOUNTER → 2020-12-23 08:49 | Outpatient (CLI) | payer MEDICARE, OTHER, SELFPAY ==
--- NOTE | 2020-12-23 08:52 | CDU_ITS ---
Reason For Study: Carotid bruits Rt. Velocities/BP Lt. Velocities/BP Prox CCA 89.1/13.4 cm/sec. Prox CCA 92.5/16.3 cm/sec. Mid CCA 81.2/14.7 cm/sec. Mid CCA 88.8/27.4 cm/sec. Dist CCA 69.5/8.2 cm/sec. Dist CCA 76.5/20 cm/sec. Prox ICA 52.6/12.1 cm/sec. Prox ICA 112/18.8 cm/sec. Mid ICA 79.9/25.2 cm/sec. Mid ICA 77.7/24.9 cm/sec. Dist ICA 79.9/26.5 cm/sec. Dist ICA 76.5/28.6 cm/sec. Rt. ICA/CCA = 0.98. Lt. ICA/CCA = 1.26. Prox ECA 52.6/4.3 cm/sec. Prox ECA 65.5/5.3 cm/sec. Rt Vertebral artery, No Flow. Lt. Vert. 77.7/18.8 cm/sec. Right Extracranial There is heterogeneous, smooth atherosclerotic plaque noted in the right common carotid artery. There is heterogeneous, irregular atherosclerotic plaque noted in the right internal carotid artery. There is heterogeneous, irregular atherosclerotic plaque noted in the right external carotid artery. Flow could not be demonstrated in the right vertebral artery. There is heterogeneous, irregular atherosclerotic plaque noted in the right bulb. Left Extracranial There is heterogeneous, smooth atherosclerotic plaque noted in the left common carotid artery. There is heterogeneous, irregular atherosclerotic plaque noted in the left internal carotid artery. There is homogeneous, smooth atherosclerotic plaque noted in the left external carotid artery. Antegrade flow is noted in the left vertebral artery. Procedure Carotid Duplex 23829. This is a Carotid Duplex examination using B-mode, color flow and specral Doppler. Exam performed in department. VL/Carotid Duplex Ultrasound Interpretation Summary Irregular calcific plaque with shadowing at the right carotid bulb and proximal right internal and external carotid arteries Less than 50% stenosis right internal carotid artery Less than 50% stenosis right external carotid artery Irregular calcific plaque at the proximal left internal carotid artery Less than 50% stenosis left internal carotid artery Less than 50% stenosis left external carotid artery No flow noted in the right vertebral artery Patent and antegrade flow left vertebral artery Ordering Physician: Natividad Worthington Referring Physician: Gabe Rodriguez Performed By: Regine Juarez RVT
== END ==
PROVIDERS: PCP Family Medicine; Referring Provider Physician Assistant Medical; Visit Provider Physician Assistant Medical
DX: R09.89 Other specified symptoms and signs involving the circulatory and respiratory systems (principal)
CPT/HCPCS: 93880

== ENCOUNTER → 2022-02-05 | Outpatient (CLI) | payer MEDICARE, OTHER, SELFPAY ==
[2022-02-05 11:28] LABS: AST(SGOT) 30 U/L (15-37); Alanine Aminotransfer ALT/SGPT 38 U/L (16-61); Albumin, Serum 3.8 g/dL (3.2-5.0); Alkaline Phosphatase 82 U/L (45-117); Bilirubin, Direct 0.15 mg/dL (0.00-0.30); Cholesterol 146 mg/dL (200); Globulin 3.1 g/dL (2.2-4.2); High Density Lipoprotein 36 mg/dL; Protein, Total 6.9 g/dL (6.4-8.2); Triglycerides 175 mg/dL; Very Low Density Lipoprotein 35 mg/dL (5-40)
== END | disposition home or self-care (01) ==
LOC: LAB 09:52
PROVIDERS: PCP Family Medicine; Referring Provider Physician Assistant Medical; Visit Provider Physician Assistant Medical
DX: E78.00 Pure hypercholesterolemia, unspecified (principal)
CPT/HCPCS: 36415; 80061; 80076

== ENCOUNTER → 2022-03-30 | Outpatient (CLI) | payer MEDICARE, OTHER, SELFPAY ==
--- NOTE | 2022-03-30 09:20 | RAD_ITS ---
STUDY: X-RAY - LEFT SHOULDER REASON FOR EXAM: Male, 76 years old. Pain and stiffness TECHNIQUE: 4 view(s) of the shoulder. COMPARISON: None. FINDINGS: There is moderate degenerative arthrosis of the glenohumeral articulation. There is moderate arthrosis of the acromioclavicular joint without inferior osseous spur formation. Normal acromion. Normal humeral head and visualized proximal humerus. The soft tissue structures are unremarkable. Normal visualized pulmonary apex. RAD/Shoulder min 2 Views IMPRESSION: Degenerative arthrosis Electronically Signed: Armaan Lange MD at 12:36 EST ,
== END | disposition home or self-care (01) ==
LOC: MTRAD 09:19
PROVIDERS: PCP Family Medicine; Referring Provider Family Medicine; Visit Provider Family Medicine
DX: M25.512 Pain in left shoulder (principal)
CPT/HCPCS: 73030

== ENCOUNTER 2022-04-19 08:30 | Outpatient (RCR) | payer MEDICARE, OTHER, SELFPAY ==
--- NOTE | 2022-04-05 12:00 | HP.PTEVAL ---
Patient's Visit Information ALHAJI BANUELOS is a 76 year old M referred to Physical Therapy by Dr. Gabe Rodriguez MD with a diagnosis of L shoulder pain. Date of Evaluation: 04/05/22 Physical Therapist: Fabrizio Malin, PT, ATC - Visit Plan Frequency: 2-3x /Week Duration: 4-6 Weeks Plan: L shoulder rot cuff strengthening, scap stab ex's, LHB stretching and DTR, US to L ant shoulder, UBE, and HEP - Subjective Pt reports his L shoulder has been sore for quite a while. Pt notes he was shoveling manuere at the time and notes he started to feel pain in his shoulder at that time. Pt notes the pain has never become better. Pt reports his pain has remained about the same, but notes his shoulder is more irritable now. Pt reports he has sleep difficulty at this time secondary to pain. Pt is R hand dominant. Pt denies any L UE tingling or numbness at this time. Pt reports reaching over his head or lifting an object up in front of his increases his pain. Pt reports he had xrays last week but hasnt heard back from him at this time. Pt reports he is retired at this time, but enjoys yard work, fishing, and remodeling homes which he is limited with secondary to L shoulder pain. 0/10 pain at rest, 9/10 pain at worst - Pain L shoulder Pain Intensity (Out of 10): 0 Pain Intensity Range: 9 - Objective Neuro: B UE sensation is WNL to light touch. B bicipital reflex= 2/3. Palpation: Pt is sore along the LHB tendon. No obvious deformity at this time. ROM: R shoulder flex= 125, abd= 105, ER= 60, IR= WNL; L shoulder flex= 150, abd= 110, ER= 50, IR= WNL. MMT: R shoulder flex= 20, abd= 16, ER= 19, IR= 28 #F; L shoulder flex= 11, abd= 9, ER= 10, IR= 25 #F. Special tests: Pos HK test, Pos speeds test, pos empty can test - Balance/Special Test Scores Quick DASH Score: 40.9075 - Goals Goal 1:: Decrease L shoulder pain x 50% to aid with sleep Goal Time Frame: 4-6 Weeks Goal 2:: Increase L shoulder flex and abd ROM x 30 degrees to aid with overhead lifting Goal Time Frame: 4-6 Weeks Goal 3:: Increase L shoulder strength x 5#F to aid with IADL's Goal Time Frame: 4-6 Weeks Goal 4:: I with HEP Goal Time Frame: 4-6 Weeks - Rehabilitation Potential Physical Therapy Diagnosis: L shoulder pain, weakness, and limited ROM secondary to L shoulder rot. cuff syndrome Rehabilitation Potential: Good - Anticipated Interventions Patient/Client Instruction: Educate patient on: Condition, Plan of Care For the Purpose of:: To improve self management Therapeutic Exercise to Include: Strength training, Flexibilty training, Active ROM, Scapular Strength/Stabilization For the Purpose of:: To decrease pain, To increase ROM, To improve muscle performance and motor function Ultrasound (thermal/non thermal): Yes For the Purpose of:: To decrease pain Thank you for the opportunity to evaluate your patient. For Medicare and Medicare HMO plans, please review the plan of care and approve it. It will need to be FAXED BACK to us at [phone] for Medicare purposes. For Medicare only, by signing this I certify the plan of care. Please let me know if there are questions or concerns regarding this plan of care. Physician Signature: Date:
--- NOTE | 2022-04-19 08:53 | HP.PTDCSUM ---
It has been my pleasure to treat ALHAJI BANUELOS referred by Dr. Gabe Rodriguez MD, with the diagnosis of L shoulder pain for a total of 5 visit(s). Discharge Date: 04/19/22 Please see the following information for a summary of their discharge status. Subjective: Doing well ..ready for d/c L shoulder Pain Intensity (Out of 10): 0 % Improvement: 100 Objective/Function: AROM : shoulder flexion 150 degrees ,abd 145 ER 80 degrress. MMT: RTC/DELTOID 4/5 Goal 1:: Decrease L shoulder pain x 50% to aid with sleep Goal Progress: Goal Met Goal 2:: Increase L shoulder flex and abd ROM x 30 degrees to aid with overhead lifting Goal 3:: Increase L shoulder strength x 5#F to aid with IADL's Goal Progress: Goal Met Goal 4:: I with HEP Goal Progress: Goal Met Plan: D/C TO HEP Discharge Comments: HEP If there are questions or concerns regarding this patient's physical therapy, please feel free to call me at [phone]. Thank you for the referral of this patient. Sincerely, Alhaji Luciano, PT, Cert MDT, OCS Balance/Gait/Functional tests - Balance/Special Test Scores Quick DASH Score: 9.0900
== END 2022-04-19 19:00 | disposition home or self-care (01) ==
LOC: PT 08:30
PROVIDERS: PCP Family Medicine; Referring Provider Family Medicine; Visit Provider Family Medicine
DX: M25.512 Pain in left shoulder (principal)
CPT/HCPCS: 97035; 97110; 97140; 97161

== ENCOUNTER → 2022-06-09 | Outpatient (CLI) | payer MEDICARE, OTHER, SELFPAY ==
--- NOTE | 2022-05-25 09:57 | RAD_ITS ---
STUDY: X-RAY - ORBITS REASON FOR EXAM: Male, 76 years old. HX METAL TO EYE: PRE MRI 06/09 TECHNIQUE: 2 view(s) of the orbits were obtained. COMPARISON: None. FINDINGS: Normal bilateral orbits without a metallic orbital foreign body. Normal visualized facial bones. Normal paranasal sinuses. The soft tissue structures are unremarkable. RAD/Orbits for Foreign Body IMPRESSION: No demonstrated metallic orbital foreign body. The patient is cleared for an MRI examination. Electronically Signed: Gm Helton MD at 10:01 EST ,
--- NOTE | 2022-06-09 07:11 | MRI_ITS ---
STUDY: MRI LEFT SHOULDER REASON FOR EXAM: Male, 76 years old. Shoulder pain with limited range of motion. Evaluate for rotator cuff tear. TECHNIQUE: Standardized fat and water weighted pulse sequences were obtained in all 3 orthogonal planes. COMPARISON: Shoulder x-rays dated March 30, 2022. FINDINGS: Supraspinatus tendinosis with thinning/attenuation and articular surface fraying. No full-thickness tear (coronal series 6 images 6-10). Infraspinatus tendinosis with thinning/attenuation with bursal and articular surface fraying without a full-thickness tear (coronal series 6 images 10-14). Subscapularis tendinosis with increased signal intensity, thickening and articular surface fraying without a full-thickness tear (axial series 3 images 8-14). Normal teres minor tendon. Normal supraspinatus muscle. Normal infraspinatus muscle. Normal subscapularis muscle. Normal teres minor muscle. Mild thinning of the articular cartilage of the glenohumeral joint with a moderate-sized glenohumeral joint effusion (axial series 3 images 8-17). Cystic change in the posterior and lateral aspect of the humeral head (coronal series 6 images 10-13). Normal biceps labral complex. Marked thinning/attenuation of the proximal long head of the biceps tendon with the distal tendon torn and retracted (axial series 3 images 12-21). Minimally displaced superior labral tear (axial series 3 images 8-10, coronal series 6 images 8-12). Normal capsulo- ligamentous complex. Normal rotator interval. AC joint effusion with AC joint hypertrophy and narrowing of the subacromial space (coronal series 6 images 5-12). There is a Type II morphology (curved), with a neutral orientation. Subacromial-subdeltoid bursal fluid (coronal series 6 images 8-11). Normal visualized coracohumeral and coracoacromial ligaments. Normal quadrilateral space. Normal axillary space. Normal deltoid muscle. Normal trapezius muscle. MRI/Upper Ext Joint Only(Routine) IMPRESSION: Supraspinatus and infraspinatus tendinosis with thickening/attenuation and articular and bursal surface fraying. No full-thickness tear. Subscapularis tendinosis with no full-thickness tear. Mild arthrosis of the glenohumeral joint. Cystic change in the humeral head. Thinning/attenuation of the proximal long head of the biceps tendon with a retracted tear of the tendon as described. Minimally displaced superior labral tear. AC joint effusion with AC joint hypertrophy and narrowing of the subacromial space. Moderate-sized glenohumeral joint effusion with subacromial-subdeltoid bursal fluid. Electronically Signed: Rah Campbell, at 10:26 EST ,
== END | disposition home or self-care (01) ==
PROVIDERS: PCP Family Medicine; Referring Provider Orthopaedic Surgery Sports Medicine; Visit Provider Orthopaedic Surgery Sports Medicine
DX: M75.42 Impingement syndrome of left shoulder (principal)
CPT/HCPCS: 70030; 73221

== ENCOUNTER → 2022-09-01 | Outpatient (CLI) | payer MEDICARE, OTHER, SELFPAY ==
[2022-09-01 16:20] LABS: Anion Gap 10 (5-15); BUN 24 mg/dL (7-18); Calcium,Total 9.1 mg/dL (8.5-10.1); Chloride 105 mmol/L (98-107); Cholesterol 151 mg/dL (200); Creatinine, Serum 1.33 mg/dL (0.70-1.30); EST Glomerular Filtration Rate 55 mL/min (>60); Est Glom Filt Rate - Afr Amer 67 mL/min (>60); Glucose 105 mg/dL (74-106); High Density Lipoprotein 42 mg/dL; Potassium 3.6 mmol/L (3.5-5.1); Sodium Level 141 mmol/L (136-145); Thyroid Stim Hormone (TSH) 1.41 uIU/mL (0.358-3.74); Triglycerides 124 mg/dL; Very Low Density Lipoprotein 25 mg/dL (5-40)
== END | disposition home or self-care (01) ==
LOC: MFPLAB 11:28
PROVIDERS: PCP Family Medicine; Visit Provider Family Medicine
DX: Z00.00 Encounter for general adult medical examination without abnormal findings (principal); R53.83 Other fatigue; I10 Essential (primary) hypertension
CPT/HCPCS: 36415; 80048; 80061; 84403; 84443

== ENCOUNTER → 2022-10-13 | Outpatient (CLI) | payer MEDICARE, OTHER, SELFPAY ==
--- NOTE | 2022-10-13 08:51 | CDU_ITS ---
Reason For Study: Left carotid artery bruit Rt. Velocities/BP Lt. Velocities/BP Prox CCA 79.6/15.4 cm/sec. Prox CCA 65.7/16 cm/sec. Mid CCA 54.1/10.7 cm/sec. Mid CCA 64.8/16 cm/sec. Dist CCA 53.2/12.6 cm/sec. Dist CCA 53.5/13.3 cm/sec. Prox ICA 67.4/21.2 cm/sec. Prox ICA 130.2/24.3 cm/sec. Mid ICA 77/29 cm/sec. Mid ICA 73.6/24.3 cm/sec. Dist ICA 87.5/34.3 cm/sec. Dist ICA 79.1/29.8 cm/sec. Rt. ICA/CCA = 1.62. Lt. ICA/CCA = 2.01. Prox ECA 39.5/2 cm/sec. Prox ECA 60.4/6.4 cm/sec. Rt. Vert. 30.1/8 cm/sec. Lt. Vert. 56.4/20.1 cm/sec. Right Extracranial There is heterogeneous, irregular atherosclerotic plaque noted in the right common carotid artery. There is heterogeneous, irregular atherosclerotic plaque noted in the right internal carotid artery. There is heterogeneous, irregular atherosclerotic plaque noted in the right external carotid artery. Antegrade flow is noted in the right vertebral artery. Left Extracranial There is homogeneous, smooth atherosclerotic plaque noted in the left common carotid artery. There is heterogeneous, irregular atherosclerotic plaque noted in the left internal carotid artery. There is homogeneous, smooth atherosclerotic plaque noted in the left external carotid artery. Antegrade flow is noted in the left vertebral artery. Procedure This is a Carotid Duplex examination using B-mode, color flow and specral Doppler. Carotid Duplex 72056. Exam performed in department. VL/Carotid Duplex Ultrasound Interpretation Summary Irregular calcific plaque at the proximal right internal carotid artery with sh adowing and less than 50% stenosis of the internal carotid artery Less than 50% stenosis right external carotid artery Irregular heterogenous plaque at the proximal left internal carotid artery with 50 to 69% stenosis Less than 50% stenosis left external carotid artery Patent and antegrade vertebrals bilaterally Compared to December 23, 2020 the right vertebral did not demonstrate flow at t hat setting perhaps secondary to difficulty in imaging. Previously the left internal carotid artery had less than 50% stenosis in the current imaging as it just breaching into the category of 50 to 69% stenosis. Ordering Physician: Natividad Worthington Referring Physician: Gabe Rodriguez Performed By: Regine Juarez RVT
== END | disposition home or self-care (01) ==
LOC: CVS 08:50
PROVIDERS: PCP Family Medicine; Referring Provider Physician Assistant Medical; Visit Provider Physician Assistant Medical
DX: R09.89 Other specified symptoms and signs involving the circulatory and respiratory systems (principal)
CPT/HCPCS: 93880

== ENCOUNTER → 2022-10-14 | Outpatient (CLI) | payer MEDICARE, OTHER, SELFPAY ==
[2022-10-14 07:35] LABS: Hematocrit 38.3 % (40-54); Hemoglobin 12.6 g/dL (13.0-16.5); Mean Corp Hgb Conc 32.9 g/dL (32-36); Mean Corpuscular Hgb 29.9 pg (27.0-32.0); Mean Corpuscular Volume 90.8 fL (80-94); Mean Platelet Vol. 10.6 fl (6.2-12.0); Platelet Count 224 K/mm3 (150-450); RBC Distribution Width CV 13.8 % (11.6-14.6); RBC Distribution Width SD 45.7 fl (35.1-43.9); Red Blood Count 4.22 M/mm3 (4.6-6.2); White Blood Count 6.6 K/mm3 (4.4-11.0)
[2022-10-14 08:18] LABS: AST(SGOT) 27 U/L (15-37); Alanine Aminotransfer ALT/SGPT 38 U/L (16-61); Albumin, Serum 3.6 g/dL (3.2-5.0); Alkaline Phosphatase 90 U/L (45-117); Anion Gap 7 (5-15); BUN 25 mg/dL (7-18); BUN/Creat Ratio 18.9 RATIO (10-20); Bilirubin, Direct 0.13 mg/dL (0.00-0.30); Calcium,Total 8.6 mg/dL (8.5-10.1); Chloride 105 mmol/L (98-107); Cholesterol 140 mg/dL (200); Creatinine, Serum 1.32 mg/dL (0.70-1.30); EST Glomerular Filtration Rate 56 mL/min (>60); Est Glom Filt Rate - Afr Amer 68 mL/min (>60); Globulin 3.4 g/dL (2.2-4.2); Glucose 101 mg/dL (74-106); High Density Lipoprotein 36 mg/dL; Potassium 3.5 mmol/L (3.5-5.1); Sodium Level 139 mmol/L (136-145); Thyroid Stim Hormone (TSH) 2.74 uIU/mL (0.358-3.74); Triglycerides 283 mg/dL; Very Low Density Lipoprotein 57 mg/dL (5-40)
== END | disposition home or self-care (01) ==
LOC: LAB 06:22
PROVIDERS: PCP Family Medicine; Referring Provider Physician Assistant Medical; Visit Provider Physician Assistant Medical
DX: R40.0 Somnolence (principal); R53.83 Other fatigue; E78.00 Pure hypercholesterolemia, unspecified; Z87.19 Personal history of other diseases of the digestive system; Z86.2 Personal history of diseases of the blood and blood-forming organs and certain disorders involving the immune mechanism
CPT/HCPCS: 36415; 80048; 80061; 80076; 84443; 85027

== ENCOUNTER 2022-11-01 06:20 | Day surgery (SDC) | payer MEDICARE, OTHER, SELFPAY ==
[2022-11-01] VITALS (9 sets, daily range): BP systolic 88–149; BP diastolic 46–71; PULSE 50–59; RESP 16; TEMP 36.6–36.7; O2SAT 94–100; BMI 26.1
[2022-11-01] MEDS: Lactated Ringers 1,000 ML 15 ML IV (06:52)
--- NOTE | 2022-11-01 07:02 | HP.PCM_ITS ---
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 Vegetable Required: No Is patient in pain?: No Allergies No Known Allergies Allergy (Verified 10/10/22 07:20) Medications aspirin 81 mg tablet,delayed release 81 mg PO DAILY@0800 [facility] 08/21/18 [History Confirmed 06/14/22] amlodipine 10 mg tablet 10 mg PO DAILY 10/10/22 [History] atorvastatin 80 mg tablet (Lipitor) 80 mg PO DAILY 10/10/22 [History] clopidogrel 75 mg tablet (Plavix) 75 mg PO DAILY 10/10/22 [History] hydrochlorothiazide 25 mg tablet 25 mg PO DAILY 10/10/22 [History] losartan 25 mg tablet 25 mg PO DAILY 10/10/22 [History] melatonin 3 mg capsule 3 mg PO HS PRN 10/10/22 [History] omega-3 fatty acids-fish oil 360 mg-1,200 mg capsule (Fish Oil) 1 cap PO DAILY 10/10/22 [History] PFSH Medical History Arthrosis of left acromioclavicular joint Atherosclerosis of coronary artery of [place] heart without angina pectoris Bilateral carotid bruits Dyspnea on exertion Hyperlipemia Hypertension Internal impingement of left shoulder Lower GI bleed 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 Pneumonia Primary osteoarthritis, left shoulder Renal artery aneurysm Surgical History H/O colonoscopy with polypectomy H/O coronary artery bypass surgery (04/13/07) History of left heart catheterization (06/19/19) 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 Gabe Rodriguez for surgical consultation regarding colonoscopy and a written compromise surgical consult recommendations will return to him. Previous colonoscopy was per Dr. Santos Irizarry November 29, 2011. There was a sessile polyp within the right colon that required a snare polypectomy and additional polyp in the sigmoid that was removed with cold forceps.Dr. Irizarry recommended that he follow-up with a colonoscopy at 3 to 5 years. I do not have pathology on the polyps.The patient does have a history of atherosclerotic cardiovascular disease and has had coronary bypass grafting 2006. Among his other medications he is on clopidogrel and does dose aspirin therapy as well as omega-3 fatty acids. At his most recent cardiology visit of January 2022 he was felt to be stable. Intermittently occasion noticed some dark stools. Does not notice any bright red stools. For a long time he has had intermittent reflux symptoms. He is not on any chronic medications. Spicy foods will do it. He has never had an upper endoscopy. He does occasionally take Tums to help with the symptoms. He says he stays very active he likes gardening and goes fishing. He has not had any chest pain no shortness of breath. No history of DVT. Just intermi ttent swelling of the left leg where he had his previous vein harvesting. ROS General General: No weight change, appetite, fatigue, colon cancer, breast cancer or weakness HEENT HEENT: No difficulty swallowing, eye injury, eye surgery, swollen glands or hoarseness Endo Endocrine: No thyroid disease, diabetes mellitus, thyroid cancer, Hair loss, heat intolerance or cold intolerance Skin Skin: No rash or changing moles Breast Breast: No left breast lump, right breast lump, nipple discharge, breast pain, abnormal mammogram, abnormal US or breast enlargement Musc Musculoskeletal: Yes back problems and arthritis; No rheumatoid arthritis, gout or joint pain Cardio Cardiovascular: Yes heart disease and heart attack; No murmur, pacemaker, atrial fibrillation, high blood pressure, heart stent, palpitations, shortness of breat with exertion or chest pain Psych Psychiatric: No depression, anxiety or hearing voices Resp Respiratory: Yes shortness of breath, No sleep apnea, Yes cough, Yes COPD, No asthma, Yes emphysema and No wheezing Gastro Gastrointestinal: No abdominal pain, No nausea or vomiting, No diarrhea, No constipation, No blood in stool, Yes acid reflux, No hemorrhoids, No ulcers, No gallbladder problem and No black,tarry stools Jya Hematologic: Yes blood thinners, No blood disorders, No bleeding, No anemia and No blood clots Neuro Neurologic: No system reviewed and no additional complaints, except as documented, No as per HPI, No abnormal gait, No abnormal hearing, No abnormal movements, No abnormal speech, No behavioral changes, No burning sensations, No confusion, No convulsions, No disequilibrium, No dizziness, No localized weakness, No frequent falls, No headache(s), No lack of coordination, No loss of vision, No memory loss, No numbness, No other visual disturbances, No radicular pain, No restless legs, No sensory deficit, No syncope, No tingling, No tremor(s), No weakness and No other Exam Const General: cooperative, comfortable and no acute distress Nutritional Appearance: average body habitus Orientation: alert and awake [facility] Head: normal to inspection Eyes General: appearance normal, both eyes and all related structures Neck Neck: normal visual inspection Chest Other: Increased AP diameter Resp Effort & Inspection: normal respiratory effort Auscultation: clear to auscultation bilaterally Cardio Rate: regular rate Rhythm: regular rhythm GI Palpation: soft and no hepatosplenomegaly Auscultation: normal bowel sounds Skin General: no rashes or lesions noted Neuro General: patient alert, patient awake and patient oriented x3 Extrem General: no calf tenderness Other: Minimal swelling left ankle over the right. Psych Appearance: grossly normal Assessment and Plan Assessment and Plan (1) Personal history of colonic polyps: Status: Acute Plan: The patient's had long-term reflux symptoms but has never had a esophago gastroduodenoscopy. He has a personal history of colon polyps. I propose for him a combined esophagogastroduodenoscopy with possible biopsy and colonoscopy with possible biopsy or polypectomy as indicated. He is aware of the technique, benefit, risk, alternatives. He has had an opportunity to ask and have questions answered. We will schedule and proceed as noted. I appreciate the opportunity of assisting with the surgical care. Copy: Dr. Gabe Jensen M.D., F.A.C.S. I have examined the patient and the H&P has been reviewed. There are no clinical changes since date of exam. Carlos Alberto Jensen M.D., F.A.C.S.
--- NOTE | 2022-11-01 07:30 | EGD_PTH ---
PATIENT: ALHAJI BANUELOS LOC: EN U#:[id number] AGE/SX: 76/M ROOM: RE11/01/[address]: Dr. Carlos Alberto Jensen MD : 1945 BED: DIS: 11/01/2022 SPEC #: [id number] RECD: 11/01/22 11:48 STATUS: [place] ZHANGShivam #: [id number] REUBEN: 11/01/22 07:[address]: Carlos Alberto Jensen DEPT: SURGICAL PATHOLOGY RECD BY: Cindy Bhatt ENTERED: 11/01/22 12:22 SP TYPE: EGD BIOPSY OT DR: Dr. Gabe Rodriguez MD Tissues: A - Gastric mucous membrane B - Esophagus, NOS C - Sigmoid colon biopsy Procedures: Special Stain Group II Surgery Specimen Level IV Alcian Blue/PAS (control) HEADER OPERATION: [place] [place] PRE-OP DIAGNOSIS: History of colonic polyps TISSUE SUBMITTED: A - Antrum biopsy for H. pylori and path, B - Distal esophagus biopsy, C - Mid sigmoid MICROSCOPIC DIAGNOSIS A. Antrum, biopsy: Mild to moderate gastritis. Extensive intestinal (goblet cell metaplasia). Negative for dysplasia. See microscopic description and comment. B. Distal esophagus, biopsy: Fragments of squamous mucosa with chronic inflammation. C. Mid sigmoid polyp, biopsy: A fragment of colonic mucosa with focal hyperplastic changes SJ:renae 11/02/2022 COMMENT A. The results of immunohistochemistry for Helicobacter pylori will be reported separately ([id number]). Immunohistochemistry ([id number]) for P53 and Ki-67 will be performed and results will be reported separately. Alcian blue/PAS stain with matched control is used in the evaluation of the specimen. Case has been reviewed in consultation with Dr. Ma who concurs with the above diagnosis. IDC:AM MICROSCOPIC DESCRIPTION Slides are reviewed. A. The specimen shows fragments of gastric mucosa with chronic inflammatory cell infiltrates in the lamina propria consisting of lymphocytes and plasma cells, consistent with mild to moderate chronic gastritis. Extensive intestinal metaplasia (goblet cell metaplasia) is also noted. GROSS DESCRIPTION A - Received in fixative is one container labeled with the patient's name and designated antrum biopsy. The specimen consists of one irregular fragment of light pina soft tissue that measures 0.6 x 0.3 x 0.1 cm. The specimen is totally submitted in one cassette. B - Received in fixative is one container labeled with the patient's name and designated distal esophagus biopsy. The specimen consists of two irregular fragments of light pina soft tissue that in aggregate measure 0.6 x 0.3 x 0.1 cm. The specimen is totally submitted in one cassette. C - Received in fixative is one container labeled with the patient's name and designated mid sigmoid polyp biopsy. The specimen consists of one irregular fragment of light pina soft tissue that measures 0.3 x 0.3 x 0.1 cm. The specimen is totally submitted in one cassette. / SJ:rg 11/01/2022 TC:3 CPT: 56284 x3, 60787
--- NOTE | 2022-11-01 07:30 | IMM_PTH ---
PATIENT: ALHAJI BANUELOS LOC: EN U#:[id number] AGE/SX: 76/M ROOM: RE11/01/[address]: Dr. Carlos Alberto Jensen MD : 1945 BED: DIS: 11/01/2022 SPEC #: [id number] RECD: 11/01/22 13:47 STATUS: [place] REQ #: [id number] REUBEN: 11/01/22 07:[address]: Carlos Alberto Jensen DEPT: IMMUNOHISTOCHEMISTRY RECD BY: Erinn Wolf ENTERED: 11/01/22 13:48 SP TYPE: IMMUNO OTHR DR: Dr. Gabe Rodriguez MD Tissues: A - Stomach, NOS Procedures: H Pylori (initial) KI-67 (add) P53 (add) PHYSICIAN & INSTITUTION [place] [address] SPECIMEN INFORMATION: Tissue Source: A - Antrum Clinical Info: History of colonic polyps Specimen Number: [id number] CPT code: 36405, 94213 x2 METHODOLOGY: Deparaffinized sections of prefer/formalin-fixed tissue or PAP/DQ stained slides are incubated with monoclonal/polyclonal antibodies/oligonucleotide probes. Localization is made via biotin free immunoperoxidase method. Appropriate controls are performed and reacted as expected. Results on target cell population are indicated in the following table: RESULTS: ANTIBODY / CLONE RESULT Block A H Pylori (polyclonal) negative P53 (DO-7) negative, null pattern Ki-67 (30-9) negative, low These tests were developed and their performance characteristics determined by [facility]. They may not have been cleared or approved by the U.S. Food and Drug Administration. The FDA has determined that such clearance or approval is not necessary. The above immunohistochemical/dualISH markers are ordered and reviewed by the Pathologist. INTERPRETATION: A. Antrum, biopsy: Negative for Helicobacter pylori organisms. Negative for dysplasia. SJ:renae 11/03/2022
--- NOTE | 2022-11-01 08:28 | OP.EGD_ITS ---
Patient Name: Kenn Vasquez Procedure Date: 11/01/2022 7:50 AM Date of : 1945 Age: 76 Procedure: Upper GI endoscopy Indications: Heartburn Providers: Carlos Alberto Jensen MD Referring MD: Gabe Rodriguez MD Medicines: See the Anesthesia note for documentation of the administered medications Complications: No immediate complications. Procedure: Pre-Anesthesia Assessment: - Prior to the procedure, a History and Physical was performed, and patient medications and allergies were reviewed. The patient's tolerance of previous anesthesia was also reviewed. The risks and benefits of the procedure and the sedation options and risks were discussed with the patient. All questions were answered, and informed consent was obtained. Prior Anticoagulants: The patient has taken no previous anticoagulant or antiplatelet agents. ASA Grade Assessment: II - A patient with mild systemic disease. After reviewing the risks and benefits, the patient was deemed in satisfactory condition to undergo the procedure. After obtaining informed consent, the endoscope was passed under direct vision. Throughout the procedure, the patient's blood pressure, pulse, and oxygen saturations were monitored continuously. The was introduced through the mouth, and advanced to the second part of duodenum. The upper GI endoscopy was accomplished without difficulty. The patient tolerated the procedure well. Scope In: 7:55:33 AM Scope Out: 8:00:35 AM Total Procedure Duration Time 0 hours 5 minutes 2 seconds Findings: A small hiatal hernia was present. LA Grade A (one or more mucosal breaks less than 5 mm, not extending between tops of 2 mucosal folds) esophagitis with no bleeding was found 42 cm from the incisors. Biopsies were taken with a cold forceps for histology. Localized mild inflammation characterized by erythema was found in the gastric antrum. Biopsies were taken with a cold forceps for histology. The examined duodenum was normal. Impression: - Small hiatal hernia. - LA Grade A reflux esophagitis. Biopsied. - Chronic gastritis. Biopsied. - Normal examined duodenum. Recommendation: - Discharge patient to home. - Resume previous diet. - Continue present medications. - Use Pepcid (famotidine) 20 mg PO daily. The patient is on clopidogrel. We will initiate an H2 shannan. Clinical findings appear mild. Procedure Code(s): --- Professional --- 83088, Esophagogastroduodenoscopy, flexible, transoral; with biopsy, single or multiple Diagnosis Code(s): --- Professional --- K44.9, Diaphragmatic hernia without obstruction or gangrene K21.0, Gastro-esophageal reflux disease with esophagitis K29.50, Unspecified chronic gastritis without bleeding R12, Heartburn CPT copyright 2017 [employer]. All rights reserved. The codes documented in this report are preliminary and upon production engine repairer review may be revised to meet current compliance requirements. Carlos Alberto Jensen MD 11/01/2022 8:27:57 AM This report has been signed electronically. Number of Addenda: 0 Note Initiated On: 11/01/2022 7:50 AM
--- NOTE | 2022-11-01 08:29 | OP.CCLET_ITS ---
11/01/2022 Gabe Rodriguez MD [address] [place] [address] Re : Upper GI endoscopy procedure for Kenn Conklins Dear Dr. Rodriguez This procedure was performed on Tuesday, November 01, 2022. My impressions and recommendations are as follows: Impressions : - Small hiatal hernia. - LA Grade A reflux esophagitis. Biopsied. - Chronic gastritis. Biopsied. - Normal examined duodenum. Recommendations : - Discharge patient to home. - Resume previous diet. - Continue present medications. - Use Pepcid (famotidine) 20 mg PO daily. The patient is on clopidogrel. We will initiate an H2 shannan. Clinical findings appear mild. My findings are described in the full procedure note, which is enclosed. If I can be of further assistance, please feel free to contact me at Doctor phone number(s): Work: . Sincerely, Carlos Alberto Jensen MD 11/01/2022 8:27:57 AM This report has been signed electronically.
--- NOTE | 2022-11-01 08:34 | OP.COLON_ITS ---
Patient Name: Kenn Vasquez Procedure Date: 11/01/2022 8:01 AM Date of : 1945 Age: 76 Procedure: Colonoscopy Indications: Screening for colorectal malignant neoplasm Providers: Carlos Alberto Jensen MD Referring MD: Gabe Rodriguez MD Medicines: See the Anesthesia note for documentation of the administered medications Patient Profile: Last Colonoscopy: November 2011. Complications: No immediate complications. Procedure: Pre-Anesthesia Assessment: - Prior to the procedure, a History and Physical was performed, and patient medications and allergies were reviewed. The patient's tolerance of previous anesthesia was also reviewed. The risks and benefits of the procedure and the sedation options and risks were discussed with the patient. All questions were answered, and informed consent was obtained. Prior Anticoagulants: The patient has taken no previous anticoagulant or antiplatelet agents. ASA Grade Assessment: II - A patient with mild systemic disease. After reviewing the risks and benefits, the patient was deemed in satisfactory condition to undergo the procedure. After I obtained informed consent, the scope was passed under direct vision. Throughout the procedure, the patient's blood pressure, pulse, and oxygen saturations were monitored continuously. The was introduced through the anus and advanced to the cecum, identified by appendiceal orifice and ileocecal valve. The colonoscopy was performed without difficulty. The patient tolerated the procedure well. The quality of the bowel preparation was good. The ileocecal valve and the appendiceal orifice were photographed. Scope In: 8:02:27 AM Scope Withdrawal Time 0 hours 8 minutes 11 seconds Scope Out: 8:17:25 AM Total Procedure Duration Time 0 hours 14 minutes 58 seconds Findings: The digital rectal exam findings include non-thrombosed external hemorrhoids, non-thrombosed internal hemorrhoids, internal hemorrhoids that prolapse with straining, but spontaneously regress to the resting position (Grade II) and enlarged prostate. A 3 mm polyp was found in the mid sigmoid colon. The polyp was sessile. The polyp was removed with a cold biopsy forceps. Resection and retrieval were complete. The exam was otherwise without abnormality. Impression: - Non-thrombosed external hemorrhoids, non-thrombosed internal hemorrhoids, internal hemorrhoids that prolapse with straining, but spontaneously regress to the resting position (Grade II) and enlarged prostate found on digital rectal exam. - One 3 mm polyp in the mid sigmoid colon, removed with a cold biopsy forceps. Resected and retrieved. - The examination was otherwise normal. Recommendation: - Discharge patient to home. - Resume previous diet. - Continue present medications. - Await pathology results. - Repeat colonoscopy for surveillance. - Repeat colonoscopy in 5 years for surveillance based on pathology results. - Telephone my office for pathology results in 1 week. Procedure Code(s): --- Professional --- 02661, Colonoscopy, flexible; with biopsy, single or multiple Diagnosis Code(s): --- Professional --- Z12.11, Encounter for screening for malignant neoplasm of colon D12.5, Benign neoplasm of sigmoid colon K64.1, Second degree hemorrhoids K64.4, Residual hemorrhoidal skin tags N40.0, Benign prostatic hyperplasia without lower urinary tract symptoms CPT copyright 2017 [employer]. All rights reserved. The codes documented in this report are preliminary and upon research physicist review may be revised to meet current compliance requirements. Carlos Alberto Jensen MD 11/01/2022 8:34:04 AM This report has been signed electronically. Number of Addenda: 0 Note Initiated On: 11/01/2022 8:01 AM
--- NOTE | 2022-11-01 08:35 | OP.CCLET_ITS ---
11/01/2022 Gabe Rodriguez MD [address] [place] [address] Re : Colonoscopy procedure for Kenn Vasquez Dear Dr. Rodriguez This procedure was performed on Tuesday, November 01, 2022. My impressions and recommendations are as follows: Impressions : - Non-thrombosed external hemorrhoids, non-thrombosed internal hemorrhoids, internal hemorrhoids that prolapse with straining, but spontaneously regress to the resting position (Grade II) and enlarged prostate found on digital rectal exam. - One 3 mm polyp in the mid sigmoid colon, removed with a cold biopsy forceps. Resected and retrieved. - The examination was otherwise normal. Recommendations : - Discharge patient to home. - Resume previous diet. - Continue present medications. - Await pathology results. - Repeat colonoscopy for surveillance. - Repeat colonoscopy in 5 years for surveillance based on pathology results. - Telephone my office for pathology results in 1 week. My findings are described in the full procedure note, which is enclosed. If I can be of further assistance, please feel free to contact me at Doctor phone number(s): Work: . Sincerely, Carlos Alberto Jensen MD 11/01/2022 8:34:04 AM This report has been signed electronically.
== END 2022-11-01 09:45 | disposition home or self-care (01) ==
LOC: EN 06:20 → AC 06:22
PROVIDERS: PCP Family Medicine; Referring Provider Family Medicine; Visit Provider Surgery
PROC: 0DJD8ZZ Inspection of Lower Intestinal Tract, Via Natural or Artificial Opening Endoscopic (ICD-10-PCS; CPT 45378; principal; 2022-11-01 07:25)
DX: Z12.11 Encounter for screening for malignant neoplasm of colon (principal); K29.50 Unspecified chronic gastritis without bleeding; K44.9 Diaphragmatic hernia without obstruction or gangrene; I25.10 Atherosclerotic heart disease of native coronary artery without angina pectoris; K64.4 Residual hemorrhoidal skin tags; K64.1 Second degree hemorrhoids; N40.0 Benign prostatic hyperplasia without lower urinary tract symptoms; K63.5 Polyp of colon; K21.00 Gastro-esophageal reflux disease with esophagitis, without bleeding; I10 Essential (primary) hypertension; I25.2 Old myocardial infarction; E78.00 Pure hypercholesterolemia, unspecified; Z79.899 Other long term (current) drug therapy; Z79.82 Long term (current) use of aspirin; Z79.01 Long term (current) use of anticoagulants; Z87.891 Personal history of nicotine dependence; Z86.010 Personal history of colon polyps; Z95.1 Presence of aortocoronary bypass graft
CPT/HCPCS: 45380; 43239; 88305; 88313; 88341; 88342; J7120; J2405

== ENCOUNTER 2022-11-25 20:05 | Emergency (ER) | payer MEDICARE, OTHER, SELFPAY ==
[2022-11-25 20:06] VITALS: BP 156/73; PULSE 45; RESP 16; TEMP 36.4; O2SAT 99; BMI 26.9
--- NOTE | 2022-11-25 22:33 | EDS_ITS ---
HPI History of Present Illness HPI Narrative: Presents with bleeding from his left index finger wound. Patient states he cut his left index finger last night. Patient states he had sutures placed today. Patient states that the bleeding has been persistent. Patient is on aspirin and Plavix. Patient denies any new trauma or injury. Patient denies any paresthesias or weakness. Patient states his tetanus was updated when they placed the sutures. Patient denies any other injuries. Chief Complaint: Wound Check Informant: patient Occured/Mechanism Mechanism/Context: Yes injury Onset/Context/Timing Onset: Yesterday Context: Sudden Onset Timing: Continuous Worsened by: Nothing Relieved by: Nothing Associated Symptoms Associated Symptoms: Negative for Parasthesia, Weakness or Loss of Funtion Narrative Tetanus Immunization: <5 years PFSH PFS Medical History Arthritis Arthrosis of left acromioclavicular joint Atherosclerosis of coronary artery of [place] heart without angina pectoris Back pain Bilateral carotid bruits Cardiology follow-up encounter Dyspnea on exertion Easy bruising Emphysema, unspecified Former smoker Heartburn High cholesterol History of edema History of Holter monitoring History of stress test Hyperlipemia Hypertension Hypertension Internal impingement of left shoulder Loss of hearing Lower GI bleed 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 Pneumonia Primary osteoarthritis, left shoulder Renal artery aneurysm Wears dentures Wears glasses Home Medications aspirin 81 mg tablet,delayed release 81 mg PO DAILY@0800 [facility] 08/21/18 [History Last Taken 11/01/22 06:00] amlodipine 10 mg tablet 10 mg PO DAILY 10/10/22 [History Last Taken 11/01/22 06:00] atorvastatin 80 mg tablet (Lipitor) 80 mg PO DAILY 10/10/22 [History Last Taken Unknown] clopidogrel 75 mg tablet (Plavix) 75 mg PO DAILY 10/10/22 [History Last Taken 10/28/22] hydrochlorothiazide 25 mg tablet 25 mg PO DAILY 10/10/22 [History Last Taken Unknown] losartan 25 mg tablet 25 mg PO DAILY 10/10/22 [History Last Taken 11/01/22 06:00] melatonin 3 mg capsule 3 mg PO HS PRN sleep 10/10/22 [History Last Taken Unknown] omega-3 fatty acids-fish oil 360 mg-1,200 mg capsule (Fish Oil) 1 cap PO DAILY 10/10/22 [History Last Taken Unknown] famotidine 20 mg tablet 20 mg PO DAILY #90 tabs 11/01/22 [Rx Last Taken Unknown] Allergy/AdvReac Type Severity Reaction Status Date / Time No Known Allergies Allergy Verified 11/25/22 20:06 Family History Father CAD (coronary artery disease) Surgical History H/O colonoscopy with polypectomy H/O coronary artery bypass surgery (04/13/07) History of left heart catheterization (06/19/19) 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 Social History Smoking Status: Former smoker pack-years: 40 how long ago did patient quit smokin years ago alcohol intake: never substance use type: does not use caffeine: Yes Type: carbonated beverages Number of servings: 6 ROS ROS ED Constitutional Constitutional ED: Denies chills or fever(s) Eyes Eyes: Denies blurry vision or change in vision ENT ENT ED: Denies rhinorrhea or sore throat Cardiovascular Cardiovascular: Denies chest pain or palpitations Respiratory/Chest Respiratory/Chest: Denies cough or dyspnea Gastrointestinal Gastrointestinal: Denies nausea or vomiting Genitourinary Genitourinary ED: Denies dysuria or hematuria Musculoskeletal Musculoskeletal: Denies back pain or neck pain Integumentary Denies abscess or rash Neurologic Neurologic: Denies headache(s) or weakness Allergic/Immunologic Allergic/Immunologic ED: Denies mouth swelling or urticaria EXAM Physical Exam Const Vital Signs: 11/25/22 20:06 Temperature 97.6 F L Temperature Source Temporal Pulse Rate 45 L Respiratory Rate 16 Blood Pressure 156/73 H Blood Pressure Mean 100 Pulse Ox 99 Positive well nourished and well developed General Appearance ED: well developed and NAD HEENT Reports moist mucous membranes Neck full ROM and supple Extremity Extremity Narrative: There is some mild bleeding from the volar aspect of the middle phalanx of the left index finger. Sutures are in place. There is approximately 2.5 cm laceration over the volar aspect of the middle phalanx of the left index finger. There is no erythema. There is good range of motion of the MP, PIP, and DIP joints. Sensation was intact to light touch in all digits. Capillary refill was less than 2 seconds in all digits. Neuro oriented x3, CN's II-XII intact bilaterally, moves all extremities, no focal motor deficits and no sensory deficits noted Sensorium / Orientation: alert Motor Exam: strength 5/5 throughout Psych mental status grossly normal MDM MDM MDM Narrative Medical decision making narrative: Gelfoam dressing was applied. The bleeding had stopped on reevaluation. The Gelfoam was left in place. A smaller less bulky dressing will be applied. Patient was instructed to maintain the Gelfoam for 24 hours. Patient was instructed to change the dressing daily. Patient was instructed to keep the wound clean and dry. Patient was instructed to follow-up with his primary care physician in 7 to 10 days for wound recheck and suture removal. Patient was instructed return if worse in any way. Patient understood and was agreeable with the plan. All questions were answered. Discharge Plan Triage Chief Complaint: Wound Check ED Provider: Ashish Agrawal Dx/Rx/DC Orders Clinical Impression: Encounter for re-check of laceration wound, Laceration of left index finger Instructions: ED Post Op Wound Check, Bleeding, ED Wound Check (No Infection) Prescriptions: No Action melatonin 3 mg capsule 3 mg PO HS PRN (Reason: sleep) atorvastatin [Lipitor] 80 mg tablet 80 mg PO DAILY omega-3 fatty acids-fish oil [Fish Oil] 360-1,200 mg capsule 1 cap PO DAILY hydrochlorothiazide 25 mg tablet 25 mg PO DAILY Hold Instructions: orthostatic, dizziness clopidogrel [Plavix] 75 mg tablet 75 mg PO DAILY losartan 25 mg tablet 25 mg PO DAILY amlodipine 10 mg tablet 10 mg PO DAILY aspirin 81 MG tablet 81 mg PO DAILY@0800 famotidine 20 mg tablet 20 mg PO DAILY Qty: 90 0RF Primary Care Provider: Gabe Rodriguez Referrals: Gabe Rodriguez MD [Primary Care Provider] - 1-2 Weeks Disposition Disposition: Home, Self Care
== END 2022-11-25 23:07 | disposition home or self-care (01) ==
PROVIDERS: Emergency Provider Emergency Medicine; PCP Family Medicine; Visit Provider Emergency Medicine
DX: Z51.89 Encounter for other specified aftercare (principal); S61.211A Laceration without foreign body of left index finger without damage to nail, initial encounter; E78.00 Pure hypercholesterolemia, unspecified; I10 Essential (primary) hypertension; I25.10 Atherosclerotic heart disease of native coronary artery without angina pectoris; I25.2 Old myocardial infarction; Z87.891 Personal history of nicotine dependence; Z79.82 Long term (current) use of aspirin; Z79.01 Long term (current) use of anticoagulants; Z79.899 Other long term (current) drug therapy; Z95.1 Presence of aortocoronary bypass graft; X58.XXXA Exposure to other specified factors, initial encounter
CPT/HCPCS: 99282

== ENCOUNTER → 2023-03-03 | Outpatient (CLI) | payer MEDICARE, OTHER, SELFPAY ==
[2023-03-03 09:20] LABS: AST(SGOT) 34 U/L (15-37); Alanine Aminotransfer ALT/SGPT 43 U/L (16-61); Albumin, Serum 3.8 g/dL (3.2-5.0); Alkaline Phosphatase 80 U/L (45-117); Bilirubin, Direct 0.16 mg/dL (0.00-0.30); Cholesterol 175 mg/dL (200); Globulin 3.4 g/dL (2.2-4.2); High Density Lipoprotein 46 mg/dL; Protein, Total 7.2 g/dL (6.4-8.2); Triglycerides 98 mg/dL; Very Low Density Lipoprotein 20 mg/dL (5-40)
== END | disposition home or self-care (01) ==
LOC: LAB 07:58
PROVIDERS: PCP Family Medicine; Referring Provider Physician Assistant Medical; Visit Provider Physician Assistant Medical
DX: E78.00 Pure hypercholesterolemia, unspecified (principal)
CPT/HCPCS: 36415; 80061; 80076

== ENCOUNTER → 2023-05-02 | Outpatient (CLI) | payer MEDICARE, OTHER, SELFPAY ==
--- NOTE | 2023-05-02 13:01 | ECHOD_ITS ---
Reason For Study: POST PROCEDURE Procedure This was a 2D Doppler, Color Flow transthoracic echocardiogram. Exam performed in department. Left Ventricle Normal LV size. Left ventricular systolic function is normal. The estimated ejection fraction is 65 %. Stage 1 diastolic dysfunction. No regional wall motion abnormalities noted. Right Ventricle Normal RV size. Normal systolic function. Atria Normal left atrium. Normal right atrium. Mitral Valve Mild focal mitral valve calcification, bileaflet. Tricuspid Valve Normal tricuspid valve. Aortic Valve Trisinus/trileaflet aortic valve. Pulmonic Valve Normal pulmonic valve. Great Vessels Normal aortic root. The pulmonary artery is normal size. Inferior vena cava collapse with respiration. Pericardium/Pleural No pericardial effusion. MMode/2D Measurements & Calculations LVIDd: 5.4 cm IVSd: 1.0 cm Ao root diam: 3.5 cm LVIDs: 3.8 cm LVPWd: 1.0 cm RVDd: 3.3 cm FS: 29.5 % LAV(MOD-bp): 61.6 ml LVAd ap4: 27.3 cm2 LVAd ap2: 22.3 cm2 LAV(MOD-bp) Indexed: 29.7 ml/m2 LVLd ap4: 8.5 cm LVLd ap2: 7.9 cm LAV(MOD-sp2): 62.0 ml EDV(MOD-sp4): 75.0 ml EDV(MOD-sp2): 55.9 ml LAV(MOD-sp4): 54.2 ml EDV(sp4-el): 74.7 ml EDV(sp2-el): 53.3 ml LVAs ap4: 14.6 cm2 LVAs ap2: 11.5 cm2 LVLs ap4: 6.7 cm LVLs ap2: 5.7 cm ESV(MOD-sp4): 28.5 ml ESV(MOD-sp2): 22.0 ml ESV(sp4-el): 26.8 ml ESV(sp2-el): 19.7 ml EF(MOD-sp4): 62.0 % EF(MOD-sp2): 60.6 % EF(sp4-el): 64.2 % SV(MOD-sp4): 46.4 ml SV(MOD-sp2): 33.9 ml SV(sp4-el): 48.0 ml LA dimension(2D): 4.3 cm LA A4 area: 21.3 cm2 RA A4 area: 17.7 cm2 TAPSE: 1.9 cm Time Measurements MV dec time: 0.32 sec Doppler Measurements & Calculations MV E max chetan: 70.9 cm/sec Lat Peak E' Chetan: 9.5 cm/sec Med Peak E' Chetan: 8.5 cm/sec MV A max chetan: 96.8 cm/sec E/E' lat: 7.4 E/E' med: 8.3 MV E/A: 0.73 MV V2 max: 101.4 cm/sec MV P1/2t max chetan: 74.6 cm/sec Ao V2 max: 156.9 cm/sec MV max P.1 mmHg MV P1/2t: 97.2 msec Ao max P.9 mmHg MV V2 mean: 54.8 cm/sec MV dec slope: 224.8 cm/sec2 Ao V2 mean: 92.9 cm/sec MV mean P.4 mmHg Ao mean P.1 mmHg MV V2 VTI: 33.0 cm MVA(P1/2t): 2.3 cm2 Ao V2 VTI: 29.0 cm AV (velocity ratio): 0.81 LV V1 max: 114.8 cm/sec PA V2 max: 87.5 cm/sec LV V1 max P.3 mmHg PA V2 mean: 64.2 cm/sec LV V1 mean P.6 mmHg LV V1 mean: 75.8 cm/sec LV V1 VTI: 23.6 cm ECHO/Echo Complete Interpretation Summary Normal LV size. Left ventricular systolic function is normal. The estimated ejection fraction is 65 %. Stage 1 diastolic dysfunction. Ordering Physician: Natividad Worthington Referring Physician: Gabe Rodriguez Performed By: Charmaine Bravo, NASEEMCS, RVT
== END | disposition home or self-care (01) ==
LOC: CVS 12:58
PROVIDERS: PCP Family Medicine; Referring Provider Physician Assistant Medical; Visit Provider Physician Assistant Medical
DX: Z98.890 Other specified postprocedural states (principal); Z86.010 Personal history of colon polyps; R01.1 Cardiac murmur, unspecified
CPT/HCPCS: 93306

== ENCOUNTER → 2023-07-06 | Outpatient (CLI) | payer MEDICARE, OTHER, SELFPAY ==
[2023-07-06 17:54] LABS: Uric Acid 5.9 mg/dL (3.5-7.2)
== END | disposition home or self-care (01) ==
LOC: MTLAB 15:58
PROVIDERS: PCP Family Medicine; Referring Provider Family Medicine; Visit Provider Family Medicine
DX: M10.9 Gout, unspecified (principal)
CPT/HCPCS: 36415; 84550

== ENCOUNTER 2023-08-17 14:01 | Emergency (ER) | payer MEDICARE, OTHER, SELFPAY ==
[2023-08-17 14:02] VITALS: BP 145/69; PULSE 58; RESP 16; TEMP 36.6; O2SAT 98; BMI 27.6
--- NOTE | 2023-08-17 14:46 | EKG12_ITS ---
Test Reason : GENERAL Blood Pressure : / mmHG Vent. Rate : 051 BPM Atrial Rate : 051 BPM P-R Int : 208 ms QRS Dur : 064 ms QT Int : 432 ms P-R-T Axes : 004 051 064 degrees QTc Int : 398 ms Sinus bradycardia Otherwise normal ECG Confirmed by OLIVE CHRISTENSEN, SHIVANI ([id number]), editorial assistant DACIA ARMSTRONG ([id number]) on 08/18/2023 10:28:01 AM Referred By: Confirmed By:HSIVANI SCHAEFER MD
--- NOTE | 2023-08-17 14:47 | VDLE_ITS ---
Reason For Study: LLE Swelling RIGHT LEFT FV is compressible, spontaneous, phasic, GSV is normal. competent and demonstrates normal CFV is compressible, spontaneous, phasic, augmentation. competent, and demonstrates normal Procedure augmentation. This is a venous duplex using B-mode, color FV is compressible, spontaneous, phasic, flow and spectral Doppler. competent and demonstrates normal augmentation. Exam performed portable in ED. POP V is compressible, spontaneous, phasic, The exam was diagnostic. competent and demonstrates normal augmentation. A preliminary report was called and/or T/P Trunk is compressible. faxed to Dr. Oleary. PTV is compressible. LT PerV is compressible. Non vascularzied heterogenous hypoechoic area measuring approximately 3.95cm x 1.80cm is noted in the mid medial calf. Possible hematoma/trauma/injury. VL/Venous Duplex US, Unilateral Interpretation Summary There is no evidence of left lower extremity deep vein thrombosis. Left great s aphenous vein appears patent and compressible segmentally. Left mid calf 3.95 x 1.8 cm nonvascular he terogenous mass. Clinical correlation indicated. Possible hematoma. Normal flow patterns right common femoral vein Ordering Physician: Deedee Oleary Referring Physician: Gabe Rodriguez Performed By: Omari Carrion RVT
--- NOTE | 2023-08-17 14:48 | EDS_ITS ---
HPI History of Present Illness Chief Complaint: Dizziness Informant: patient Onset/Context/Timing Onset: Today Narrative Narrative: Patient presents secondary to lightheadedness that he has had today. He states he was out working in his garden and it seemed to be worse after this. When he came back to the house he pulled his left pant leg up and noted a large bruised swollen area on his left saleh. He does not remember hitting it but the area is sore. He denies chest pain or palpitations. No recent medication changes. 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 Pneumonia Primary osteoarthritis, left shoulder Renal artery aneurysm Wears dentures Wears glasses Home Medications aspirin 81 mg tablet,delayed release 81 mg PO DAILY@0800 [facility] 08/21/18 [History Last Taken 11/01/22 06:00] melatonin 3 mg capsule 3 mg PO HS PRN sleep 10/10/22 [History Last Taken Unknown] omega-3 fatty acids-fish oil 360 mg-1,200 mg capsule (Fish Oil) 1 cap PO DAILY 10/10/22 [History Last Taken Unknown] clopidogrel 75 mg tablet (Plavix) 75 mg PO DAILY #90 tabs 01/24/23 [Rx Last Taken Unknown] amlodipine 10 mg tablet 10 mg PO DAILY #90 tabs 05/29/23 [Rx Last Taken Unknown] losartan 25 mg tablet 25 mg PO DAILY #90 tabs 05/29/23 [Rx Last Taken Unknown] atorvastatin 80 mg tablet (Lipitor) 80 mg PO DAILY #90 tabs 08/02/23 [Rx Last Taken Unknown] famotidine 20 mg tablet 20 mg PO DAILY #90 tabs 08/15/23 [Rx Last Taken Unknown] Allergy/AdvReac Type Severity Reaction Status Date / Time No Known Allergies Allergy Verified 08/17/23 14:06 Family History Father CAD (coronary artery disease) Surgical History H/O colonoscopy with polypectomy H/O coronary artery bypass surgery (04/13/07) History of left heart catheterization (06/19/19) 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 Social History Smoking Status: Former smoker pack-years: 40 how long ago did patient quit smokin years ago alcohol intake: never substance use type: does not use caffeine: Yes Type: carbonated beverages Number of servings: 6 ROS ROS ED Constitutional Constitutional ED: Denies chills or fever(s) Eyes Eyes: Denies change in vision ENT ENT ED: Denies rhinorrhea or sore throat Cardiovascular Cardiovascular: Denies chest pain or palpitations Respiratory/Chest Respiratory/Chest: Denies cough or dyspnea Gastrointestinal Gastrointestinal: Denies abdominal pain, nausea or vomiting Genitourinary Genitourinary ED: Denies dysuria Musculoskeletal Musculoskeletal: Reports extremity pain; Denies back pain Integumentary Reports other Details: Focal swollen area on left saleh with bruising. ; Denies Abrasions or rash Neurologic Neurologic: Denies headache(s), paresthesias or weakness Allergic/Immunologic Allergic/Immunologic ED: Denies lip swelling or urticaria EXAM Physical Exam Const Vital Signs: 08/17/23 14:02 Temperature 97.8 F Temperature Source Temporal Pulse Rate 58 L Respiratory Rate 16 Blood Pressure 145/69 H Blood Pressure Mean 94 Pulse Ox 98 Oxygen Delivery Method Room Air Positive well nourished and well developed General Appearance ED: well developed HEENT Reports moist mucous membranes Eyes EOMs intact bilaterally Chest Wall inspection of chest normal and palpation of chest normal Resp normal respiratory effort and clear to auscultation bilaterally Cardio Rate: bradycardia GI non-tender Palpation: soft Extremity Extremity Narrative: Patient is a focal hematoma over the left saleh. Area measures approximately 7 x 4 cm. Neuro oriented x3 Motor Exam: strength 5/5 throughout Psych mental status grossly normal Skin no rashes or lesions noted MDM MDM MDM Narrative Medical decision making narrative: Patient placed on air sampling and monitoring. EKG obtained to evaluate for cardiac arrhythmia/ischemia. IV line initiated. Labwork obtained to evaluate for leukocytosis, anemia, and electrolyte derangement. Venous ultrasound of the left lower extremity obtained to evaluate for potential DVT. History & Record Review Discussion w/independent historian: Patient Lab Data Attestation: I reviewed the patient's lab results. Labs: Laboratory Results - last 24 hr 08/17/23 15:00 WBC 6.9 RBC 4.32 L Hgb 12.7 L Hct 37.4 L MCV 86.6 MCH 29.4 MCHC 34.0 RDW Std Deviation 43.3 RDW Coeff of Juan Ramon 13.7 Plt Count 207 MPV 10.4 Immature Gran % (Auto) 0.100 Neut % (Auto) 74.1 H Lymph % (Auto) 16.3 L [place] % (Auto) 7.2 Eos % (Auto) 1.7 Baso % (Auto) 0.6 Absolute Neuts (auto) 5.1 Absolute Lymphs (auto) 1.13 Nucleated RBC % 0 D-Dimer Quant (PE/DVT) 0.49 Sodium 140 Potassium 3.9 Chloride 107 Carbon Dioxide 27.0 Anion Gap 6 BUN 18 Creatinine 1.18 Estim Creat Clear Calc 55.84 Est GFR (MDRD) Af Amer 77 Est GFR (MDRD) Non-Af 64 BUN/Creatinine Ratio 15.3 Glucose 143 H Calcium 8.6 Troponin I High Sens 7 Radiography Chest X-Ray - ED: 1 View, Read by ED Physician, Chronic Changes and No Infiltrates EKG Initial EKG: Attestation: I personally reviewed and interpreted this EKG as follows: Interpretation: Sinus Bradycardia (Sinus bradycardia 51 bpm. No acute ischemia.) Treatment and Re-Evaluation :: CBC was normal white count 6.9 with a hemoglobin of 12.7. Chemistry studies are unremarkable with a glucose of 143. Troponin is 7 and D-dimer is normal at 0.49. Venous ultrasound of the left lower extremity was obtained and reveals no evidence of DVT. Portable chest x-ray per my interpretation reveals chronic changes with no focal infiltrate. EKG is sinus bradycardia with no acute ischemia. Patient has well-documented history of bradycardia and his blood pressure is adequate. I discussed with the patient that I believe the swollen area on the leg is a hematoma. Rex wrap was applied over the area and he will apply ice. No acute cardiac cause of his reported lightheadedness noted. Patient be discharged to home and return instructions were provided. Discharge Plan Triage Chief Complaint: Dizziness Other Complaint: Lower Extremity Injury ED Provider: Deedee Oleary Dx/Rx/DC Orders Clinical Impression: Light-headedness, Hematoma Instructions: ED Dizziness, Uncertain Cause, ED Hematoma Prescriptions: No Action melatonin 3 mg capsule 3 mg PO HS PRN (Reason: sleep) omega-3 fatty acids-fish oil [Fish Oil] 360-1,200 mg capsule 1 cap PO DAILY aspirin 81 MG tablet 81 mg PO DAILY@0800 clopidogrel [Plavix] 75 mg tablet 75 mg PO DAILY Qty: 90 3RF losartan 25 mg tablet 25 mg PO DAILY Qty: 90 3RF amlodipine 10 mg tablet 10 mg PO DAILY Qty: 90 3RF atorvastatin [Lipitor] 80 mg tablet 80 mg PO DAILY Qty: 90 3RF famotidine 20 mg tablet 20 mg PO DAILY Qty: 90 0RF Primary Care Provider: Gabe Rodriguez Referrals: Gabe Rodriguez MD [Primary Care Provider] - 1-2 Weeks Disposition Disposition: Home, Self Care
[2023-08-17 15:08] LABS: Absolute Lymphocyte Count 1.13 X10^3/uL (0.83-4.51); Absolute Neutrophil Count 5.1 X10^3/uL (2.0-7.7); Basophil# 0.04 X10^3/uL; Basophil% 0.6 % (0-1); Eosinophil# 0.12 X10^3/uL; Eosinophils% 1.7 % (0-5); Hematocrit 37.4 % (40-54); Hemoglobin 12.7 g/dL (13.0-16.5); Lymphocyte # 1.13 X10^3/ul (0.83-4.51); Lymphocyte % 16.3 % (19-41); Mean Corpuscular Hgb 29.4 pg (27.0-32.0); Mean Corpuscular Volume 86.6 fL (80-94); Mean Platelet Vol. 10.4 fl (6.2-12.0); Monocyte% 7.2 % (0-10); NRBC Flagged by Analyzer 0 % (0-5); Neutrophil # 5.12 X10^3/uL (2.7-7.7); Neutrophil % 74.1 % (47-70); Platelet Count 207 K/mm3 (150-450); RBC Distribution Width CV 13.7 % (11.6-14.6); RBC Distribution Width SD 43.3 fl (35.1-43.9); Red Blood Count 4.32 M/mm3 (4.6-6.2); White Blood Count 6.9 K/mm3 (4.4-11.0)
[2023-08-17 15:27] LABS: Anion Gap 6 (5-15); BUN 18 mg/dL (7-18); BUN/Creat Ratio 15.3 RATIO (10-20); Calcium,Total 8.6 mg/dL (8.5-10.1); Chloride 107 mmol/L (98-107); Creatinine, Serum 1.18 mg/dL (0.70-1.30); EST Glomerular Filtration Rate 64 mL/min (>60); Est Glom Filt Rate - Afr Amer 77 mL/min (>60); Estimated Creatinine Clearance 55.84 ml/min; Glucose 143 mg/dL (74-106); Potassium 3.9 mmol/L (3.5-5.1); Sodium Level 140 mmol/L (136-145); Troponin-I HS 7 pg/mL (3.0-78.0)
[2023-08-17 15:28] LABS: D-Dimer Quantitative (DVT/PE) 0.49 FEU/ug/m (0.27-0.49)
--- NOTE | 2023-08-17 15:30 | RAD_ITS ---
STUDY: X-RAY CHEST REASON FOR EXAM: Male, 77 years old. dizzy TECHNIQUE: Single AP portable view of the chest. COMPARISON: 06/12/2019. FINDINGS: The lungs are clear and expanded. There is no demonstrated pleural abnormality. Normal size heart. Previous CABG. Normal mediastinum and petar. Normal visualized pulmonary arteries. Normal visualized aortic arch and descending thoracic aorta. Normal visualized thoracic spine. Normal visualized ribs, clavicles, and shoulders. There is no demonstrated abnormality of the visualized soft tissue structures of the upper abdomen. RAD/Chest 1 View (Portable) IMPRESSION: No definite acute or significant abnormality seen. Electronically Signed: Lopez Lopez MD at 16:49 EDT ,
[2023-08-17] MEDS: 0.9% Normal Saline (1000mL) 1,000 ML 150 ML IV (15:41)
[2023-08-17 16:16] VITALS: BP 134/66; PULSE 51; RESP 16; TEMP 36.7; O2SAT 98
== END 2023-08-17 16:27 | disposition home or self-care (01) ==
PROVIDERS: Emergency Provider Emergency Medicine; PCP Family Medicine; Visit Provider Emergency Medicine
DX: S80.12XA Contusion of left lower leg, initial encounter (principal); R42 Dizziness and giddiness; I25.10 Atherosclerotic heart disease of native coronary artery without angina pectoris; I25.2 Old myocardial infarction; M79.662 Pain in left lower leg; Z95.1 Presence of aortocoronary bypass graft; Z87.891 Personal history of nicotine dependence; X58.XXXA Exposure to other specified factors, initial encounter
CPT/HCPCS: 71045; 80048; 84484; 85025; 85379; 93005; 93971; 96360; 99285; J7030; A4216

== ENCOUNTER 2023-08-23 11:03 | Emergency (ER) | payer MEDICARE, OTHER, SELFPAY ==
[2023-08-23 11:04] VITALS: BP 153/64; PULSE 52; RESP 16; TEMP 36.4; O2SAT 98; BMI 27.6
--- NOTE | 2023-08-23 12:50 | EDS_ITS ---
HPI History of Present Illness Chief Complaint: Edema Detail of Chief Complaint: Left lower leg bruise. Informant: patient Onset/Context/Timing Onset: Days Context: Gradual Onset Timing: Continuous Current Severity: Mild Maximum Severity: Mild Narrative Narrative: 77-year-old male history of CAD with prior CABG and hypertension. He is on Eliquis. Patient had left lower leg swelling and a bruise for about a week. He was seen in the Emergency Department around the second. Was told this was a hematoma. It has not gotten better. And he called his office today. He has had chronic shortness of breath. That is not new I think over the phone they want to have him evaluated but did not understand a lot of this was chronic. 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 08/21/18 [History Last Taken 11/01/22 06:00] melatonin 3 mg capsule 3 mg PO HS PRN sleep 10/10/22 [History Last Taken Unkno wn] omega-3 fatty acids-fish oil 360 mg-1,200 mg capsule (Fish Oil) 1 cap PO DAILY 10/10/22 [History Last Taken Unknown] clopidogrel 75 mg tablet (Plavix) 75 mg PO DAILY #90 tabs 01/24/23 [Rx Last Robb en Unknown] amlodipine 10 mg tablet 10 mg PO DAILY #90 tabs 05/29/23 [Rx Last Taken Unknown] losartan 25 mg tablet 25 mg PO DAILY #90 tabs 05/29/23 [Rx Last Taken Unknown] atorvastatin 80 mg tablet (Lipitor) 80 mg PO DAILY #90 tabs 08/02/23 [Rx Last Taken Unknown] famotidine 20 mg tablet 20 mg PO DAILY #90 tabs 08/15/23 [Rx Last Taken Unknown] Allergy/AdvReac Type Severity Reaction Status Date / Time No Known Allergies Allergy Verified 08/23/23 11:04 Family History Father CAD (coronary artery disease) Surgical History H/O colonoscopy with polypectomy H/O coronary artery bypass surgery (04/13/07) History of left heart catheterization (06/19/19) 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 Social History Smoking Status: Former smoker pack-years: 40 how long ago did patient quit smokin years ago alcohol intake: never substance use type: does not use caffeine: Yes Type: carbonated beverages Number of servings: 6 ROS ROS ED ROS Narrative Chronic shortness of breath not new. Been going on for more than a year. No chest pain. Review of Systems ROS Unobtainable: Denies due to encephalopathy Constitutional Constitutional ED: Denies chills or fever(s) Eyes Eyes: Denies blurry vision ENT ENT ED: Denies ear pain Cardiovascular Cardiovascular: Denies chest pain or palpitations Respiratory/Chest Respiratory/Chest: Reports dyspnea on exertion; Denies cough Gastrointestinal Gastrointestinal: Denies abdominal pain or constipation Genitourinary Genitourinary ED: Denies dysuria or hematuria Musculoskeletal Musculoskeletal: Denies arthralgias or back pain Integumentary Denies abscess or Abrasions Neurologic Neurologic: Denies headache(s) Psychiatric Psychiatric: Denies anxiety or depression Endocrine Endocrinology: Denies cold intolerance Hematologic/Lymphatic Hematologic/Lymphatic: Reports none Allergic/Immunologic Allergic/Immunologic ED: Denies mouth swelling, tongue swelling or urticaria EXAM Physical Exam Narrative Exam Narrative: Well-appearing 77-year-old male. Vital signs stable afebrile. Pulse ox 98% on room air no signs hypoxia. H EENT exam normal. Neck nontender JVD. Lungs clear to auscultation bilaterally. Heart bradycardic rate about 55 no murmur. Chest wall and ribs nontender. Abdomen soft nontender. Moving all 4 extremities. Left lower leg just lateral to his mid tibia there is a about a 2 inch hematoma is tender to palpation. He has bruising going into his foot. The foot and the bones themselves are nontender just a hematoma. It has been there for about a week. He has normal dorsi plantarflexion of his foot. Normal DP pulse. He has minimal trace edema to the foot and ankle. The right lower extremity is unremarkable. Neurologically is awake and alert no focal motor deficits. Const Vital Signs: 08/23/23 11:04 08/23/23 11:21 Temperature 97.6 F L Temperature Source Temporal Pulse Rate 52 L Respiratory Rate 16 Respiratory Effort Short of Breath Respiratory Pattern Normal Blood Pressure 153/64 H Blood Pressure Mean 93 Pulse Ox 98 Oxygen Delivery Method Room Air Positive well nourished and well developed; Negative for cachectic, contractures or unkempt General Appearance ED: well developed and NAD; Negative for unkempt, cachectic, contractures, cyanotic, diaphoretic or pallor Nutritional Appearance: Negative for cachectic HEENT Reports moist mucous membranes; Denies dry mucous membranes Negative for trauma or tenderness Mouth ED: No dry mucous membranes Mouth: No dry mucous membranes Eyes PERRL and EOMs intact bilaterally General Eye ED: Negative for pale conjunctiva or scleral icterus Neck no lymphadenopathy, supple and no JVD General: Negative for tenderness or other Lymph Lymphatic: Negative for other Chest Wall inspection of chest normal and palpation of chest normal Chest: Negative for other Resp normal respiratory effort and clear to auscultation bilaterally Effort and Inspection: Negative for retractions Auscultation: Negative for rales, rhonchi or wheezes Cardio regular rhythm, S1 normal heart sound, S2 normal heart sound and no murmurs; Negative for regular rate Rate: bradycardia GI normal to inspection, nondistended, normoactive bowel sounds, non-tender, non- distended and no masses Inspection: Negative for abdominal distention Auscultation: normoactive bowel sounds Palpation: soft; Negative for tender, guarding or rebound tenderness present Back/Spine no CVA tenderness General Back: Negative for CVA tenderness Cervical Spine: Negative for cervical spine tenderness Thoracic Spine / Upper Back: Negative for thoracic spinal tenderness Extremity Negative for normal to inspection Extremity Narrative: Left lower leg just lateral to the tibia midportion of distal third there is a hematoma about 1 to 2 inches in length. Resolving bruising and trace edema to his ankle and foot. Flex neurovascular intact. Normal range of motion. Normal strength. Sensation and DP pulse. Right lower extremity is unremarkable without swelling or bruising. This is consistent with a hematoma. General Extremety ED: Yes edema and tenderness General Extremity: edema Neuro oriented x3 and CN's II-XII intact bilaterally Sensorium / Orientation: alert; Negative for orientation impaired, lethargic or stuporous Motor Exam: strength 5/5 throughout; Negative for general weakness or strength abnormal Psych mental status grossly normal Appearance: Negative for unkempt Attitude: No agitated Mood & Affect: Negative for depressed, anxious or tearful Skin no rashes or lesions noted, no wounds and skin turgor normal Skin Narrative: Hematoma left lower leg. General Skin Exam: Negative for jaundice or pallor Lesions: No lesion noted Rashes: No rashes noted Trauma: Negative for abrasion Wounds: Negative for wounds noted MDM MDM MDM Narrative Medical decision making narrative: 77-year-old gentleman has a resolving hematoma left lower leg. Not a blood clot. He had this fully evaluated you waited about a week ago. Workup at that time was negative. Shortness of breath is chronic. That is not new. He had an echocardiogram done in April showed an EF of 65%. His right leg is unremarkable. He is on Eliquis this is consistent with a hematoma in the left leg. He does not need any further workup or evaluation. He and I discussed at length. He will be discharged home. I will contact his primary care physician and a let let him know of the patient's ER evaluation. History & Record Review Discussion w/independent historian: Patient Additional record(s) reviewed:: Prior inpatient record, Prior outpatient record, Prior ED visit, Prior labs and No prior records Lab Data Attestation: I reviewed the patient's lab results. Lab results narrative: I reviewed the patient's labs and workup from August 16. Discharge Plan Triage Chief Complaint: Edema ED Provider: Olman Cadet Dx/Rx/DC Orders Clinical Impression: Hematoma, Chronic anticoagulation, Hx of CABG Instructions: ED Hematoma Prescriptions: No Action melatonin 3 mg capsule 3 mg PO HS PRN (Reason: sleep) omega-3 fatty acids-fish oil [Fish Oil] 360-1,200 mg capsule 1 cap PO DAILY aspirin 81 MG tablet 81 mg PO DAILY@0800 clopidogrel [Plavix] 75 mg tablet 75 mg PO DAILY Qty: 90 3RF losartan 25 mg tablet 25 mg PO DAILY Qty: 90 3RF amlodipine 10 mg tablet 10 mg PO DAILY Qty: 90 3RF atorvastatin [Lipitor] 80 mg tablet 80 mg PO DAILY Qty: 90 3RF famotidine 20 mg tablet 20 mg PO DAILY Qty: 90 0RF Primary Care Provider: Gabe Rodriguez Referrals: Gabe Rodriguez MD [Primary Care Provider] - As Needed Activity Restrictions/Additional Instructions: You have a bruise on your left lower leg. It will take weeks to resolve. Ice and elevate is much as possible this will take away the bruise and the swelling. I reviewed your recent test from August 16 they all look good. I reviewed your recent echocardiogram from April your ejection fraction was very good at 65%. You need no further workup today. Follow-up with Dr. Gabe Rodriguez as needed. Disposition Disposition: Home, Self Care
[2023-08-23 13:00] VITALS: BP 130/59; PULSE 52; RESP 16; TEMP 36.6; O2SAT 95
== END 2023-08-23 13:10 | disposition home or self-care (01) ==
PROVIDERS: Emergency Provider Emergency Medicine; PCP Family Medicine; Visit Provider Emergency Medicine
DX: S80.12XA Contusion of left lower leg, initial encounter (principal); J43.9 Emphysema, unspecified; I25.10 Atherosclerotic heart disease of native coronary artery without angina pectoris; Z87.891 Personal history of nicotine dependence; Z79.01 Long term (current) use of anticoagulants; I10 Essential (primary) hypertension; Z95.1 Presence of aortocoronary bypass graft; E78.00 Pure hypercholesterolemia, unspecified; M79.89 Other specified soft tissue disorders; X58.XXXA Exposure to other specified factors, initial encounter
CPT/HCPCS: 99283

== ENCOUNTER → 2023-09-01 | Outpatient (CLI) | payer MEDICARE, OTHER, SELFPAY ==
[2023-09-01 11:12] LABS: BNP,B-Type NATRIURETIC PEPTIDE 71.3 pg/mL (0-100)
== END | disposition home or self-care (01) ==
PROVIDERS: PCP Family Medicine; Referring Provider Physician Assistant Medical; Visit Provider Physician Assistant Medical
DX: R06.09 Other forms of dyspnea (principal)
CPT/HCPCS: 36415; 83880

== ENCOUNTER → 2023-09-28 | Outpatient (CLI) | payer MEDICARE, OTHER, SELFPAY ==
--- NOTE | 2023-09-28 12:27 | STRESSREP ---
Stress Test Report Pharmacologic myocardial perfusion stress test. 77-year-old man with a history of chest pain Resting EKG demonstrates sinus bradycardia with a rate of 46 bpm. Resting blood pressure is 132/68 mmHg. 0.4 mg of regadenoson was infused per usual protocol followed by rapid intravenous saline flush injection. Continuous EKG monitoring was performed. The maximum heart rate was 71 bpm which was 49% of max impacted heart rate the maximum workload was 1 metabolic equivalent. At rest there were no ST or T wave changes noted to suggest ischemia and at peak infusion nonspecific ST changes were noted which did not meet the criteria for ischemia. No clinical angina is noted. The final blood pressure was 118/60 mmHg. Myocardial perfusion protocol. 14.3 mCi of technetium 99m sestamibi was injected at rest. 0.4 mg of regadenoson was infused per usual protocol. At peak infusion 44.2 mCi of technetium 99m sestamibi was injected stress images were obtained stress and rest images were reconstructed and compared in the short axis vertical long and horizontal long axis. Gated images were also obtained. Perfusion SPECT analysis: Review of the stress images demonstrate normal uptake of tracer noted in all areas of the myocardium. The resting images similar demonstrated normal uptake of tracer noted in all areas of the myocardium. No areas of reversibility are noted to suggest ischemia and no previous infarct is noted. Gated SPECT analysis: The gated ejection fraction is 72%. Conclusion: Normal pharmacologic myocardial perfusion stress test. Preserved ejection fraction.
== END | disposition home or self-care (01) ==
LOC: CVS 06:18
PROVIDERS: PCP Family Medicine; Referring Provider Physician Assistant Medical; Visit Provider Physician Assistant Medical
DX: I25.10 Atherosclerotic heart disease of native coronary artery without angina pectoris (principal); R07.9 Chest pain, unspecified
CPT/HCPCS: 78452; 93017; A9500; A4216; J2785

== ENCOUNTER 2023-10-28 21:32 | Emergency (ER) | payer MEDICARE, OTHER, SELFPAY ==
[2023-10-28 21:34] VITALS: BP 141/70; PULSE 54; RESP 16; TEMP 35.6; O2SAT 96
--- NOTE | 2023-10-28 22:29 | EX.ED.UPPERE ---
HPI History of Present Illness Chief Complaint: Upper Extremity Injury Detail of Chief Complaint: Fishing hook foreign body in right index finger Informant: patient Narrative Narrative: Patient presents the emergency department with complaint of a fishing hook in his right index finger. Patient states that he was fishing and it caught a mahajan and as he was trying to take it off the hook it showed off the hook and the hook impaled him in the finger. Patient is right-hand dominant. Patient up-to-date on tetanus. 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 08/21/18 11/01/22 06:00 History release melatonin 3 mg capsule 3 mg PO HS PRN sleep 10/10/22 Unknown History omega-3 fatty acids-fish oil 360 1 cap PO DAILY 10/10/22 Unknown History mg-1,200 mg capsule (Fish Oil) clopidogrel 75 mg tablet (Plavix) 75 mg PO DAILY #90 tabs 01/24/23 Unknown Rx amlodipine 10 mg tablet 10 mg PO DAILY #90 tabs 05/29/23 Unknown Rx losartan 25 mg tablet 25 mg PO DAILY #90 tabs 05/29/23 Unknown Rx atorvastatin 80 mg tablet (Lipitor) 80 mg PO DAILY #90 tabs 08/02/23 Unknown Rx famotidine 20 mg tablet 20 mg PO DAILY #90 tabs 08/15/23 Unknown Rx Allergy/AdvReac Type Severity Reaction Status Date / Time No Known Allergies Allergy Verified 10/28/23 21:34 Family History Father CAD (coronary artery disease) Surgical History History of left heart catheterization (06/19/19) repair of renal artery aneurysm History of total left knee replacement (TKR) H/O colonoscopy with polypectomy H/O coronary artery bypass surgery (04/13/07) Social History Smoking Status: Former smoker pack-years: 40 how long ago did patient quit smokin years ago alcohol intake: never substance use type: does not use caffeine: Yes Type: carbonated beverages Number of servings: 6 ROS ROS ED Review of Systems ROS Unobtainable: other Constitutional Constitutional ED: Reports lethargy; Denies chills, fever(s), sweats or weight loss Eyes Eyes: Denies blurry vision, change in vision or diplopia ENT ENT ED: Denies rhinorrhea or sore throat Cardiovascular Cardiovascular: Denies chest pain, orthopnea or racing heartbeat Respiratory/Chest Respiratory/Chest: Denies cough, dyspnea, dyspnea on exertion, orthopnea or sputum Gastrointestinal Gastrointestinal: Denies abdominal pain, diarrhea, nausea or vomiting Genitourinary Genitourinary ED: Denies dysuria, hematuria or urinary frequency Musculoskeletal Musculoskeletal: Reports other Details: Foreign body to right index finger ; Denies arthralgias, back pain, myalgias or neck pain Integumentary Denies abscess, Abrasions or rash Neurologic Neurologic: Denies headache(s) or weakness Psychiatric Psychiatric: Denies anxiety, depression or suicidal thoughts Endocrine Endocrinology: Denies polydipsia, polyphagia or polyuria Hematologic/Lymphatic Hematologic/Lymphatic: Denies easy bleeding, easy bruising or lymphadenopathy Allergic/Immunologic Allergic/Immunologic ED: Denies mouth swelling, tongue swelling or urticaria EXAM Physical Exam Const Vital Signs: 10/28/23 21:34 Temperature 96.1 F L Temperature Source Temporal Pulse Rate 54 L Respiratory Rate 16 Blood Pressure 141/70 H Blood Pressure Mean 93 Pulse Ox 96 Oxygen Delivery Method Room Air Positive well nourished and well developed General Appearance ED: well developed and NAD HEENT Reports TM's clear and moist mucous membranes normocephalic and atraumatic; Negative for trauma or tenderness Tympanic Membrane ED: Yes TM's clear Eyes PERRL and EOMs intact bilaterally General Eye ED: Negative for pale conjunctiva or scleral icterus Neck no lymphadenopathy, supple and no JVD General: Negative for tenderness Chest Wall inspection of chest normal and palpation of chest normal Chest: Negative for tenderness Resp normal respiratory effort and clear to auscultation bilaterally Effort and Inspection: Negative for respiratory distress or pain with movement Auscultation: Negative for rhonchi, wheezes or diminished lung sounds Cardio regular rate, regular rhythm, S1 normal heart sound, S2 normal heart sound and no murmurs Peripheral Pulses: pulses 2+ throughout GI normal to inspection, nondistended, normoactive bowel sounds, soft to palpation, non-tender, non-distended and no masses Back/Spine no CVA tenderness and no thoracic nor lumbar tenderness Extremity normal to inspection Extremity Narrative: Right index finger-patient has a fishhook travel embedded into his right index finger volar aspect over the middle phalanx. General Extremety ED: Negative for edema General Extremity: Negative for edema Neuro oriented x3, CN's II-XII intact bilaterally, no sensory deficits noted and gait normal Sensorium / Orientation: awake, alert, oriented to person, oriented to place and oriented to time Motor Exam: strength 5/5 throughout and strength abnormal Psych mental status grossly normal Skin no rashes or lesions noted and no wounds MDM MDM MDM Narrative Medical decision making narrative: Patient with fishing hook in his right index finger. Recommended local anesthetic and removal of the hook. Area of the skin cleansed with alcohol prep. Anesthetized locally with 1% lidocaine total of 2 cc. Using an 11 blade I made a small 5 mm incision along the hook and kerwin and using hemostats I was able to remove the hook from the finger without difficulty. Patient tolerated procedure well. Clean dressing will be applied. Advised to return if increasing pain, redness, swelling, purulent drainage, or condition worsening way. Discharge Plan Triage Chief Complaint: Upper Extremity Injury ED Provider: Sharyn Griggs Dx/Rx/DC Orders Clinical Impression: [place] injury to finger Instructions: ED Foreign Body, Soft Tissue (Removed) Prescriptions: No Action melatonin 3 mg capsule 3 mg PO HS PRN (Reason: sleep) omega-3 fatty acids-fish oil [Fish Oil] 360-1,200 mg capsule 1 cap PO DAILY aspirin 81 MG tablet 81 mg PO DAILY@0800 clopidogrel [Plavix] 75 mg tablet 75 mg PO DAILY Qty: 90 3RF losartan 25 mg tablet 25 mg PO DAILY Qty: 90 3RF amlodipine 10 mg tablet 10 mg PO DAILY Qty: 90 3RF atorvastatin [Lipitor] 80 mg tablet 80 mg PO DAILY Qty: 90 3RF famotidine 20 mg tablet 20 mg PO DAILY Qty: 90 0RF Primary Care Provider: Gabe Rodriguez Referrals: Gabe Rodriguez MD [Primary Care Provider] - 3-5 Days Print Language: Swedish Disposition Disposition: Home, Self Care
[2023-10-28] MEDS: Lidocaine 1% (20 ml mdv) 20 ML Vial INFILT (22:30)
== END 2023-10-28 22:48 | disposition home or self-care (01) ==
PROVIDERS: Emergency Provider Emergency Medicine; PCP Family Medicine; Visit Provider Emergency Medicine
DX: S60.450A Superficial foreign body of right index finger, initial encounter (principal); I25.10 Atherosclerotic heart disease of native coronary artery without angina pectoris; I25.2 Old myocardial infarction; W23.0XXA Caught, crushed, jammed, or pinched between moving objects, initial encounter
CPT/HCPCS: 99282

== ENCOUNTER 2023-12-21 08:00 | Outpatient (RCR) | payer MEDICARE, OTHER, SELFPAY ==
[2023-11-16 08:13] VITALS: PULSE 54; RESP 18; TEMP 35.7; BMI 27.1
[2023-12-21 08:08] VITALS: BP 141/57; PULSE 36; RESP 16; TEMP 35.9; BMI 27.1
== END 2023-12-21 23:59 | disposition home or self-care (01) ==
LOC: WC 08:00
PROVIDERS: PCP Family Medicine; Referring Provider Family Medicine; Visit Provider Student in an Organized Health Care Education/Training Program
DX: L97.221 Non-pressure chronic ulcer of left calf limited to breakdown of skin (principal); I10 Essential (primary) hypertension; I25.10 Atherosclerotic heart disease of native coronary artery without angina pectoris; Z87.891 Personal history of nicotine dependence; R60.0 Localized edema; I87.2 Venous insufficiency (chronic) (peripheral); Z79.02 Long term (current) use of antithrombotics/antiplatelets; E78.5 Hyperlipidemia, unspecified; Z95.1 Presence of aortocoronary bypass graft
CPT/HCPCS: 93923; 93970; 97597; 99213; G0463

== ENCOUNTER → 2024-01-17 | Outpatient (CLI) | payer MEDICARE, OTHER, SELFPAY ==
--- NOTE | 2024-01-17 08:55 | RAD_ITS ---
EXAM: XR LEFT HIP WITH PELVIS WHEN PERFORMED, 2 OR 3 VIEWS CLINICAL INDICATION: PAIN TECHNIQUE: Two or three views of the left hip with pelvis when performed. COMPARISON: No relevant prior studies available. FINDINGS: BONES/JOINTS: Mild bilateral acetabular hypertrophy. Degenerative changes in the lower lumbar spine and SI joints. No displaced fracture. No destructive or sclerotic lesions. Note that overlapping bowel shadows may however obscure fine detail. No widening of the pubic symphysis. SOFT TISSUES: No significant abnormality. No soft tissue swelling or gas. VASCULATURE: Vascular calcifications. RAD/HIP, UNI W/ Pelvis 2-3 Views IMPRESSION: Degenerative changes. No acute osseous findings. Electronically Signed: Clay Herrera DO at 23:56 EDT ,
== END | disposition home or self-care (01) ==
LOC: MTRAD 08:53
PROVIDERS: PCP Family Medicine; Referring Provider Family Medicine; Visit Provider Family Medicine
DX: M25.552 Pain in left hip (principal)
CPT/HCPCS: 73502

== ENCOUNTER → 2024-02-12 | Outpatient (CLI) | payer MEDICARE, OTHER, SELFPAY ==
--- NOTE | 2024-02-12 09:07 | BI_ITS ---
MAMMOGRAPHY - BILATERAL DIAGNOSTIC REASON FOR EXAM: Male, 78 years old. Left breast pain. PERTINENT HISTORY: Non-contributory. TECHNIQUE: Digital bilateral breast brittanie (3D mammographic acquisition) in the CC and MLO projections. 2-D mediolateral oblique (MLO) and craniocaudad (CC) views of both breasts were obtained. CAD: Full Field Digital Mammography with Computer Added Detection was performed. COMPARISON: None. Baseline examination. FINDINGS: Breast Composition: There are scattered areas of fibroglandular density. There are no dominant masses or suspicious calcifications. Asymmetry of breast tissue where more breast tissue is seen in the retroareolar region of the left breast as compared to the right side. No other significant abnormalities are identified. BI/DIAG MAMM W/CAD, BILAT IMPRESSION: Asymmetry of breast tissue were more breast tissue is seen in the retroareolar region of the left breast as compared to the right side. Correlation with ultrasound is recommended. ASSESSMENT CATEGORY: BIRADS Category 0: Incomplete. Need additional imaging evaluation. A letter regarding these results will be sent to the patient by the facility within 30 days. Approximately 10% of breast cancers are not detected by mammography. A normal mammogram should not delay biopsy of a clinically suspicious abnormality. Electronically Signed: Gm Helton MD at 10:36 EDT ,
--- OUTSIDE RECORDS SUMMARY | 2024-02-12 09:39 | XMS RPT_ITS | CCD ---
Author Organization [facility] Care Team Providers Care Drying Machine Back Tender Name Role Phone Hiwot Wen Unavailable Unavailable Eden Bruner Unavailable Unavailable Roof RETURNED GOODS RECEIVING CLERKCruz Unavailable Medications Completed/Discontinued Medications Medication Drug Class(es) Dates Sig (Normalized) Sig (Original) aspirin 81 mg oral tablet (18 sources) Nonsteroidal Anti-inflammatory Drug Start: 01-28-2014 take 1 tablet by mouth once daily ASPIRIN 81 MG TABS One tablet by mouth daily ASPIRIN [id number] Margarito Deras MD Start: 01-28-2014 take 1 tablet by kel th once daily ASPIRIN EC 81 MG TBEC One tablet by mouth daily ASPIRIN [id number] Annette Mahmood RN Start: 08-25-2011 End: 01-20-2014 take 1 tablet by mouth once daily ASPIRIN 81 MG TABS One tablet by mouth daily ASPIRIN [id number] Margarito Deras MD Start: 08-04-2010 take 1 tablet by kel th twice daily ASPIRIN 81 MG TABS One tablet by mouth twice daily before Niacin ASPIRIN [id number] Jaimie Sawyer atorvastatin 80 mg oral tablet (15 sources) HMG-CoA Reductase Inhibitor Start: 08-04-2010 take 1 tablet by mouth once daily LIPITOR 80 MG TABS One tablet by mouth daily ATORVASTATIN CALCIUM [id number] Rei Multani MD esomeprazole 40 mg delayed release oral capsule (3 sources) Proton Pump Inhibitor Start: 08-04-2010 take 1 tablet by mouth once daily NEXIUM 40 MG CPDR One tablet by mouth daily ESOMEPRAZOLE MAGNESIUM [id number] Jaimie Sawyer fish oil (12 sources) Start: 01-28-2014 take 2 tablets by mouth twice daily FISH OIL CAPS ([place]) Two tablets by mouth twice daily OMEGA-3 FATTY ACIDS CAPS [id number] Margarito Deras MD Start: 01-28-2014 End: 09-05-2016 take 2 tablets by mouth twice daily FISH OIL CAPS ([place]) Two tablets by mouth twice daily OMEGA-3 FATTY ACIDS CAPS [id number] Margarito Deras MD Start: 01-18-2013 take 1 tablet by kel th twice daily FISH OIL CAPS One tablet by mouth twice daily OMEGA-3 FATTY ACIDS CAPS [id number] Margarito Deras MD Start: 01-18-2013 End: 01-20-2014 take 1 tablet by mouth twice daily FISH OIL CAPS One tablet by mouth twice daily OMEGA-3 FATTY ACIDS CAPS [id number] Luciana Manzo RN lisinopril 10 mg oral tablet (15 sources) Angiotensin Converting Enzyme Inhibitor Start: 06-28-2011 take 0.5 tablet by mouth twice daily ZESTRIL 10 MG TABS 1/2 tablet by mouth twice daily LISINOPRIL [id number] Margarito Deras MD Start: 06-28-2011 take 1 tablet by kel th twice daily LISINOPRIL 5 MG TABS One tablet by mouth twice daily LISINOPRIL [id number] Margarito Deras MD Start: 08-04-2010 take 1 tablet by kel th twice daily ZESTRIL 10 MG TABS One tablet by mouth twice daily LISINOPRIL [id number] Jaimie Sawyer metoprolol tartrate 25 mg oral tablet (12 sources) beta-Adrenergic Enoc Start: 01-18-2013 take 0.5 tablet by mouth twice daily METOPROLOL TARTRATE 25 MG TABS 1/2 tablet by mouth twice daily METOPROLOL TARTRATE [id number] Cruz Delcid NP Start: 01-18-2013 take 0.5 tablet by m out once daily METOPROLOL TARTRATE 25 MG TABS 1/2 tab po daily METOPROLOL TARTRATE [id number] Margarito Deras MD Start: 08-04-2010 take 1 tablet by kel th twice daily METOPROLOL TARTRATE 25 MG TABS One tablet by mouth twice daily METOPROLOL TARTRATE [id number] Margarito Deras MD 24 hr niacin 1000 mg extended release oral tablet (12 sources) Nicotinic Acid Start: 08-04-2010 End: 09-05-2016 take 1 tablet by mouth once daily NIASPAN 1000 MG CR-TABS One tablet by mouth daily NIACIN (ANTIHYPERLIPIDEMIC) [id number] Margarito Deras MD nitroglycerin 0.4 mg sublingual tablet (3 sources) Nitrate Vasodilator Start: 08-04-2010 NITROSTAT 0.4 MG SUBL 1 tablet under tongue every 5 min up to 3 X NITROGLYCERIN [id number] Jaimie M Digna RANITIDINE HCL TABS (6 sources) Histamine-2 Receptor Antagonist Start: 01-18-2013 take 1 tablet by mouth once daily ZANTAC 75 TABS One tablet by mouth daily RANITIDINE HCL TABS [id number] Margarito Deras MD Start: 01-18-2013 End: 01-20-2014 take 1 tablet by mouth once daily ZANTAC 75 TABS One tablet by mouth daily RANITIDINE HCL TABS [id number] Luciana Manzo RN rivaroxaban 10 mg oral tablet (6 sources) Factor Xa Inhibitor Start: 08-25-2011 End: 01-16-2012 take 1 tablet by mouth once daily XARELTO 10 MG TABS One tablet by mouth daily RIVAROXABAN [id number] Rei Multani MD rosuvastatin calcium 10 mg oral tablet (3 sources) HMG-CoA Reductase Inhibitor Start: 01-18-2013 take 1 tablet by mouth at bedtime CRESTOR 10 MG TABS One tablet by mouth at bedtime. ROSUVASTATIN CALCIUM [id number] Margarito Deras MD Problems Active Problems Problem Classification Problem Date Documented Date Episodic/Chronic Complication of device; implant or graft (9 sources) Arteriosclerosis of coronary artery bypass graft; Translations: [Atherosclerosis of coronary artery bypass graft(s) without angina pectoris] Onset: 08-04-2010 Resolved: 03-04-2016 08-04-2010 Chronic Coronary atherosclerosis and other heart disease (15 sources) Atherosclerotic heart disease of [place] coronary artery without angina pectoris; Translations: [Coronary arteriosclerosis] Onset: 08-04-2010 Resolved: 02-26-2015 03-04-2016 Chronic Disorders of lipid metabolism (3 sources) Hyperlipidemia; Translations: [Hyperlipidemia, unspecified] Onset: 08-04-2010 08-04-2010 Chronic Essential hypertension (3 sources) Hypertensive disorder; Translations: [Essential (primary) hypertension] Onset: 08-04-2010 08-04-2010 Chronic Unclassified (6 sources) Disorder of cardiovascular system; Translations: [Unspecified disorder of circulatory system] Onset: 08-04-2010 Resolved: 02-26-2015 08-04-2010 Chronic Unclassified (3 sources) Long-term drug therapy; Translations: [Other exterminator termite (current) drug therapy] Onset: 08-04-2010 08-04-2010 Past or Other Problems Problem Classification Problem Date Documented Da te Episodic/Chronic Coronary atherosclerosis and other heart disease (9 sources) Presence of aortocoronary bypass graft; Translations: [History of myocardial infarction] Onset: 08-04-2010 03-04-2016 Episodic Results Test Name Value Interpretation Reference Range Facility Office Visiton 03-16-2017 Documentation of current medications (procedure) Done Invalid Interpretation Code [facility] Phone: [phone] Fall risk assessment No Invalid Interpretation Code [facility] Phone: [phone] Lab Report: Lipid Profileon 02-28-2017 Cholesterol 130 mg/dL Invalid Interpretation Code 200 [facility] Phone: [phone] HDL Cholesterol 40 mg/dL Invalid Interpretation Code [facility] Phone: [phone] LDL Cholesterol 66 mg/dL Invalid Interpretation Code 0-130 [facility] Phone: [phone] Triglyceride 119 mg/dL Invalid Interpretation Code [facility] Phone: [phone] very low density lipoproteins 24 mg/dL Invalid Interpretation Code 5-40 [facility] Phone: [phone] Lab Report: Liver Profileon 02-28-2017 Alanine aminotransferase (ALT) 53 U/L Invalid Interpretation Code 12-78 [facility] Phone: [phone] Albumin 3.7 g/dL Invalid Interpretation Code 3.4-5.0 [facility] Work Phone: [phone] Alkaline phosphatase (ALP) 91 U/L Invalid Interpretation Code 45-117 [facility] Work Phone: [phone] Aspartate aminotransferase (AST) 34 U/L Invalid Interpretation Code 15-37 [facility] Work Phone: [phone] Bilirubin (direct) 0.11 mg/dL Invalid Interpretation Code 0.00-0.30 [facility] Work Phone: [phone] Bilirubin (total) 0.60 mg/dL Invalid Interpretation Code 0.20-1.00 [facility] Work Phone: [phone] Globulin 3.3 g/dL Invalid Interpretation Code 2.2-4.2 [facility] Work Phone: [phone] Protein 7.0 g/dL Invalid Interpretation Code 6.4-8.2 [facility] Work Phone: [phone] Office Visiton 09-05-2016 Dietary management education, guidance, and counseling (procedure) yes Invalid Interpretation Code [facility] Work Phone: [phone] Documentation of current medications (procedure) Done Invalid Interpretation Code [facility] Work Phone: [phone] Fall risk assessment No Invalid Interpretation Code [facility] Phone: [phone] Clinical Lists Update: Prelo certified corporate travel executive 09-03-2016 Left ventricular Ejection fraction 55 % Invalid Interpretation Code [facility] Phone: [phone] Office Visiton 03-04-2016 Tobacco use [facility] Former smoker Invalid Interpretation Code [facility] Work Phone: [phone] Replaced Document: Zahiramark E CG Observationson 03-04-2016 EKG QRS axis 35 deg Invalid Interpretation Code [facility] Work Phone: [phone] Interpretation Marked sinus Bradycardia BORDERLINE RHYTHM Invalid Interpretation Code [facility] Work Phone: [phone] P Finley 36 deg Invalid Interpretation Code [facility] Work Phone: [phone] MA Interval 188 ms Invalid Interpretation Code [facility] Work Phone: [phone] Pulse (Heart Rate) 43 /min Invalid Interpretation Code [facility] Work Phone: [phone] QRS Duration 92 ms Invalid Interpretation Code [facility] Work Phone: [phone] QT Interval new path ms Invalid Interpretation Code [facility] Work Phone: [phone] QTc Steele 409 ms Invalid Interpretation Code [facility] Work Phone: [phone] T Finley 38 deg Invalid Interpretation Code [facility] Work Phone: [phone] Chart Maintenanceon 05-19-19 14 Hematocrit (HCT) 36.5 % Low [facility] Work Phone: [phone] Hemoglobin mass conc (Bld) 12.6 g/dL Low [facility] Work Phone: [phone] Replaced Document: Hal BA Observationson 01-18-2013 Pulse (Heart Rate) 424 ms Invalid Interpretation Code [facility] Work Phone: [phone] Clinical Lists Update: Prelo certified corporate travel executive 08-23-2011 Anion gap 8 mmol/L Invalid Interpretation Code [facility] Work Phone: [phone] BUN/Creatinine Ratio 18.9 mg/mg Invalid Interpretation Code [facility] Work Phone: [phone] Calcium 7.2 mg/dL Low [facility] Work Phone: [phone] Chloride 109 mmol/L High [facility] Work Phone: [phone] CO2 24 mmol/L Invalid Interpretation Code [facility] Work Phone: [phone] Creatinine 0.9 mg/dL Invalid Interpretation Code [facility] Work Phone: [phone] Erythrocytes (RBC) 3.6 10*6/uL Low [facility] Work Phone: [phone] Glucose mass conc 120 mg/dL High [facility] Work Phone: [phone] MCH 31.1 pg Invalid Interpretation Code [facility] Work Phone: [phone] MCV 92.1 fL Invalid Interpretation Code [facility] Work Phone: [phone] Platelets 146 10*3/mm3 Low [facility] Work Phone: [phone] Potassium molar conc 3.8 mmol/L Invalid Interpretation Code [facility] Work Phone: [phone] Sodium 141 mmol/L Invalid Interpretation Code [facility] Work Phone: [phone] Urea nitrogen 17 mg/dL Invalid Interpretation Code [facility] Work Phone: [phone] WBC (Leukocytes) 12.4 10*3/uL High [facility] Work Phone: [phone] Vital Signs Date Time Vital Sign Value Performing Clinician Karen vásquez 03-16-2017 13:25-0500 BMI (Body Mass Index) 27.39 kg/m2 [facility] Work Phone: 03-16-2017 13:25-0500 BP Diastolic 70 mm[Hg] [facility] Work Phone: 03-16-2017 13:25-0500 BP Systolic 122 mm[Hg] [facility] Work Phone: 03-16-2017 13:25-0500 Height 182.88 cm [facility] Work Phone: 03-16-2017 13:25-0500 Pulse (Heart Rate) 48 /min [facility] Work Phone: 03-16-2017 13:25-0500 Respiratory Rate 16 /min [facility] Work Phone: 03-16-2017 13:25-0500 Weight 91.63 kg [facility] Work Phone: 09-05-2016 12:45-0400 BMI (Body Mass Index) 27.26 kg/m2 Cruz Delcid NP [facility] Work Phone: 09-05-2016 12:45-0400 BP Diastolic 76 mm[Hg] Cruz Delcid RETURNED GOODS RECEIVING CLERK [facility] Work Phone: 09-05-2016 12:45-0400 BP Systolic 142 mm[Hg] Cruz Delcid RETURNED GOODS RECEIVING CLERK [facility] Work Phone: 09-05-2016 12:45-0400 Height 182.88 cm Cruz Delcid RETURNED GOODS RECEIVING CLERK [facility] Work Phone: 09-05-2016 12:45-0400 Pulse (Heart Rate) 48 /min Cruz Delcid RETURNED GOODS RECEIVING CLERK [facility] Work Phone: 09-05-2016 12:45-0400 Respiratory Rate 18 /min Cruz Delcid RETURNED GOODS RECEIVING CLERK [facility] Work Phone: 09-05-2016 12:45-0400 Weight 91.17 kg Cruz Delcid NP [facility] Work Phone: 03-04-2016 10:03-0500 BSA (Body Surface Area) 2.1 m2 Cruz Delcid NP [facility] Work Phone: 03-04-2016 10:03-0500 Pulse Oximetry 98 % Cruz Delcid NP [facility] Work Phone: Procedures Date Procedure Procedure Detail Performing Clinician Start: 03-16-2017 End: 03-16-2017 SAUD Deras MD Work Phone: Start: 03-16-2017 End: 03-16-2017 Follow Up Appt 6 months Margarito Deras MD Work Phone: Start: 01-26-2017 End: 02-28-2017 *Hepatic Function Panel Margarito Deras MD Work Phone: Start: 01-26-2017 End: 02-28-2017 Lipid 1996 panel - Serum or Plasma Margarito Deras MD Work Phone: Start: 09-05-2016 End: 09-05-2016 SAUD Deras MD Work Phone: Start: 09-05-2016 End: 09-05-2016 Follow Up Appt 6 months Margarito Deras MD Work Phone: Start: 07-27-2016 End: 07-27-2016 *Hepatic Function Panel Margarito Deras MD Work Phone: Start: 07-27-2016 End: 07-27-2016 Lipid 1996 panel - Serum or Plasma Margarito Deras MD Work Phone: Start: 03-04-2016 End: 03-04-2016 SAUD Deras MD Work Phone: Start: 03-04-2016 End: 03-04-2016 Follow Up Appt 6 months Margarito Deras MD Work Phone: Start: 08-28-2015 End: 02-29-2016 *Hepatic Function Panel Margarito Deras MD Work Phone: Start: 08-28-2015 End: 02-29-2016 Lipid 1996 panel - Serum or Plasma Margarito Deras MD Work Phone: Start: 03-02-2015 End: 03-02-2015 MANDYN Margarito Deras MD Work Phone: Start: 03-02-2015 End: 03-02-2015 Follow Up Appt 1 year Soraida Carrington Work Phone: Start: 02-27-2015 End: 02-27-2015 *Hepatic Function Panel Margarito Deras MD Work Phone: Start: 02-27-2015 End: 02-27-2015 Lipid 1996 panel - Serum or Plasma Margarito Deras MD Work Phone: Start: 01-28-2014 End: 01-28-2014 *Hepatic Function Panel Margarito Deras MD Work Phone: Start: 01-28-2014 End: 01-28-2014 SAUD Deras MD Work Phone: Start: 01-28-2014 End: 01-28-2014 Follow Up Appt 1 year Soraida Carrington Work Phone: Start: 01-28-2014 End: 01-28-2014 Lipid 1996 panel - Serum or Plasma Margarito Deras MD Work Phone: Start: 01-28-2014 End: 03-05-2014 Stress Echocardiogram (treadmill) Margarito Deras MD Work Phone: Start: 01-27-2014 End: 01-28-2014 *Hepatic Function Panel Margarito Deras MD Work Phone: Start: 01-27-2014 End: 01-28-2014 Lipid 1996 panel - Serum or Plasma Margarito Deras MD Work Phone: Start: 04-01-2013 End: 01-27-2014 *Hepatic Function Panel Margarito Deras MD Work Phone: Start: 04-01-2013 End: 01-27-2014 Lipid 1996 panel - Serum or Plasma Margarito Deras MD Work Phone: Start: 01-18-2013 End: 01-18-2013 DJN Margarito Deras MD Work Phone: Start: 01-18-2013 End: 01-18-2013 Follow Up Appt 1 year Soraida Carrington Work Phone: Start: 01-07-2013 End: 01-07-2013 *Hepatic Function Panel Rie lay MD Start: 07-18-2012 End: 01-07-2013 *Hepatic Function Panel Rei lay MD Start: 07-18-2012 End: 01-07-2013 Lipid 1996 panel - Serum or Plasma Rei Multani MD Start: 07-13-2012 End: 07-13-2012 eRx Transmitted during this visit (Medicare only) Rei Multani MD Start: 07-13-2012 End: 01-08-2013 Follow Up Appt 6 months Rei lay MD Start: 01-16-2012 End: 01-16-2012 eRx Transmitted during this visit (Medicare only) Rei Multani MD Start: 01-16-2012 End: 01-16-2012 Follow Up Appt 6 months Rei lay MD Start: 01-16-2012 End: 01-19-2012 Nuclear stress test -exercise Rei Multani MD Start: 12-21-2011 End: 01-15-2012 *Hepatic Function Panel Rei lay MD Start: 12-21-2011 End: 01-15-2012 Lipid 1996 panel - Serum or Plasma Rei Multani MD Start: 06-28-2011 End: 06-28-2011 Ecg routine ecg w/least 12 lds w/i&r Rei Multani MD Start: 06-28-2011 End: 06-28-2011 Follow Up Appt 6 months Rei lay MD Plan of Treatment Date Care Activity Detail Author Start: 10-09-2017 End: 10-09-2017 Appointment Appointment [facility] Work Phone: Start: 08-28-2017 End: 03-02-2017 *Hepatic Function Panel *Hepatic Function Panel [facility] Work Phone: Start: 08-28-2017 End: 03-02-2017 Lipid panel [AGGREGATE] *Lipid Profile CC PCP [facility] Work Phone: Start: 03-16-2017 End: 03-16-2017 Appointment Appointment [facility] Work Phone: Start: 03-16-2017 End: 03-16-2017 SAUD VILLAVICENCIO [facility] Work Phone: Start: 03-16-2017 End: 03-16-2017 Follow Up Appt 6 months Follow Up Appt 6 months [facility] Work Phone: Start: 01-26-2017 End: 02-28-2017 *Hepatic Function Panel *Hepatic Function Panel [facility] Work Phone: Start: 01-26-2017 End: 02-28-2017 Lipid panel [AGGREGATE] *Lipid Profile CC PCP [facility] Work Phone: Start: 09-05-2016 End: 09-05-2016 SAUD VILLAVICENCIO [facility] Work Phone: Start: 09-05-2016 End: 09-05-2016 Follow Up Appt 6 months Follow Up Appt 6 months [facility] Work Phone: Start: 07-27-2016 End: 07-27-2016 *Hepatic Function Panel *Hepatic Function Panel [facility] Work Phone: Start: 07-27-2016 End: 07-27-2016 Lipid panel [AGGREGATE] *Lipid Profile CC PCP [facility] Work Phone: Start: 03-04-2016 End: 03-04-2016 DJN DJN [facility] Work Phone: Start: 03-04-2016 End: 03-04-2016 Follow Up Appt 6 months Follow Up Appt 6 months [facility] Work Phone: Start: 08-28-2015 End: 02-29-2016 *Hepatic Function Panel *Hepatic Function Panel [facility] Work Phone: Start: 08-28-2015 End: 02-29-2016 Lipid panel [AGGREGATE] *Lipid Profile CC PCP [facility] Work Phone: Start: 03-02-2015 End: 03-02-2015 DJN MANDYN [facility] Work Phone: Start: 03-02-2015 End: 03-02-2015 Follow Up Appt 1 year Follow Up Appt 1 year [facility] Work Phone: Start: 02-27-2015 End: 02-27-2015 *Hepatic Function Panel *Hepatic Function Panel [facility] Work Phone: Start: 02-27-2015 End: 02-27-2015 Lipid panel [AGGREGATE] *Lipid Profile CC PCP [facility] Work Phone: Start: 01-28-2014 End: 01-28-2014 *Hepatic Function Panel *Hepatic Function Panel [facility] Work Phone: Start: 01-28-2014 End: 01-28-2014 DJN DJN [facility] Work Phone: Start: 01-28-2014 End: 01-28-2014 Follow Up Appt 1 year Follow Up Appt 1 year [facility] Work Phone: Start: 01-28-2014 End: 01-28-2014 Lipid panel [AGGREGATE] *Lipid Profile CC PCP [facility] Work Phone: Start: 01-28-2014 End: 01-28-2014 Stress Echocardiogram (treadmill) Stress Echocardiogram (treadmill) [facility] Work Phone: Start: 01-27-2014 End: 01-28-2014 *Hepatic Function Panel *Hepatic Function Panel [facility] Work Phone: Start: 01-27-2014 End: 01-28-2014 Lipid panel [AGGREGATE] *Lipid Profile CC PCP [facility] Work Phone: Start: 04-01-2013 End: 01-27-2014 *Hepatic Function Panel *Hepatic Function Panel [facility] Work Phone: Start: 04-01-2013 End: 01-27-2014 Lipid panel [AGGREGATE] *Lipid Profile CC PCP [facility] Work Phone: Start: 01-18-2013 End: 01-18-2013 DJN DJN [facility] Work Phone: Start: 01-18-2013 End: 01-18-2013 Follow Up Appt 1 year Follow Up Appt 1 year [facility] Work Phone: Start: 01-09-2013 End: 01-07-2013 *Hepatic Function Panel *Hepatic Function Panel [facility] Work Phone: Start: 07-18-2012 End: 01-07-2013 *Hepatic Function Panel *Hepatic Function Panel [facility] Work Phone: Start: 07-18-2012 End: 01-07-2013 Lipid panel [AGGREGATE] *Lipid Profile [facility] Work Phone: Start: 07-13-2012 End: 07-13-2012 Follow Up Appt 6 months Follow Up Appt 6 months [facility] Work Phone: Start: 01-16-2012 End: 01-16-2012 Follow Up Appt 6 months Follow Up Appt 6 months [facility] Work Phone: Start: 01-16-2012 End: 01-16-2012 Nuclear stress test -exercise Nuclear stress test -exercise [facility] Phone: Start: 12-21-2011 End: 01-15-2012 *Hepatic Function Panel *Hepatic Function Panel [facility] Phone: Start: 12-21-2011 End: 01-15-2012 Lipid panel [AGGREGATE] *Lipid Profile [facility] Phone: Start: 06-28-2011 End: 06-28-2011 Ecg routine ecg w/least 12 lds w/i&r EKG (In office) [facility] Phone: Start: 06-28-2011 End: 06-28-2011 Follow Up Appt 6 months Follow Up Appt 6 months [facility] Phone: Patient Education HYPERLIPIDEMIA , HYPERTENSION, CHOLESTEROL%20AND%20YOUR% 20HEALTH, HYPERLIPIDEMIA [facility] Phone: Additional Source Comments FOR RECORDS PERTAINING TO PATIENTS WHO ARE OR HAVE BEEN ENROLLED IN A CHEMICAL DEPENDENCY/SUBSTANCEABUSE PROGRAM, SOME INFORMATION MAY BE OMITTED. This clinical summary was aggregated from multiple sources. Caution should be exercised in using it in the provision of clinical care. This summary normalizes information from multiple sources, and as a consequence, information in this document may materially change the coding, format and clinical context of patient data. In addition, data may be omitted in some cases. CLINICAL DECISIONS SHOULD BE BASED ON THE PRIMARY CLINICAL RECORDS. [employer] provides no warranty or guarantee of the accuracy or completeness of information in this document.
--- NOTE | 2024-02-12 10:25 | US_ITS ---
STUDY: ULTRASOUND BREAST - LEFT REASON FOR EXAM: Male, 78 years old. Pain in the left breast. TECHNIQUE: Axial and longitudinal images of the LEFT breast were performed with a high resolution ultrasound transducer. # OF IMAGES: 28 COMPARISON: Comparison is made with prior mammogram done earlier today. FINDINGS: LEFT Breast: There is evidence of retroareolar glandular tissue more prominent than on the right side. This is suggestive of gynecomastia. US/Breast Limited Unilateral IMPRESSION: Findings suggestive of asymmetrical gynecomastia more prominent in the left breast. ASSESSMENT CATEGORY: BIRADS Category 2: Benign. A letter regarding these results will be sent to the patient by the facility within 30 days. Electronically Signed: Gm Helton MD at 15:13 EDT ,
== END | disposition home or self-care (01) ==
LOC: OPBI 09:06
PROVIDERS: PCP Family Medicine; Referring Provider Family Medicine; Visit Provider Family Medicine
DX: N64.4 Mastodynia (principal)
CPT/HCPCS: 76642; 77062; 77066; G0279

== ENCOUNTER → 2024-09-06 | Outpatient (CLI) | payer MEDICARE, OTHER, SELFPAY ==
--- NOTE | 2024-09-06 11:01 | RAD_ITS ---
EXAM: XR Right Shoulder Complete, 2 or More Views CLINICAL INDICATION: PAIN TECHNIQUE: Two or more views of the right shoulder. COMPARISON: No relevant prior studies available. FINDINGS: BONES/JOINTS: Mild degenerative change of the acromioclavicular and glenohumeral joints. No acute fracture. No dislocation. SOFT TISSUES: Unremarkable. RAD/Shoulder min 2 Views IMPRESSION: No acute fracture. Reading Location: [facility]
== END | disposition home or self-care (01) ==
LOC: MTRAD 10:59
PROVIDERS: PCP Family Medicine; Referring Provider Family Medicine; Visit Provider Family Medicine
DX: M25.519 Pain in unspecified shoulder (principal)
CPT/HCPCS: 73030

== ENCOUNTER 2024-12-08 17:24 | Emergency (ER) | payer MEDICARE, OTHER, SELFPAY ==
[2024-12-08] VITALS (9 sets, daily range): BP systolic 139–175; BP diastolic 65–78; PULSE 36–57; RESP 11–19; TEMP 36.8; O2SAT 97–100; BMI 27.6
--- NOTE | 2024-12-08 17:56 | EKG12_ITS ---
Test Reason : SOB Blood Pressure : */* mmHG Vent. Rate : 44 BPM Atrial Rate : 44 BPM P-R Int : 202 ms QRS Dur : 76 ms QT Int : 464 ms P-R-T Axes : 45 44 73 degrees QTcB Int : 396 ms Marked sinus bradycardia with sinus arrhythmia Abnormal ECG Confirmed by SHIVANI SCHAEFER MD ([id number]), video editor DACIA ARMSTRONG ([id number]) on 12/09/2024 1:10:16 PM Referred By: DARLIN Confirmed By: SHIVANI SCHAEFER MD
--- NOTE | 2024-12-08 17:56 | RAD_ITS ---
PROCEDURE: CHEST PA AND LATERAL 12/08/2024 REASON FOR EXAM: CHEST PAIN TECHNIQUE: CHEST PA AND LATERAL FINDINGS: Hardware: Lower most sternal wire appears fracture Heart: Normal size Mediastinum: Normal contours Lungs: Clear and expanded Bones: No aggressive process RAD/Chest PA and Lateral IMPRESSION: No acute process detected. Broken sternal wire. Reading [facility]
[2024-12-08 17:57] LABS: Hematocrit 37.4 % (40-54); Hemoglobin 12.4 g/dL (13.0-16.5); Immature Granulocytes Count 0.020 X10^3/uL (0.0-0.0); Mean Corp Hgb Conc 33.2 g/dL (32-36); Mean Corpuscular Volume 89.9 fL (80-94); Mean Platelet Vol. 10.2 fl (6.2-12.0); NRBC Flagged by Analyzer 0 % (0-5); Platelet Count 197 K/mm3 (150-450); RBC Distribution Width CV 14.7 % (11.6-14.6); RBC Distribution Width SD 48.4 fl (35.1-43.9); Red Blood Count 4.16 M/mm3 (4.6-6.2); White Blood Count 7.0 K/mm3 (4.4-11.0)
[2024-12-08 18:07] LABS: Anion Gap 10 (5-15); BUN 23 mg/dL (4-19); BUN/Creat Ratio 19.7 RATIO (10-20); Calcium,Total 9.5 mg/dL (7.6-11.0); Carbon Dioxide 27.3 mmol/L (21.0-32.0); Chloride 105 mmol/L (98-108); Estimated Creatinine Clearance 54.53 ml/min (50-250); Glucose 120 mg/dL (70-99); Potassium 4.4 mmol/L (3.3-5.1); Troponin T High Sensitivity 12 ng/L (<=22)
[2024-12-08] MEDS: 0.9% Normal Saline (1000mL) 1,000 ML 999 ML IV (18:14)
--- NOTE | 2024-12-08 18:52 | EX.ED.DYSGE1 ---
HPI History of Present Illness Chief Complaint: Shortness of Breath Narrative Narrative: Patient is a 79-year-old male past medical history of cholesteremia, hypertension,, hyperlipidemia, peripheral vascular disease, venous insufficiency, GERD, COPD, CAD who presents to the emergency department chief complaint shortness of breath. Patient states that he has had shortness of breath for months now. He states that he recently followed up with cardiology and Dr. Anderson for the first time. He states that he believes he had a stress test about 2 years ago maybe less and states this was normal. He states that he does not have any stents in his heart. Patient denies any recent travel denies any history of blood clots. When asked what changed today he states that he is constantly fatigued and he did some [place] of tomatoes yesterday and notes that today when he went downstairs and upstairs he was very short of breath. Family member at bedside noted that when asked if he wanted to come to the emergency department he said yes they took the opportunity and brought him here to be further evaluated. 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, left shoulder Internal impingement of left shoulder Bilateral carotid bruits Pneumonia Dyspnea on exertion Lower GI bleed 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 Atherosclerosis of coronary artery of [place] heart without angina pectoris Hypertension Hyperlipemia Home Medications ?Medication ?Instructions ?Recorded ?Last Taken ?Type aspirin 81 mg tablet,delayed 81 mg PO DAILY@0800 [facility] 08/21/18 11/01/22 06:00 History release omega-3 fatty acids-fish oil 360 1 cap PO DAILY 10/10/22 Unknown History mg-1,200 mg capsule (Fish Oil) losartan 25 mg tablet 25 mg PO DAILY #90 tabs 05/29/23 Unknown Rx clopidogrel 75 mg tablet (Plavix) 75 mg PO DAILY #90 tabs 05/06/24 Unknown Rx atorvastatin 80 mg tablet (Lipitor) 80 mg PO DAILY #90 tabs 08/27/24 Unknown Rx famotidine 20 mg tablet 20 mg PO DAILY #90 tabs 09/25/24 Unknown Rx Allergy/AdvReac Type Severity Reaction Status Date / Time amlodipine AdvReac Swelling Verified 12/08/24 17:24 Family History Father CAD (coronary artery disease) Surgical History History of left heart catheterization (06/19/19) repair of renal artery aneurysm History of total left knee replacement (TKR) H/O colonoscopy with polypectomy H/O coronary artery bypass surgery (04/13/07) Social History Smoking Status: Former smoker pack-years: 40 how long ago did patient quit smokin years ago alcohol intake: never substance use type: does not use caffeine: Yes Type: carbonated beverages Number of servings: 6 ROS ROS ED ROS Narrative Constitutional: Denies any fevers, chills, headaches Eyes: Has double vision Cardiovascular: Denies chest pain or palpitations Respiratory: Complains shortness of breath as noted above denies coughing Abdomen: Denies nausea vomiting : Denies urinary symptoms Neurological: Complains of generalized weakness denies numbness or tingling Musculoskeletal: Denies back pain Skin: Denies any rashes or lesions EXAM Physical Exam Narrative Exam Narrative: General: Patient was lying in bed rest comfortably did not appear to be acute distress Head: Atraumatic, normocephalic Eyes: PERRL bilaterally, EOMI bilateral, no conjunctival injection noted Neck: Soft, supple, trachea midline Cardiovascular: Patient bradycardic with a regular rhythm Respiratory: Clear to auscultation bilaterally Abdomen: Soft, nondistended, nontender to palpation Extremities: +5/5 strength noted in the bilateral upper and lower extremities, radial pulses +2/4 in the bilateral extremities Neurological: Patient follow commands knew that he was at [facility] years 2024. NIH is 0 GCS 15 Skin: Warm, dry, intact no rashes lesions noted Const Vital Signs: 12/08/24 17:25 12/08/24 18:15 12/08/24 18:15 Temperature 98.2 F Temperature Source Oral Pulse Rate 51 L Respiratory Rate 18 18 Respiratory Effort Respiratory Depth Respiratory Pattern Blood Pressure 139/71 H Blood Pressure Mean 93 Pulse Ox 98 97 Oxygen Delivery Method Room Air Room Air Room Air 12/08/24 18:24 12/08/24 18:26 12/08/24 19:00 Temperature Temperature Source Pulse Rate 39 L 36 L Respiratory Rate 16 17 Respiratory Effort Normal Non-Labored Respiratory Depth Normal Respiratory Pattern Normal Blood Pressure 140/71 H Blood Pressure Mean 94 Pulse Ox 99 98 Oxygen Delivery Method Room Air Room Air Room Air 12/08/24 20:00 12/08/24 21:00 12/08/24 22:02 Temperature 98.2 F Temperature Source Pulse Rate 47 L 48 L 57 L Respiratory Rate 19 H 11 L 16 Respiratory Effort Respiratory Depth Respiratory Pattern Blood Pressure 153/65 H 175/78 H 173/73 H Blood Pressure Mean 94 110 106 Pulse Ox 100 100 100 Oxygen Delivery Method Room Air Room Air MDM MDM MDM Narrative Medical decision making narrative: Patient is a 79-year-old male who presented to the emergency department the chief complaint of shortness of breath. Once again this has been going on for months. On the differential diagnosis includes but limited to pneumothorax, CHF, ACS, pneumonia, pneumothorax. Once the workup is obtained reviewed he will be reevaluated. Patient CBC reviewed showed no evidence leukocytosis white blood count normal 7, hemoglobin 12.4, platelet count was noted be 197. Patient sodium is 142, potassium 4.4, creatinine was 1.17. Patient's troponin was 12 with a delta troponin of 12. Patient proBNP normal at 221. Patient TSH normal 1.21, free T4 and T3 was noted to be 0.70 and 2.2 respectively. Patient's chest x-ray reviewed by myself and by radiology showed no acute cardiopulmonary processes. Patient's EKG was reviewed and showed sinus bradycardia with a rate of 44 bpm. Patient ambulated well here in the emergency department no hypoxia and felt at his baseline. While waiting for me to go back and discussed the results with him and his family member per nursing they got up and left the emergency department prior to further discussion. Lab Data Labs: Laboratory Results - last 24 hr 12/08/24 12/08/24 17:30 19:30 WBC 7.0 RBC 4.16 L Hgb 12.4 L Hct 37.4 L MCV 89.9 MCH 29.8 MCHC 33.2 RDW Std Deviation 48.4 H RDW Coeff of Juan Ramon 14.7 H Plt Count 197 MPV 10.2 Immature Gran % (Auto) 0.300 Neut % (Auto) 66.0 Lymph % (Auto) 22.5 [place] % (Auto) 8.6 Eos % (Auto) 2.2 Baso % (Auto) 0.4 Absolute Neuts (auto) 4.6 Absolute Lymphs (auto) 1.57 Nucleated RBC % 0 Sodium 142 Potassium 4.4 Chloride 105 Carbon Dioxide 27.3 Anion Gap 10 BUN 23 H Creatinine 1.17 Estim Creat Clear Calc 54.53 Est GFR (MDRD) Non-Af 63 BUN/Creatinine Ratio 19.7 Glucose 120 H Calcium 9.5 Troponin T High Sens 12 Troponin T Hi Sens 2 Hr 12 NT pro BNP II 221 TSH 1.210 Free T4 0.70 L Free T3 pg/dL 2.2 Radiography Diagnostic Testing: Clinical Impression(s) from Imaging Studies Chest X-Ray 12/08/24 17:56 IMPRESSION: No acute process detected. Broken sternal wire. Reading [facility] Triage Chief Complaint: Shortness of Breath ED Provider: Delbert Roblero Dx/Rx/DC Orders Clinical Impression: Shortness of breath, Fatigue, Peripheral vascular disease, Generalized weakness Prescriptions: No Action omega-3 fatty acids-fish oil [Fish Oil] 360-1,200 mg capsule 1 cap PO DAILY aspirin 81 MG tablet 81 mg PO DAILY@0800 losartan 25 mg tablet 25 mg PO DAILY Qty: 90 3RF clopidogrel [Plavix] 75 mg tablet 75 mg PO DAILY Qty: 90 3RF atorvastatin [Lipitor] 80 mg tablet 80 mg PO DAILY Qty: 90 3RF famotidine 20 mg tablet 20 mg PO DAILY Qty: 90 3RF Primary Care Provider: Gabe Rodriguez Referrals: Gabe Rodriguez MD [Primary Care Provider] - Print Language: Upper Sorbian Disposition Disposition: Elopement Discharge Date/Time: 12/08/24 22:10
--- OUTSIDE RECORDS SUMMARY | 2024-12-08 19:04 | XMS RPT_ITS | CCD ---
Author Organization [facility]iniSyma Care Team Providers Care Change House Attendant Name Role Phone Hiwot Wen Unavailable Unavailable Eden Bruner Unavailable Unavailable Roof COGNOS DEVELOPER, Cruz Rand Unavailable Dr. Gabe Rodriguez Primary Care Provider Dr. Gabe Rodriguez Referring Provider NIRAV King Attending Provider Dr. Gabe Rordiguez Primary Care Provider Dr. Gabe Rodriguez Referring Provider NIRAV King Attending Provider Dr. Gabe Rodriguez Primary Care Provider Dr. Gabe Rodriguez Referring Provider MD Morales Lockett Attending Provider Dr. Gabe Rodriguez Primary Care Provider Dr. Gabe Rodriguez Referring Provider Dr. Carlos Alberto Jensen Attending Provider NIRAV King Attending Provider NIRAV King Referring Provider Dr. Carlos Alberto Jensen Other Provider NIRAV Farris Attending Provider [phone] Gabe Rodriguez Primary Care Provider Dr. Gabe Rodriguez Referring Provider NIRAV Farris Attending Provider [phone] NIRAV King Attending Provider Dr Michael. Gabe Primary Care Provider [phone] Butch, Dr. Gonzalez Attending Provider [phone] Dr. Carlos Alberto Jensen Attending Provider Dr. Deedee Oleary Referring Provider Michael, Dr. Bernal Primary Care Provider [phone] Michael, Dr. Bernal Referring Provider Butch, Dr. Gonzalez Attending Provider [phone] Michael CHRISTENSEN, Dr. Bernal Primary Care Provider Michael CHRISTENSEN, Dr. Bernal Referring Provider Monica CHRISTENSEN, Dr. Garcia Attending Provider Michael CHIRSTENSEN, Dr. Bernal Attending Provider Ander MCGOWAN, Natividad Quigley Consulting Unavail able Ander MCGOWAN, Natividad Quigley Referring Unavail able Rodriguez, Gabe Primary Care Unavailable Carlos Rae Attending Unavailable Rodriguez, Gabe Referring Unavailable Rodriguez, Gabe Primary Care Unavailable Rodriguez, Gabe Attending Unavailable Rodriguez, Gabe Primary Care Unavailable Rodriguez, Gaeb Attending Unavailable Rodriguez, Gabe Referring Unavailable Ander MCGOWAN, Natividad Quigley Attending Unavail able Ander MCGOWAN, Natividad Quigley Referring Unavail able Rodriguez, Gabe Primary Care Unavailable Rodriguez, Gabe Referring Unavailable Rodriguez, Gabe Primary Care Unavailable Jose Bhat Attending Unavailable Rodriguez, Gabe Referring Unavailable Rodriguez, Gabe Primary Care Unavailable Rodriguez, Gabe Attending Unavailable Sharyn Griggs Attending Unavailable Rodriguez, Gabe Primary Care Unavailable Rodriguez, Gabe Referring Unavailable Rodriguez, Gabe Primary Care Unavailable Jose Bhat Attending Unavailable Rodriguez, Gabe Primary Care Unavailable Jose Anderson Attending Unavailable Rodriguez, Gabe Referring Unavailable Rodriguez, Gabe Primary Care Unavailable Jose Anderson Attending Unavailable Rodriguez, Gabe Referring Unavailable Rodriguez, Gabe Primary Care Unavailable Fawad PALMER, Ele Attending Unavailable Allergies Allergy Classification Reported Allergen(s) Allergy Type Date of Onset Reaction(s) Facility (1 source) amLODIPine Drug Allergy 06-28-2024 [facility] (1 source) amLODIPine Drug Allergy 06-28-2024 [facility] Repository Medications Current Medications Medication Drug Class(es) Dates Sig (Normalized) Sig (Original) aspirin 81 mg delayed release oral tablet (20 sources) Nonsteroidal Anti-inflammatory Drug Start: 08-21-2018 take 1 tablet by mouth once daily Aspirin 81 MG tablet Active 81 mg PO DAILY@0800 August 21, 2018 12:00am Start: 01-28-2014 take 1 tablet by kel th once daily ASPIRIN 81 MG TABS One tablet by mouth daily ASPIRIN [id number] Margarito Deras MD Start: 01-28-2014 take 1 tablet by kel th once daily ASPIRIN EC 81 MG TBEC One tablet by mouth daily ASPIRIN [id number] Annette Mahmood RN Start: 05-25-2013 End: 05-27-2013 take 1 tablet by mouth once daily Aspirin 81 MG tablet Discontinued 81 mg PO DAILY@00 May 25, 2013 1:00am May 27, 2013 2:47pm Start: 08-25-2011 End: 01-20-2014 take 1 tablet by mouth once daily ASPIRIN 81 MG TABS One tablet by mouth daily ASPIRIN [id number] Margarito Deras MD Start: 08-04-2010 take 1 tablet by kel th twice daily ASPIRIN 81 MG TABS One tablet by mouth twice daily before Niacin ASPIRIN [id number] Jaimie Sawyer atorvastatin 80 mg oral tablet (20 sources) HMG-CoA Reductase Inhibitor Start: 10-10-2022 End: 08-27-2024 take 1 tablet by mouth once daily Atorvastatin (Lipitor) 80 mg tablet Active 80 mg PO DAILY August 27, 2024 11:51am Start: 06-28-2021 End: 10-10-2022 take 1 tablet by mouth at bedtime Atorvastatin 40 mg tablet Discontinued 40 mg PO AT BEDTIME July 20, 2022 10:50am October 10, 2022 7:20am Start: 06-08-2020 End: 06-28-2021 Atorvastatin 80 mg tablet Discontinued 40 mg PO AT BEDTIME June 08, 2020 12:12pm June 28, 2021 3:25pm Start: 06-08-2020 End: 06-28-2021 take 40 mg by mouth at bedtime Atorvastatin Discontinu ed 40 MG PO AT BEDTIME June 08, 2020 12:12pm June 28, 2021 3:25pm Start: 05-21-2018 End: 06-08-2020 take 1 tablet by mouth at bedtime Atorvastatin 80 mg tablet Discontinued 80 mg PO AT BEDTIME December 11, 2019 5:02pm June 08, 2020 12:12pm Start: 11-10-2017 End: 05-21-2018 Atorvastatin 80 mg tablet Discontinued 40 mg PO AT BEDTIME November 10, 2017 2:17pm May 21, 2018 2:44pm Start: 11-10-2017 End: 05-21-2018 take 40 mg by mouth at bedtime Atorvastatin Discontinu ed 40 MG PO AT BEDTIME November 10, 2017 2:17pm May 21, 2018 2:44pm Start: 08-04-2010 End: 11-10-2017 take 1 tablet by mouth at bedtime Atorvastatin 80 MG tablet Discontinued 80 mg PO AT BEDTIME May 25, 2013 1:00am November 10, 2017 2:23pm clopidogrel 75 mg oral tablet (20 sources) [id number] Platelet Inhibitor Start: 06-11-2019 End: 05-06-2024 take 1 tablet by mouth once daily Clopidogrel (Plavix) 75 mg tablet Active 75 mg PO DAILY May 06, 2024 12:30pm docosahexaenoic acid 144 mg / eicosapentaenoic acid 216 mg / vitamin e 2 unt oral capsule (9 sources) Start: 10-10-2022 [place]-3 Fatty Acids-Fish Oil (Fish Oil) 360-1,200 mg capsule Active 1 NMA PO DAILY October 10, 2022 12:00am famotidine 20 mg oral tablet (20 sources) Histamine-2 Receptor Antagonist Start: 11-01-2022 End: 06-28-2024 take 1 tablet by mouth once daily Famotidine 20 mg tablet Active 20 mg PO DAILY June 28, 2024 10:24am Start: 07-16-2019 End: 10-10-2022 take 1 tablet by mouth once daily as needed Famotidine 20 mg tablet Discontinued 20 mg PO DAILY as needed August 06, 2021 2:25pm October 10, 2022 7:20am losartan potassium 25 mg oral tablet (20 sources) Angiotensin 2 Receptor Enoc Start: 10-10-2022 End: 05-29-2023 take 1 tablet by mouth once daily Losartan 25 mg tablet Active 25 mg PO DAILY May 29, 2023 3:35pm Start: 04-23-2021 End: 10-10-2022 take 1 tablet by mouth once daily Losartan 100 mg tablet Discontinued 100 mg PO DAILY May 17, 2022 1:08pm October 10, 2022 7:20am Completed/Discontinued Medications Medication Drug Class(es) Dates Sig (Normalized) Sig (Original) acetaminophen 500 mg oral tablet (13 sources) Start: 08-27-2018 End: 07-16-2019 take 2 tablets by mouth every eight hours Acetaminophen 500 MG tablet Discontinued 1000 mg PO EVERY 8 HOURS August 27, 2018 12:00am July 16, 2019 11:01am Start: 08-27-2018 End: 07-16-2019 take 1000 mg by mouth every eight hours Acetaminophen Discontinued 1000 MG PO EVERY 8 HOURS August 27, 2018 12:00am July 16, 2019 11:01am amLODIPine 10 mg oral tablet (20 sources) Dihydropyridine Calcium Channel Enoc Start: 10-10-2022 End: 06-28-2024 take 1 tablet by mouth once daily Amlodipine 10 mg tablet Discontinued 10 mg PO DAILY May 29, 2023 3:35pm June 28, 2024 10:21am On Hold: PER DR ORDERS Start: 07-22-2019 End: 10-10-2022 take 1 tablet by mouth once daily Amlodipine 2.5 mg tablet Discontinued 2.5 mg PO DAILY May 11, 2022 10:26am October 10, 2022 7:20am esomeprazole 40 mg delayed release oral capsule (3 sources) Proton Pump Inhibitor Start: 08-04-2010 take 1 tablet by mouth once daily NEXIUM 40 MG CPDR One tablet by mouth daily ESOMEPRAZOLE MAGNESIUM [id number] Jaimie Sawyer fish oil (12 sources) Start: 01-28-2014 take 2 tablets by mouth twice daily FISH OIL CAPS ([place]) Two tablets by mouth twice daily OMEGA-3 FATTY ACIDS CAPS [id number] Margarito Deras MD Start: 01-28-2014 End: 09-05-2016 take 2 tablets by mouth twice daily FISH OIL CAPS ([place]) Two tablets by mouth twice daily OMEGA-3 FATTY ACIDS CAPS [id number] Margarito Deras MD Start: 01-18-2013 take 1 tablet by kel twice daily FISH OIL CAPS One tablet by mouth twice daily OMEGA-3 FATTY ACIDS CAPS [id number] Margarito Deras MD Start: 01-18-2013 End: 01-20-2014 take 1 tablet by mouth twice daily FISH OIL CAPS One tablet by mouth twice daily OMEGA-3 FATTY ACIDS CAPS [id number] Luciana Manzo RN hydroCHLOROthiazide 25 mg oral tablet (20 sources) Thiazide Diuretic Start: 04-23-2021 End: 03-06-2023 take 1 tablet by mouth once daily Hydrochlorothiazide 25 mg tablet Discontinued 25 mg PO DAILY May 11, 2022 1:37pm October 10, 2022 7:20am hydroCHLOROthiazide 25 mg / losartan potassium 100 mg oral tablet (20 sources) Thiazide Diuretic, Angiotensin 2 Receptor Enoc Start: 07-01-2019 End: 04-23-2021 Losartan-Hydrochlorothi azide 100-25 mg tablet Discontinued 1 {tbl} PO DAILY December 07, 2020 9:28am April 23, 2021 9:39am Start: 07-01-2019 End: 04-23-2021 take 1 tablet by mouth once daily Losartan-Hydrochlorothiazide Discontinue d 1 TABLET PO DAILY July 06, 2020 1:31pm December 07, 2020 8:28am Start: 06-19-2019 End: 07-01-2019 Losartan-Hydrochlorothiazide 50-12.5 mg tablet Discontinued 1 {tbl} PO DAILY June 19, 2019 1:00am July 01, 2019 1:43pm Start: 06-19-2019 End: 07-01-2019 take 1 tablet by mouth once daily Losartan-Hydrochlorothiazide Discontinue d 1 TABLET PO DAILY June 19, 2019 1:00am July 01, 2019 1:43pm lisinopril 10 mg oral tablet (20 sources) Angiotensin Converting Enzyme Inhibitor Start: 10-10-2022 End: 10-10-2022 take 1 tablet by mouth once daily Lisinopril 10 mg tablet Discontinued 10 mg PO DAILY October 10, 2022 12:00am October 10, 2022 7:31am Start: 06-12-2019 End: 06-19-2019 take 1 tablet by mouth twice daily Lisinopril 10 mg tablet Discontinued 10 mg PO TWICE A DAY June 12, 2019 2:14pm June 19, 2019 11:02am Start: 06-03-2019 End: 06-12-2019 take 1 tablet by mouth once daily Lisinopril 10 mg tablet Discontinued 10 mg PO DAILY June 03, 2019 1:00am June 12, 2019 2:15pm Start: 10-09-2017 End: 06-03-2019 take 1 tablet by mouth once daily Lisinopril 5 mg tablet Discontinued 5 mg PO DAILY November 06, 2018 12:55pm June 03, 2019 4:03pm Start: 05-25-2013 End: 10-09-2017 take 5 mg by mouth twice daily Lisinopril 10 MG tablet Discontinued 5 mg PO TWICE A DAY May 25, 2013 1:00am October 09, 2017 2:31pm Start: 05-25-2013 End: 10-09-2017 take 5 mg by mouth twice daily Lisinopril Discontinued 5 MG PO TWICE A DAY May 25, 2013 1:00am October 09, 2017 2:31pm Start: 06-28-2011 take 0.5 tablet by m [facility] twice daily ZESTRIL 10 MG TABS 1/2 tablet by mouth twice daily LISINOPRIL [id number] Margarito Deras MD Start: 06-28-2011 take 1 tablet by kel twice daily LISINOPRIL 5 MG TABS One tablet by mouth twice daily LISINOPRIL [id number] Margarito Deras MD Start: 08-04-2010 take 1 tablet by kel twice daily ZESTRIL 10 MG TABS One tablet by mouth twice daily LISINOPRIL [id number] Jaimie Sawyer melatonin 3 mg oral capsule (9 sources) Start: 10-10-2022 End: 06-28-2024 take 1 capsule by mouth at bedtime as needed for sleep Melatonin 3 mg capsule Discontinued 3 mg PO BEDTIME as needed for sleep October 10, 2022 12:00am June 28, 2024 10:22am 24 hr metoprolol succinate 25 mg extended release oral tablet (20 sources) beta-Adrenergic Enoc Start: 10-10-2022 End: 10-10-2022 take 2 tablets by mouth once daily Metoprolol Succinate 25 mg tablet extended release 24 hr Discontinued 12.5 mg PO DAILY October 10, 2022 12:00am October 10, 2022 7:32am Start: 10-10-2022 End: 10-10-2022 take 12.5 mg by mouth once daily Metoprolol Succinate Discontinued 12.5 MG PO DAILY October 10, 2022 12:00am October 10, 2022 7:32am Start: 10-09-2017 End: 06-12-2019 Metoprolol Tartrate 25 mg ta blet Discontinued 12.5 mg PO TWICE A DAY April 29, 2019 8:14pm June 12, 2019 2:12pm Start: 10-09-2017 End: 06-12-2019 take 12.5 mg by mouth twice daily Metoprolol Tartrate Discontinued 12.5 MG PO TWICE A DAY April 29, 2019 7:14pm June 12, 2019 1:12pm Start: 01-18-2013 take 0.5 tablet by m outh twice daily METOPROLOL TARTRATE 25 MG TABS 1/2 tablet by mouth twice daily METOPROLOL TARTRATE [id number] Cruz Delcid NP Start: 01-18-2013 take 0.5 tablet by m outh once daily METOPROLOL TARTRATE 25 MG TABS 1/2 tab po daily METOPROLOL TARTRATE [id number] Margarito Deras MD Start: 08-04-2010 End: 10-09-2017 take 1 tablet by mouth twice daily Metoprolol Tartrate 25 MG tablet Discontinued 25 mg PO TWICE A DAY May 25, 2013 1:00am October 09, 2017 2:31pm 24 hr niacin 1000 mg extended release oral tablet (12 sources) Nicotinic Acid Start: 08-04-2010 End: 09-05-2016 take 1 tablet by mouth once daily NIASPAN 1000 MG CR-TABS One tablet by mouth daily NIACIN (ANTIHYPERLIPIDEMIC) [id number] Margarito Deras MD nitroglycerin 0.4 mg sublingual tablet (3 sources) Nitrate Vasodilator Start: 08-04-2010 NITROSTAT 0.4 MG SUBL 1 tablet under tongue every 5 min up to 3 X NITROGLYCERIN [id number] Jaimie Swayer [place] 1-Wzj-Wly-Fish Oil (Fish Oil) 500 MG Capsule. (13 sources) Start: 05-25-2013 End: 05-27-2013 [place] 7-Mrf-Syv-Fish Oil (Fish Oil) [address] Discontinued 1200 mg PO TWICE A DAY May 25, 2013 1:00am May 27, 2013 2:47pm Start: 05-25-2013 End: 05-27-2013 [place] 4-Tka-Ebu-Fish Oil (Fi sh Oil) [address]aps[address].Dr Discontinued 1200 MG PO TWICE A DAY May 25, 2013 12:00am May 27, 2013 1:47pm Start: 05-25-2013 End: 05-27-2013 [place] 5-Qrd-Vqu-Fish Oil (Fi sh Oil) [address] Caps[address].Dr Discontinued 1200 MG PO TWICE A DAY May 25, 2013 1:00am May 27, 2013 2:47pm [place]-3 Fatty Acids-Fish Oil (12 sources) Start: 08-21-2018 End: 10-10-2022 [place]-3 Fatty Acids-Fish Oil Discontinued 1 EACH PO TWICE A DAY August 20, 2018 11:00pm October 10, 2022 6:20am Start: 08-21-2018 End: 10-10-2022 [place]-3 Fatty Acids-Fish Oil Discontinued 1 EACH PO TWICE A DAY August 21, 2018 12:00am October 10, 2022 7:20am Start: 08-21-2018 [place]-3 Fatty Acids-Fish Oil Active 1 EACH PO TWICE A DAY August 20, 2018 11:00pm Start: 08-21-2018 [place]-3 Fatty Acids-Fish Oil Active 1 EACH PO TWICE A DAY August 21, 2018 12:00am [place]-3 Fatty Acids-Fish Oil 1 EACH capsule (1 source) Start: 08-21-2018 End: 10-10-2022 [place]-3 Fatty Acids-Fish Oil 1 EACH capsule Discontinued 1 NMA PO TWICE A DAY August 21, 2018 12:00am October 10, 2022 7:20am oxyCODONE hydrochloride 5 mg oral tablet (13 sources) Opioid Agonist Start: 08-24-2018 End: 08-27-2018 take 1 tablet by mouth every four hours as needed for pain Oxycodone 5 MG tablet Discontinued 5 mg PO EVERY 4 HOURS NEEDED as needed for Severe Pain (6-10/10) August 24, 2018 12:00am August 27, 2018 9:45pm raNITIdine 75 mg oral tablet (19 sources) Histamine-2 Receptor Antagonist Start: 08-21-2018 End: 06-03-2019 take 1 tablet by mouth once daily as needed for gastroesophageal reflux disease Ranitidine Hcl 75 MG tablet Discontinued 75 mg PO DAILY NEEDED as needed for GERD August 21, 2018 12:00am June 03, 2019 4:01pm Start: 01-18-2013 take 1 tablet by kel th once daily ZANTAC 75 TABS One tablet by mouth daily RANITIDINE HCL TABS [id number] Margarito Deras MD Start: 01-18-2013 End: 01-20-2014 take 1 tablet by mouth once daily ZANTAC 75 TABS One tablet by mouth daily RANITIDINE HCL TABS [id number] Luciana Manzo RN rivaroxaban 10 mg oral tablet (6 sources) Factor Xa Inhibitor Start: 08-25-2011 End: 01-16-2012 take 1 tablet by mouth once daily XARELTO 10 MG TABS One tablet by mouth daily RIVAROXABAN [id number] Rei Multani MD rosuvastatin calcium 10 mg oral tablet (3 sources) HMG-CoA Reductase Inhibitor Start: 01-18-2013 take 1 tablet by mouth at bedtime CRESTOR 10 MG TABS One tablet by mouth at bedtime. 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 layer exposed] Onset: 4 11-07-2018 Chronic Coma; stupor; and brain damage (9 sources) Daytime somnolence; Translations: [Somnolence] 10-13-2022 Episodic Complication of device; implant or graft (9 sources) Arteriosclerosis of coronary artery bypass graft; Translations: [Atherosclerosis of coronary artery bypass graft(s) without angina pectoris] Onset: 1 Resolved: 6 08-04-2010 Chronic Conditions associated with dizziness or vertigo (3 sources) Lightheadedness; Translations: [Dizziness and giddiness] 08-17-2023 Episodic Coronary atherosclerosis and other heart disease (20 sources) Atherosclerotic heart disease of [place] coronary artery without angina pectoris; Translations: [Coronary arteriosclerosis] Onset: 1 Resolved: 5 03-04-2016 Chronic Comment on above: CABG x 3 ARORA-LAD, S VG-PDA, SVG-PLB Cx 04/13/2007 Crushing injury or internal injury (13 sources) Crush injury of left lower leg; Translations: [Crushing injury of left lower leg, initial encounter] 10-10-2018 Episodic Disorders of lipid metabolism (20 sources) Hyperlipidemia; Translations: [Hyperlipidemia, unspecified] Onset: 1 08-04-2010 Chronic Esophageal disorders (12 sources) Gastroesophageal reflux disease; Translations: [Gastro-esophageal reflux disease without esophagitis] 10-10-2022 Chronic Essential hypertension (20 sources) Hypertensive disorder; Translations: [Essential (primary) hypertension] Onset: 1 08-04-2010 Chronic Gastrointestinal hemorrhage (13 sources) Lower gastrointestinal hemorrhage; Translations: [Gastrointestinal hemorrhage, unspecified] 07-16-2019 Episodic Heart valve disorders (8 sources) Heart murmur; Translations: [Cardiac murmur, unspecified] 03-06-2023 Episodic Immunizations and screening for infectious disease (13 sources) Contact with and (suspected) exposure to other viral communicable diseases; Translations: [Contact with or suspected exposure to other viral communicable disease] 12-11-2020 Episodic Malaise and fatigue (9 sources) Fatigue; Translations: [Other fatigue] 10-13-2022 Episodic Nutritional deficiencies (13 sources) Undernutrition; Translations: [Unspecified protein-calorie malnutrition] 11-04-2018 Chronic Open wounds of extremities (20 sources) Open wound of right lower leg; Translations: [Unspecified open wound, right lower leg, initial encounter] 11-07-2018 Episodic Open wounds of extremities (17 sources) Laceration of left index finger; Translations: [Laceration without foreign body of left index finger without damage to nail, initial encounter] 11-25-2022 Episodic Open wounds of head; neck; and trunk (13 sources) Laceration - injury; Translations: [Laceration] 09-27-2018 Episodic Osteoarthritis (20 sources) Osteoarthritis of joint of left shoulder region; Translations: [Primary osteoarthritis, left shoulder] 05-23-2022 Chronic Other aftercare (7 sources) Follow-up status; Translations: [Encounter for re-check of laceration wound] 11-25-2022 Episodic Other aftercare (2 sources) Long-term current use of anticoagulant; Translations: [terminal operator (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) use of anticoagulants] 08-23-2023 Episodic Other and unspecified benign neoplasm (9 sources) History of polyp of colon; Translations: [Personal history of colonic polyps] 10-10-2022 Episodic Other and unspecified benign neoplasm (3 sources) Personal history of colonic polyps; Translations: [Personal history of colonic polyps] 10-10-2022 Episodic Other circulatory disease (20 sources) Carotid bruit; Translations: [Other specified symptoms and signs involving the circulatory and respiratory systems] 12-07-2020 Episodic Other connective tissue disease (13 sources) History of total knee arthroplasty; Translations: [Presence of left artificial knee joint] 07-16-2019 Chronic Other connective tissue disease (13 sources) Pain in right lower limb; Translations: [Pain in right leg] 10-10-2018 Episodic Other connective tissue disease (13 sources) Foot pain; Translations: [Pain in left foot] 10-10-2018 Episodic Other connective tissue disease (10 sources) Internal impingement of left shoulder; Translations: [Impingement syndrome of left shoulder] 05-23-2022 Episodic Other connective tissue disease (2 sources) Impingement syndrome of left shoulder; Translations: [Other affections of shoulder region, not elsewhere classified] 05-23-2022 Episodic Other diseases of veins and lymphatics (1 source) Peripheral venous insufficiency; Translations: [Venous insufficiency (chronic) (peripheral)] 11-16-2023 Episodic Other gastrointestinal disorders (9 sources) History of gastrointestinal bleed; Translations: [Personal history of other diseases of the digestive system] 10-13-2022 Episodic Other hematologic conditions (9 sources) History of anemia; Translations: [Personal history of diseases of the blood and blood-forming organs and certain disorders involving the immune mechanism] 10-13-2022 Episodic Other injuries and conditions due to external causes (13 sources) Degloving injury; Translations: [Other injury of unspecified body region, initial encounter] 10-10-2018 Episodic Other injuries and conditions due to external causes (13 sources) Delayed healing of wound; Translations: [Other injury of unspecified body region, subsequent encounter] 11-04-2018 Episodic Other injuries and conditions due to external causes (5 sources) Hematoma; Translations: [Other injury of unspecified body region, initial encounter] 08-17-2023 Episodic Other injuries and conditions due to external causes (1 source) Injury of finger; Translations: [Unspecified injury of unspecified wrist, hand and finger(s), initial encounter] 11-05-2023 Episodic Other lower respiratory disease (13 sources) Dyspnea on exertion; Translations: [Other forms of dyspnea] 06-19-2019 Episodic Other nervous system disorders (13 sources) Difficulty walking; Translations: [Difficulty in walking, not elsewhere classified] 10-10-2018 Chronic Other non-traumatic joint disorders (13 sources) Ankle pain; Translations: [Pain in left ankle and joints of left foot] 10-10-2018 Episodic Other non-traumatic joint disorders (1 source) Pain in unspecified shoulder; Translations: [Pain in unspecified shoulder] Onset: Episodic Peripheral and visceral atherosclerosis (2 sources) Peripheral vascular disease; Translations: [Peripheral vascular disease, unspecified] 06-28-2024 Chronic Phlebitis; thrombophlebitis and thromboembolism (13 sources) Phlegmasia cerulea dolens; Translations: [Phlebitis and thrombophlebitis of unspecified deep vessels of unspecified lower extremity] 09-27-2018 Episodic Pneumonia (except that caused by tuberculosis or sexually transmitted disease) (13 sources) Pneumonia; Translations: [Pneumonia, unspecified organism] 07-16-2019 Episodic Residual codes; unclassified (13 sources) Localized edema; Translations: [Localized edema] 11-04-2018 Episodic Residual codes; unclassified (13 sources) History of colonoscopy; Translations: [Other specified postprocedural states] 07-16-2019 Episodic Unclassified (6 sources) Disorder of cardiovascular system; Translations: [Unspecified disorder of circulatory system] Onset: 1 Resolved: 5 08-04-2010 Chronic Unclassified (3 sources) Long-term drug therapy; Translations: [Other custodial (current) drug therapy] Onset: 1 08-04-2010 Past or Other Problems Problem Classification Problem Date Documented Da te Episodic/Chronic Coronary atherosclerosis and other heart disease (9 sources) Presence of aortocoronary bypass graft; Translations: [History of myocardial infarction] Onset: 08-04-2010 03-04-2016 Episodic Nonmalignant breast conditions (1 source) Mastodynia; Translations: [Mastodynia] Onset: 03-02-2024 Episodic Nonspecific chest pain (2 sources) Chest pain; Translations: [Chest pain, unspecified] Onset: 10-09-2023 09-01-2023 Episodic Other circulatory disease (5 sources) Other specified symptoms and signs involving the circulatory and respiratory systems; Translations: [Other symptoms involving cardiovascular system] 10-10-2022 Episodic Other diseases of veins and lymphatics (1 source) Venous insufficiency (chronic) (peripheral); Translations: [Venous insufficiency (chronic) (peripheral)] Onset: 12-22-2023 Episodic Other non-traumatic joint disorders (1 source) Pain in left hip; Translations: [Pain in left hip] Onset: 02-13-2024 Episodic Residual codes; unclassified (13 sources) History of cardiac catheterization; Translations: [Other specified postprocedural states] Onset: 06-19-2019 07-16-2019 Episodic Comment on above: Triple vessel CAD of the LAD, OM, RCA; Normal Left Ventricular systolic functionLVEF: by LV gram 65 %. Elevated Left Ventricular End Diastolic Pressure. Widely patent ARORA to LAD. Widely patent SVG to OM. Widely patent SVG to RCA with a 30% proximal stenosis w/in the graft. Medical therapy recommended 06/19/2019 Residual codes; unclassified (1 source) Localized edema; Translations: [Localized edema] Onset: 12-22-2023 Episodic Superficial injury; contusion (1 source) Superficial foreign body of right index finger, initial encounter; Translations: [Superficial foreign body of right index finger, initial encounter] Onset: 11-10-2023 Episodic Unclassified (13 sources) repair of renal artery aneurysm 07-16-2019 Results Test Name Value Interpretation Reference Range Facility Shoulder min 2 Viewson 09-06 Shoulder min [address] [facility] Imaging Services [address] [place] [address] Shoulder min 2 Views MR#: [id number] Acct: [id number] Name: ALHAJI BANUELOS Rep #: [id number] : 1945 M 78 From: Pierce Gómez MD PCP: Dr. Gabe Rodriguez MD Status: REG CLI Study: Shoulder min 2 Views Date of Exam: 09/06/24 Exam# [id number] Ordering Dr: Gabe Rodriguez MD EXAM: XR Right Shoulder Complete, 2 or More Views CLINICAL INDICATION: PAIN TECHNIQUE: Two or more views of the right shoulder. COMPARISON: No relevant prior studies available. FINDINGS: BONES/JOINTS: Mild degenerative change of the acromioclavicular and glenohumeral joints. No acute fracture. No dislocation. SOFT TISSUES: Unremarkable. RAD/Shoulder min 2 Views IMPRESSION: No acute fracture. Reading Location: [facility] CC: Dr. Gabe Rodriguez MD Management Associate: Signed Normal [facility] Cardiology Visit Reporton Cardiology Visit Report [facility] [address] [place] [address] OFFICE VISIT Date of Service: 06/28/24 MR#: [id number] Acct: [id number] Name: ALHAJI BANUELOS Rep #: [id number] : 1945 Provider: Dr. Jose escobedo MD Age/Sex: 78/M [place] [facility] [place] Status: Signed HPI HPI History of Present Illness Details: Patient is a very pleasant 78-year-old white male comes in today for monitoring of his cardiovascular status. Patient carries a history of coronary artery disease status post bypass graft surgery in 2006 receiving the ARORA graft to the LAD, vein graft to the posterior lateral circumflex and PDA of the right coronary artery. He had a stress test done in September 2023 which was normal with no evidence of ischemia or scar and preserved ejection fraction. Last echocardiogram April 2023 showed an EF of 65% with stage I diastolic dysfunction send otherwise normal. Patient denies any recurrence of his anginal symptoms which was an exertional nauseated feeling. He denies any PND orthopnea denies any lower extremity edema. He had had a significant issue with lower extremity edema but it completely resolved with discontinuing amlodipine. He does notice some slight dyspnea on exertion but it is not quality of life limiting and it did not limit his ability to do the things he wants to do. He is very active in his home environment. We had the time to swap some stories about growing up his kids living outdoors. 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 Required: No Accompanied by: Self Is patient in pain?: No Allergies amlodipine Adverse Reaction (Verified 06/28/24 10:29) Swelling Medications ???Medication ???Instructions ???Recorded ???Confirmed ???Type aspirin 81 mg tablet,delayed 81 mg PO DAILY@0800 [facility] 0 08/21/18 06/28/24 History release omega-3 fatty acids-fish oil 360 1 cap PO DAILY 10/10/22 06/28/24 H istory mg-1,200 mg capsule (Fish Oil) losartan 25 mg tablet 25 mg PO DAILY #90 tabs 05/29/23 0 06/28/24 Rx atorvastatin 80 mg tablet (Lipitor) 80 mg PO DAILY #90 tabs 4 06/28/24 Rx clopidogrel 75 mg tablet (Plavix) 75 mg PO DAILY #90 tabs 05/06/24 06/28/24 Rx famotidine 20 mg tablet 20 mg PO DAILY #90 tabs 06/28/24 0 06/28/24 Rx Ejection fraction %: 65 Have you fallen in the past year?: No PFSH Medical History Localized edema Cardiac murmur Loss of hearing Wears glasses Wears dentures Arthritis High cholesterol Easy bruising Back pain Heartburn Emphysema, unspecified Former smoker History of edema History of Holter monitoring History of stress test Hypertension Cardiology follow-up encounter 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, left shoulder Internal impingement of left shoulder Bilateral carotid bruits Pneumonia Dyspnea on exertion Lower GI bleed 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 Atherosclerosis of coronary artery of shawnee heart without angina pectoris Hypertension Hyperlipemia Surgical History History of left heart catheterization (06/19/19) repair of renal artery aneurysm History of total left knee replacement (TKR) H/O colonoscopy with polypectomy H/O coronary artery bypass surgery (04/13/07) Family History Father CAD (coronary artery disease) Social History Smoking Status: Former smoker pack-years: 40 how long ago did patient quit smokin years ago alcohol intake: never substance use type: does not use caffeine: Yes Type: carbonated beverages Number of servings: 6 ROS Const Const: Positive for fatigue; Negative for weakness ENT ENT: Negative for dizziness or balance problems Cardio Chest Pain: No Palpitations: No Edema: None Muscle aches with walking: None Resp Respiratory: Positive for SOB with activity; Negative for SOB at rest or SOB orthopnea SOB lying down GI GI: Positive for heartburn; Negative nausea or vomiting Musc Musc: Negative for muscle weakness or balance problems Neuro Neuro: Positive for lightheadedness (intermittently); Negative for dizziness, near syncope, syncope or weakness Endo Endo: Positive for fatigue Cardiology Exam Const Appearance: cooperative, healthy appearing, comfor (more content not included)... Normal [facility] Breast Limited Unilateralon 02-12-2024 Breast Limited Unilateral [facility] Imaging Services [address] [place] [address] Breast Limited Unilateral MR#: [id number] Acct: [id number] Name: ALHAJI BANUELOS Rep #: [id number] : 1945 M 78 From: Gm orellana MD PCP: Dr. Gabe Rodriguez MD Status: REG CLI Study: Breast Limited Unilateral Date of Exam: Exam# [id number] Ordering Dr: Gabe Rodriguez MD [id number] STUDY: ULTRASOUND BREAST - LEFT REASON FOR EXAM: Male, 78 years old. Pain in the left breast. TECHNIQUE: Axial and longitudinal images of the LEFT breast were performed with a high resolution ultrasound transducer. # OF IMAGES: 28 COMPARISON: Comparison is made with prior mammogram done earlier today. FINDINGS: LEFT Breast: There is evidence of retroareolar glandular tissue more prominent than on the right side. This is suggestive of gynecomastia. US/Breast Limited Unilateral IMPRESSION: Findings suggestive of asymmetrical gynecomastia more prominent in the left breast. ASSESSMENT CATEGORY: BIRADS Category 2: Benign. A letter regarding these results will be sent to the patient by the facility within 30 days. Electronically Signed: Gm Helton MD at 15:13 EDT Reading Location ID and State: [address] [place] [address] , Service support , CC: Dr. Gabe Rodriguez MD Management Associate: Signed Normal [facility] DIAG MAMM W/CAD, BILATon DIAG MAMM W/CAD, [facility] Imaging Services [address] [place], [place] [id number] DIAG MAMM W/CAD, BILAT MR#: [id number] Acct: [id number] Name: ALHAJI BANUELOS Rep #: [id number] : 1945 M 78 From: Gm orellana MD PCP: Dr. Gabe Rodriguez MD Status: REG CLI Study: DIAG MAMM W/CAD, BILAT Date of Exam: 02/12/24 Exam# [id number] Ordering Dr: Gabe Rodriguez MD [id number] MAMMOGRAPHY - BILATERAL DIAGNOSTIC REASON FOR EXAM: Male, 78 years old. Left breast pain. PERTINENT HISTORY: Non-contributory. TECHNIQUE: Digital bilateral breast brittanie (3D mammographic acquisition) in the CC and MLO projections. 2-D mediolateral oblique (MLO) and craniocaudad (CC) views of both breasts were obtained. CAD: Full Field Digital Mammography with Computer Added Detection was performed. COMPARISON: None. Baseline examination. FINDINGS: Breast Composition: There are scattered areas of fibroglandular density. There are no dominant masses or suspicious calcifications. Asymmetry of breast tissue where more breast tissue is seen in the retroareolar region of the left breast as compared to the right side. No other significant abnormalities are identified. BI/DIAG MAMM W/CAD, BILAT IMPRESSION: Asymmetry of breast tissue were more breast tissue is seen in the retroareolar region of the left breast as compared to the right side. Correlation with ultrasound is recommended. ASSESSMENT CATEGORY: BIRADS Category 0: Incomplete. Need additional imaging evaluation. A letter regarding these results will be sent to the patient by the facility within 30 days. Approximately 10% of breast cancers are not detected by mammography. A normal mammogram should not delay biopsy of a clinically suspicious abnormality. Electronically Signed: Gm Helton MD at 10:36 EDT , CC: Dr. Gabe Rodriguez MD Management Associate: Signed Normal [facility] HIP, UNI W/ Pelvis 2-3 Views on 01-17-2024 HIP, UNI W/ Pelvis 2-[address] [facility] Imaging Services [address] [place] [id number] HIP, UNI W/ Pelvis 2-3 Views MR#: [id number] Acct: [id number] Name: ALHAJI BANUELOS Rep #: [id number] : 1945 M 78 From: Clay holt DO PCP: Dr. Gabe Rodriguez MD Status: REG CLI Study: HIP, UNI W/ Pelvis 2-3 Views Date of Exam: 06/10 Exam# [id number] Ordering Dr: Gabe Rodriguez MD [id number] EXAM: XR LEFT HIP WITH PELVIS WHEN PERFORMED, 2 OR 3 VIEWS CLINICAL INDICATION: PAIN TECHNIQUE: Two or three views of the left hip with pelvis when performed. COMPARISON: No relevant prior studies available. FINDINGS: BONES/JOINTS: Mild bilateral acetabular hypertrophy. Degenerative changes in the lower lumbar spine and SI joints. No displaced fracture. No destructive or sclerotic lesions. Note that overlapping bowel shadows may however obscure fine detail. No widening of the pubic symphysis. SOFT TISSUES: No significant abnormality. No soft tissue swelling or gas. VASCULATURE: Vascular calcifications. RAD/HIP, UNI W/ Pelvis 2-3 Views IMPRESSION: Degenerative changes. No acute osseous findings. Electronically Signed: Clay Herrera DO at 23:56 EDT , CC: Dr. Gabe Rodriguez MD Management Associate: Signed Normal [facility] Lower Ext Art Exam w/o Exerc ryan 12-15-2023 Lower Ext Art Exam w/o Exercis [facility] Cardi[facility] Services [address] [place] [address] Lower Ext Art Exam w/o Exercis 12/15/23 0849 MR#: [id number] Acct: [id number] Name: ALHAJI BANUELOS Rep #: [id number] : 1945 78 From: Charanjit Hardy MD Attending Dr: Jose Bhat DPM Status: REG RCR Ordering Dr: Jose Bhat DPM Date: 12/15/23 Location: [facility] Sex: M C Admitted: Reason For Study: PVD / Wound Procedure A bilateral lower extremity continuous wave Doppler with analog waveform analysis,segmental pressures,and ankle brachial indexes without exercise. Left Segmental Pressures Left brachial= 135mmHg. Left posterior tibial artery = 127mmHg. Left dorsalis pedis artery = 145mmHg. Left digit = 135 mmHg. The left posterior tibial artery waveforms are triphasic. The left dorsalis pedis waveforms are triphasic. Right Segmental Pressures Right brachial= 145mmHg. Right posterior tibial artery = 156mmHg. Right dorsalis pedis artery = 142mmHg. Right digit = 123 mmHg. The right posterior tibial artery waveforms are triphasic. The right dorsalis pedis waveforms are triphasic. Indices The right ankle brachial index by the posterior tibial artery is 1.08. The right ankle brachial index by the dorsalis pedis is 0.98. The right digital-brachial index is 0.85. The left ankle brachial index by the posterior tibial artery is 0.88. The left ankle brachial index by the dorsalis pedis is 1.00. The left digital-brachial index is 0.93. VL/Lower Ext Art Exam w/o Exercis Interpretation Summary Triphasic Doppler waveforms are noted at ankle level bilaterally. Pulse-volume recordings appear satisfactory bilaterally. Resting ankle-brachial indices are normal bilaterally. Digital-brachial indices are normal bilaterally. There is no evidence of significant arterial occlusive disease in the lower extremities bilaterally. Ordering Physician: Jose Bhat Referring Physician: Gabe Rodriguez Performed By: Omari Carrion, RVT 12/15/231954 Date Charanjit Hardy MD CC: DPSoraida Bhat; Dr. Gabe Rodriguez MD Date Dictated: 12/15/23848 Date Transcribed: 12/15/231954 Management Associate: Signed Normal [facility] Venous Duplex US - Vern Extre mon 12-15-2023 Venous Duplex US - Vern Extrem [facility] Cardiovascular Services [address] [place] [address] Venous Duplex US - Vern Extrem 12/15/23903 MR#: [id number] Acct: [id number] Name: ALHAJI BANUELOS Rep #: [id number] : 1945 78 From: Charanjit Hardy MD Attending Dr: Jose Bhat DPM Status: REG RCR Ordering Dr: Jose Bhat DPSoraida Date: 12/15/23 Location: [facility] Sex: M C Admitted: Reason For Study: BLE Edema RIGHT LEFT CFV is compressible, spontaneous, phasic, CFV is compressible, spontaneous, phasic, competent and demonstrates normal competent, and demonstrates normal augmentation. augmentation. FV is compressible, spontaneous, phasic, FV is compressible, spontaneous, phasic, competent and demonstrates normal competent and demonstrates normal augmentation. augmentation. POP V is compressible, spontaneous, phasic, POP V is compressible, spontaneous, phasic, competent and demonstrates normal competent and demonstrates normal augmentation. augmentation. T/P Trunk is compressible. T/P Trunk is compressible. PTV is compressible. PTV is compressible. RT PerV is compressible. LT PerV is compressible. SFJ is competent and measures 0.32 cm. SFJ is competent and measures 0.42 cm. GSV proximal thigh measures 0.17 x 0.21 cm. GSV proximal thigh measures 0.36 x 0.39 cm. GSV at knee measures 0.26 x 0.27 cm. GSV above knee is competent. GSV is competent throughout. HX GSV harvest for CABG Mid thigh - Dist SSV proximal calf is competent and measures calf. 0.27 x 0.28 cm. SSV proximal calf is competent and measures Procedure 0.25 x 0.28 cm. Exam performed in department. This is a venous duplex using B-mode, color flow and spectral Doppler. The exam was diagnostic. Patient was scanned in reverse Trendelenburg position during reflux assessment. VL/Venous Duplex US - Vern Extrem Interpretation Summary Deep veins of the lower extremities are bilaterally patent and compressible segmentally. There is no evidence of deep vein thrombosis on either side. Valvular competence appears intact within the proximal deep venous systems bilaterally. Sapheno-femoral junctions are bilaterally competent . The right great saphenous vein appears patent and compressible segmentally. The right great saphenous vein appears segmentally competent. The left great saphenous vein is patent and competent in the proximal thigh, but has been previously harvested more distally. Small saphenous veins are patent and competent bilaterally. Ordering Physician: Jose Bhat Referring Physician: Gabe Rodriguez Performed By: Omari Carrion [place] 12/15/232000 Date Charanjit Hardy MD CC: RODNEY Bhat; Dr. Gabe Rodriguez MD Date Dictated: 12/15/23903 Date Transcribed: 12/15/232000 Management Associate: Signed Normal [facility] Wound Ctr History AND Physic louise 11-16-2023 Wound Ctr History & Physical [facility] [address] [place] [address] H P Exam - Wound Care 11/16/23 0858 MR#: [id number] Acct: [id number] Name: ALHAJI BANUELOS Rep #: [id number] : 1945 77 From: Jose Bhat DPM PCP: Dr. Gabe Rodriguez MD Status:REG R Location: History of Present Illness Date of Service: 11/16/23 Chief Complaint: Right leg ulceration History of Wound: This is a 77-year-old male who presents to the wound care center for bilateral lower extremity edema and ulceration of the left anterior lower extremity. States that the ulceration is been present for about 3 or 4 weeks however swelling has been present for the last several months. States that he has had coronary artery bypass surgery with left lower extremity venous stripping. Reports that he has had swelling in the left leg since then but this has progressed to the right leg over time. Patient believes recent incident of swelling may be a reaction from a new medication. States that he has tried compression stockings in the past but he feels that they were too tight. He has been caring for the wound with topical antibiotic ointments and bandages and was seeing his PCP, Dr. Rodriguez who did refer him to the wound care center for continued care. Patient denies N/V/S/chills. Patient denies further complaints. [facility] Medical History (Updated 11/16/23 @ 12:[address] 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 Atherosclerosis of coronary artery of shawnee heart without angina pectoris Hypertension Hyperlipemia Home Medications ???Medication ???Instructions ???Recorded ???Last Taken ???Type aspirin 81 mg tablet,delayed 81 mg PO DAILY@0800 [facility] 08/21/18 11/01/22 06:00 History release melatonin 3 mg capsule 3 mg PO HS PRN sleep 10/10/22 Unknown History omega-3 fatty acids-fish oil 360 1 cap PO DAILY 10/10/22 Unknown History mg-1,200 mg capsule (Fish Oil) amlodipine 10 mg tablet 10 mg PO DAILY #90 tabs 05/29/23 Unknown Rx losartan 25 mg tablet 25 mg PO DAILY #90 tabs 05/29/23 Unknown Rx atorvastatin 80 mg tablet (Lipitor) 80 mg PO DAILY #90 tabs 08/02/23 Unknown Rx famotidine 20 mg tablet 20 mg PO DAILY #90 tabs 08/15/23 Unknown Rx clopidogrel 75 mg tablet (Plavix) 75 mg PO DAILY #90 tabs 11/06/23 Unknown Rx Allergy/AdvReac Type Severity Reaction Status Date / Time No Known Allergies Allergy Verified 11/16/23 08:20 Family History Father CAD (coronary artery disease) Surgical History History of left heart catheterization (06/19/19) repair of renal artery aneurysm History of total left knee replacement (TKR) H/O colonoscopy with polypectomy H/O coronary artery bypass surgery (04/13/07) Social History Smoking Status: Former smoker pack-years: 40 how long ago did patient quit smokin years ago alcohol intake: never substance use type: does not use caffeine: Yes Type: carbonated beverages Number of servings: 6 ROS Constitutional Constitutional: Denies anorexia, change in weight, chills, fatigue or fever(s) Eyes Eyes: Denies blurry vision, change in vision or double vision ENT HEENT: Denies dysphagia, nasal congestion or sore throat Cardiovascular Cardiovascular: Denies chest pain, claudication or palpitations Respiratory/Chest Respiratory/Chest: Denies cough, shortness of breath at rest or wheezing Gastrointestinal Gastrointestinal: Denies abdominal pain, constipation, diarrhea, nausea or vomiting Genitourinary Genitourinary: Denies dysuria, hematuria or urinary urgency Musculoskeletal Musculoskeletal: Denies joint pain, joint stiffness or joint swelling Integumentary Integumentary: Denies lesions, pruritus or rash Neurologic Neurologic: Denies dizziness, numbness or seizures Psychiatric Psychiatric: Denies anxiety or depression Endocrine Endocrinology: Denies cold intolerance, heat intolerance or polyuria Hematologic/Lymphatic Hematologic/Lymphatic : Denies easy bleeding or easy bruising Vital Signs Vital Signs Vital Signs: 11/16/23 08:13 Temperature 96.3 F L Temperature Source Temporal Pulse Rate 54 L Respiratory Rat (more content not included)... Normal [facility] Emergency Department Summary on 10-28-2023 Emergency Department Summary [facility] Medical Records Department [address] [place] [address] Emergency Department Summary 10/28/23 MR#: [id number] Acct: [id number] Name: ALHAJI BANUELOS Rep #: [id number] : 1945 77 From: Sharyn Griggs DO PCP: Dr. Gabe Rodriguez MD Status:DEP ER Location: ED HPI History of Present Illness Chief Complaint: Upper Extremity Injury Detail of Chief Complaint: Fishing hook foreign body in right index finger Informant: patient Narrative Narrative: Patient presents the emergency department with complaint of a fishing hook in his right index finger. Patient states that he was fishing and it caught a mahajan and as he was trying to take it off the hook it showed off the hook and the hook impaled him in the finger. Patient is right-hand dominant. Patient up-to-date on tetanus. 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 Atherosclerosis of coronary artery of shawnee heart without angina pectoris Hypertension Hyperlipemia Home Medications ???Medication ???Instructions ???Recorded ???Last Taken ???Type aspirin 81 mg tablet,delayed 81 mg PO DAILY@0800 [facility] 08/21/18 11/01/22 06:00 History release melatonin 3 mg capsule 3 mg PO HS PRN sleep 10/10/22 Unknown History omega-3 fatty acids-fish oil 360 1 cap PO DAILY 10/10/22 Unknown History mg-1,200 mg capsule (Fish Oil) clopidogrel 75 mg tablet (Plavix) 75 mg PO DAILY #90 tabs 01/24/23 Unknown Rx amlodipine 10 mg tablet 10 mg PO DAILY #90 tabs 05/29/23 Unknown Rx losartan 25 mg tablet 25 mg PO DAILY #90 tabs 05/29/23 Unknown Rx atorvastatin 80 mg tablet (Lipitor) 80 mg PO DAILY #90 tabs 08/02/23 Unknown Rx famotidine 20 mg tablet 20 mg PO DAILY #90 tabs 08/15/23 Unknown Rx Allergy/AdvReac Type Severity Reaction Status Date / Time No Known Allergies Allergy Verified 10/28/23 21:34 Family History Father CAD (coronary artery disease) Surgical History History of left heart catheterization (06/19/19) repair of renal artery aneurysm History of total left knee replacement (TKR) H/O colonoscopy with polypectomy H/O coronary artery bypass surgery (04/13/07) Social History Smoking Status: Former smoker pack-years: 40 how long ago did patient quit smokin years ago alcohol intake: never substance use type: does not use caffeine: Yes Type: carbonated beverages Number of servings: 6 ROS ROS ED Review of Systems ROS Unobtainable: other Constitutional Constitutional ED: Reports lethargy; Denies chills, fever(s), sweats or weight loss Eyes Eyes: Denies blurry vision, change in vision or diplopia ENT ENT ED: Denies rhinorrhea or sore throat Cardiovascular Cardiovascular: Denies chest pain, orthopnea or racing heartbeat Respiratory/Chest Respiratory/Chest: Denies cough, dyspnea, dyspnea on exertion, orthopnea or sputum Gastrointestinal Gastrointestinal: Denies abdominal pain, diarrhea, nausea or vomiting Genitourinary Genitourinary ED: Denies dysuria, hematuria or urinary frequency Musculoskeletal Musculoskeletal: Reports other Details: Foreign body to right index finger ; Denies arthralgias, back pain, myalgias or neck pain Integumentary Denies abscess, Abrasions or rash Neurologic Neurologic: Denies headache(s) or weakness Psychiatric Psychiatric: Denies anxiety, depression or suicidal thoughts Endocrine Endocrinology: Denies polydipsia, polyphagia or polyuria Hematologic/Lymphatic Hematologic/Lymphatic : Denies easy bleeding, easy bruising or lymphadenopathy Allergic/Immunologic Allergic/Immunologic ED: Denies mouth swelling, tongue swelling or urticaria EXAM Physical Exam Const Vital Signs: 10/28/23 21:34 Temperature 96.1 F L Temperature Source Temporal Pulse Rate 54 L Respiratory Rate 16 Blood Pressure 141/70 H Blood Pressure Mean 93 Pulse Ox 96 Oxygen Delivery Method Room Air Positive well nourished and well developed General Appearance ED: well developed and NAD HEENT Reports TM's clear and moist mucous membranes normocephalic and atraumatic; Nega (more content not included)... Normal [facility] Stress Reporton 09-28-2023 Stress Report [facility] [address] [place] [address] MR#: [id number] Acct: [id number] Name: ALHAJI BANUELOS Rep #: [id number] : 1945 77 From: Carlos Rae MD Primary Care: Dr. Gabe Rodriguez MD Status: REG CLI Referring Dr: Natividad Worthington Sex: M C Stress Test Report Pharmacologic myocardial perfusion stress test. 77-year-old man with a history of chest pain Resting EKG demonstrates sinus bradycardia with a rate of 46 bpm. Resting blood pressure is 132/68 mmHg. 0.4 mg of regadenoson was infused per usual protocol followed by rapid intravenous saline flush injection. Continuous EKG monitoring was performed. The maximum heart rate was 71 bpm which was 49% of max impacted heart rate the maximum workload was 1 metabolic equivalent. At rest there were no ST or T wave changes noted to suggest ischemia and at peak infusion nonspecific ST changes were noted which did not meet the criteria for ischemia. No clinical angina is noted. The final blood pressure was 118/60 mmHg. Myocardial perfusion protocol. 14.3 mCi of technetium 99m sestamibi was injected at rest. 0.4 mg of regadenoson was infused per usual protocol. At peak infusion 44.2 mCi of technetium 99m sestamibi was injected stress images were obtained stress and rest images were reconstructed and compared in the short axis vertical long and horizontal long axis. Gated images were also obtained. Perfusion SPECT analysis: Review of the stress images demonstrate normal uptake of tracer noted in all areas of the myocardium. The resting images similar demonstrated normal uptake of tracer noted in all areas of the myocardium. No areas of reversibility are noted to suggest ischemia and no previous infarct is noted. Gated SPECT analysis: The gated ejection fraction is 72%. Conclusion: Normal pharmacologic myocardial perfusion stress test. Preserved ejection fraction. 09/28/23 1230 Date Carlos Rae MD CC: Dr. Gabe Rodriguez MD; NIRAV Travis Date Dictated: 09/28/231226 Date Transcribed: 09/28/231226 Management Associate: [place] Signed Normal [facility] Absolute lymphocyte countOrd ered By: Deedeenavin Oleary on 08-17-2023 Lymphocytes Auto (Unsp spec) [#/Vol] 1.13 10*3/uL 0.83-4.51 [facility] Automated lymphocyte count a s percentage of total leukocytesOrdered By: Deedee Oleary on 08-17-2023 Lymphocytes/100 WBC Auto (Unsp spec) 16.3 % 19-41 [facility] Basophil percentageOrdered B y: Deedee Oleary on 08-17-2023 Basophils/100 WBC (Bld) 0.6 % 0-1 [facility] Chloride [Moles/Vol] 107 mmol/L 98-107 [facility] Eosinophils/100 WBC (Bld) 1.7 % 0-5 [facility] Glucose [Mass/Vol] 143 mg/dL 74-106 [facility] Comment on above: Fasting Glucose resu lt greater than or equal to 126 mg/dL suggests DIABETES MELLITUS per A.D.A. criteria. Hemoglobin (Bld) [Mass/Vol] 12.7 g/dL 13.0-16.5 [facility] Monocytes/100 WBC (Bld) 7.2 % 0-10 [facility] Neutrophils (Bld) [#/Vol] 5.1 10*3/uL 2.0-7.7 [facility] Neutrophils/100 WBC (Bld) 74.1 % 47-70 [facility] Potassium [Moles/Vol] 3.9 mmol/L 3.5-5.1 [facility] Sodium [Moles/Vol] 140 mmol/L 136-145 [facility] WBC (Bld) [#/Vol] 6.9 10*3/uL 4.4-11.0 [facility] Determination of erythrocyte mean corpuscular volume (MCV)Ordered By: Deedee Oleary on 08-17-2023 MCV (RBC) [Entitic vol] 86.6 fL 80-94 [facility] Erythrocyte distribution wid th ratioOrdered By: Deedee Oleary on 08-17-2023 Erythrocyte distribution width (RBC) [Ratio] 13.7 % 11.6-14.6 [facility] Erythrocyte distribution wid th standard deviationOrdered By: Deedee Oleary on 08-17-2023 Erythrocyte distribution width (RBC) [Entitic vol] 43.3 fL 35.1-43.9 [facility] Hematocrit Auto (Bld) [Volum e fraction]Ordered By: Deedee Oleary on 08-17-2023 Hematocrit (Bld) [Volume fraction] 37.4 % 40-54 [facility] Immature granulocytes/100 WB C Auto (Bld)Ordered By: Deedee Oleary on 08-17-2023 Immature granulocytes/100 WBC (Bld) 0.100 % 0.0-0.9 [facility] Comment on above: IG% - Immature Granu locytes (promyelocytes, myelocytes and metamyelocytes) > 1% indicates that a LEFT SHIFT is Present. Laboratory - Chemistry and C hemistry - challengeOrdered By: Deedee Oleary on 08-17-2023 CO2 [Moles/Vol] 27.0 mmol/L 21.0-32.0 [facility] Urea nitrogen/Creatinine [Mass ratio] 15.3 mg/mg 10-20 [facility] Laboratory - Hematology and Cell countsOrdered By: Deedee Oleary on 08-17-2023 MCH (RBC) [Entitic mass] 29.4 pg 27.0-32.0 [facility] MCHC (RBC) [Mass/Vol] 34.0 g/dL 32-36 [facility] Nucleated RBC/100 WBC (Bld) [Ratio] 0 % 0-5 [facility] Platelet mean volume (Bld) [Entitic vol] 10.4 fL 6.2-12.0 [facility] Platelets (Bld) [#/Vol] 207 10*3/uL 150-450 [facility] No Panel InformationOrdered By: Deedee Oleary on 08-17-2023 D-Dimer Quantitative (PE/DVT) 0.49 FEU/ug/m 0.27-0.49 [facility] Comment on above: NORMAL D-Dimer level (<0.50) indicates no DVT or PE. Estimated Creatinine Clearance Calc 55.84 ml/min [facility] Estimated GFR (MDRD) Amer 77 mL/min >60 [facility] Comment on above: GFR Calc Estimated GFR (MDRD) Non-Af Amer 64 mL/min >60 [facility] Comment on above: Non- GFR Calc Troponin I High Sensitivity 7 pg/mL 3.0-78.0 [facility] Comment on above: Please Note: New Rohini t Units and Gender Specific Reference Ranges. For more information see Policy Stat Procedure [place] High Sensitivity Troponin (TNIH) and attachments. RBC Auto (Bld) [#/Vol]Ordere d By: Deedee Oleary on 08-17-2023 RBC (Bld) [#/Vol] 4.32 10*6/uL 4.6-6.2 [facility] Serum or plasma calcium presley urement (mass/volume)Ordered By: Deedee Oleary on 08-17-2023 Calcium [Mass/Vol] 8.6 mg/dL 8.5-10.1 [facility] Serum or plasma creatinine m easurement (mass/volume)Ordered By: Deedee Oleary on 08-17-2023 Creatinine [Mass/Vol] 1.18 mg/dL 0.70-1.30 [facility] Comment on above: The validity of the calculated GFR & GFRAA in patients over 70 years has not been determined. Clinical correlation is essential. Serum or plasma urea nitroge n measurement (mass/volume)Ordered By: Deedee Oleary on 08-17-2023 Urea nitrogen [Mass/Vol] 18 mg/dL 7-18 [facility] Thin prep Papanicolaou smear with manual screeningOrdered By: Deedee Oleary on 08-17-2023 Thin prep Papanicolaou smear with manual screening 6 5-15 [facility] Serum or plasma uric acid me asurement (mass/volume)Ordered By: Gabe Rodriguez on 07-06-2023 Urate [Mass/Vol] 5.9 mg/dL 3.5-7.2 [facility] Comment on above: The drugs N-Acetylcy steine and Metamizole may falsely depress this assay. Basophil percentageOrdered B y: Natividad Worthington on 03-03-2023 Bilirubin [Mass/Vol] 0.70 mg/dL 0.20-1.00 [facility] Comment on above: For patients on eltr ombopag therapy, use of Dimension [place] TBIL is not recommended. Cholesterol [Mass/Vol] 175 mg/dL <200 [facility] Comment on above: <200 mg/dL Desirable 200-240 mg/dL Borderline >240 mg/dL High Risk Protein [Mass/Vol] 7.2 g/dL 6.4-8.2 [facility] Triglyceride [Mass/Vol] 98 mg/dL <199 [facility] Comment on above: The drugs N-Acetylcy steine and Metamizole may falsely depress this assay.Serum Triglycerides Reference Interval Normal <150 mg/dL Borderline high 150 - 199 mg/dL High 200 - 499 mg/dL Very High > or = 500 mg/dL Direct bilirubinOrdered By: Natividad Worthington on 03-03-2023 Bilirubin.direct [Mass/Vol] 0.16 mg/dL 0.00-0.30 [facility] Laboratory - Chemistry and C hemistry - challengeOrdered By: Natividad Worthington on 03-03-2023 ALP [Catalytic activity/Vol] 80 U/L 45-117 [facility] ALT [Catalytic activity/Vol] 43 U/L 16-61 [facility] Globulin (S) [Mass/Vol] 3.4 g/dL 2.2-4.2 [facility] Serum or plasma albumin presley urement (mass/volume)Ordered By: Natividad Worthington on 03-03-2023 Albumin [Mass/Vol] 3.8 g/dL 3.2-5.0 [facility] Serum or plasma cholesterol in HDL measurement (mass/volume)Ordered By: Natividad Worthington on 03-03-2023 Cholesterol in HDL [Mass/Vol] 46 mg/dL >40 [facility] Comment on above: The drugs N-Acetylcy steine and Metamizole may falsely depress this assay. Reference Range HDL <40 mg/dL Low HDL Cholesterol HDL >or= 60 mg/dL High HDL Cholesterol Serum or plasma cholesterol in VLDL measurement (mass/volume)Ordered By: Natividad Worthington on 03-03-2023 Cholesterol in VLDL [Mass/Vol] 20 mg/dL 5-40 [facility] Serum or plasma low density lipoprotein (LDL) cholesterol measurement (mass/volume)Ordered By: Natividad Worthington on 03-03-2023 Cholesterol in LDL [Mass/Vol] 109 mg/dL 0-130 [facility] Thin prep Papanicolaou smear with manual screeningOrdered By: Natividad Worthington on 03-03-2023 Thin prep Papanicolaou smear with manual screening 34 U/L 15-37 [facility] Basophil percentageOrdered B y: Natividad Worthington on 10-14-2022 Bilirubin [Mass/Vol] 0.50 mg/dL 0.20-1.00 [facility] Comment on above: For patients on eltr ombopag therapy, use of Dimension [place] TBIL is not recommended. Chloride [Moles/Vol] 105 mmol/L 98-107 [facility] Cholesterol [Mass/Vol] 140 mg/dL <200 [facility] Comment on above: <200 mg/dL Desirable 200-240 mg/dL Borderline >240 mg/dL High Risk Glucose [Mass/Vol] 101 mg/dL 74-106 [facility] Comment on above: Fasting Glucose resu lt from 100 to 125 mg/dL suggests IMPAIRED HOMEOSTASIS per A.D.A. criteria. Potassium [Moles/Vol] 3.5 mmol/L 3.5-5.1 [facility] Protein [Mass/Vol] 7.0 g/dL 6.4-8.2 [facility] Sodium [Moles/Vol] 139 mmol/L 136-145 [facility] Triglyceride [Mass/Vol] 283 mg/dL <199 [facility] Comment on above: The drugs N-Acetylcy steine and Metamizole may falsely depress this assay.Serum Triglycerides Reference Interval Normal <150 mg/dL Borderline high 150 - 199 mg/dL High 200 - 499 mg/dL Very High > or = 500 mg/dL WBC (Bld) [#/Vol] 6.6 10*3/uL 4.4-11.0 [facility] Blood erythrocytes count (nu mber/volume)Ordered By: Natividad Worthington on 10-14-2022 RBC (Bld) [#/Vol] 4.22 10*6/uL 4.6-6.2 [facility] Blood hemoglobin measurement (mass/volume)Ordered By: Natividad Worthington on 10-14-2022 Hemoglobin (Bld) [Mass/Vol] 12.6 g/dL 13.0-16.5 [facility] Blood platelet mean volumeOr dered By: Natividad Worthington on 10-14-2022 Platelet mean volume (Bld) [Entitic vol] 10.6 fL 6.2-12.0 [facility] Determination of erythrocyte mean corpuscular volume (MCV)Ordered By: Natividad Worthington on 10-14-2022 MCV (RBC) [Entitic vol] 90.8 fL 80-94 [facility] Direct bilirubinOrdered By: Natividad Worthington on 10-14-2022 Bilirubin.direct [Mass/Vol] 0.13 mg/dL 0.00-0.30 [facility] Hematocrit Auto (Bld) [Volum e fraction]Ordered By: Natividad Worthington on 10-14-2022 Hematocrit (Bld) [Volume fraction] 38.3 % 40-54 [facility] Laboratory - Chemistry and C hemistry - challengeOrdered By: Natividad Worthington on 10-14-2022 ALP [Catalytic activity/Vol] 90 U/L 45-117 [facility] ALT [Catalytic activity/Vol] 38 U/L 16-61 [facility] CO2 [Moles/Vol] 27.0 mmol/L 21.0-32.0 [facility] Globulin (S) [Mass/Vol] 3.4 g/dL 2.2-4.2 [facility] Urea nitrogen/Creatinine [Mass ratio] 18.9 mg/mg 10-20 [facility] Laboratory - Hematology and Cell countsOrdered By: Natividad Worthington on 10-14-2022 Erythrocyte distribution width (RBC) [Entitic vol] 45.7 fL 35.1-43.9 [facility] Erythrocyte distribution width (RBC) [Ratio] 13.8 % 11.6-14.6 [facility] MCH (RBC) [Entitic mass] 29.9 pg 27.0-32.0 [facility] MCHC Auto (RBC) [Mass/Vol]Or dered By: Natividad Worthington on 10-14-2022 MCHC (RBC) [Mass/Vol] 32.9 g/dL 32-36 [facility] No Panel InformationOrdered By: Natividad Worthington on 10-14-2022 Estimated GFR (MDRD) Amer 68 mL/min >60 [facility] Comment on above: GFR Calc Estimated GFR (MDRD) Non-Af Amer 56 mL/min >60 [facility] Comment on above: Non- GFR Calc Thyroid Stimulating Hormone (TSH) 2.74 uIU/mL 0.358-3.74 [facility] Platelets bldOrdered By: Kevin Worthington on 10-14-2022 Platelets (Bld) [#/Vol] 224 10*3/uL 150-450 [facility] Serum or plasma albumin presley urement (mass/volume)Ordered By: Natividad Worthington on 10-14-2022 Albumin [Mass/Vol] 3.6 g/dL 3.2-5.0 [facility] Serum or plasma calcium presley urement (mass/volume)Ordered By: Natividad Worthington on 10-14-2022 Calcium [Mass/Vol] 8.6 mg/dL 8.5-10.1 [facility] Serum or plasma cholesterol in HDL measurement (mass/volume)Ordered By: Natividad Worthington on 10-14-2022 Cholesterol in HDL [Mass/Vol] 36 mg/dL >40 [facility] Comment on above: The drugs N-Acetylcy steine and Metamizole may falsely depress this assay. Reference Range HDL <40 mg/dL Low HDL Cholesterol HDL >or= 60 mg/dL High HDL Cholesterol Serum or plasma cholesterol in VLDL measurement (mass/volume)Ordered By: Natividad Worthington on 10-14-2022 Cholesterol in VLDL [Mass/Vol] 57 mg/dL 5-40 [facility] Serum or plasma creatinine m easurement (mass/volume)Ordered By: Natividad Worthington on 06-30-2023 Creatinine [Mass/Vol] 1.32 mg/dL 0.70-1.30 [facility] Comment on above: The validity of the calculated GFR & GFRAA in patients over 70 years has not been determined. Clinical correlation is essential. Serum or plasma low density lipoprotein (LDL) cholesterol measurement (mass/volume)Ordered By: Natividad Worthington on 10-14-2022 Cholesterol in LDL [Mass/Vol] 47 mg/dL 0-130 [facility] Serum or plasma urea nitroge n measurement (mass/volume)Ordered By: Natividad Worthington on 10-14-2022 Urea nitrogen [Mass/Vol] 25 mg/dL 11-01 [facility] Thin prep Papanicolaou smear with manual screeningOrdered By: Natividad Worthington on 10-14-2022 Thin prep Papanicolaou smear with manual screening 27 U/L 1537 [facility] Thin prep Papanicolaou smear with manual screening 7 5-15 [facility] Basophil percentageOrdered B y: Gabe Rodriguez on 09-01-2022 Chloride [Moles/Vol] 105 mmol/L 98-107 [facility] Cholesterol [Mass/Vol] 151 mg/dL <200 [facility] Comment on above: <200 mg/dL Desirable 200-240 mg/dL Borderline >240 mg/dL High Risk Glucose [Mass/Vol] 105 mg/dL 74-106 [facility] Comment on above: Fasting Glucose resu lt from 100 to 125 mg/dL suggests IMPAIRED HOMEOSTASIS per A.D.A. criteria. Potassium [Moles/Vol] 3.6 mmol/L 3.5-5.1 [facility] Sodium [Moles/Vol] 141 mmol/L 136-145 [facility] Testosterone [Mass/Vol] 156.43 ng/dL [facility] Comment on above: CENTRAL 90% REFERENC E RANGES MALE AGE <50 197.44 - 669.58 ng/dL MALE AGE > or = 50 187.72 - 684.19 ng/dL FEMALE AGE <50 8.38 - 35.01 ng/dL FEMALE AGE > or = 50 <7.00 - 35.92 ng/dL Effective as of 11/10/20 Triglyceride [Mass/Vol] 124 mg/dL <199 [facility] Comment on above: The drugs N-Acetylcy steine and Metamizole may falsely depress this assay.Serum Triglycerides Reference Interval Normal <150 mg/dL Borderline high 150 - 199 mg/dL High 200 - 499 mg/dL Very High > or = 500 mg/dL Laboratory - Chemistry and C hemistry - challengeOrdered By: Gabe Rodriguez on 09-01-2022 CO2 [Moles/Vol] 26.0 mmol/L 21.0-32.0 [facility] Urea nitrogen/Creatinine [Mass ratio] 18.0 mg/mg 10-20 [facility] No Panel InformationOrdered By: Gabe Rodriguez on 09-01-2022 Estimated GFR (MDRD) Amer 67 mL/min >60 [facility] Comment on above: GFR Calc Estimated GFR (MDRD) Non-Af Amer 55 mL/min >60 [facility] Comment on above: Non- GFR Calc Thyroid Stimulating Hormone (TSH) 1.41 uIU/mL 0.358-3.74 [facility] Serum or plasma calcium presley urement (mass/volume)Ordered By: Gabe Rodriguez on 09-01-2022 Calcium [Mass/Vol] 9.1 mg/dL 8.5-10.1 [facility] Serum or plasma cholesterol in HDL measurement (mass/volume)Ordered By: Gabe Rodriguez on 09-01-2022 Cholesterol in HDL [Mass/Vol] 42 mg/dL >40 [facility] Comment on above: The drugs N-Acetylcy steine and Metamizole may falsely depress this assay. Reference Range HDL <40 mg/dL Low HDL Cholesterol HDL >or= 60 mg/dL High HDL Cholesterol Serum or plasma cholesterol in VLDL measurement (mass/volume)Ordered By: Gabe Rodriguez on 09-01-2022 Cholesterol in VLDL [Mass/Vol] 25 mg/dL 5-40 [facility] Serum or plasma creatinine m easurement (mass/volume)Ordered By: Gabe Rodriguez on 09-01-2022 Creatinine [Mass/Vol] 1.33 mg/dL 0.70-1.30 [facility] Comment on above: The validity of the calculated GFR & GFRAA in patients over 70 years has not been determined. Clinical correlation is essential. Serum or plasma low density lipoprotein (LDL) cholesterol measurement (mass/volume)Ordered By: Gabe Rodriguez on 09-01-2022 Cholesterol in LDL [Mass/Vol] 84 mg/dL 0-130 [facility] Serum or plasma urea nitroge n measurement (mass/volume)Ordered By: Gabe Rodriguez on 09-01-2022 Urea nitrogen [Mass/Vol] 24 mg/dL 7-18 [facility] Thin prep Papanicolaou smear with manual screeningOrdered By: Gabe Rodriguez on 09-01-2022 Thin prep Papanicolaou smear with manual screening 10 5-15 [facility] Basophil percentageon 2021 Bilirubin [Mass/Vol] 0.50 mg/dL 0.20-1.00 [facility] Work Phone: Comment on above: For patients on eltr ombopag therapy, use of Dimension [place] TBIL is not recommended. Cholesterol [Mass/Vol] 146 mg/dL <200 [facility] Work Phone: Comment on above: <200 mg/dL Desirable 200-240 mg/dL Borderline >240 mg/dL High Risk Protein [Mass/Vol] 6.9 g/dL 6.4-8.2 [facility] Work Phone: Triglyceride [Mass/Vol] 175 mg/dL <199 [facility] Work Phone: Comment on above: The drugs N-Acetylcy steine and Metamizole may falsely depress this assay.Serum Triglycerides Reference Interval Normal <150 mg/dL Borderline high 150 - 199 mg/dL High 200 - 499 mg/dL Very High > or = 500 mg/dL Direct bilirubinon 2 Bilirubin.direct [Mass/Vol] 0.15 mg/dL 0.00-0.30 [facility] Work Phone: Laboratory - Chemistry and C hemistry - challengeon 02-05-2022 ALP [Catalytic activity/Vol] 82 U/L 45-117 [facility] Work Phone: [phone] ALT [Catalytic activity/Vol] 38 U/L 16-61 [facility] Work Phone: [phone] Globulin (S) [Mass/Vol] 3.1 g/dL 2.2-4.2 [facility] Work Phone: Serum or plasma albumin presley urement (mass/volume)on 02-05-2022 Albumin [Mass/Vol] 3.8 g/dL 3.2-5.0 [facility] Work Phone: Serum or plasma cholesterol in HDL measurement (mass/volume)on 02-05-2022 Cholesterol in HDL [Mass/Vol] 36 mg/dL >40 [facility] Work Phone: Comment on above: The drugs N-Acetylcy steine and Metamizole may falsely depress this assay. Reference Range HDL <40 mg/dL Low HDL Cholesterol HDL >or= 60 mg/dL High HDL Cholesterol Serum or plasma cholesterol in VLDL measurement (mass/volume)on 02-05-2022 Cholesterol in VLDL [Mass/Vol] 35 mg/dL 5-40 [facility] Work Phone: Serum or plasma low density lipoprotein (LDL) cholesterol measurement (mass/volume)on 02-05-2022 Cholesterol in LDL [Mass/Vol] 75 mg/dL 0-130 [facility] Work Phone: Thin prep Papanicolaou smear with manual screeningon 02-05-2022 Thin prep Papanicolaou smear with manual screening 30 U/L 15-37 [facility] Work Phone: Office Visiton 03-16-2017 Documentation of current medications (procedure) Done Invalid Interpretation Code [place] [facility] Work Phone: [phone] Fall risk assessment No Invalid Interpretation Code [facility] Work Phone: [phone] Lab Report: Lipid Profileon 02-28-2017 Cholesterol 130 mg/dL Invalid Interpretation Code 200 [facility] Work Phone: [phone] HDL Cholesterol 40 mg/dL Invalid Interpretation Code [facility] [employer] Work Phone: [phone] LDL Cholesterol 66 mg/dL Invalid Interpretation Code 0-130 [facility] [employer] Work Phone: [phone] Triglyceride 119 mg/dL Invalid Interpretation Code [facility] Work Phone: [phone] very low density lipoproteins 24 mg/dL Invalid Interpretation Code 5-40 [facility] [employer] Work Phone: [phone] Lab Report: Liver Profileon 02-28-2017 Alanine aminotransferase (ALT) 53 U/L Invalid Interpretation Code 12-78 [facility] Work Phone: [phone] Albumin 3.7 g/dL Invalid Interpretation Code 3.4-5.0 [facility] Work Phone: [phone] Alkaline phosphatase (ALP) 91 U/L Invalid Interpretation Code 45-117 [facility] Work Phone: [phone] Aspartate aminotransferase (AST) 34 U/L Invalid Interpretation Code 15-37 [facility] Work Phone: [phone] Bilirubin (direct) 0.11 mg/dL Invalid Interpretation Code 0.00-0.30 [facility] Work Phone: [phone] Bilirubin (total) 0.60 mg/dL Invalid Interpretation Code 0.20-1.00 [employer] Phone: [phone] Globulin 3.3 g/dL Invalid Interpretation Code 2.2-4.2 [employer] [facility] Phone: [phone] Protein 7.0 g/dL Invalid Interpretation Code 6.4-8.2 [employer] [facility] Phone: [phone] Office Visiton 09-05-2016 Dietary management education, guidance, and counseling (procedure) yes Invalid Interpretation Code [facility]: [phone] Documentation of current medications (procedure) Done Invalid Interpretation Code [facility]: [phone] Fall risk assessment No Invalid Interpretation Code [facility] Phone: [phone] 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 Left ventricular Ejection fraction 55 % Invalid Interpretation Code [facility]: [phone] Office Visiton 03-04-2016 Tobacco use CPHS Former smoker Invalid Interpretation Code [facility] Phone: [phone] Replaced Document: Hal Elena CG Observationson 03-04-2016 EKG QRS axis 35 deg Invalid Interpretation Code [facility]: [phone] Interpretation Marked sinus Bradycardia BORDERLINE RHYTHM Invalid Interpretation Code [facility] Phone: [phone] P Winston 36 deg Invalid Interpretation Code [facility] Phone: [phone] NE Interval 188 ms Invalid Interpretation Code [facility] Work Phone: [phone] Pulse (Heart Rate) 43 /min Invalid Interpretation Code [facility] Work Phone: [phone] QRS Duration 92 ms Invalid Interpretation Code [facility] Work Phone: [phone] QT Interval new path ms Invalid Interpretation Code [facility] Work Phone: [phone] QTc Steele 409 ms Invalid Interpretation Code [facility] Work Phone: [phone] T Winston 38 deg Invalid Interpretation Code [facility] Work Phone: [phone] Chart Maintenanceon 05-19-19 14 Hematocrit (HCT) 36.5 % Low [facility] Work Phone: [phone] Hemoglobin mass conc (Bld) 12.6 g/dL Low [facility] Work Phone: [phone] Replaced Document: Hal E CG Observationson 01-18-2013 Pulse (Heart Rate) 424 ms Invalid Interpretation Code [facility] Work Phone: [phone] 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-2011 Anion gap 8 mmol/L Invalid Interpretation Code [facility] Work Phone: [phone] BUN/Creatinine Ratio 18.9 mg/mg Invalid Interpretation Code [facility] Work Phone: [phone] Calcium 7.2 mg/dL Low [facility] Work Phone: [phone] Chloride 109 mmol/L High [facility] Work Phone: [phone] CO2 24 mmol/L Invalid Interpretation Code [facility] Work Phone: [phone] Creatinine 0.9 mg/dL Invalid Interpretation Code [facility] Work Phone: [phone] Erythrocytes (RBC) 3.6 10*6/uL Low [facility] Work Phone: [phone] Glucose mass conc 120 mg/dL High [facility] Work Phone: [phone] MCH 31.1 pg Invalid Interpretation Code [facility] Work Phone: [phone] MCV 92.1 fL Invalid Interpretation Code [facility] Work Phone: [phone] Platelets 146 10*3/mm3 Low [facility] Work Phone: [phone] Potassium molar conc 3.8 mmol/L Invalid Interpretation Code [facility] Work Phone: [phone] Sodium 141 mmol/L Invalid Interpretation Code [facility] Work Phone: [phone] Urea nitrogen 17 mg/dL Invalid Interpretation Code [facility] Work Phone: [phone] WBC (Leukocytes) 12.4 10*3/uL High [facility] Work Phone: [phone] Vital Signs Date Time Vital Sign Value Performing Clinician Faci lity 06-28-2024 10:20-0400 Body height 180.[address] Gabe Rodriguez MD Work Phone: [facility] 06-28-2024 10:20-0400 Body mass index (BMI) [Ratio] 27.4 kg/m2 Dr. Gabe Rodriguez MD Work Phone: [facility] 06-28-2024 10:20-0400 Body weight 89.[address] Gabe Rodriguez MD Work Phone: [facility] 06-28-2024 10:20-0400 Diastolic blood pressure 69 mm[Hg] Dr. Gabe Rodriguez MD Work Phone: [facility] 06-28-2024 10:20-0400 Heart rate 47 /min Dr. Gabe Rodriguez MD Work Phone: [facility] 06-28-2024 10:20-0400 Respiratory rate 18 /min Dr. Gabe Rodriguez MD Work Phone: [facility] 06-28-2024 10:20-0400 SaO2% (BldA) [Mass fraction] 96 % Dr. Gabe Rodriguez MD Work Phone: [facility] 06-28-2024 10:20-0400 Systolic blood pressure 148 mm[Hg] Dr. Gabe Rodriguez MD Work Phone: [facility] 08-23-2023 13:00-0400 Body temperature 98 [degF] Dr. Gabe Rodriguez Work Phone: [facility] 08-23-2023 13:00-0400 Diastolic blood pressure 59 mm[Hg] Dr. Gabe Rodriguez Work Phone: [facility] 08-23-2023 13:00-0400 Heart rate 52 /min Dr. Gabe Rodriguez Work Phone: [facility] 08-23-2023 13:00-0400 Respiratory rate 16 /min Dr. Gabe Rodriguez Work Phone: 9(558)406-858817 [place] [address] 08-23-2023 13:00-0400 SaO2% (BldA) [Mass fraction] 95 % Dr. Gabe Rodriguez Work Phone: 2(031)032-636672 [address] 08-23-2023 13:00-0400 Systolic blood pressure 130 mm[Hg] Dr. Gabe Rodriguez Work Phone: 9(130)941-727995 [place] [address] 08-23-2023 11:04-0400 Body height 180.[address] Gabe Rodriguez Work Phone: 9(546)534-364595 [place] [address] 08-23-2023 11:04-0400 Body mass index (BMI) [Ratio] 27.6 kg/m2 Dr. Gabe Rodriguez Work Phone: 7(287)082-037095 [place] [address] 08-23-2023 11:04-0400 Body weight 89.[address] Gabe Rodriguez Work Phone: 6(775)591-419795 [place] [address] 08-17-2023 16:16-0400 Body temperature 98.1 [degF] Dr. Gabe Rodriguez Work Phone: [facility] 08-17-2023 16:16-0400 Diastolic blood pressure 66 mm[Hg] Dr. Gabe Rodriguez Work Phone: 1(422)451-151217 [place] [address] 08-17-2023 16:16-0400 Heart rate 51 /min Dr. Gabe Rodriguez Work Phone: 5(216)517-198217 [place] [address] 08-17-2023 16:16-0400 Respiratory rate 16 /min Dr. Gabe Rodriguez Work Phone: 7(412)249-129017 [place] [address] 08-17-2023 16:16-0400 SaO2% (BldA) [Mass fraction] 98 % Dr. Gabe Rodriguez Work Phone: [facility] 08-17-2023 16:16-0400 Systolic blood pressure 134 mm[Hg] Dr. Gabe Rodriguez Work Phone: [facility] 08-17-2023 14:02-0400 Body height 180.[address] Gabe Rodriguez Work Phone: [facility] 08-17-2023 14:02-0400 Body mass index (BMI) [Ratio] 27.6 kg/m2 Dr. Gabe Rodriguez Work Phone: [facility] 08-17-2023 14:02-0400 Body weight 90.[address] Gabe Rodriguez Work Phone: [facility] 03-06-2023 15:12-0500 Diastolic blood pressure 68 mm[Hg] Dr. Gabe Rodriguez Work Phone: 1(329)502-177917 [place] [address] 03-06-2023 15:12-0500 Systolic blood pressure 138 mm[Hg] Dr. Gabe Rodriguez Work Phone: 4(117)569-613917 [place] [address] 03-06-2023 14:50-0500 Body height 180.[address] Gabe Rodriguez Work Phone: [facility] 03-06-2023 14:50-0500 Body mass index (BMI) [Ratio] 27.1 kg/m2 Dr. Gabe Rodriguez Work Phone: [facility] 03-06-2023 14:50-0500 Body weight 88.[address] Gabe Rodriguez Work Phone: [facility] 03-06-2023 14:50-0500 Heart rate 52 /min Dr. Gabe Rodriguez Work Phone: [facility] 03-06-2023 14:50-0500 Respiratory rate 18 /min Dr. Gabe Rodriguez Work Phone: [facility] 03-06-2023 14:50-0500 SaO2% (BldA) [Mass fraction] 98 % Dr. Gabe Rodriguez Work Phone: [facility] 12-09-2022 09:21-0400 Body temperature 98.4 [degF] Dr. Gabe Rodriguez Work Phone: [facility] 12-09-2022 09:21-0400 Diastolic blood pressure 68 mm[Hg] Dr. Gabe Rodriguez Work Phone: [facility] 12-09-2022 09:21-0400 Heart rate 52 /min Dr. Gabe Rodriguez Work Phone: [facility] 12-09-2022 09:21-0400 Respiratory rate 12 /min Dr. Gabe Rodriguez Work Phone: [facility] 12-09-2022 09:21-0400 SaO2% (BldA) [Mass fraction] 94 % Dr. Gabe Rodriguez Work Phone: [facility] 12-09-2022 09:21-0400 Systolic blood pressure 114 mm[Hg] Dr. Gabe Rodriguez Work Phone: [facility] 11-25-2022 20:06-0400 Body height 180.[address] Gabe Rodriguez Work Phone: [facility] 11-25-2022 20:06-0400 Body mass index (BMI) [Ratio] 26.9 kg/m2 Dr. Gabe Rodriguez Work Phone: [facility] 11-25-2022 20:06-0400 Body temperature 97.6 [degF] Dr. Gabe Rodriguez Work Phone: [facility] 11-25-2022 20:06-0400 Body weight 87.[address] Gabe Rodriguez Work Phone: [facility] 11-25-2022 20:06-0400 Diastolic blood pressure 73 mm[Hg] Dr. Gabe Rodriguez Work Phone: [facility] 11-25-2022 20:06-0400 Heart rate 45 /min Dr. Gabe Rodriguez Work Phone: [facility] 11-25-2022 20:06-0400 Respiratory rate 16 /min Dr. Gabe Rodriguez Work Phone: [facility] 11-25-2022 20:06-0400 SaO2% (BldA) [Mass fraction] 99 % Dr. Gabe Rodriguez Work Phone: [facility] 11-25-2022 20:06-0400 Systolic blood pressure 156 mm[Hg] Dr. Gabe Rodriguez Work Phone: [facility] 11-25-2022 09:47-0400 Diastolic blood pressure 84 mm[Hg] Dr. Gabe Rodriguez Work Phone: [facility] 11-25-2022 09:47-0400 Systolic blood pressure 128 mm[Hg] Dr. Gabe Rodriguez Work Phone: [facility] 11-25-2022 08:48-0400 Body temperature 98.4 [degF] Dr. Gabe Rodriguez Work Phone: [facility] 11-25-2022 08:48-0400 Heart rate 54 /min Dr. Gabe Rodriguez Work Phone: [facility] 11-25-2022 08:48-0400 Respiratory rate 16 /min Dr. Gabe Rodriguez Work Phone: [facility] 11-25-2022 08:48-0400 SaO2% (BldA) [Mass fraction] 96 % Dr. Gabe Rodriguez Work Phone: [facility] 11-01-2022 08:50-0400 Body temperature 98 [degF] Dr. Gabe Rodriguez Work Phone: [facility] 11-01-2022 08:50-0400 Diastolic blood pressure 71 mm[Hg] Dr. Gabe Rodriguez Work Phone: [facility] 11-01-2022 08:50-0400 Heart rate 54 /min Dr. Gabe Rodriguez Work Phone: [facility] 11-01-2022 08:50-0400 Respiratory rate 16 /min Dr. Gabe Rodriguez Work Phone: [facility] 11-01-2022 08:50-0400 SaO2% (BldA) [Mass fraction] 100 % Dr. Gabe Rodriguez Work Phone: [facility] 11-01-2022 08:50-0400 Systolic blood pressure 116 mm[Hg] Dr. Gabe Rodriguez Work Phone: 6(416)651-964772 [address] 11-01-2022 06:49-0400 Body height 180.[address] Gabe Rodriguez Work Phone: 9(539)789-252295 [place] [address] 11-01-2022 06:49-0400 Body mass index (BMI) [Ratio] 26.1 kg/m2 Dr. Gabe Rodriguez Work Phone: 2(388)171-240995 [place] [address] 11-01-2022 06:49-0400 Body weight [address] Gabe Rodriguez Work Phone: 6(887)302-789695 [place] [address] 10-10-2022 13:01-0400 Body height 180.[address] Gabe Rodriguez Work Phone: 5(878)423-852672 [address] 10-10-2022 13:00-0400 Body mass index (BMI) [Ratio] 26.3 kg/m2 Dr. Gabe Rodriguez Work Phone: 1(482)574-774695 [place] [address] 10-10-2022 13:00-0400 Body weight 85.[address] Gabe Rodriguez Work Phone: 0(503)410-574295 [place] [address] 10-10-2022 13:00-0400 Diastolic blood pressure 74 mm[Hg] Dr. Gabe Rodriguez Work Phone: 8(232)242-170872 [address] 10-10-2022 13:00-0400 Heart rate 52 /min Dr. Gabe Rodriguez Work Phone: 7(093)388-623495 [place] [address] 10-10-2022 13:00-0400 Respiratory rate 18 /min Dr. Gabe Rodriguez Work Phone: 6(717)792-846772 [address] 10-10-2022 13:00-0400 SaO2% (BldA) [Mass fraction] 99 % Dr. Gabe Rodriguez Work Phone: 1(801)424-466917 [place] [address] 10-10-2022 13:00-0400 Systolic blood pressure 121 mm[Hg] Dr. Gabe Rodriguez Work Phone: [facility] 10-10-2022 07:18-0400 Body mass index (BMI) [Ratio] 26.6 kg/m2 Dr. Gabe Rodriguez Work Phone: [facility] 10-10-2022 07:18-0400 Body weight 86.[address] Gabe Rodriguez Work Phone: [facility] 10-10-2022 07:18-0400 Diastolic blood pressure 62 mm[Hg] Dr. Gabe Rodriguez Work Phone: [facility] 10-10-2022 07:18-0400 Respiratory rate 16 /min Dr. Gabe Rodriguez Work Phone: [facility] 10-10-2022 07:18-0400 Systolic blood pressure 131 mm[Hg] Dr. Gabe Rodriguez Work Phone: [facility] 05-23-2022 08:49-0500 Body height 180.[address] Gabe Rodriguez Work Phone: [facility] 05-23-2022 08:49-0500 Body mass index (BMI) [Ratio] 27.3 kg/m2 Dr. Gabe Rodriguez Work Phone: [facility] 05-23-2022 08:49-0500 Body weight 88.[address] aGbe Rodriguez Work Phone: [facility] 02-07-2022 09:02-0400 Body height 180.[address] Gabe Rodriguez Work Phone: [facility] Work Phone: 02-07-2022 09:02-0400 Body mass index (BMI) [Ratio] 27.1 kg/m2 Dr. Gabe Rodriguez Work Phone: [facility] Work Phone: 02-07-2022 09:02-0400 Body weight 88.[address] Gabe Rodriguez Work Phone: [facility] Work Phone: 02-07-2022 09:02-0400 Diastolic blood pressure 71 mm[Hg] Dr. Gabe Rodriguez Work Phone: [facility] Work Phone: 02-07-2022 09:02-0400 Heart rate 48 /min Dr. Gabe Rodriguez Work Phone: [facility] Work Phone: 02-07-2022 09:02-0400 Respiratory rate 18 /min Dr. Gabe Rodriguez Work Phone: [facility] Work Phone: 02-07-2022 09:02-0400 SaO2% (BldA) [Mass fraction] 99 % Dr. Gabe Rodriguez Work Phone: [facility] Work Phone: 02-07-2022 09:02-0400 Systolic blood pressure 124 mm[Hg] Dr. Gabe Rodriguez Work Phone: [facility] Work Phone: 03-16-2017 13:25-0500 BMI (Body Mass Index) 27.39 kg/m2 [facility] Work Phone: 03-16-2017 13:25-0500 BP Diastolic 70 mm[Hg] [facility] Work Phone: 03-16-2017 13:25-0500 BP Systolic 122 mm[Hg] [facility] Work Phone: 03-16-2017 13:25-0500 Height 182.88 cm [facility] Work Phone: 03-16-2017 13:25-0500 Pulse (Heart Rate) 48 /min [facility] Work Phone: 03-16-2017 13:25-0500 Respiratory Rate 16 /min [facility] Work Phone: 03-16-2017 13:25-0500 Weight 91.63 kg [facility] Work Phone: 09-05-2016 12:45-0400 BMI (Body Mass Index) 27.26 kg/m2 Cruz 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 [employer]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 [facility] Work Phone: 09-05-2016 12:45-0400 BP Diastolic 76 mm[Hg] Cruz Delcid [employer] DEVELOPER [facility] Work Phone: 09-05-2016 12:45-0400 BP Systolic 142 mm[Hg] Cruz Delcid [employer] DEVELOPER [facility] Work Phone: 09-05-2016 12:45-0400 Height 182.88 cm Cruz Delcid [employer] DEVELOPER [facility] Work Phone: 09-05-2016 12:45-0400 Pulse (Heart Rate) 48 /min Cruz Delcid [employer] DEVELOPER [facility] Work Phone: 09-05-2016 12:45-0400 Respiratory Rate 18 /min Cruz Delcid [employer] DEVELOPER [facility] Work Phone: 09-05-2016 12:45-0400 Weight 91.17 kg Cruz Delcid [employer] DEVEL[employer] [facility] Work Phone: 03-04-2016 10:03-0500 BSA (Body Surface Area) 2.1 m2 Cruz Delcid [employer] DEVELOPER [facility] Work Phone: 03-04-2016 10:03-0500 Pulse Oximetry 98 % Cruz Delcid [employer] DEVEL[employer] [facility] Work Phone: Encounters Encounter Date Encounter Type Care Provider Facility Start: 09-06-2024 End: 09-06-[address] Gabe Rodriguez MD Work Phone: [facility] Work Phone: Start: 09-06-2024 End: 09-06-[address] Gabe Rodriguez MD -[facility] Work Phone: Start: 09-06-2024 End: 09-06-2024 ambulatory Gabe Rodriguez Facility:[facility] Start: 06-28-2024 End: 06-28-[address] Jose Anderson MD -[facility] Work Phone: Start: 06-28-2024 End: 06-28-2024 ambulatory Gabe Rodriguez Facility:[facility] Start: 06-26-2024 ambulatory Gabe Rodriguez Facility:[facility] Start: 02-12-2024 End: 02-12-2024 ambulatory Gabe Rodriguez Facility:[facility] Start: 01-17-2024 End: 01-17-2024 ambulatory Gabe Rodriguez Facility:[facility] Start: 01-01-2024 ambulatory Gabe [facility] Start: 12-21-2023 End: 12-21-2023 ambulatory Gabe Rodriguze Facility:[facility] Start: 10-28-2023 End: 10-28-2023 Emergency department patient visit Sharyn Griggs Facility:[facility] Start: 09-28-2023 ambulatory Gabe Rodriguez Facility:[facility] Start: 09-28-2023 End: 09-28-2023 ambulatory Natividad MCGOWAN Facility:[facility] Start: 08-23-2023 End: 08-23-2023 Emergency department patient visit Dr. Gabe Rodriguez Work Phone: [facility]-Emergency Department Work Phone: Start: 08-17-2023 Non-patient / Non-visit Dr. Nirav Rodriguez Work Phone: [facility] Start: 08-17-2023 End: 08-17-2023 Emergency department patient visit Dr. Gabe Rodriguez Work Phone: [facility]-Emergency Department Work Phone: Start: 07-06-2023 End: 07-06-[address] Gabe Rodriguez Work Phone: [facility] Work Phone: Start: 07-06-2023 End: 07-06-[address] Gabe Rodriguez Work Phone: [facility] Work Phone: Start: 05-02-2023 Non-patient / Non-visit Dr. Nirav Rodriguez Work Phone: [facility] Start: 05-02-2023 End: 05-02-[address] Gabe Rodriguez Work Phone: [facility] Work Phone: Start: 05-02-2023 End: 05-02-[address] [facility] Start: 03-06-2023 End: 03-06-[address] Gabe Rodriguez Work Phone: [facility] Work Phone: Start: 03-03-2023 End: 03-03-[address] Gabe Rodriguez Work Phone: [facility] Work Phone: Start: 03-03-2023 End: 03-03-[address] Gabe Rodriguez Work Phone: [facility]-Laboratory Work Phone: Start: 12-09-2022 End: 12-09-[address] Gabe Rodriguez Work Phone: [facility] Work Phone: Start: 11-25-2022 End: 11-25-2022 Emergency department patient visit Dr. Gabe Rodriguez Work Phone: [facility]-Emergency Department Work Phone: Start: 11-25-2022 End: 11-25-[address] Gabe Rodriguez Work Phone: [facility] Work Phone: Start: 11-01-2022 Non-patient / Non-visit Dr. Nirav Rodriguez Work Phone: [facility] Start: 11-01-2022 End: 11-01-2022 Admission to same day surgery center Dr. Gabe Rodriguez Work Phone: [facility]-Endoscopy Work Phone: Start: 11-01-2022 End: 11-01-[address] Gabe Rodriguez Work Phone: [facility] Work Phone: Start: 10-14-2022 End: 10-14-[address] Gabe Rodriguez Work Phone: [facility] Work Phone: Start: 10-14-2022 End: 10-14-[address] Gabe Rodriguez Work Phone: [facility]-Laboratory Work Phone: Start: 10-13-2022 Non-patient / Non-visit Dr. Nirav Rodriguez Work Phone: [facility] Start: 10-13-2022 End: 10-13-[address] [facility] Start: 10-10-2022 End: 10-10-[address] Gabe Rodriguez Work Phone: [facility] Work Phone: Start: 10-10-2022 End: 10-10-[address] Gabe Rodriguez Work Phone: [facility] Work Phone: Start: 09-01-2022 End: 09-01-[address] Gabe Rodriguez [facility] Start: 06-14-2022 End: 06-14-[address] Gabe Rodriguez Work Phone: [facility] Start: 06-09-2022 End: 06-09-[address] Gabe Rodriguez Work Phone: [facility] Work Phone: Start: 06-09-2022 End: 06-09-[address] Gabe Rodriguez Work Phone: [facility] [place] Start: 05-23-2022 End: 05-23-[address] Gabe Rodriguez Work Phone: [facility] Start: 04-19-2022 End: 04-19-[address] Gabe Rodriguez Work Phone: [facility] Work Phone: Start: 04-19-2022 End: 04-19-[address] Gabe Rodriguez Work Phone: [facility]-Physical Therapy Start: 04-14-[address] Gabe Rodriguez Work Phone: [facility] Therapy Start: 03-30-2022 End: 03-30-[address] Gabe Rodriguez Work Phone: [facility] Work Phone: Start: 03-30-2022 End: 03-30-[address] Gabe Rodriguez Work Phone: [facility] Start: 02-07-2022 End: 02-07-[address] Gabe Rodriguez Work Phone: [facility] Start: 02-05-2022 End: 02-05-[address] Gabe Rodriguez Work Phone: [facility] Work Phone: Start: 02-05-2022 End: 02-05-[address] Gabe Rodriguez Work Phone: [facility]-Laboratory Procedures Date Procedure Procedure Detail Performing Clinician Start: 09-06-2024 Plain X-ray of shoulder Dr. Gabe Rodriguez MD Work Phone: Start: 08-17-2023 Plain chest X-ray Dr. Lorrie Rodriguez Work Phone: Start: 11-01-[address] Gabe campos Work Phone: Start: 06-09-2022 MRI of joint of lowe r extremity Dr. Gabe Rodriguez Work Phone: Start: 05-25-2022 X-ray of eye for for eign body Dr. Gabe Rodriguez Work Phone: Start: 03-30-2022 Plain X-ray of shoulder Dr. Gabe Rodriguez Work Phone: Start: 03-16-2017 End: 03-16-2017 SAUD Deras MD [...] MD Work Phone: Start: 03-02-2015 End: 03-02-2015 SAUD Deras MD Work Phone: Start: 03-02-2015 End: 03-02-2015 Follow Up Appt 1 year Soraida Carrington Work Phone: Start: 02-27-2015 End: 02-27-2015 *Hepatic Function Panel Margarito Deras MD Work Phone: Start: 02-27-2015 End: 02-27-2015 Lipid 1996 panel - Serum or Plasma Margarito Dreas MD Work Phone: Start: 01-28-2014 End: 01-28-2014 [...] Start: 01-07-2013 End: 01-07-2013 *Hepatic Function Panel Rei Multani MD Start: 07-18-2012 End: 01-07-2013 *Hepatic Function Panel Rei Multani MD Start: 07-18-2012 End: 01-07-2013 Lipid 1996 panel - Serum or Plasma Rei Multani MD Start: 07-13-2012 End: 07-13-2012 eRx Transmitted during this visit (Medicare only) Rei Multani MD Start: 07-13-2012 End: 01-08-2013 Follow Up Appt 6 months Rei Multani MD Start: 01-16-2012 End: 01-16-2012 eRx Transmitted during this visit (Medicare only) Rei Multani MD Start: 01-16-2012 End: 01-16-2012 Follow Up Appt 6 months Rei Multani MD Start: 01-16-2012 End: 01-19-2012 Nuclear stress test -exercise Rei Multani MD Start: 12-21-2011 End: 01-15-2012 *Hepatic Function Panel Rei Multani MD Start: 12-21-2011 End: 01-15-2012 Lipid 1996 panel - Serum or Plasma Rei Multani MD Start: 06-28-2011 End: 06-28-2011 Ecg routine ecg w/least 12 lds w/i&r Rei Multani MD Start: 06-28-2011 End: 06-28-2011 Follow Up Appt 6 months Rei Multani MD Start: 04-13-2007 History of coronary artery bypass grafting H/O coronary artery bypass surgery Dr. Gabe Rodriguez Work Phone: Comment on above: CABG x 3 ARORA-LAD, S VG-PDA, SVG-PLB Cx 04/13/2007 History of coronary artery bypass grafting Hx of CABG Dr. Gabe Rodriguez Work Phone: Plan of Treatment Date Care Activity Detail Author Start: 08-23-2023 [facility] Start: 08-17-2023 [facility] Start: 08-17-2023 Plain chest X-ray Chest 1 View (Portable) [facility] Start: 08-17-2023 XR Chest Single view [facility] Start: 11-01-2022 Colonoscopy w/biopsy single/multiple COLONOSCOPY AND BIOPSY [facility] Start: 11-01-2022 Egd transoral biopsy single/multiple EGD BIOPSY SINGLE/MULTIPLE [facility] Start: 11-01-2022 Patient discharge [facility] Start: 10-09-2017 End: 10-09-2017 Appointment Appointment [facility] Work Phone: Start: 08-28-2017 End: 03-02-2017 *Hepatic Function Panel *Hepatic Function Panel [facility] Work Phone: Start: 08-28-2017 End: 03-02-2017 Lipid panel [AGGREGATE] *Lipid Profile CC PCP [facility] Work Phone: Start: 03-16-2017 End: 03-16-2017 Appointment Appointment [facility] Work Phone: Start: 03-16-2017 End: 03-16-2017 DJN DJN [facility] Work Phone: Start: 03-16-2017 End: 03-16-2017 Follow Up Appt 6 months Follow Up Appt 6 months [facility] Work Phone: Start: 01-26-2017 End: 02-28-2017 *Hepatic Function Panel *Hepatic Function Panel [facility] Work Phone: Start: 01-26-2017 End: 02-28-2017 Lipid panel [AGGREGATE] *Lipid Profile CC PCP [facility] Work Phone: Start: 09-05-2016 End: 09-05-2016 DJN MANDYN [facility] Work Phone: Start: 09-05-2016 End: 09-05-2016 Follow Up Appt 6 months Follow Up Appt 6 months [facility] Work Phone: Start: 07-27-2016 End: 07-27-2016 *Hepatic Function Panel *Hepatic Function Panel [facility] Work Phone: Start: 07-27-2016 End: 07-27-2016 Lipid panel [AGGREGATE] *Lipid Profile CC PCP [facility] Work Phone: Start: 03-04-2016 End: 03-04-2016 DJN DJN [facility] Work Phone: Start: 03-04-2016 End: 03-04-2016 Follow Up Appt 6 months Follow Up Appt 6 months [facility] Work Phone: Start: 08-28-2015 End: 02-29-2016 *Hepatic Function Panel *Hepatic Function Panel [facility] Work Phone: Start: 08-28-2015 End: 02-29-2016 Lipid panel [AGGREGATE] *Lipid Profile CC PCP [facility] Work Phone: Start: 03-02-2015 End: 03-02-2015 DJN DJN [facility] Work Phone: Start: 03-02-2015 End: 03-02-2015 Follow Up Appt 1 year Follow Up Appt 1 year [facility] Work Phone: Start: 02-27-2015 End: 02-27-2015 *Hepatic Function Panel *Hepatic Function Panel [facility] Work Phone: Start: 02-27-2015 End: 02-27-2015 Lipid panel [AGGREGATE] *Lipid Profile CC PCP [facility] Work Phone: Start: 01-28-2014 End: 01-28-2014 *Hepatic Function Panel *Hepatic Function Panel [facility] Work Phone: Start: 01-28-2014 End: 01-28-2014 SAUD GALVANN [facility] Work Phone: Start: 01-28-2014 End: 01-28-2014 Follow Up Appt 1 year Follow Up Appt 1 year [facility] Work Phone: Start: 01-28-2014 End: 01-28-2014 Lipid panel [AGGREGATE] *Lipid Profile CC PCP [facility] Work Phone: Start: 01-28-2014 End: 01-28-2014 Stress Echocardiogram (treadmill) Stress Echocardiogram (treadmill) [facility] Work Phone: Start: 01-27-2014 End: 01-28-2014 *Hepatic Function Panel *Hepatic Function Panel [facility] Work Phone: Start: 01-27-2014 End: 01-28-2014 Lipid panel [AGGREGATE] *Lipid Profile CC PCP [facility] Work Phone: Start: 04-01-2013 End: 01-27-2014 *Hepatic Function Panel *Hepatic Function Panel [facility] Work Phone: Start: 04-01-2013 End: 01-27-2014 Lipid panel [AGGREGATE] *Lipid Profile CC PCP [facility] Work Phone: Start: 01-18-2013 End: 01-18-2013 SAUD VILLAVICENCIO [facility] Work Phone: Start: 01-18-2013 End: 01-18-2013 Follow Up Appt 1 year Follow Up Appt 1 year [facility] Work Phone: Start: 01-09-2013 End: 01-07-2013 *Hepatic Function Panel *Hepatic Function Panel [facility] Work Phone: Start: 07-18-2012 End: 01-07-2013 *Hepatic Function Panel *Hepatic Function Panel [facility] Work Phone: Start: 07-18-2012 End: 01-07-2013 Lipid panel [AGGREGATE] *Lipid Profile [facility] Work Phone: Start: 07-13-2012 End: 07-13-2012 Follow Up Appt 6 months Follow Up Appt 6 months [facility] Work Phone: Start: 01-16-2012 End: 01-16-2012 Follow Up Appt 6 months Follow Up Appt 6 months [facility] Work Phone: Start: 01-16-2012 End: 01-16-2012 Nuclear stress test -exercise Nuclear stress test -exercise [facility] Work Phone: Start: 12-21-2011 End: 01-15-2012 *Hepatic Function Panel *Hepatic Function Panel [facility] Work Phone: Start: 12-21-2011 End: 01-15-2012 Lipid panel [AGGREGATE] *Lipid Profile [facility] Work Phone: Start: 06-28-2011 End: 06-28-2011 Ecg routine ecg w/least 12 lds w/i&r EKG (In office) [facility] Work Phone: Start: 06-28-2011 End: 06-28-2011 Follow Up Appt 6 months Follow Up Appt 6 months [facility] Work Phone: Colonoscopy [facility] Patient Education [facility] Work Phone: Patient referral [facility] Work Phone: [facility] Immunizations Immunization Date Immunization Notes Care Provider Dionisio muir 11-25-2022 tetanus toxoid, redu dale diphtheria toxoid, and acellular pertussis vaccine, adsorbed Dr. Gabe Rodriguez Work Phone: [facility] 08-28-[address] Valerie Rodriguez Work Phone: [facility] Work Phone: 08-28-2018 pneumococcal vaccine , unspecified formulation Dr. Gabe Rodriguez Work Phone: [facility] 08-21-2018 tetanus toxoid, redu dale diphtheria toxoid, and acellular pertussis vaccine, adsorbed Dr. Gabe Rodriguez Work Phone: [facility] Payers Date Payer Category Payer Self-pay [id number] 2023 Unknown [id number] 2016 Unknown ANTHEM [id number] 2010 Medicare [id number] Unknown [id number] 2.16.8 [id number] Unknown [id number] 2.16.8 [id number] Unknown [id number] 2.16.8 [id number] Unknown [id number] 2.16.8 [id number] Unknown [id number] 2.16.8 [id number] Unknown [id number] 2.16.8 [id number] Unknown [id number] 2.16.8 [id number] Unknown [id number] 2.16.8 [id number] Unknown [id number] 2.16.8 [id number] Unknown [id number] 2.16.8 [id number] Unknown [id number] 2.16.8 [id number] Social History Date Type Detail Facility Start: 02-07-2022 End: 03-06-2023 Tobacco smoking status NHIS Unknown if ever smoked [facility] Start: 08-25-2018 None [facility] Start: 08-25-2018 Spouse/ Signif icant Other [facility] Start: 06-19-2019 Non-smoker [facility] Start: 1945 Sex Assigned At Male [facility] Start: 11-16-2023 Tobacco smoking status NHIS Ex-smoker (finding) [facility] Goals Date Patient Goal Desired Activity /State Mental Status Date Assessment Result Facility 08-23-2023 Cognitive function Level Of Cons ciousness Awake;Alert;Appropriate;Follow s Commands [facility] Work Phone: 11-01-2022 Cognitive function Touch/Shaking [facility] Work Phone: 11-01-2022 Cognitive function Patient Orien tation Person;Place;Time [facility] Work Phone: Clinical Notes 11-01-2022 to 09-06-2024 Note Date & Type Note Facility 09-06-2024 Radiology Diagnostic study note [facility] Imaging Services [address] [place] [address] Shoulder min 2 Views MR#: [id number] Acct: [id number] Name: ALHAJI BANUELOS Rep #: [id number] : 1945 M 78 From: Maria G Gómez MD PCP: Dr. Gabe Rodriguez MD Status: REG C ADITHYA Study:Shoulder min 2 Views Date of Exam: 09/06/24 Exam# [id number] Ordering Dr: Gabe Rodriguez MD EXAM: XR Right Shoulder Complete, 2 or More Views CLINICAL INDICATION: PAIN TECHNIQUE: Two or more views of the right shoulder. COMPARISON: No relevant prior studies available. FINDINGS: BONES/JOINTS: Mild degenerative change of the acromioclavicular and glenohumeral joints. No acute fracture. No dislocation. SOFT TISSUES: Unremarkable. RAD/Shoulder min 2 Views IMPRESSION: No acute fracture. Reading Location: [facility] CC: Dr. Gabe Rodriguez MD ~ Management Associate: Signed [facility] 06-28-2024 Evaluation note Diagnosis Onset Date Resolution PVD (peripheral vascular disease) acute June 28, 2024 10:17am Atherosclerosis of coronary artery of shawnee heart without angina pectoris chronic June 28, 2024 10:17am Hyperlipemia chronic June 28, 2024 10:17am Hypertension chronic June 28, 2024 10:17am [facility] Work Phone: 1(977) 936-973705-02-2024 Hospital Discharge instructions Additional Instructions You have a bruise on your left lower leg. It will take weeks to resolve. Ice and elevate is much as possible this will take away the bruise and the swelling. I reviewed your recent test from August 16 they all look good. I reviewed your recent echocardiogram from April your ejection fraction was very good at 65%. You need no further workup today. Follow-up with Dr. Gabe Rodriguez as needed. [facility] Work Phone: 1(245) 840-868707-18-2023 History and physical note Author Carlos Alberto Jensen [facility] November 01, 2022 7:02am Note Date/Time November 01, 2022 7:02 am [facility] Medical Records Department [address] [place] [address] History & Physical Exam 11/01/22 0702 MR#: [id number] Acct: [id number] Name: ALHAJI BANUELOS Rep #:[id number] : 1945 76 From: Carlos Alberto Jensen MD PCP: Dr. Gabe Rodriguez MD Status:REG S MA Location: [place] [address] History and Physical Date of Admission: 11/01/22 Chief Complaint: c-scope Research Project Coordinator Required: No Is patient in pain?: No Allergies No Known Allergies Allergy (Verified 10/10/22 07:20) Medications aspirin 81 mg tablet,delayed release 81 mg PO DAILY@0800 [facility] 08/21/18 [History Confirmed 06/14/22] amlodipine 10 mg tablet 10 mg PO DAILY 10/10/22 [History] atorvastatin 80 mg tablet (Lipitor) 80 mg PO DAILY 10/10/22 [History] clopidogrel 75 mg tablet (Plavix) 75 mg PO DAILY 10/10/22 [History] hydrochlorothiazide 25 mg tablet 25 mg PO DAILY 10/10/22 [History] losartan 25 mg tablet 25 mg PO DAILY 10/10/22 [History] melatonin 3 mg capsule 3 mg PO HS PRN 10/10/22 [History] omega-3 fatty acids-fish oil 360 mg-1,200 mg capsule (Fish Oil) 1 cap PO DAILY 10/10/22 [History] PFSH Medical History Arthrosis of left acromioclavicular joint Atherosclerosis of coronary artery of shawnee heart without angina pectoris Bilateral carotid bruits Dyspnea on exertion Hyperlipemia Hypertension Internal impingement of left shoulder Lower GI bleed 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 Pneumonia Primary osteoarthritis, left shoulder Renal artery aneurysm Surgical History H/O colonoscopy with polypectomy H/O coronary artery bypass surgery (04/13/07) History of left heart catheterization (06/19/19) 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 Gabe Rodriguez for surgical consultation regarding colonoscopy and a written compromise surgical consult recommendations will return to him. Previous colonoscopy was per Dr. Santos Irizarry November 29, 2011. There was a sessile polyp within the right colon that required a snare polypectomy and additional polyp in the sigmoid that was removed with cold forceps.Dr. Irizarry recommended that he follow-up with a colonoscopy at 3 to 5 years. I do not have pathology on the polyps.The patient does have a history of atherosclerotic cardiovascular disease and has had coronary bypass grafting 2006. Among his other medications he is on clopidogrel and does dose aspirin therapy as well as omega- 3 fatty acids. At his most recent cardiology visit of January 2022 he was felt to be stable. Intermittently occasion noticed some dark stools. Does not notice any bright red stools. For a long time he has had intermittent reflux symptoms. He is not on any chronic medications. Spicy foods will do it. He has never had an upper endoscopy. He does occasionally take Tums to help with the symptoms. He says he stays very active he likes gardening and goes fishing. He has not had any chest pain no shortness of breath. No history of DVT. Just intermittent swelling of the left leg where he had his previous vein harvesting. ROS General General: No weight change, appetite, fatigue, colon cancer, breast cancer or weakness HEENT HEENT: No difficulty swallowing, eye injury, eye surgery, swollen glands or hoarseness Endo Endocrine: No thyroid disease, diabetes mellitus, thyroid cancer, Hair loss, heat intolerance or cold intolerance Skin Skin: No rash or changing moles Breast Breast: No left breast lump, right breast lump, nipple discharge, breast pain, abnormal mammogram, abnormal US or breast enlargement Musc Musculoskeletal: Yes back problems and arthritis; No rheumatoid arthritis, gout or joint pain Cardio Cardiovascular: Yes heart disease and heart attack; No murmur, pacemaker, atrial fibrillation, high blood pressure, heart stent, palpitations, shortness of breat with exertion or chest pain Psych Psychiatric: No depression, anxiety or hearing voices Resp Respiratory: Yes shortness of breath, No sleep apnea, Yes cough, Yes COPD, No asthma, Yes emphysema and No wheezing Gastro Gastrointestinal: No abdominal pain, No nausea or vomiting, No diarrhea, No constipation, No blood in stool, Yes acid reflux, No hemorrhoids, No ulcers, No gallbladder problem and No black,tarry stools Jay Hematologic: Yes blood thinners, No blood disorders, No bleeding, No anemia and No blood clots Neuro Neurologic: No system reviewed and no additional complaints, except as documented, No as per HPI, No abnormal gait, No abnormal hearing, No abnormal movements, No abnormal speech, No behavioral changes, No burning sensations, No confusion, No convulsions, No disequilibrium, No dizziness, No localized weakness, No frequent falls, No headache(s), No lack of coordination, No loss of vision, No memory loss, No numbness, No other visual disturbances, No radicular pain, No restless legs, No sensory deficit, No syncope, No tingling, No tremor(s), No weakness and No other Exam Const General: cooperative, comfortable and no acute distress Nutritional Appearance: average body habitus Orientation: alert and awake [facility] Head: normal to inspection Eyes General: appearance normal, both eyes and all related structures Neck Neck: normal visual inspection Chest Other: Increased AP diameter Resp Effort & Inspection: normal respiratory effort Auscultation: clear to auscultation bilaterally Cardio Rate: regular rate Rhythm: regular rhythm GI Palpation: soft and no hepatosplenomegaly Auscultation: normal bowel sounds Skin General: no rashes or lesions noted Neuro General: patient alert, patient awake and patient oriented x3 Extrem General: no calf tenderness Other: Minimal swelling left ankle over the right. Psych Appearance: grossly normal Assessment and Plan Assessment and Plan (1) Personal history of colonic polyps: Status: Acute Plan: The patient's had long-term reflux symptoms but has never had a esophagogastroduodenoscopy. He has a personal history of colon polyps. I propose for him a combined esophagogastroduodenoscopy with possible biopsy and colonoscopy with possible biopsy or polypectomy as indicated. He is aware of the technique, benefit, risk, alternatives. He has had an opportunity to ask and have questions answered. We will schedule and proceed as noted. I appreciate the opportunity of assisting with the surgical care. Copy: Dr. Gabe Jensen M.D., F.A.C.S. I have examined the patient and the H&P has been reviewed. There are no clinical changes since date of exam. Carlos Alberto Jensen M.D., F.A.C.S. 11/01/22 0702 <Electronically signed by Carlos Alberto Jensen MD> Cosigner Signature (if applicable): CC: Dr. Gabe Rodriguez MD; Dr. Carlos Alberto Jensen MD~ Signed [facility] Work Phone: 1(542) 429-555507-18-2023 [facility] Procedure note [facility]07-18-2023 [facility] Evaluation note* Diagnosis Onset Date Resolution Status Atherosclerosis of coronary artery of shawnee heart without angina pectoris chronic Hyperlipemia chronic Hypertension [facility] Work Phone: Evaluation note* Diagnosis Onset Date Resolution Status Arthrosis of left acromioclavicular joint acute Internal impingement of left shoulder acute Primary osteoarthritis, left shoulder acute Arthrosis of left acromioclavicular joint acute Internal impingement of left shoulder acute [facility] Work Phone: Evaluation note* Diagnosis Onset Date Resolution Status GERD (gastroesophageal reflux disease) acute Personal history of colonic polyps acute Left carotid bruit acute Atherosclerosis of coronary artery of sh[place] heart without angina pectoris chronic Hyperlipemia chronic Hypertension [facility] Work Phone: Evaluation note* Diagnosis Onset Date Resolution Status GERD (gastroesophageal reflux disease) acute Personal history of colonic polyps acute Left carotid bruit acute Atherosclerosis of coronary artery of [place] heart without angina pectoris chronic Hyperlipemia chronic Hypertension chronic Laceration of left index fin niru w/o foreign body w/o damage to nail acute [facility] Work Phone: Evaluation note* Diagnosis Onset Date Resolution Status Laceration of left index fin niru w/o foreign body w/o damage to nail acute Laceration of left index fin niru w/o foreign body w/o damage to nail acute Cardiac murmur acute Left carotid bruit acute Atherosclerosis of coronary artery of [place] heart without angina pectoris chronic Hyperlipemia chronic Hypertension [facility] Work Phone: Evaluation noteNo assessment information available [facility] Work Phone: Evaluation note* Diagnosis Onset Date Resolution Status Cardiac murmur acute Left carotid bruit acute Atherosclerosis of coronary artery of sh[place] heart without angina pectoris chronic Hyperlipemia chronic Hypertension [facility] Work Phone: Reason for referral (narrative)No reason for referral information [facility] Work Phone: Chief Complaint and Reason for Visit Chief Complaint 6 M FU Reason for Visit Atherosclerosis of c oronary artery of shawnee heart without angina pectoris Hyperlipemia Hypertension Chief Complaint 6 M FU SHOULDER PAIN RX HERE Reason for Visit Atherosclerosis of c oronary artery of shawnee heart without angina pectoris Hyperlipemia Hypertension Chief Complaint SHOULDER PAIN RX HER E LEFT SHOULDER R/O RC TEAR LEFT SHOULDER Reason for Visit Arthrosis of left ac romioclavicular joint Internal impingement of left shoulder Primary osteoarthritis, 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 Internal impingement of left shoulder Chief Complaint C-Scope Consult 6 M FU(DJN) LEFT CAROTID BRUIT E ORDERS Reason for Visit GERD (gastroesophage al reflux disease) Personal history of colonic polyps Left carotid bruit Atherosclerosis of coronary artery of sh[place]nee heart without angina pectoris Hyperlipemia Hypertension Chief Complaint C-Scope Consult 6 M FU(DJN) LEFT CAROTID BRUIT E ORDERS CUT LEFT INDEX FINGER WOUND CHECK Reason for Visit GERD (gastroesophage al reflux disease) Personal history of colonic polyps Left carotid bruit Atherosclerosis of coronary artery of shawnee heart without angina pectoris Hyperlipemia Hypertension Laceration of left index finger w/o foreign body w/o damage to nail Chief Complaint CUT LEFT INDEX FINGE R WOUND CHECK FU STICH REMOVAL INT LABS 6 M FU Reason for Visit Laceration of left i ndex finger w/o foreign body w/o damage to nail Laceration of left index finger w/o foreign body w/o damage to nail Cardiac murmur Left carotid bruit Atherosclerosis of coronary artery of [place] heart without angina pectoris Hyperlipemia Hypertension Chief Complaint OTHER SPECIFIED POST PROCEDURAL STATES GOUT Chief Complaint OTHER SPECIFIED POST PROCEDURAL STATES GOUT DIZZINESS, LEG SWELLLING Chief Complaint OTHER SPECIFIED POST PROCEDURAL STATES GOUT DIZZINESS, LEG SWELLLING SWELLING Chief Complaint INT LABS 6 M FU OTHER SPECIFIED POSTPROCEDURAL STATES Reason for Visit Cardiac murmur Left carotid bruit Atherosclerosis of coronary artery of [place] heart without angina pectoris Hyperlipemia Hypertension Chief Complaint Admit Date 9 M FU June 28, 2024 10: 17am RIGHT SHOULDER PAIN September 06, 2024 10:58 am Reason for Visit Admit Date PVD (peripheral vascular disease) June 28, 2024 10:17am Atherosclerosis of coronary artery of [place] heart without angina pectoris June 28, 2024 10:17am Hyperlipemia June 28, 2024 10: 17am Hypertension June 28, 2024 10: 17am Advance Directives No Advanced Directives Records Found Advance Directive Response Recorded Date/ Time Advance Directives No June 18 9:15am Living Will No June 19, 2019 9:15am Power of Maori Liaison Adviser No June 18 0 9:15am Advance Directive Response Recorded Date/ Time Advance Directives No June 18 8:15am Living Will No June 19, 2019 8:15am Power of Maori Liaison Adviser No June 18 0 8:15am Advance Directive Response Recorded Date/ Time Name of Medical Power of Maori Liaison Adviser October 28, 2022 1:35pm Advance Directives No June 18 9:15am Living Will Yes October 28, 2022 1:35pm Power of Maori Liaison Adviser Yes October 28 1:35pm Advance Directive Response Recorded Date/ Time Name of Medical Power of Maori Liaison Adviser October 28, 2022 1:35pm Name of Medical Power of Maori Liaison Adviser MIESHA November 25, 2022 8:06pm Advance Directives No November 25, 2022 8:48am Living Will Yes November 25 8:06pm Power of Maori Liaison Adviser Yes November 25, 023 8:06pm Advance Directive Response Recorded Date/ Time Name of Medical Power of Maori Liaison Adviser MIESHA November 25, 2022 7:06pm Advance Directives No November 25, 2022 7:48am Living Will Yes November 25 7:06pm Power of Maori Liaison Adviser Yes November 25, 023 7:06pm Advance Directive Response Recorded Date/ Time Advance Directives No November 25, 2022 8:48am Living Will Yes November 25 8:06pm Power of Maori Liaison Adviser Yes November 25 023 8:06pm Advance Directive Response Recorded Date/ Time Name of Medical Power of Maori Liaison Adviser August 17, 2023 2:01pm Advance Directives No November 25, 2022 8:48am Living Will Yes August 17, 2023 2: 01pm Power of Maori Liaison Adviser Yes August 17, 2023 2:01pm Advance Directive Response Recorded Date/ Time Name of Medical Power of Maori Liaison Adviser August 17, 2023 2:01pm Name of Medical Power of Maori Liaison Adviser Miesha Banuelos August 23, 2023 11:21am Advance Directives No November 25, 2022 8:48am Living Will Yes August 23, 2023 11 :21am Power of Maori Liaison Adviser Yes August 23, 2023 11:21am Advance Directive Response Recorded Date/ Time Advance Directives No November 25, 2022 7:48am Living Will Yes November 25 7:06pm Power of Maori Liaison Adviser Yes November 25 7:06pm Advance Directive Response Recorded Date/ Time Advance Directives No November 25, 2022 8:48am Summary Purpose Family History No Family History Records Found Additional Source Comments Goals (unrecognized section and content) Goals may be documented in a n alternate sectionGoals may be documented in an alternate sectionGoals may be documented in an alternate sectionGoals may be documented in an alternate sectionGoals may be documented in an alternate sectionGoals may be documented in an alternate sectionGoals may be documented in an alternate sectionGoals may be documented in an alternate sectionGoals may be documented in an alternate sectionGoals may be documented in an alternate sectionGoals may be documented in an alternate section Care Teams (unrecognized sec tion and content) Team Status: Active Member Role Status Dates Dr. Gabe Rodriguez MD Family Provider Active Dr. Gabe Rodriguez MD Primary Care Provider Active Team Status: Inactive Member Role Status Dates Dr. Gabe Rodriguez MD Primary Care Provider, Referring Provider Active Morales Lockett MD Attending Provider Active Team Status: Inactive Member Role Status Dates Dr. Gabe Rodriguez MD Primary Care Provi nikole, Attending Provider, Referring Provider Active Team Status: Inactive Member Role Status Dates Dr. Gabe Rodriguez MD Primary Care Provider Active Morales Lockett MD Attending Provider, Referring Prov ider Active Team Status: Inactive Member Role Status Dates Dr. Gabe Rodriguez MD Primary Care Provider, Referring Provider Active Dr. Carlos Alberto Jensen MD Attending Provider Active Team Status: Inactive Member Role Status Dates Dr. Gabe Rodriguez MD Primary Care Provider, Referring Provider Active Dr. Dimas Bruner MD Active Natividad Worthington PA, PA Attending Provider Active Team Status: Active Member Role Status Dates Dr. Gabe Rodriguez MD Primary Care Provider Active Dr. Carlos Alberto Jensen MD Attending Provider Active Team Status: Inactive Member Role Status Dates Dr. Gabe Rodriguez MD Primary Care Provider, Attending Provider Active Team Status: Inactive Member Role Status Dates Dr. Gabe Rodriguez MD Primary Care Provider Active Natividad MCGOWAN PA Attending Provider, Referr ing Provider Active Team Status: Active Member Role Status Dates Dr. Gabe Rodriguez MD Primary Care Provider Active Dr. Carlos Alberto Jensen MD Attending Provider Active Natividad Worthington PA, PA Referring Provider Active Team Status: Active Member Role Status Dates Dr. Gabe Rodriguez MD Primary Care Provider, Referring Provider Active Dr. Carlos Alberto Jensen MD Attending Provider, Other Prov ider Active Team Status: Inactive Member Role Status Dates Dr. Gabe Rodriguez MD Primary Care Provider, Referring Provider Active Dami MCGOWAN, PA Attending Provider Active Team Status: Inactive Member Role Status Dates Dr. Gabe Rodriguez MD Primary Care Provider Active Dr. Ashish Agrawal DO Emergency Provider Active Team Status: Inactive Member Role Status Dates Dr. Gabe Rodriguez MD Primary Care Provider, Referring Provider Active Natividad MCGOWAN, PA Attending Provider Active Team Status: Inactive Member Role Status Dates Dr. Gabe Rodriguez MD Primary Care Provider Active Dr. Ashish Agrawal DO Attending Provider, Emergency P gisela Active Team Status: Active Member Role Status Dates Dr. Gabe Rodriguez MD Primary Care Provider Active Dr. Carlos Rae MD Attending Provider Active Team Status: Inactive Member Role Status Dates Dr. Gabe Rodriguez MD Primary Care Provider Active Dr. Deedee Oleary MD Emergency Provider Active Team Status: Active Member Role Status Dates Dr. Gabe Rodriguez MD Primary Care Provider Active Dr. Carlos Alberto Jensen MD Attending Provider Active Dr. Deedee Oleary MD Referring Provider Active Team Status: Inactive Member Role Status Dates Dr. Gabe Rodriguez MD Primary Care Provider Active Dr. Deedee Oleary MD Attending Provider, Emergency Provider Active Team Status: Inactive Member Role Status Dates Dr. Gabe Rodriguez MD Primary Care Provider Active Dr. Olman Cadet MD Emergency Provider Active Team Status: Inactive Member Role Status Dates Dr. Gabe Rodriguez MD Primary Care Provider Active Start: June 28, 2024 End: June 28, 2024 Dr. Gabe Rodriguez MD Referring Provider Active Start: June 28, 2024 End: June 28, 2024 Dr. Jose Anderson MD Attending Provider Active Start: June 28, 2024 End: June 28, 2024 Team Status: Inactive Member Role Status Dates Dr. Gabe Rodriguez MD Primary Care Provider Active Start: September 06, 2024 End: September 06, 2024 Dr. Gabe Rodriguez MD Attending Provider Active Start: September 06, 2024 End: September 06, 2024 Dr. Gabe Rodriguez MD Referring Provider Active Start: September 06, 2024 End: September 06, 2024 (unrecognized sect ion and content) No Status Records Found INFORMATION SOURCE (unrecogn ized section and content) DATE CREATED AUTHOR 09/12/2024 [facility] FOR RECORDS PERTAINING TO PATIENTS WHO ARE [...] BE BASED ON THE PRIMARY CLINICAL RECORDS. [employer] provides no warranty or guarantee of the accuracy or completeness of information in this document.
[2024-12-08 19:16] LABS: Free T3 2.2 pg/mL (2.18-3.98); Pro- Brain NATRIURETIC PEPTIDE 221 pg/mL (<=1800)
[2024-12-08 20:11] LABS: Troponin T High Sens 2 HR 12 ng/L (<=22)
--- NOTE | 2024-12-08 22:07 | ED.RN ---
patient wanting to leave due to home responsibilities. This nurse explained doctor was not available due to an emergency. patient decided to leave without speaking with doctor and will follow up with PCP and Cardiology. doctor updated.
== END 2024-12-08 22:10 | disposition left against medical advice (07) ==
PROVIDERS: Emergency Provider Emergency Medicine; PCP Family Medicine; Visit Provider Emergency Medicine
DX: R06.02 Shortness of breath (principal); I11.0 Hypertensive heart disease with heart failure; J43.9 Emphysema, unspecified; I73.9 Peripheral vascular disease, unspecified; R53.1 Weakness; Z87.891 Personal history of nicotine dependence; E78.00 Pure hypercholesterolemia, unspecified; I25.10 Atherosclerotic heart disease of native coronary artery without angina pectoris; K21.9 Gastro-esophageal reflux disease without esophagitis
CPT/HCPCS: 71046; 80048; 83880; 84439; 84443; 84481; 84484; 85025; 93005; 94760; 96360; 96361; 99283